=== PATIENT | male | born 1945 | race African-American/Black ===

== ENCOUNTER 2020-08-18 04:19 | Day surgery (SDC) | payer OTHER ==
[2020-08-16 19:01] VITALS: BMI 33.9
--- OUTSIDE RECORDS SUMMARY | 2020-08-18 04:35 | XMS ---
:1945 Author Organization [facility] Care Team Providers Name Role Phone MD Yajaira Lea Unavailable Unavailable Samuel, Jd Unavailable Unavailable Maynor, Deshawn Unavailable Unavailable Karlee, Chapo Unavailable Unavailable Kaniefrod, Josesito Unavailable Unavailable Other, Doctor Unavailable Unavailable MD Scott Lea Unavailable Unavailable Re-disclosure Warning The records that you are about to access may contain information from federally- assisted alcohol or drug abuse programs. If such information is present, then the following federally mandated warning applies: This information has been disclosed to you from records protected by federal confidentiality rules (42 CFR part 2). The federal rules prohibit you from making any further disclosure of this information unless further disclosure is expressly permitted by the written consent of the person to whom it pertains or as otherwise permitted by 42 CFR part 2. A general authorization for the release of medical or other information is NOT sufficient for this purpose. The Federal rules restrict any use of the information to criminally investigate or prosecute any alcohol or drug abuse patient.The records that you are about to access may contain highly sensitive health information, the redisclosure of which is protected by Article 27-F of the [facility] Public Health law. If you continue you may haveaccess to information: Regarding HIV / AIDS; Provided by facilities licensed or operated by the [facility] Office of Mental Health; or Provided by the [facility] Office for People With Developmental Disabilities. If such information is present, then the following [facility] mandated warning applies: This information has been disclosed to you from confidential records which are protected by state law. State law prohibits you from making any further disclosure of this information without the specific written consent of the person to whom it pertains, or as otherwise permitted by law. Any unauthorized further disclosure in violation of state law may result in a fine or chcf sentence or both. A general authorization for the release of medical or other information is NOT sufficient authorization for further disclosure. Encounters Encounter Providers Location Date Indications Data Source(s ) Outpatient Attender: MD Gates 5T-RAD DEPT 08/09/2020 [facility] 10:40:00 AM Hospital EDT - 08/09/2020 11:59:00 PM EDT Patient discharged. Inpatient Attender: Jd Davis5T 06/26/2020 K92.2 Lower [facility] KooAttender: Chapo 09:57:00 PM EDT - GI bleed [facility] DysonAttender: Doctor 06/27/2020 OtherAdmitter: 11:25:00 AM EDT Jd Samuel K92.2 Lower GI bleed Patient discharged. Outpatient Attender: MD Chavez 5T-RAD DEPT 08[facility]06[facility]2019 [facility] RED[facility] - 08/06/2019 [facility] 11:59:00 PM EDT Patient discharged. Emergency Attender: Josesito 5T-EMERG 06/28/2019 03:05[facility] 04:46:00 PM EDT HIGH BLOOD SUGAR Patient discharged. Emergency Attender: Deshawn 5T-EMERG 10/31/2018 10:15:00 CHEST PAIN [facility] Maynor EST - 10/31/2018 [facility] 03:50:00 PM EST CHEST PAIN Immunizations Vaccine Date Status Description Data Source(s) Tdap 06/20/2018 12:00:00 completed Tdap On: 20-Jun-[address] [facility] EDT Lot #: [id number] System Medications Medication Brand Start Product Dose Route Administrative [facility] Indications Reaction Description Data Name Date Form Instructions Instructions Source(s) Simvastatin simvastatin 06/27/2020 1 [id number] active simvastatin 10 mg oral tablet; 1 tab(s) orally once a day (at bedtime) Ordered: 27-Jun-2020 Start: 27-Jun-2020 [facility] 10 MG Oral 10 mg oral 11:02:45 AM {tab(s)} Quantity: 0 Martita Rich Health Tablet tablet EDT Refills: 0 System simvastatin 10 mg oral tablet Verapamil verapamil 06/02/2018 1 [id number] complet verapamil 240 mg/12 hours oral tablet, extended release; 1 tab(s) orally once a day Ordered: 02-Jun-2018 Start: 02-Jun-2018 [facility] hydrochlorid 240 mg/12 09:51:07 AM {tab(s)} ed Quantity: 0 Rody Cherry Status: No Longer Active Health e 240 MG hours oral EDT Refills: 0 System Extended tablet, Release Oral extended Tablet release verapamil 240 mg/12 hours oral tablet, extended release Simvastatin simvastatin 06/02/2018 1 [id number] aborted simvastatin 10 mg oral tablet; 1 tab(s) orally once a day (at bedtime) Ordered: 02-Jun-2018 Start: 02-Jun-2018 [facility] 10 MG Oral 10 mg oral 09:51:03 AM {tab(s)} Quantity: 0 oRdy Cherry Status: Discontinued Health Tablet tablet EDT Refills: 0 System simvastatin 10 mg oral tablet Benazepril benazepril 5 06/02/2018 1 [id number] complet benazepril 5 mg oral tablet; 1 tab(s) orally once a day Ordered: 02-Jun-2018 Start: 02-Jun-2018 [facility] hydrochlorid mg oral 09:50:34 AM {tab(s)} ed Quantity: 0 Rody Cherry Status: No Longer Active Health e 5 MG Oral tablet EDT Refills: 0 System Tablet benazepril 5 mg oral tablet Atropine Sulfate 0.025 diphenoxylate-atropine 07/11/2017 2 C3828 8 aborted Lomotil [facility] MG / Diphenoxylate 2.5 mg-0.025 mg oral 10:07:51 AM {tab(s)} Health Hydrochloride 2.5 MG tablet EDT System Oral Tablet diphenoxylate-atropine 2.5 mg-0.025 mg oral tablet Caution federal law prohibits the transf er of this drug to any person other than the person for whom it was prescribed.May ca use drowsiness. Alcohol may intensify this effect. Use care when operating [employer]. Acetaminophen 325 MG / oxyCODONE-acetaminophen 07/11/2017 1 C 73371 completed Acetaminophen-OxyCODONE [facility] Oxycodone Hydrochloride 5 mg-325 mg oral tablet 08:25:28 AM {tab(s)} Hydrochloride Health 5 MG Oral Tablet EDT Sys tem oxyCODONE-acetaminophen 5 mg-325 mg oral tablet Caution federal law prohibits the transf er of this drug to any person other than the person for whom it was prescribed.May ca use drowsiness. Alcohol may intensify this effect. Use care when operating [employer].This prescription cannot be refilled.This product contains acetamino phen. Do not use with any other product containing acetaminophen to prevent poss ible liver damage.Using more of this medication than prescribed may cause ser ious breathing problems. Sulfamethoxazole 800 MG / sulfamethoxazole-trimethoprim 07/11/2017 1 I39475 aborted Sulfamethoxazole-Trimethoprim [facility] Trimethoprim 160 MG Oral 800 mg-160 mg oral tablet 08:24:21 AM {tab( s)} DS Health Tablet EDT System sulfamethoxazole-trimethoprim 800 mg-160 mg oral tablet Avoid prolonged or excessive exposure to direct and/or artificial sunlight while taking this medication.Finish all this m edication unless otherwise directed by prescriber.Medication should be taken wi th plenty of water. Naproxen 500 EC-Naprosyn 04/08/2016 1 P51024 complet ed EC-Naprosyn 500 mg oral delayed release tablet; 1 tab(s) orally 2 times a day, As Needed - PRN PAIN Ordered: 08-Apr-2016 Start: 08-Apr-2016 End: 08-May-2016 [facility] MG Delayed 500 mg oral 12:42:23 PM {tab(s)} Quantity: 20 Les Momin Status: No Longer Active Health Release Oral delayed EDT Refills: 0 Generic Substitution Allowed System Tablet release Comme nts: Check with your doctor before becoming .It is very important that you take or use this exactly as directed. Do not skip doses or discontinue unless directed by your doctor.May cause drowsiness [Naprosyn] tablet EC-Naprosyn 500 mg oral delayed release tablet Check with your doctor before becoming p regnant.It is very important that you take or use this exactly as directed. Do not sk ip doses or discontinue unless directed by your doctor.May cause drowsiness or dizz iness.Obtain medical advice before taking any non-prescription drugs as some may affec t the action of this medication.Swallow whole. Do not crush.Take with food or m ilk. 200 ACTUAT ipratropium 11/30/2015 1 [id number] completed ipratropium CFC free 17 mcg/inh inhalation aerosol; 1 puff(s) inhaled 2 times a day Ordered: 30-Nov-2015 Start: 30-Nov-2015 [facility] Ipratropium CFC free 17 10:49:38 AM {puff(s)} Quantity: 0 Unique Fine Status: No Longer Active Health [place] mcg/inh EST Refills: 0 System 0.017 inhalation MG/ACTUAT aerosol Metered Dose Inhaler ipratropium CFC free 17 mcg/inh inhalation aerosol pantoprazole pantoprazole 11/30/2015 1 {tab(s)} G98940 c ompleted pantoprazole 40 mg oral delayed release tablet; 1 tab(s) orally once a day Ordered: 30-Nov-2015 Start: 30-Nov-2015 End: 20-Dec-2015 [facility] 40 MG 40 mg oral 12:00:00 AM [place] ty: 20 Unique Fine Status: No Longer Active Health Delayed delayed EST Refills: 0 System Release Oral release Tablet tablet pantoprazole 40 mg oral delayed release tablet gabapentin gabapentin 07/22/2015 1 {cap(s)} K21010 compl eted gabapentin 100 mg oral capsule; 1 cap(s) orally every 8 hours for facial pain Ordered: 22-Jul-2015 Start: 22-Jul-2015 End: 01-Aug-2015 [facility] 100 MG Oral 100 mg oral 04:12:43 PM Quantity: 30 Joselo Rosenthal Status: No Longer Active Health Capsule capsule EDT Refills: 0 Generic Substitution Allowed System gabapentin 100 mg oral capsule It is very important that you take or us e this exactly as directed. Do not skip doses or discontinue unless directed by your doctor.May cause drowsiness. Alcohol may intensify this effect. Use care whe n operating dangerous machinery. Azithromycin azithromycin 07/22/2015 1 S14362 completed Azithromycin [facility] 500 MG Oral 500 mg oral 04:12:23 PM {tab(s)} Health Tablet tablet EDT System azithromycin 500 mg oral tablet Do not take dairy products, antacids, or iron preparations within one hour of this medication.Finish all this medication un less otherwise directed by prescriber. Butalbital 0 U05342 aborted Butalbita l Compound; orally , As Needed Ordered: 22-Jul-2015 Status: Discontinued [facility] Compound Quantity: 0 Dhiraj Mashalot-[employer] Refills: 0 System 24 HR GlipiZIDE XL 1 {tab(s)} D99283 aborted GlipiZIDE [facility] Glipizide 5 5 mg oral XL Hea lth MG Extended tablet, Syste m Release Oral extended Tablet release GlipiZIDE XL 5 mg oral tablet, extended release Benazepril benazepril 1 K67467 aborted benazepril 40 mg oral tablet; 1 tab(s) orally once a day Ordered: 27-May-2015 Status: Discontinued [facility] hydrochloride 40 mg oral {tab(s)} Q uantity: 0 MauroCDEL [facility] 40 MG Oral tablet Refills: 0 System Tablet benazepril 40 mg oral tablet Atropine Sulfate 0.025 diphenoxylate-atropine 2 G94277 completed Lomotil [facility] MG / Diphenoxylate 2.5 mg-0.025 mg oral {tab(s)} Health Hydrochloride 2.5 MG tablet System Oral Tablet diphenoxylate-atropine 2.5 mg-0.025 mg oral tablet Metformin metFORMIN 1 L68521 completed metFORMIN 1000 mg oral tablet; 1 tab(s) orally 2 times a day Ordered: 27-May-2015 Status: No Longer Active [facility] hydrochloride 1000 mg {tab(s)} Sterling tity: 0 [employer] 1000 MG Oral oral Refills: 0 System Tablet tablet metFORMIN 1000 mg oral tablet Simvastatin 10 simvastati 0 C14494 aborted simvastatin 10 mg oral tablet; orally daily Ordered: 29-Nov-2015 Status: Discontinued [facility] MG Oral Tablet n 10 mg Quantit y: 0 [employer] simvastatin 10 oral Refills: 0 System mg oral tablet tablet Simvastatin simvastatin 1 {tab(s)} M57360 completed Simvastatin [facility] 20 MG Oral 20 mg oral Hea lth Tablet tablet System simvastatin 20 mg oral tablet 24 HR metoprolol 0 K43352 completed metoprolol succinate 100 mg oral tablet, extended release; orally Ordered: 27-May-2015 Status: No Longer Active [facility] metoprolol succinate Quantity: 0 Benitez [employer] succinate 100 mg oral Refills: 0 System 100 MG tablet, Extended extended Release release Oral Tablet metoprolol succinate 100 mg oral tablet, extended release Omeprazole omeprazole 1 [id number] aborted omeprazole 40 mg oral delayed release capsule; 1 cap(s) orally once a day Ordered: 27-May-2015 Status: Discontinued [facility] 40 MG 40 mg oral {c Quantity: 0 Johanna Wood Delayed delayed ap Refills: 0 System Release release (s Oral capsule )} Capsule omeprazole 40 mg oral delayed release capsule pantoprazole pantoprazole 1 {tab(s)} E00873 active Pantoprazole [facility] 40 MG Delayed 40 mg oral Health Release Oral delayed Syst em Tablet release tablet pantoprazole 40 mg oral delayed release tablet latanoprost latanoprost 1 O90189 aborted latanoprost 0.005% ophthalmic solution; 1 drop(s) to both eyes once a day (in the evening) Ordered: 10-May-2017 Status: Discontinued [facility] 0.05 MG/ML 0.005% {gtt} Quantity: 0 DerrickPriceline Ophthalmic ophthalmic Refills: 0 System Solution solution latanoprost 0.005% ophthalmic solution 24 HR Myrbetriq 25 1 Z05264 aborted Myrbet riq [facility] mirabegron 25 mg oral {tab(s)} Health MG Extended tablet, Syste m Release Oral extended Tablet release [Myrbetriq] Myrbetriq 25 mg oral tablet, extended release Benazepril benazepril 5 1 Z91152 aborted L otensin [facility] hydrochloride 5 mg oral tablet {tab(s)} Health MG Oral Tablet Syste m benazepril 5 mg oral tablet Esomeprazole 40 esomeprazole 1 E06052 completed Esomeprazole [facility] MG Delayed 40 mg oral {cap(s)} Magn esium Health Release Oral delayed Syst em Capsule release esomeprazole 40 capsule mg oral delayed release capsule Loratadine 10 loratadine 10 1 O10669 aborted Loratadine [facility] MG Oral Tablet mg oral tablet {tab(s)} Health loratadine 10 System mg oral tablet sitagliptin Januvia 1 E45752 aborted Januvia 100 mg oral tablet; 1 tab(s) orally once a day Ordered: 28-Jun-2019 Status: Discontinued [facility] 100 MG Oral 100 mg {tab(s)} Quantit y: 0 Pedrito, Zilpha Health Tablet oral Refills: 0 System [Januvia] tablet Januvia 100 mg oral tablet 24 HR metoprolol 1 {tab(s)} B06100 aborted To prol-XL [facility] metoprolol succinate Heal th succinate 200 200 mg oral System MG Extended tablet, Release Oral extended Tablet release metoprolol succinate 200 mg oral tablet, extended release Amlodipine 10 telmisartan- 1 {tab(s)} I76297 aborted AmLODIPine [facility] MG / amlodipine Besylate-Te He alth telmisartan 40 40 mg-10 mg lmi sartan System MG Oral Tablet oral tablet telmisartan-aml odipine 40 mg-10 mg oral tablet 24 HR Verapamil verapamil 1 {cap(s)} P61756 aborted Verelan [facility] hydrochloride 240 mg/24 H ealth 240 MG Extended hours oral System Release Oral capsule, Capsule extended verapamil 240 release mg/24 hours oral capsule, extended release Oxybutynin oxybutynin 0 S05735 completed oxybutynin 5 mg oral tablet; orally once a day Ordered: 10-May-2017 Status: No Longer Active [facility] chloride 5 5 mg oral {tab(s)} Quant ity: 0 Derrick, Manju [facility] MG Oral tablet Refills: 0 System Tablet oxybutynin 5 mg oral tablet Insurance Providers Payer name Policy type / Policy ID Covered Covered republican's Policy Plan Coverage type republican ID relationship to Ley Information ley FARWELL [id number] HEALTHCARE (MEDICARE) [facility]/Care Commercial [id number] [facility] Commercial [id number] HIP VIP Medicare Medicare BERTRAM Medicare [id number] 1 [id number] Medicare Part Medicare [id number] 1 [id number] A Medicaid Medicaid [id number] Medicare Part Medicare [id number] 1 [id number] B Outpatient Medicare BERTRAM Medicare [id number] 1 [id number] Medicare Part Medicare [id number] A Medicare Part Medicare [id number] 1 [id number] B Outpatient Medicare-Blue [id number] S [id number] Cross/Blue Shield Medicare [id number] S [id number] A [facility] Services Problems, Conditions, and Diagnoses Code Display Name Description Problem Type Effective Data Sour ce(s) Dates K92.2 Lower GI bleed Lower GI bleed 56300-3 06/27/2020 [facility] 12:00:00 [facility] System EDT R06.02 [place] [address]-9 06/26/2020 [facility] at rest breath at rest 12:00:00 AM Health Sy stem EDT R42 Lightheaded Lightheaded 27367-8 11/29/2015 [facility] 12:00:00 AM Health System EST R07.9 Chest pain Chest pain 82921-7 11/29/2015 [facility] 12:00:00 AM Health System EST J44.9 Chronic obstructive Chronic Problem Baldom[facility] yoana pulmonary disease, obstructive family member alth System unspecified COPD pulmonary type disease, unspecified COPD type E11.9 Type 2 diabetes Type 2 diabetes Problem [facility] mellitus without mellitus without family member Health System complication complication I10 Essential Essential Problem [facility] hypertension hypertension family member Health System R07.9 Chest pain at rest Chest pain at Problem [facility] rest family member Health Syst em 785.1 Palpitations Palpitations Problem [facility] family member Health Syst em 784.0 Headache Headache Problem [facility] family member Health Syst em 780.4 Dizziness Dizziness Problem [facility] family member Health Syst em 785.1 PALPITATIONS Palpitations Diagnosis 08/09/2020 [facility] EDT 784.0 HEADACHE Headache Diagnosis 08/09/2020 [facility] 10:[facility] EDT 780.4 DIZZINESS AND Dizziness Diagnosis 08/09/2020 [facility] GIDDINESS 10:40:00 [facility] EDT R42 Dizziness and Lightheaded Diagnosis 08/09/2020 [facility] giddiness 10:40:00 [facility] EDT R07.9 Chest pain, Chest pain Diagnosis 08/09/2020 [facility] unspecified 10:40:00 AM [facility] EDT Z68.37 Body mass index Adult BMI Diagnosis 08/09/2020 [facility] nt (BMI) 37.0-37.9, 37.0-37.9 kg/sq m 10:40:00 AM [facility] adult EDT E11.9 Type 2 diabetes Type 2 diabetes Diagnosis 06/27/2020 [facility] mellitus without mellitus without 12:37:00 AM [facility] complications complication EDT R06.02 Shortness of breath Shortness of Diagnosis 06/27/2020 [facility] breath [facility] bleed K92.2 Lower GI Diagnosis 06/27/2020 [facility] bleed 12:37:00 AM [facility] EDT K92.2 Gastrointestinal Lower GI bleed Diagnosis 06/27/2020 [facility] hemorrhage, 12:37:00 AM [facility] unspecified EDT I10 Essential (primary) Essential Diagnosis 06/27/2020 [facility] hypertension hypertension 12:37:00 AM [facility] EDT D62 Acute Anemia due to Diagnosis 06/27/2020 [facility] posthemorrhagic acute blood loss 12:37:00 AM [facility] anemia EDT 10036E0 Percutaneous Percutaneous Diagnosis 06/27/2020 [facility] t transfusion of transfusion of 12:00:00 AM [facility] nonautologous frozen nonautologous EDT red cells into frozen red cells peripheral vein into peripheral vein GI BLEED GI BLEED Diagnosis 06/26/2020 [facility] 09:57:00 PM [facility] EDT M25.842 Other specified Cyst of joint of Diagnosis 08/21/2019 [facility] joint disorders, left hand 12:00:00 AM [facility] left hand EDT R73.9 Hyperglycemia, Hyperglycemia Diagnosis 06/28/2019 [facility] ount unspecified 03:05:00 PM [facility] EDT HIGH BLOOD SUGAR HIGH BLOOD SUGAR Diagnosis 06/28/2019 [facility] 03:05:00 PM [facility] EDT M25.562 Pain in left knee Pain in left knee Diagnosis 01/17/2019 [facility] ([place] 03:54:04 PM [facility]) R07.89 Other chest pain Other chest pain Diagnosis 10/31/2018 [facility]:15:[facility] R51 Headache Headache Diagnosis 10/31/2018 [facility] 10:15:00 AM [facility] EST CHEST PAIN CHEST PAIN Diagnosis 10/31/2018 [facility] 10:15:00 AM [facility] EST Surgeries/Procedures Procedure Description Date Indications Data Source(s) XR Chest PA and Left Lateral 08/09/2020 [facility] XR Chest PA and Left Lateral 11:12:00 AM System EDT - 08/09/2020 11:12:00 AM EDT Standard chest X-ray 06/26/2020 [facility] (procedure) 10:28:00 PM System EDT - 06/26/2020 10:28:00 PM EDT Electrocardiographic 06/26/2020 [facility] procedure (procedure) 10:17:00 PM System EDT - 06/26/2020 10:44:00 PM EDT XR Hand 3 Views-Left XR Hand 08/06/2019 [facility] 3 Views-Left 10:47:00 AM System EDT - 08/06/2019 10:47:00 AM EDT Computed tomography of 11/29/2018 [facility] abdomen (procedure) 09:48:00 AM System EST - 11/29/2018 09:48:[address] Angio Pulmonary with IV 10/31/2018 [facility] Contrast CT Angio Pulmonary 01:26:00 PM System with IV Contrast EST - 10/31/2018 01:26:00 PM EST Computerized axial tomography 10/31/2018 [facility] of brain (procedure) 11:25:00 AM System EST - 10/31/2018 11:25:00 AM EST XR Chest Single AP view XR 10/31/2018 [facility] Chest Single AP view 11:19:00 AM System EST - 10/31/2018 11:19:00 AM EST MV D-Dimer High Sensitivity 10/31/2018 [facility] 10:56:12 AM System EST - 10/31/2018 11:04:00 AM EST Electrocardiographic 10/31/2018 [facility] procedure (procedure) 10:27:19 AM System EST - 10/31/2018 10:18:00 AM EST Diagnostic radiography of 10/18/2018 [facility] abdomen, decubitus and erect 03:42:00 PM System (procedure) EST - 10/18/2018 03:42:00 PM EST US Retroperitoneal Complete 09/27/2018 [facility] US Retroperitoneal Complete 09:29:00 AM System EST - 09/27/2018 09:29:00 AM EST XR Hip Uni 2-3 Views Right - 07/30/2018 [facility] 65312 XR Hip Uni 2-3 Views 09:55:00 AM S ystem Right - 46921 EDT - 07/30/2018 09:55:00 AM EDT Electrocardiographic 06/09/2018 [facility] (procedure) 10:29:32 AM System EDT - 06/09/2018 08:33:00 AM EDT XR Chest Single AP view XR 06/09/2018 [facility] Chest Single AP view 09:30:00 AM System EDT - 06/09/2018 09:30:00 AM EDT Type + Crossmatch 06/09/2018 [facility] 08:57:42 AM System EDT - 06/09/2018 08:58:00 AM EDT Electrocardiographic 05/30/2018 [facility] procedure (procedure) 12:32:00 PM System EDT - 05/30/2018 01:06:00 PM EDT Electrocardiographic 05/28/2018 [facility] procedure (procedure) 07:30:00 AM System EDT - 05/28/2018 09:36:00 AM EDT Computed tomography of 05/27/2018 [facility] abdomen (procedure) 04:26:00 PM System EDT - 05/27/2018 04:26:00 PM EDT XR Chest Single AP view XR 05/27/2018 [facility] Chest Single AP view 11:02:00 AM System EDT - 05/27/2018 11:02:00 AM EDT Electrocardiographic 05/27/2018 [facility] (procedure) 10:43:41 AM System EDT - 05/27/2018 10:05:[address] Abdomen and Pelvis with 03/14/2018 [facility] Oral Contrast only & Recons 09:26:[address] Abdomen and Pelvis with EDT - Oral Contrast only & Recons 03/14/2018 09:26:[address] Angio Pulmonary with IV 03/05/2018 [facility] Contrast CT Angio Pulmonary 05:34:00 PM System with IV Contrast EDT - 03/05/2018 05:34:00 PM EDT XR Chest Single AP view XR 03/05/2018 [facility] Chest Single AP view 02:41:00 PM System EDT - 03/05/2018 02:41:00 PM EDT Electrocardiographic 03/05/2018 [facility] procedure (procedure) 01:27:00 PM System EDT - 03/05/2018 01:29:00 PM EDT Electrocardiographic 06/11/2017 [facility] procedure (procedure) 12:21:00 PM System EDT - 06/11/2017 12:21:00 PM EDT XR Chest PA and Left Lateral 06/11/2017 [facility] XR Chest PA and Left Lateral 11:47:00 AM System EDT - 06/11/2017 11:47:00 AM EDT US Doppler Carotid US Doppler 03/20/2017 [facility] Carotid Bilateral 01:01:00 PM System EDT - 03/20/2017 01:01:00 PM EDT Computerized axial tomography 05/26/2016 [facility] of brain (procedure) 10:12:00 AM System EDT - 05/26/2016 10:12:00 AM EDT Electrocardiographic 05/26/2016 [facility] procedure (procedure) 09:39:09 AM System EDT - 05/26/2016 10:04:00 AM EDT XR Chest Single AP view XR 04/08/2016 [facility] Chest Single AP view 10:06:00 AM System EDT - 04/08/2016 10:06:00 AM EDT Electrocardiographic 11/29/2015 [facility] procedure (procedure) 01:22:11 PM System EST - 11/29/2015 03:25:00 PM EST r/o ACS Computerized axial tomography of 11/29/2015 10:55:00 A M [facility] brain (procedure) EST - 11/29/2015 System 10:55:00 AM EST XR Chest PA and Left Lateral XR 11/29/2015 10:02:00 AM [facility] Chest PA and Left Lateral EST - 11/29/2015 System 10:02:00 AM EST Electrocardiographic procedure 11/29/2015 08:49:00 AM [facility] (procedure) EST - 11/29/2015 System 09:11:00 AM EST XR Chest Single AP view XR Chest 07/22/2015 08:30:00 A M [facility] Single AP view EDT - 07/22/2015 System 08:30:00 AM EDT Electrocardiographic procedure 07/22/2015 08:24:19 AM [facility] (procedure) EDT - 07/22/2015 System 09:09:00 AM EDT NM Spec Myocardial Perfusion 05/27/2015 08:39:00 AM [facility] Stress + Cardio Stress NM Spec EDT - 05/27/2015 System Myocardial Perfusion Stress + 08:39:00 AM EDT Cardio Stress Venipuncture 11/06/2014 01:23:59 PM [facility] EST - 11/06/2014 System 03:00:04 PM EST Venipuncture 07/03/2014 07:53:36 AM [facility] EDT - 07/03/2014 System 09:00:03 AM EDT Venipuncture 06/12/2014 08:21:22 AM [facility] EDT - 06/12/2014 System 10:00:04 AM EDT Venipuncture 05/20/2014 08:22:55 AM [facility] EDT - 05/20/2014 System 12:00:00 AM EDT Venipuncture 04/24/2014 08:24:45 AM [facility] EDT - 04/24/2014 System 12:00:00 AM EDT Venipuncture 04/10/2014 08:05:20 AM [facility] EDT - 04/10/2014 System 12:00:00 AM EDT Venipuncture 03/23/2014 09:04:12 AM [facility] EDT - 03/23/2014 System 12:00:00 AM EDT Venipuncture 03/13/2014 08:10:24 AM [facility] EDT - 03/13/2014 System 12:00:00 AM EDT Venipuncture 02/27/2014 08:14:53 AM [facility] EDT - 02/27/2014 System 12:00:00 AM EDT Venipuncture 02/13/2014 07:58:47 AM [facility] EDT - 02/13/2014 System 12:00:00 AM EDT Venipuncture 02/02/2014 12:28:36 PM [facility] EDT - 02/02/2014 System 12:00:00 AM EDT US Abdomen Complete US Abdomen 01/27/2014 09:03:00 AM [facility] Complete EDT - 01/27/2014 System 09:03:00 AM EDT Venipuncture 01/23/2014 07:57:56 AM [facility] EST - 01/23/2014 System 12:00:00 AM EST Venipuncture 01/09/2014 08:30:37 AM [facility] EST - 01/09/2014 System 12:00:00 AM EST Electrocardiographic procedure 12/27/2013 09:28:10 AM [facility] (procedure) EST - 12/27/2013 System 10:24:00 AM EST XR Chest Single AP view XR Chest 12/27/2013 09:28:00 A M [facility] Single AP view EST - 12/27/2013 System 09:28:00 AM EST Venipuncture 12/19/2013 07:46:17 AM [facility] EST - 12/19/2013 System 12:00:00 AM EST XR Chest PA and Left Lateral XR 12/18/2013 01:34:00 PM [facility] Chest PA and Left Lateral EST - 12/18/2013 System 01:34:00 PM EST Venipuncture 12/05/2013 08:18:44 AM [facility] - 12/05/2013 System 12:00:00 AM EST Venipuncture 11/28/2013 07:55:54 AM [facility] EST - 11/28/2013 System 12:00:00 AM EST Venipuncture 11/14/2013 07:55:03 AM [facility] EST - 11/14/2013 System 12:00:00 AM EST Venipuncture 10/29/2013 08:07:20 AM [facility] EST - 10/29/2013 System 12:00:00 AM EST Venipuncture 10/22/2013 08:28:42 AM [facility] EST - 10/22/2013 System 12:00:00 AM EST US Doppler Carotid US Doppler 10/17/2013 10:35:00 AM [facility] Carotid Bilateral EST - 10/17/2013 System 10:35:00 AM EST Venipuncture 10/15/2013 08:01:39 AM [facility] EST - 10/15/2013 System 12:00:00 AM EST Venipuncture 10/01/2013 07:55:21 AM [facility] EST - 10/01/2013 System 12:00:00 AM EST Venipuncture 09/17/2013 08:30:48 AM [facility] EDT - 09/17/2013 System 12:00:00 AM EDT Venipuncture 09/03/2013 08:07:54 AM [facility] EDT - 09/03/2013 System 12:00:00 AM EDT Venipuncture 08/27/2013 08:03:27 AM [facility] EDT - 08/27/2013 System 12:00:00 AM EDT Venipuncture 08/13/2013 08:19:40 AM [facility] EDT - 08/13/2013 System 12:00:00 AM EDT Venipuncture 07/30/2013 07:49:54 AM [facility] EDT - 07/30/2013 System 12:00:00 AM EDT Venipuncture 07/16/2013 07:55:50 AM [facility] EDT - 07/16/2013 System 12:00:00 AM EDT Venipuncture 07/02/2013 08:13:36 AM [facility] EDT - 07/02/2013 System 12:00:00 AM EDT Venipuncture 06/06/2013 07:54:59 AM [facility] EDT - 06/06/2013 System 12:00:00 AM EDT Venipuncture 05/21/2013 08:07:19 AM [facility] EDT - 05/21/2013 System 12:00:00 AM EDT Venipuncture 05/14/2013 08:12:15 AM [facility] EDT - 05/14/2013 System 12:00:00 AM EDT Venipuncture 05/07/2013 08:17:26 AM [facility] EDT - 05/07/2013 System 12:00:00 AM EDT Venipuncture 04/30/2013 08:30:05 AM [facility] EDT - 04/30/2013 System 12:00:00 AM EDT Venipuncture 04/23/2013 08:30:53 AM [facility] EDT - 04/23/2013 System 12:00:00 AM EDT Venipuncture 04/16/2013 08:46:02 AM [facility] EDT - 04/16/2013 System 12:00:00 AM EDT Venipuncture 04/09/2013 08:18:08 AM [facility] EDT - 04/09/2013 System 12:00:00 AM EDT Venipuncture 04/02/2013 08:24:32 AM [facility] EDT - 04/02/2013 System 12:00:00 AM EDT Computerized axial tomography of 03/31/2013 10:35:00 A M [facility] brain (procedure) EDT - 03/31/2013 System 10:35:00 AM EDT US Doppler Carotid US Doppler 03/30/2013 11:31:00 AM [facility] Carotid Bilateral EDT - 03/30/2013 System 11:31:00 AM EDT Electrocardiographic procedure 03/30/2013 07:30:00 AM [facility] (procedure) EDT - 03/30/2013 System 10:09:00 AM EDT Echocardiography, real-time with 03/29/2013 12:35:00 P M [facility] image documentation with M-mode EDT - 03/30/2013 System recording, complete (procedure) 11:44:00 AM EDT Electrocardiographic procedure 03/29/2013 09:31:52 AM [facility] (procedure) EDT - 03/29/2013 System 10:00:00 AM EDT Venipuncture 03/29/2013 09:31:00 AM [facility] EDT - 03/29/2013 System 10:09:02 AM EDT XR Chest Single AP view Rad Image 03/29/2013 09:31:00 AM [facility] EDT - 03/29/2013 System 09:31:00 AM EDT Computerized axial tomography of 03/29/2013 09:31:00 A M [facility] brain (procedure) EDT - 03/29/2013 System 09:31:00 AM EDT Venipuncture 03/28/2013 08:11:47 AM [facility] EDT - 03/28/2013 System 12:00:00 AM EDT Venipuncture 03/26/2013 08:05:34 AM [facility] EDT - 03/26/2013 System 12:00:00 AM EDT Venipuncture 03/21/2013 08:16:20 AM [facility] EDT - 03/21/2013 System 12:00:00 AM EDT Auto Differential 03/12/2013 11:59:00 AM [facility] EDT - 03/12/2013 System 08:48:00 AM EDT Auto Differential 03/07/2013 11:09:00 AM [facility] EDT - 03/07/2013 System 09:00:00 AM EDT Electrocardiographic procedure 02/14/2013 11:56:52 AM [facility] (procedure) EDT - 02/14/2013 System 12:55:00 PM EDT XR Chest Single AP view XR Chest 01/17/2013 02:43:00 P M [facility] Single AP view EST - 01/17/2013 System 02:43:00 PM EST Electrocardiographic procedure 01/17/2013 11:58:00 AM [facility] (procedure) EST - 01/17/2013 System 12:15:00 PM EST Electrocardiographic procedure 09/27/2012 01:44:04 PM [facility] (procedure) EST - 09/27/2012 System 02:10:50 PM EST Electrocardiographic procedure 08/20/2012 08:39:00 AM [facility] (procedure) EDT - 08/20/2012 System 11:14:00 AM EDT Electrocardiographic procedure 08/19/2012 08:11:00 AM [facility] (procedure) EDT - 08/19/2012 System 02:47:00 PM EDT XR Chest PA and Left Lateral XR 08/18/2012 08:31:00 PM [facility] Chest PA and Left Lateral EDT - 08/18/2012 System 08:31:00 PM EDT Computerized axial tomography of 08/18/2012 06:46:00 P M [facility] brain (procedure) EDT - 08/18/2012 System 06:46:00 PM EDT US Doppler Carotid US Doppler 08/02/2012 10:57:00 AM [facility] Carotid Bilateral EDT - 08/02/2012 System 10:57:00 AM EDT Computerized axial tomography of 05/12/2012 09:41:00 P M [facility] brain (procedure) EDT - 05/12/2012 System 09:41:00 PM EDT Diagnostic radiography of abdomen, 05/12/2012 09:34:00 PM [facility] decubitus and erect (procedure) EDT - 05/12/2012 System 09:34:00 PM EDT XR Chest PA and Left Lateral XR 05/12/2012 09:34:00 PM [facility] Chest PA and Left Lateral EDT - 05/12/2012 System 09:34:00 PM EDT Electrocardiographic procedure 05/12/2012 09:16:46 PM [facility] (procedure) EDT - 05/12/2012 System 09:25:24 PM EDT XR Esophagram Barium 02/01/2012 09:50:00 AM [facility] EDT - 02/01/2012 System 09:50:00 AM EDT also small bowel follow through Radiologic examination of upper 02/01/2012 08:00:00 AM [facility] gastrointestinal tract and small EDT - 02/01/2012 System bowel with serial films 08:00:00 AM EDT (procedure) US Renal 01/31/2012 03:16:00 PM [facility] EDT - 01/31/2012 System 03:16:00 PM EDT US Abdomen Complete US Abdomen 01/31/2012 03:09:00 PM [facility] Complete EDT - 01/31/2012 System 03:09:00 PM EDT Type and Screen 01/30/2012 12:16:00 [facility] - 01/30/2012 System 12:46:00 PM EDT XR Chest PA and Left Lateral XR 01/30/2012 11:36:00 AM [facility] Chest PA and Left Lateral EDT - 01/30/2012 System 11:36:00 AM EDT Electrocardiographic procedure 01/30/2012 11:35:00 AM [facility] (procedure) EDT - 01/30/2012 System 12:06:00 PM EDT Results ID Date Data Source [id number] 09/26/2011 12:00:[address] [facility] System Name Value Range Interpretation Description Data Sup porting Code Source(s) Document(s ) Leukocytes 8.4 Normal (applies WBC Count [facility] [#/volume] in {10\\S\\3_ to non-numeric Health Unspecified uL} results) System specimen by Automated count Hemoglobin 12.8 Below low normal Hemoglobin, [facility] [Mass/volume] in {gm/dL} Whole Blood Health Blood System Erythrocytes 4.98 Normal (applies RBC Count [facility] [#/volume] in {10\\S\\6_ to non-numeric Health Blood by uL} results) System Automated count Hematocrit 39.9 % Below low normal Hematocrit, [facility] [Volume Whole Blood Health Fraction] of System Blood Erythrocyte mean 80.1 fl Below low normal MCV [facility] corpuscular Health volume [Entitic System volume] by Automated count Erythrocyte 16.5 % Above high normal RDW [facility] distribution Health width [Entitic System volume] by Automated count Erythrocyte mean 25.7 pg Below low normal MCH [facility] corpuscular Health hemoglobin System [Entitic mass] by Automated count Erythrocyte mean 32.1 Below low normal MCHC [facility] corpuscular {gm/dL} Health hemoglobin System concentration [Mass/volume] by Automated count Platelets 221 Normal (applies Platelet [facility] [#/volume] in {10\\S\\3_ to non-numeric Count Health Plasma by uL} results) System Automated count Neutrophils 6.3 Normal (applies Absolute [facility] [#/volume] in {10\\S\\3_ to non-numeric Neutrophil Health Body fluid uL} results) Count System Eosinophils 0.1 Normal (applies Eosinophil [facility] [#/volume] in {10\\S\\3} to non-numeric Count Blood Health Blood results) System Platelet mean 9.4 fl Normal (applies MPV [facility] volume [Entitic to non-numeric Health volume] in Blood results) System by Automated count Monocytes 0.5 Normal (applies Monocyte [facility] [#/volume] in {10\\S\\3_ to non-numeric Count Health Blood by Manual uL} results) System count Neutrophils/100 75.5 % Normal (applies Neutrophil % [place] leukocytes in to non-numeric Health Blood by results) System Automated count Eosinophils/100 1 % Below low normal Eosinophil % [facility] leukocytes in Health Unspecified System specimen Monocytes/100 6 % Normal (applies Monocyte % [facility] leukocytes in to non-numeric Health Blood results) System Basophils 0.01 Normal (applies Basophil [facility] [#/volume] in {10\\S\\3_ to non-numeric Count Health Blood by uL} results) System Automated count Lymphocyte 1.5 Normal (applies Lymphocyte [facility] percent {10\\S\\3_ to non-numeric Absolute Health differential uL} results) System count (procedure) Basophils/100 0 % Normal (applies Basophil % [facility] leukocytes in to non-numeric Health Unspecified results) System specimen by Manual count Lymphocytes 18 % Below low normal Lymphocyte % [facility] [#/volume] in Health Blood by System Automated count ID Date Data Source [id number] 09/26/2011 12:00:00 AM EST [facility] Name Value Range Interpretation Description Data Sup porting Code Source(s) Document(s ) Sodium 138 Normal (applies Sodium, Serum [facility] [Moles/volume mmol/L to non-numeric Health Syst em ] in Serum or results) Plasma Carbon 22.0 Normal (applies CO2, Serum [facility] dioxide, mmol/L to non-numeric Health System total results) [Moles/volume ] in Serum or Plasma Potassium 4.2 Normal (applies Potassium, [facility] [Mass/volume] mmol/L to non-numeric Serum Health Syst em in Serum or results) Plasma Chloride 103 Normal (applies Chloride, [facility] [Moles/volume mmol/L to non-numeric Serum Health Syst em ] in Serum or results) Plasma Creatinine 1.00 Normal (applies Creatinine, [facility] [Mass/volume] mg/dl to non-numeric Serum Health Syst em in Serum or results) Plasma Glucose 270 Above high normal Glucose, Serum [facility] [Mass/volume] mg/dL Health System in Serum or Plasma Urea nitrogen 16 mg/dl Normal (applies Blood Urea [facility] [Mass/volume] to non-numeric Nitrogen, Health Syst em in Serum or results) Serum Plasma Calcium 9.7 Normal (applies Calcium, Total [facility] [Mass/volume] mg/dl to non-numeric Serum Health Syst em in Serum or results) Plasma Anion gap in 13.00 Above high normal Anion Gap [facility] Serum or mmol/L Health System Plasma ID Date Data Source [id number] 09/26/2011 10:14:40 PM EST [facility] RN Collect Name Value Range Interpretation Description Data Sup porting Code Source(s) Document(s ) pH.. 5.0 Normal (applies pH.. [facility] {pH_units} to non-numeric Health results) System Specific gravity Greater Normal (applies Urine [facility] Urine than to non-numeric Specific Health =1.030 results) [place] System Color YELLOW Normal (applies Color [facility] to non-numeric Health results) System Appearance of CLEAR Normal (applies Urine [facility] Urine to non-numeric Appearance Health results) System Protein 30 mg/dl Normal (applies Protein [facility] [Mass/volume] in to non-numeric Health Serum or Plasma results) System BilirubinUrine NEGATIVE Normal (applies Bilirubin [facility] to non-numeric Urine Health results) System Negative Glucose,UA Greater than Normal (applies Glucose, UA [facility] =1000 Negative to non-numeric Health Sys tem results) Urobilinogen 0.20 {eu/dL} Normal (applies Urobilinogen UA [facility] [Mass/volume] in to non-numeric Health S yste Urine results) Ketones NEGATIVE Normal (applies Ketones UA [facility] [Mass/volume] in to non-numeric Health S yste Urine results) Negative Nitrate+Nitrite NEGATIVE Normal (applies to Nitrite [place] Health [Mass/volume] in non-numeric results) Sy stem Unspecified specimen Negative Leukocytes 0-2 Normal (applies to White Blood Cells [facility] [#/volume] in non-numeric Health System Unspecified results) specimen by Automated count Leukocyte esterase NEGATIVE Normal (applies to Leukocyte Es terase [facility] [Units/volume] in non-numeric Concentration Health System Urine results) Negative UrineBlood MODERATE Abnormal (applies Urine Blood [facility] to non-numeric System results) Bacteria [Presence] many Normal (applies to Bacteria [facility] in Unspecified non-numeric System specimen results) Epithelial cells few Normal (applies to Epithelial [facility] [Presence] in non-numeric System Unspecified specimen results) by Wet preparation RedBloodCells 10-20 Normal (applies to [facility] non-numeric System results) ID Date Data Source [id number] 01/30/2012 11:40:00 AM EDT [facility] Name Value Range Interpretation Description Data Source(s ) Supporting Code Document(s ) DirectAn Negative Normal (applies to Direct [facility] tiglobul non-numeric Antiglobulin Health System inTest. results) Test. ID Date Data Source [id number] 01/30/2012 11:40:00 AM EDT [facility] Name Value Range Interpretation Description Data Sup porting Code Source(s) Document(s ) D Ab [Titer] in Rh Normal (applies Rh Factor, Health System ore Serum or Plasma Positive to non-numeric Whole Blood Health results) System Type A Normal (applies Type Health Systemore to non-numeric Health results) System AntibodyScreen Negative Normal (applies Antibody Health Systemor e to non-numeric Screen Health results) System ID Date Data Source [id number] 01/30/2012 11:40:00 AM EDT [facility] Name Value Range Interpretation Code Description Data Vesta rce(s) Supporting Document(s ) Glucose,U NEGATIVE Normal (applies to Glucose, UA [facility] A non-numeric Health System results) Negative BilirubinUrine NEGATIVE Normal (applies to Bilirubin Urine [facility] non-numeric results) System Negative Protein 30 mg/dl Normal (applies to Protein [facility] [Mass/volume] in non-numeric System Serum or Plasma results) pH.. 5.5 {pH_units} Normal (applies to pH.. [facility] Health non-numeric System results) Ketones NEGATIVE Normal (applies to Ketones UA [facility] Health [Mass/volume] in non-numeric System Urine results) Negative Urobilinogen 0.20 {eu/dL} Normal (applies Urobilinogen UA [facility] [Mass/volume] in to non-numeric Health S ystem Urine results) Leukocyte esterase NEGATIVE Normal (applies Leukocyte Denise ase [facility] [Units/volume] in to non-numeric Concentration Hea lt System Urine results) Negative Nitrate+Nitrite NEGATIVE Normal (applies to Nitrite [facility] [Mass/volume] in non-numeric results) Sy stem Unspecified specimen Negative Specific gravity 1.020 Normal (applies to Urine Specific [facility] of Urine non-numeric [place] System results) Color YELLOW Normal (applies to Color [facility] Health non-numeric System results) Appearance of CLEAR Normal (applies to Urine Appearance [facility] Urine non-numeric System results) UrineBlood TRACE-LYSED Abnormal (applies Urine Blood [facility] to non-numeric System results) ID Date Data Source [id number] 01/30/2012 11:40:00 AM EDT [facility] Name Value Range Interpretation Description Data Sup porting Code Source(s) Document(s ) Prothrombintim 11.70 Normal (applies Prothrombin [facility](PT) to non-numeric time (PT) Health System results) INR in Blood 1.10 Normal (applies INR Result [facility] by Coagulation {Ratio} to non-numeric Health Sys tem assay results) Normal = 0.7-1.1Therapeutic = 2.0-3.0Mec hanical Heart = 3.0-4.5 ID Date Data Source [id number] 01/30/2012 11:40:00 AM EDT [facility] Name Value Range Interpretation Description Data Sup porting Code Source(s) Document(s ) Natriuretic Less Normal (applies Brain [facility] peptide B than to non-numeric Natriuretic Health System [Mass/volume] 10.0 results) Peptide in Serum or Plasma ID Date Data Source [id number] 01/30/2012 11:40:00 AM EDT [facility] Name Value Range Interpretation Description Data Sup porting Code Source(s) Document(s ) Leukocytes 7.9 Normal (applies WBC Count [facility] [#/volume] in {10\\S\\3_ to non-numeric Health Unspecified uL} results) System specimen by Automated count Erythrocytes 3.95 Below low normal RBC Count [facility] [#/volume] in {10\\S\\6_ Health Blood by uL} System Automated count Hematocrit 28.5 % Below low normal Hematocrit, [facility] [Volume Whole Blood Health Fraction] of System Blood Hemoglobin 8.8 Below low normal Hemoglobin, [facility] [Mass/volume] in {gm/dL} Whole Blood Health Blood System Erythrocyte mean 72.2 fl Below low normal MCV [facility] corpuscular Health volume [Entitic System volume] by Automated count Erythrocyte mean 30.9 Below low normal [facility] corpuscular {gm/dL} Health hemoglobin System concentration [Mass/volume] by Automated count Erythrocyte mean 22.3 pg Below low normal [facility]CH [facility] corpuscular Health hemoglobin System [Entitic mass] by Automated count Erythrocyte 17.3 % Above high normal RDW [facility] distribution Health width [Entitic System volume] by Automated count Platelets 323 Normal (applies Platelet [facility] [#/volume] in {10\\S\\3_ to non-numeric Count Health Plasma by uL} results) System Automated count Platelet mean 9.4 fl Normal (applies MPV [facility] volume [Entitic to non-numeric Health volume] in Blood results) System by Automated count Eosinophils 0.0 Normal (applies Eosinophil [facility] [#/volume] in {10\\S\\3} to non-numeric Count Blood Health Blood results) System Monocytes 0.7 Normal (applies Monocyte [facility] [#/volume] in {10\\S\\3_ to non-numeric Count Health Blood by Manual uL} results) System count Neutrophils 5.8 Normal (applies Absolute [facility] [#/volume] in {10\\S\\3_ to non-numeric Neutrophil Health Body fluid uL} results) Count System Neutrophils/100 73.4 % Normal (applies Neutrophil % [place] leukocytes in to non-numeric Health Blood by results) System Automated count Lymphocyte 1.4 Normal (applies Lymphocyte [facility] percent {10\\S\\3_ to non-numeric Absolute Health differential uL} results) System count (procedure) Basophils 0.01 Normal (applies Basophil [facility] [#/volume] in {10\\S\\3_ to non-numeric Count Health Blood by uL} results) System Automated count Monocytes/100 9 % Normal (applies Monocyte % [facility] leukocytes in to non-numeric Health Blood results) System Basophils/100 0 % Normal (applies Basophil % [facility] leukocytes in to non-numeric Health Unspecified results) System specimen by Manual count Eosinophils/100 1 % Below low normal Eosinophil % [facility] leukocytes in Health Unspecified System specimen Lymphocytes 18 % Below low normal Lymphocyte % [facility] [#/volume] in Health Blood by System Automated count ID Date Data Source [id number] 01/30/2012 11:40:00 AM EDT [facility] Name Value Range Interpretation Description Data Sup porting Code Source(s) Document(s ) Sodium 135 mmol/L Below low Sodium, [facility] [Moles/volume] normal Serum Health in Serum or System Plasma Potassium Cancelled Potassium, [facility] [Mass/volume] spec. hem Serum Health in Serum or System Plasma TotalProtein 8.3 mg/dl Above high Total [facility] normal Protein Health System Carbon dioxide, 22.0 mmol/L Normal (applies CO2, Serum [place] total to non-numeric Health [Moles/volume] results) System in Serum or Plasma Chloride 106 mmol/L Normal (applies Chloride, [facility] [Moles/volume] to non-numeric Serum Health in Serum or results) System Plasma Glucose 119 mg/dL Above high Glucose, [facility] [Mass/volume] normal Serum Health in Serum or System Plasma Creatinine 0.90 mg/dl Normal (applies Creatinine, [facility] [Mass/volume] to non-numeric Serum Health in Serum or results) System Plasma Urea nitrogen 15 mg/dl Normal (applies Blood Urea [facility] [Mass/volume] to non-numeric Nitrogen, Health in Serum or results) Serum System Plasma Bilirubin.total 0.2 mg/dl Normal (applies Bilirubin, [facility] [Mass/volume] to non-numeric Serum Total Health in Serum or results) System Plasma Aspartate 65 {IU/L} Above high Aspartate [facility] aminotransferas normal Transaminase Health e [Enzymatic , Serum System activity/volume ] in Serum or Plasma by With P-5'-P Alkaline 31 {IU/L} Below low Alkaline [facility] phosphatase normal Phosphatase, Health isoenzymes Serum System [Enzymatic activity/volume ] in Serum or Plasma by Heat stability I.Phosphorus 3.0 mg/dl Normal (applies I. [facility] to non-numeric Phosphorus Health results) System Albumin 4.5 {gm/dl} Normal (applies Albumin, [facility] [Mass/volume] to non-numeric Serum Health in Serum or results) System Plasma Calcium 8.7 mg/dl Normal (applies Calcium, [facility] [Mass/volume] to non-numeric Total Serum Health in Serum or results) System Plasma A/GRatio 1.18 Normal (applies A/G Ratio [facility] to non-numeric Health results) System Alanine 23 {IU/L} Normal (applies Alanine [facility] aminotransferas to non-numeric Aminotransfe Health e [Enzymatic results) rase, Serum System activity/volume ] in Serum or Plasma Urate 7.0 mg/dl Normal (applies Uric Acid, [facility] [Mass/volume] to non-numeric Serum Health in Serum or results) System Plasma Glomerular Greater than Normal (applies GFR [facility] filtration 60 eGFR will to non-numeric Health rate/1.73 sq provide results) System M.predicted clinicians [Volume with a more Rate/Area] in accurate Serum or Plasma indicator of by renal function Creatinine-base then the serum d formula creatinine. (CKD-EPI) The eGFR is automatically calculated from an empiric formula (endorsed by the [employer]) which incorporates age, sex, and race.Clinician s may notice surprisingly low GFR's with serum creatinine values within normal range- particularly in elderly women (with low muscle mass).In the hospital setting, the eGFR should add an element of safety in drug dosing, in assessing the risk of IV contrast administration , and in assessing vascular risk.The NKF staging system is as follows:Normal : eGFR >90 with no kidney markersStage 1: eGFR >90 with kidney markers*Stage 2: eGFR 60-89Stage 3: eGFR 30-59Stage 4: eGFR 15-29Stage 5: eGFR <15 (usually requiring dialysis)*Garland ers include: Proteinuria, Hematuria, abnormal imaging-studie s, or other blood or urine test abnormalities Anion gap in 7.00 mmol/L Below low Anion Gap [facility] Serum or Plasma normal Health System ID Date Data Source [id number] 01/30/2012 11:40:00 AM EDT [facility] Name Value Range Interpretation Description Data Sup porting Code Source(s) Document(s ) TroponinIQuantitative 0.00 Normal (applies Troponin I [facility] ng/ml to non-numeric Quantitative Health results) System ID Date Data Source [id number] 01/30/2012 01:20:00 PM EDT [facility] Name Value Range Interpretation Description Data Sup porting Code Source(s) Document(s ) Sodium 140 Normal (applies Sodium, Serum [facility] [Moles/volume mmol/L to non-numeric Health Syst em ] in Serum or results) Plasma Chloride 107 Normal (applies Chloride, [facility] [Moles/volume mmol/L to non-numeric Serum Health Syst em ] in Serum or results) Plasma Potassium 4.3 Normal (applies Potassium, [facility] [Mass/volume] mmol/L to non-numeric Serum Health Syst em in Serum or results) Plasma Carbon 25.0 Normal (applies CO2, Serum [facility] dioxide, mmol/L to non-numeric Health System total results) [Moles/volume ] in Serum or Plasma Glucose 116 Above high normal Glucose, Serum [facility] [Mass/volume] mg/dL Health System in Serum or Plasma Creatinine 0.80 Normal (applies Creatinine, [facility] [Mass/volume] mg/dl to non-numeric Serum Health Syst em in Serum or results) Plasma Urea nitrogen 15 mg/dl Normal (applies Blood Urea [facility] [Mass/volume] to non-numeric Nitrogen, Health Syst em in Serum or results) Serum Plasma Calcium 9.1 Normal (applies Calcium, Total [facility] [Mass/volume] mg/dl to non-numeric Serum Health Syst em in Serum or results) Plasma Anion gap in 8.00 Normal (applies Anion Gap [facility] Serum or mmol/L to non-numeric Health System Plasma results) ID Date Data Source [id number] 01/30/2012 07:37:26 PM EDT [facility] 2nd sample as requested by blood bank (a s per [facility] guidelines) Name Value Range Interpretation Description Data Sup porting Code Source(s) Document(s ) D Ab [Titer] in Rh Normal (applies Rh Factor, [facility] Serum or Plasma Positive to non-numeric Whole Blood Health results) System Type A Normal (applies Type [facility] to non-numeric Health results) System AntibodyScreen Negative Normal (applies Antibody [facility] to non-numeric Screen Health results) System ID Date Data Source [id number] 01/31/2012 07:06:00 AM EDT [facility] Name Value Range Interpretation Description Data Sup porting Code Source(s) Document(s ) Leukocytes 7.9 Normal (applies WBC Count [facility] [#/volume] in {10\\S\\3_ to non-numeric Health Unspecified uL} results) System specimen by Automated count Hematocrit 32.1 % Below low normal Hematocrit, [facility] [Volume Whole Blood Health Fraction] of System Blood Hemoglobin 9.9 Below low normal Hemoglobin, [facility] [Mass/volume] in {gm/dL} Whole Blood Health Blood System Erythrocytes 4.32 Below low normal RBC Count [facility] [#/volume] in {10\\S\\6_ Health Blood by uL} System Automated count Erythrocyte mean 22.9 pg Below low normal MCH [facility] corpuscular Health hemoglobin System [Entitic mass] by Automated count Erythrocyte mean 74.3 fl Below low normal MCV [facility] corpuscular Health volume [Entitic System volume] by Automated count Erythrocyte 17.4 % Above high RDW [facility] distribution normal Health width [Entitic System volume] by Automated count Erythrocyte mean 30.8 Below low normal MCHC [facility] corpuscular {gm/dL} Health hemoglobin System concentration [Mass/volume] by Automated count Polys 64 % Normal (applies Polys [facility] to non-numeric Health results) System Platelet mean 8.9 fl Normal (applies MPV [facility] volume [Entitic to non-numeric Health volume] in Blood results) System by Automated count Platelets 279 Normal (applies Platelet Count [facility] [#/volume] in {10\\S\\3_ to non-numeric Health Plasma by uL} results) System Automated count Lymphocytes 22 % Normal (applies Lymphocyte % [facility] [#/volume] in to non-numeric Health Blood by results) System Automated count Bands 1 % Below low normal Bands [facility] Monocytes/100 9 % Normal (applies Monocyte % [facility] leukocytes in to non-numeric Health Blood results) System Eosinophils/100 3 % Normal (applies Eosinophil % [place] leukocytes in to non-numeric Health Unspecified results) System specimen Basophils/100 1 % Normal (applies Basophil % [facility] leukocytes in to non-numeric Health Unspecified results) System specimen by Manual count Polychromasia 1+ Abnormal Polychromasia [facility] [Presence] in (applies to Health Blood by Light non-numeric System microscopy results) Hypochroma 1+ Abnormal Hypochroma [facility] (applies to Health non-numeric System results) Poikilocytosis 1+ Abnormal Poikilocytosis [facility] [Presence] in (applies to Health Blood by non-numeric System Automated count results) OVAL Few Normal (applies OVAL [facility] to non-numeric Health results) System Platelets Normal Normal (applies Platelet Count [facility] [#/volume] in to non-numeric Estimate Health Blood by results) System Estimate ID Date Data Source [id number] 01/31/2012 07:06:00 AM EDJoshua [facility] System Name Value Range Interpretation Description Data Sup porting Code Source(s) Document(s ) Thyrotropin 1.239 Normal (applies Thyroid [facility] [Mass/volume] to non-numeric Stimulating Health Sy stem in Serum or results) Hormone, Serum Plasma ID Date Data Source [id number] 01/31/2012 07:06:00 AM EDT [facility] Name Value Range Interpretation Description Data Sup porting Code Source(s) Document(s ) Prostate 1.70 Normal (applies Prostate [facility] specific Ag ng/ml to non-numeric Specific Health System [Mass/volume results) Antigen ] in Serum or Plasma The [employer] Total Prostate Anti gen (Total PSA) is a two-site immunoenzymatical ("sandwich") assay for the quantitative measurement of Total PSA (both free and complexed PSA) in human s jacoby. The Total PSA assay is an adjuctive test used as an aid in the management o f prostate caner patients. When comparing patient's PSA results obtained by differ ent methodologies (assway methods/instruments); the results can no t be interchanged. ID Date Data Source [id number] 01/31/2012 07:06:00 AM RANDA wolf System Name Value Range Interpretation Description Data Sup porting Code Source(s) Document(s ) Potassium 4.0 mmol/L Normal (applies Potassium, [facility] [Mass/volume] to non-numeric Serum Health in Serum or results) System Plasma Sodium 139 mmol/L Normal (applies Sodium, [facility] [Moles/volume] to non-numeric Serum Health in Serum or results) System Plasma Chloride 107 mmol/L Normal (applies Chloride, [facility] [Moles/volume] to non-numeric Serum Health in Serum or results) System Plasma Carbon dioxide, 24.0 mmol/L Normal (applies CO2, Serum [place] total to non-numeric Health [Moles/volume] results) System in Serum or Plasma Glucose 97 mg/dL Normal (applies Glucose, [facility] [Mass/volume] to non-numeric Serum Health in Serum or results) System Plasma TotalProtein 6.9 mg/dl Normal (applies Total [facility] to non-numeric Protein Health results) System Creatinine 0.80 mg/dl Normal (applies Creatinine, [facility] [Mass/volume] to non-numeric Serum Health in Serum or results) System Plasma Urea nitrogen 15 mg/dl Normal (applies Blood Urea [facility] [Mass/volume] to non-numeric Nitrogen, Health in Serum or results) Serum System Plasma Bilirubin.total 1.0 mg/dl Normal (applies Bilirubin, [facility] [Mass/volume] to non-numeric Serum Total Health in Serum or results) System Plasma Alkaline 32 {IU/L} Below low Alkaline [facility] phosphatase normal Phosphatase, Health isoenzymes Serum System [Enzymatic activity/volume ] in Serum or Plasma by Heat stability Albumin 4.2 {gm/dl} Normal (applies Albumin, [facility] [Mass/volume] to non-numeric Serum Health in Serum or results) System Plasma I.Phosphorus 3.2 mg/dl Normal (applies I. [facility] to non-numeric Phosphorus Health results) System Aspartate 15 {IU/L} Normal (applies Aspartate [facility] aminotransferas to non-numeric Transaminase Health e [Enzymatic results) , Serum System activity/volume ] in Serum or Plasma by With P-5'-P Alanine 20 {IU/L} Normal (applies Alanine [facility] aminotransferas to non-numeric Aminotransfe Health e [Enzymatic results) rase, Serum System activity/volume ] in Serum or Plasma Calcium 8.9 mg/dl Normal (applies Calcium, [facility] [Mass/volume] to non-numeric Total Serum Health in Serum or results) System Plasma A/GRatio 1.56 Normal (applies A/G Ratio [facility] to non-numeric Health results) System Urate 4.4 mg/dl Normal (applies Uric Acid, [facility] [Mass/volume] to non-numeric Serum Health in Serum or results) System Plasma Glomerular Greater than Normal (applies GFR [facility] filtration 60 eGFR will to non-numeric Health rate/1.73 sq provide results) System M.predicted clinicians [Volume with a more Rate/Area] in accurate Serum or Plasma indicator of by renal function Creatinine-base then the serum d formula creatinine. (CKD-EPI) The eGFR is automatically calculated from an empiric formula (endorsed by the National Kidney Foundation) which incorporates age, sex, and race.Clinician s may notice surprisingly low GFR's with serum creatinine values within normal range- particularly in elderly women (with low muscle mass).In the hospital setting, the eGFR should add an element of safety in drug dosing, in assessing the risk of IV contrast administration , and in assessing vascular risk.The NKF staging system is as follows:Normal : eGFR >90 with no kidney markersStage 1: eGFR >90 with kidney markers*Stage 2: eGFR 60-89Stage 3: eGFR 30-59Stage 4: eGFR 15-29Stage 5: eGFR <15 (usually requiring dialysis)*Garland ers include: Proteinuria, Hematuria, abnormal imaging-studie s, or other blood or urine test abnormalities Anion gap in 8.00 mmol/L Normal (applies Anion Gap [facility] Serum or Plasma to non-numeric Health results) System ID Date Data Source [id number] 08/18/2012 09:15:00 PM EDT [facility] System Name Value Range Interpretation Description Data Sup porting Code Source(s) Document(s ) Natriuretic 11.5 Normal (applies B-Type [facility] peptide B pg/ml to non-numeric Natriuetic Health System [Mass/volume] results) Peptide in Serum or Plasma ID Date Data Source [id number] 08/18/2012 09:15:00 PM EDT [facility] System Name Value Range Interpretation Description Data Sup porting Code Source(s) Document(s ) pH 7.445 Normal (applies pH [facility] {pH_unit to non-numeric Health System s} results) Carbon dioxide 32.0 Normal (applies pCO2, Arterial [facility] [Partial {mm_Hg} to non-numeric Health System pressure] in results) Arterial blood Oxygen 96.3 Normal (applies pO2, Aterial [facility] [Partial {mm_Hg} to non-numeric Health System pressure] in results) Arterial blood Bicarbonate 21.5 Normal (applies HCO3, Venous [facility] [Moles/volume] mmol/L to non-numeric Health Sys tem in Venous results) blood TCO2 22.5 Below low normal TCO2 [facility] mmol/L Health System [id number] 97.4 % Above high normal O2 Saturation [facility] System BaseExcess. -1.6 Normal (applies Base Excess. [facility] mmol/L to non-numeric Health System results) ID Date Data Source [id number] 08/18/2012 09:15:00 PM EDT [facility] System Name Value Range Interpretation Description Data Sup porting Code Source(s) Document(s ) TroponinIQuantitative 0.01 Normal (applies Troponin I [facility] ng/ml to non-numeric Quantitative Health results) System ID Date Data Source [id number] 08/19/2012 06:25:00 AM EDT [facility] System Name Value Range Interpretation Description Data Sup porting Code Source(s) Document(s ) Leukocytes 10.3 Normal (applies WBC Count [facility] [#/volume] in {10\\S\\3_ to non-numeric Health Unspecified uL} results) System specimen by Automated count Erythrocytes 5.12 Normal (applies RBC Count [facility] [#/volume] in {10\\S\\6_ to non-numeric Health Blood by uL} results) System Automated count Hemoglobin 13.5 Below low normal Hemoglobin, [facility] [Mass/volume] in {gm/dL} Whole Blood Health Blood System Hematocrit 42.0 % Normal (applies Hematocrit, [facility] [Volume to non-numeric Whole Blood Health Fraction] of results) System Blood Erythrocyte mean 82.0 fl Below low normal MCV [facility] corpuscular Health volume [Entitic System volume] by Automated count Erythrocyte mean 26.4 pg Normal (applies MCH [facility] corpuscular to non-numeric Health hemoglobin results) System [Entitic mass] by Automated count Erythrocyte mean 32.1 Below low normal MCHC [facility] corpuscular {gm/dL} Health hemoglobin System concentration [Mass/volume] by Automated count Erythrocyte 16.2 % Above high RDW [facility] distribution normal Health width [Entitic System volume] by Automated count Platelets 219 Normal (applies Platelet Count [facility] [#/volume] in {10\\S\\3_ to non-numeric Health Plasma by uL} results) System Automated count Platelet mean 9.0 fl Normal (applies MPV [facility] volume [Entitic to non-numeric Health volume] in Blood results) System by Automated count Polys 79 % Normal (applies Polys [facility] to non-numeric Health results) System Bands 1 % Below low normal Bands [facility] Lymphocytes 14.0 % Below low normal Lymphocyte % [facility] [#/volume] in Health Blood by System Automated count Monocytes/100 6.0 % Normal (applies Monocyte % [facility] leukocytes in to non-numeric Health Blood results) System Eosinophils/100 0.0 % Below low normal Eosinophil % [facility] leukocytes in Health Unspecified System specimen Basophils/100 0.0 % Normal (applies Basophil % [facility] leukocytes in to non-numeric Health Unspecified results) System specimen by Manual count Anisocytosis 1+ Abnormal Anisocytosis [facility] [Presence] in (applies to Health Blood by non-numeric System Automated count results) Platelets Normal Normal (applies Platelet Count [facility] [#/volume] in to non-numeric Estimate Health Blood by results) System Estimate ID Date Data Source [id number] 08/19/2012 06:25:00 AM EDT [facility] Name Value Range Interpretation Description Data Sup porting Code Source(s) Document(s ) Sodium 137 Normal (applies Sodium, Serum [facility] [Moles/volume mmol/L to non-numeric Health Syst em ] in Serum or results) Plasma Potassium 4.4 Normal (applies Potassium, [facility] [Mass/volume] mmol/L to non-numeric Serum Health Syst em in Serum or results) Plasma Chloride 105 Normal (applies Chloride, [facility] [Moles/volume mmol/L to non-numeric Serum Health Syst em ] in Serum or results) Plasma Carbon 20.0 Below low normal CO2, Serum [facility] dioxide, mmol/L Health System total [Moles/volume ] in Serum or Plasma Glucose 205 Above high normal Glucose, Serum [facility] [Mass/volume] mg/dL Health System in Serum or Plasma ok Urea nitrogen 15 mg/dl Normal (applies to Blood Urea [facility] [Mass/volume] in non-numeric Nitrogen, Serum Healt h System Serum or Plasma results) Creatinine 0.90 mg/dl Normal (applies to Creatinine, [facility] [Mass/volume] in non-numeric Serum Health Syst em Serum or Plasma results) Calcium 9.6 mg/dl Normal (applies to Calcium, Total [facility] [Mass/volume] in non-numeric Serum Health Syst em Serum or Plasma results) Anion gap in Serum 12.00 mmol/L Normal (applies to Anion Gap [facility] or Plasma non-numeric Health System results) ID Date Data Source [id number] 08/19/2012 06:25:00 AM EDT [facility] System Name Value Range Interpretation Description Data Sup porting Code Source(s) Document(s ) Triglyceride 37 mg/dl Below low normal Triglycerides, [place] [facility] [Mass/volume] Serum Health in Serum or System Plasma Optimal = < 100 mg/dLBoderline High = 15 0 - 199 mg/dLHigh = 200 - 499 mg/dLVery High = > 500 mg/dL Cholesterol 200 mg/dl Normal (applies Cholesterol, Serum [facility] [Mass/volume] in to non-numeric Health S ystem Serum or Plasma results) <200 mg/dL = [id number] - 239 md/dL = Borderline>240 mg/dL = High Risk Cholesterol in HDL 50.0 mg/dL Normal (applies HDL Cholestero l, [facility] [Mass/volume] in to non-numeric Serum [facility] Serum or Plasma results) Cholesterol in LDL 142.6 mg/dL Normal (applies Low Density [facility] [Mass/volume] in to non-numeric Lipoprotein, [facility] System Serum or Plasma results) Calculated OPTIMAL: LESS THAN 100 mg/dLNEAR OPTIMAL : 100 - 129 mg/dLBODERLINE HIGH: 130 - 150 mg/dL Cholesterol in VLDL 7.4 Normal (applies to VLDL, Serum [facility] [Mass/volume] in Serum non-numeric results) System or Plasma CHDRisk 4.00 Normal (applies to CHD Risk [facility] non-numeric results) System ID Date Data Source [id number] 08/19/2012 06:25:00 AM EDT [facility] alth System Name Value Range Interpretation Code Description Data Vesta rce(s) Supporting Document(s ) HbA1C 7.2 % Above high normal HbA1C [facility] ID Date Data Source [id number] 08/19/2012 06:25:00 AM EDT [facility] Name Value Range Interpretation Description Data Sup porting Code Source(s) Document(s ) Creatine 197 Above high normal Creatine [facility] kinase.MB {IU/L} Kinase, Serum [facility] System [Mass/volume ] in Serum or Plasma ID Date Data Source [id number] 08/20/2012 06:35:00 AM EDT [facility] alth System Name Value Range Interpretation Description Data Sup porting Code Source(s) Document(s ) Leukocytes 13.7 Above high normal WBC Count [facility] [#/volume] in {10\\S\\3_ Health System Unspecified uL} specimen by Automated count ok Erythrocytes 4.83 {10\\S\\6_uL} Normal (applies RBC Count [facility] [#/volume] in Blood to non-numeric [facility] System by Automated count results) Hemoglobin 13.0 {gm/dL} Below low normal Hemoglobin, [facility] [Mass/volume] in Whole Blood Health Syst em Blood Hematocrit [Volume 39.8 % Below low normal Hematocrit, [facility] Fraction] of Blood Whole Blood Health Sy stem Erythrocyte mean 82.4 fl Below low normal MCV [facility] corpuscular volume Health Syst em [Entitic volume] by Automated count Erythrocyte mean 26.9 pg Normal (applies MCH [facility] corpuscular to non-numeric Health System hemoglobin [Entitic results) mass] by Automated count Erythrocyte mean 32.7 {gm/dL} Below low normal [facility]C [facility] corpuscular Health System hemoglobin concentration [Mass/volume] by Automated count Erythrocyte 16.6 % Above high RDW [facility] distribution width normal Health Syst em [Entitic volume] by Automated count Platelets 222 {10\\S\\3_uL} Normal (applies Platelet Count [facility] [#/volume] in to non-numeric Health Syst em Plasma by Automated results) count Platelet mean 8.7 fl Normal (applies MPV [facility] volume [Entitic to non-numeric Health Sy stem volume] in Blood by results) Automated count Monocytes 1.0 {10\\S\\3_uL} Normal (applies Monocyte Count [facility] [#/volume] in Blood to non-numeric Healt h System by Manual count results) Eosinophils 0.0 {10\\S\\3} Normal (applies Eosinophil [facility] [#/volume] in Blood to non-numeric Count Blood Hea lth System results) Neutrophils 11.8 {10\\S\\3_uL} Normal (applies Absolute [place] [#/volume] in Body to non-numeric Neutrophil Healt h System fluid results) Count Basophils 0.00 {10\\S\\3_uL} Normal (applies Basophil Count [facility] [#/volume] in Blood to non-numeric Healt h System by Automated count results) Lymphocyte percent 1.0 {10\\S\\3_uL} Normal (applies Lymphocyt e [facility] differential count to non-numeric Absolute [facility] System (procedure) results) Neutrophils/100 85.7 % Normal (applies Neutrophil % [place] leukocytes in Blood to non-numeric Healt h System by Automated count results) Monocytes/100 6.9 % Normal (applies Monocyte % [facility] leukocytes in Blood to non-numeric Healt h System results) Eosinophils/100 0.0 % Below low normal Eosinophil % [facility] leukocytes in Health System Unspecified specimen Basophils/100 0.0 % Normal (applies Basophil % [facility] leukocytes in to non-numeric Health Syst em Unspecified results) specimen by Manual count Lymphocytes 7.4 % Below low normal Lymphocyte % [facility] [#/volume] in Blood Health Sys tem by Automated count ID Date Data Source [id number] 08/20/2012 06:35:00 AM EDT [facility] Name Value Range Interpretation Description Data Sup porting Code Source(s) Document(s ) Sodium 139 Normal (applies Sodium, Serum [facility] [Moles/volume mmol/L to non-numeric Health Syst em ] in Serum or results) Plasma Potassium 4.6 Normal (applies Potassium, [facility] [Mass/volume] mmol/L to non-numeric Serum Health Syst em in Serum or results) Plasma Chloride 106 Normal (applies Chloride, [facility] [Moles/volume mmol/L to non-numeric Serum Health Syst em ] in Serum or results) Plasma Carbon 23.0 Normal (applies CO2, Serum [facility] dioxide, mmol/L to non-numeric Health System total results) [Moles/volume ] in Serum or Plasma Glucose 171 Above high normal Glucose, Serum [facility] [Mass/volume] mg/dL [facility] System in Serum or Plasma ok Urea nitrogen 18 mg/dl Normal (applies to Blood Urea [facility] [Mass/volume] in non-numeric [facility], [facility] results) Creatinine 0.80 mg/dl Normal (applies to Creatinine, [facility] [facility] [Mass/volume] in non-numeric Serum Health Syst em Serum or Plasma results) Calcium 10.0 mg/dl Normal (applies to Calcium, Total [place] [Mass/volume] in non-numeric Serum Health Syst em Serum or Plasma results) Anion gap in Serum 10.00 mmol/L Normal (applies to Anion Gap [facility] or Plasma non-numeric Health System results) ID Date Data Source [id number] 08/21/2012 06:52:00 AM EDT [facility] Name Value Range Interpretation Description Data Sup porting Code Source(s) Document(s ) Leukocytes 14.3 Above high normal WBC Count [facility] [#/volume] in {10\\S\\3_ Health Unspecified uL} System specimen by Automated count Erythrocytes 5.12 Normal (applies RBC Count [facility] [#/volume] in {10\\S\\6_ to non-numeric Health Blood by uL} results) System Automated count Hemoglobin 13.5 Below low normal Hemoglobin, [facility] [Mass/volume] in {gm/dL} Whole Blood Health Blood System Hematocrit 42.1 % Normal (applies Hematocrit, [facility] [Volume to non-numeric Whole Blood Health Fraction] of results) System Blood Erythrocyte mean 82.2 fl Below low normal MCV [facility] corpuscular Health volume [Entitic System volume] by Automated count Erythrocyte mean 26.4 pg Normal (applies MCH [facility] corpuscular to non-numeric Health hemoglobin results) System [Entitic mass] by Automated count Erythrocyte mean 32.1 Below low normal MCHC [facility] corpuscular {gm/dL} Health hemoglobin System concentration [Mass/volume] by Automated count Erythrocyte 16.5 % Above high normal RDW [facility] distribution Health width [Entitic System volume] by Automated count Platelets 230 Normal (applies Platelet [facility] [#/volume] in {10\\S\\3_ to non-numeric Count Health Plasma by uL} results) System Automated count Platelet mean 8.7 fl Normal (applies MPV [facility] volume [Entitic to non-numeric Health volume] in Blood results) System by Automated count Monocytes 1.1 Normal (applies Monocyte [facility] [#/volume] in {10\\S\\3_ to non-numeric Count Health Blood by Manual uL} results) System count Eosinophils 0.0 Normal (applies Eosinophil [facility] [#/volume] in {10\\S\\3} to non-numeric Count Blood Health Blood results) System Basophils 0.00 Normal (applies Basophil [facility] [#/volume] in {10\\S\\3_ to non-numeric Count Health Blood by uL} results) System Automated count Neutrophils 12.2 Normal (applies Absolute [facility] [#/volume] in {10\\S\\3_ to non-numeric Neutrophil Health Body fluid uL} results) Count System Lymphocyte 0.9 Normal (applies Lymphocyte [facility] percent {10\\S\\3_ to non-numeric Absolute Health differential uL} results) System count (procedure) Neutrophils/100 85.4 % Normal (applies Neutrophil % [place] leukocytes in to non-numeric Health Blood by results) System Automated count Monocytes/100 8.0 % Normal (applies Monocyte % [facility] leukocytes in to non-numeric Health Blood results) System Eosinophils/100 0.0 % Below low normal Eosinophil % [facility] leukocytes in Health Unspecified System specimen Basophils/100 0.0 % Normal (applies Basophil % [facility] leukocytes in to non-numeric Health Unspecified results) System specimen by Manual count Lymphocytes 6.6 % Below low normal Lymphocyte % [facility] [#/volume] in Health Blood by System Automated count ID Date Data Source [id number] 08/21/2012 06:52:00 AM EDT [facility] Name Value Range Interpretation Description Data Sup porting Code Source(s) Document(s ) Sodium 139 Normal (applies Sodium, Serum [facility] [Moles/volume mmol/L to non-numeric Health Syst em ] in Serum or results) Plasma Potassium 4.4 Normal (applies Potassium, [facility] [Mass/volume] mmol/L to non-numeric Serum Health Syst em in Serum or results) Plasma Chloride 103 Normal (applies Chloride, [facility] [Moles/volume mmol/L to non-numeric Serum Health Syst em ] in Serum or results) Plasma Carbon 22.0 Normal (applies CO2, Serum [facility] dioxide, mmol/L to non-numeric Health System total results) [Moles/volume ] in Serum or Plasma Glucose 163 Above high normal Glucose, Serum [facility] [Mass/volume] mg/dL [facility] System in Serum or Plasma Urea nitrogen 20 mg/dl Normal (applies Blood Urea [facility] [Mass/volume] to non-numeric Nitrogen, Health Syst em in Serum or results) Serum Plasma Creatinine 0.90 Normal (applies Creatinine, [facility] [Mass/volume] mg/dl to non-numeric Serum Health Syst em in Serum or results) Plasma Calcium 9.7 Normal (applies Calcium, Total [facility] [Mass/volume] mg/dl to non-numeric Serum Health Syst em in Serum or results) Plasma Anion gap in 14.00 Above high normal Anion Gap [facility] Serum or mmol/L Health System Plasma ID Date Data Source [id number] 09/27/2012 02:00:00 PM EST [facility] Name Value Range Interpretation Code Description Data Vesta rce(s) Supporting Document(s ) Anti-IgG Negative Normal (applies to Anti-IgG [facility] non-numeric [facility] System results) ID Date Data Source [id number] 09/27/2012 02:00:00 PM EST [facility] Name Value Range Interpretation Description Data Sup porting Code Source(s) Document(s ) Type A Normal (applies Type [facility] to non-numeric Health results) System D Ab [Titer] in Rh Normal (applies Rh Factor, [facility] Serum or Plasma Positive to non-numeric Whole Blood Health results) System AntibodyScreen Negative Normal (applies Antibody [facility] to non-numeric Screen Health results) System ID Date Data Source [id number] 09/27/2012 02:00:00 PM EST [facility] Name Value Range Interpretation Description Data Sup porting Code Source(s) Document(s ) Prothrombintim 11.60 Normal (applies Prothrombin [facility] e(PT) to non-numeric time (PT) Health System results) INR in Blood 1.09 Normal (applies INR Result [facility] by Coagulation {Ratio} to non-numeric Health Sys tem assay results) Normal = 0.7-1.1Therapeutic = 2.0-3.0Mec hanical Heart = 3.0-4.5 ID Date Data Source [id number] 09/27/2012 02:00:00 PM EST [facility] Name Value Range Interpretation Description Data Sup porting Code Source(s) Document(s ) Leukocytes 9.6 Normal (applies WBC Count [facility] [#/volume] in {10\\S\\3_ to non-numeric Health Unspecified uL} results) System specimen by Automated count Erythrocytes 5.02 Normal (applies RBC Count [facility] [#/volume] in {10\\S\\6_ to non-numeric Health Blood by uL} results) System Automated count Hemoglobin 13.7 Below low normal Hemoglobin, [facility] [Mass/volume] in {gm/dL} Whole Blood Health Blood System Hematocrit 43.3 % Normal (applies Hematocrit, [facility] [Volume to non-numeric Whole Blood Health Fraction] of results) System Blood Erythrocyte mean 86.3 fl Normal (applies MCV [facility] corpuscular to non-numeric Health volume [Entitic results) System volume] by Automated count Erythrocyte mean 27.3 pg Normal (applies MCH [facility] corpuscular to non-numeric Health hemoglobin results) System [Entitic mass] by Automated count Erythrocyte mean 31.6 Below low normal [facility]C [facility] corpuscular {gm/dL} Health hemoglobin System concentration [Mass/volume] by Automated count Erythrocyte 15.1 % Above high normal RDW [facility] distribution Health width [Entitic System volume] by Automated count Platelets 200 Normal (applies Platelet [facility] [#/volume] in {10\\S\\3_ to non-numeric Count Health Plasma by uL} results) System Automated count Platelet mean 9.2 fl Normal (applies MPV [facility] volume [Entitic to non-numeric Health volume] in Blood results) System by Automated count Monocytes 0.8 Normal (applies Monocyte [facility] [#/volume] in {10\\S\\3_ to non-numeric Count Health Blood by Manual uL} results) System count Eosinophils 0.1 Normal (applies Eosinophil [facility] [#/volume] in {10\\S\\3} to non-numeric Count Blood Health Blood results) System Neutrophils 7.2 Normal (applies Absolute [facility] [#/volume] in {10\\S\\3_ to non-numeric Neutrophil Health Body fluid uL} results) Count System Basophils 0.02 Normal (applies Basophil [facility] [#/volume] in {10\\S\\3_ to non-numeric Count Health Blood by uL} results) System Automated count Lymphocyte 1.6 Normal (applies Lymphocyte [facility] percent {10\\S\\3_ to non-numeric Absolute Health differential uL} results) System count (procedure) Neutrophils/100 74.9 % Normal (applies Neutrophil % [place] leukocytes in to non-numeric Health Blood by results) System Automated count Monocytes/100 8.3 % Normal (applies Monocyte % [facility] leukocytes in to non-numeric Health Blood results) System Eosinophils/100 0.5 % Below low normal Eosinophil % [facility] leukocytes in Health Unspecified System specimen Basophils/100 0.2 % Normal (applies Basophil % [facility] leukocytes in to non-numeric Health Unspecified results) System specimen by Manual count Lymphocytes 16.1 % Below low normal Lymphocyte % [facility] [#/volume] in Health Blood by System Automated count ID Date Data Source [id number] 09/27/2012 02:00:00 PM EST [facility] Name Value Range Interpretation Description Data Sup porting Code Source(s) Document(s ) Sodium 140 mmol/L Normal (applies Sodium, [facility] [Moles/volume] to non-numeric Serum Health in Serum or results) System Plasma Potassium 4.3 mmol/L Normal (applies Potassium, [facility] [Mass/volume] to non-numeric Serum Health in Serum or results) System Plasma Chloride 106 mmol/L Normal (applies Chloride, [facility] [Moles/volume] to non-numeric Serum Health in Serum or results) System Plasma Carbon dioxide, 20.0 mmol/L Below low CO2, Serum [facility] total normal Health [Moles/volume] System in Serum or Plasma TotalProtein 7.1 mg/dl Normal (applies Total [facility] to non-numeric Protein Health results) System Urea nitrogen 17 mg/dl Normal (applies Blood Urea [facility] [Mass/volume] to non-numeric Nitrogen, Health in Serum or results) Serum System Plasma Glucose 106 mg/dL Normal (applies Glucose, [facility] [Mass/volume] to non-numeric Serum Health in Serum or results) System Plasma Creatinine 0.80 mg/dl Normal (applies Creatinine, [facility] [Mass/volume] to non-numeric Serum Health in Serum or results) System Plasma Alkaline 36 {IU/L} Below low Alkaline [facility] phosphatase normal Phosphatase, Health isoenzymes Serum System [Enzymatic activity/volume ] in Serum or Plasma by Heat stability Bilirubin.total 0.4 mg/dl Normal (applies Bilirubin, [facility] [Mass/volume] to non-numeric Serum Total Health in Serum or results) System Plasma Aspartate 18 {IU/L} Normal (applies Aspartate [facility] aminotransferas to non-numeric Transaminase Health e [Enzymatic results) , Serum System activity/volume ] in Serum or Plasma by With P-5'-P Albumin 4.6 {gm/dl} Normal (applies Albumin, [facility] [Mass/volume] to non-numeric Serum Health in Serum or results) System Plasma I.Phosphorus 3.7 mg/dl Normal (applies I. [facility] to non-numeric Phosphorus Health results) System Alanine 23 {IU/L} Normal (applies Alanine [facility] aminotransferas to non-numeric Aminotransfe Health e [Enzymatic results) rase, Serum System activity/volume ] in Serum or Plasma Calcium 9.8 mg/dl Normal (applies Calcium, [facility] [Mass/volume] to non-numeric Total Serum Health in Serum or results) System Plasma A/GRatio 1.84 Normal (applies A/G Ratio [facility] to non-numeric Health results) System Urate 5.5 mg/dl Normal (applies Uric Acid, [facility] [Mass/volume] to non-numeric Serum Health in Serum or results) System Plasma Anion gap in 14.00 mmol/L Above high Anion Gap [facility] Serum or Plasma normal Health System Glomerular Greater than Normal (applies GFR [facility] filtration 90 eGFR will to non-numeric Health rate/1.73 sq provide results) System M.predicted clinicians [Volume with a more Rate/Area] in accurate Serum or Plasma indicator of by renal function Creatinine-base then the serum d formula creatinine. (CKD-EPI) The eGFR is automatically calculated from an empiric formula (endorsed by the [employer]) which incorporates age, sex, and race.Clinician s may notice surprisingly low GFR's with serum creatinine valueswithin normal range- particularly in elderly women (with low muscle mass).In the hospital setting, the eGFR should add an element of safety in drug dosing, in assessing the risk of IV contrast administration , and in assessing vascular risk.The NKF staging system is as follows:Normal : eGFR >90 with no kidney markersStage 1: eGFR >90 with kidney markers*Stage 2: eGFR 60-89Stage 3: eGFR 30-59Stage 4: eGFR 15-29Stage 5: eGFR <15 (usually requiring dialysis)*Garland ers include: Proteinuria, Hematuria, abnormal imaging-studie s, or other blood or urine test abnormalities ID Date Data Source [id number] 01/17/2013 12:10:00 PM EST [facility] Name Value Range Interpretation Code Description Data Vesta rce(s) Supporting Document(s ) Anti-IgG Negative Normal (applies to Anti-IgG [facility] non-numeric Health System results) ID Date Data Source [id number] 01/17/2013 12:10:00 PM EST [facility] Name Value Range Interpretation Description Data Sup porting Code Source(s) Document(s ) Type A Normal (applies Type [facility] to non-numeric Health results) System D Ab [Titer] in Rh Normal (applies Rh Factor, [facility] Serum or Plasma Positive to non-numeric Whole Blood Health results) System AntibodyScreen Negative Normal (applies Antibody [facility] to non-numeric Screen Health results) System ID Date Data Source [id number] 01/17/2013 12:10:00 PM EST [facility] Name Value Range Interpretation Description Data Sup porting Code Source(s) Document(s ) Prothrombintim 12.30 Above high normal Prothrombin [place] e(PT) time (PT) Health System INR in Blood 1.07 Normal (applies INR Result [facility] by Coagulation {Ratio} to non-numeric Health Sys tem assay results) Normal = 0.7-1.1Therapeutic = 2.0-3.0Mec hanical Heart = 3.0-4.5 ID Date Data Source [id number] 01/17/2013 12:10:00 PM EST [facility] Name Value Range Interpretation Description Data Sup porting Code Source(s) Document(s ) Leukocytes 13.4 Above high normal WBC Count [facility] [#/volume] in {10\\S\\3_ Health Unspecified uL} System specimen by Automated count Erythrocytes 4.45 Normal (applies RBC Count [facility] [#/volume] in {10\\S\\6_ to non-numeric Health Blood by uL} results) System Automated count Hemoglobin 11.9 Below low normal Hemoglobin, [facility] [Mass/volume] in {gm/dL} Whole Blood Health Blood System Hematocrit 36.2 % Below low normal Hematocrit, [facility] [Volume Whole Blood Health Fraction] of System Blood Erythrocyte mean 81.3 fl Below low normal MCV [facility] corpuscular Health volume [Entitic System volume] by Automated count Erythrocyte mean 26.7 pg Normal (applies MCH [facility] corpuscular to non-numeric Health hemoglobin results) System [Entitic mass] by Automated count Erythrocyte mean 32.9 Below low normal [facility] corpuscular {gm/dL} Health hemoglobin System concentration [Mass/volume] by Automated count Erythrocyte 15.1 % Above high normal RDW [facility] distribution Health width [Entitic System volume] by Automated count Platelets 217 Normal (applies Platelet [facility] [#/volume] in {10\\S\\3_ to non-numeric Count Health Plasma by uL} results) System Automated count Platelet mean 9.7 fl Normal (applies MPV [facility] volume [Entitic to non-numeric Health volume] in Blood results) System by Automated count Monocytes 0.8 Normal (applies Monocyte [facility] [#/volume] in {10\\S\\3_ to non-numeric Count Health Blood by Manual uL} results) System count Eosinophils 0.1 Normal (applies Eosinophil [facility] [#/volume] in {10\\S\\3} to non-numeric Count Blood Health Blood results) System Neutrophils 11.1 Normal (applies Absolute [facility] [#/volume] in {10\\S\\3_ to non-numeric Neutrophil Health Body fluid uL} results) Count System Basophils 0.02 Normal (applies Basophil [facility] [#/volume] in {10\\S\\3_ to non-numeric Count Health Blood by uL} results) System Automated count Lymphocyte 1.4 Normal (applies Lymphocyte [facility] percent {10\\S\\3_ to non-numeric Absolute Health differential uL} results) System count (procedure) Neutrophils/100 82.9 % Normal (applies Neutrophil % [place] leukocytes in to non-numeric Health Blood by results) System Automated count Monocytes/100 6.0 % Normal (applies Monocyte % [facility] leukocytes in to non-numeric Health Blood results) System Eosinophils/100 0.5 % Below low normal Eosinophil % [facility] leukocytes in Health Unspecified System specimen Basophils/100 0.1 % Normal (applies Basophil % [facility] leukocytes in to non-numeric Health Unspecified results) System specimen by Manual count Lymphocytes 10.5 % Below low normal Lymphocyte % [facility] [#/volume] in Health Blood by System Automated count ID Date Data Source [id number] 01/17/2013 12:10:00 PM EST [facility] Name Value Range Interpretation Description Data Sup porting Code Source(s) Document(s ) Sodium 139 Normal (applies Sodium, Serum [facility] [Moles/volume] in mmol/L to non-numeric Health Serum or Plasma results) System Potassium 4.5 Normal (applies Potassium, [facility] [Mass/volume] in mmol/L to non-numeric Serum Health Serum or Plasma results) System Chloride 108 Above high Chloride, [facility] [Moles/volume] in mmol/L normal Serum Health Serum or Plasma System Carbon dioxide, 21.0 Below low normal CO2, Serum [facility] total mmol/L Health [Moles/volume] in System Serum or Plasma TotalProtein 7.0 Normal (applies Total Protein [facility] mg/dl to non-numeric Health results) System Glucose 75 Normal (applies Glucose, [facility] [Mass/volume] in mg/dL to non-numeric Serum Health Serum or Plasma results) System Urea nitrogen 15 Normal (applies Blood Urea [facility] [Mass/volume] in mg/dl to non-numeric Nitrogen, Health Serum or Plasma results) Serum System Creatinine 0.90 Normal (applies Creatinine, [facility] [Mass/volume] in mg/dl to non-numeric Serum Health Serum or Plasma results) System Alkaline 35 Below low normal Alkaline [facility] phosphatase {IU/L} Phosphatase, Health isoenzymes Serum System [Enzymatic activity/volume] in Serum or Plasma by Heat stability Bilirubin.total 0.5 Normal (applies Bilirubin, [facility] [Mass/volume] in mg/dl to non-numeric Serum Total Health Serum or Plasma results) System Aspartate 19 Normal (applies Aspartate [facility] aminotransferase {IU/L} to non-numeric Transaminase, Heal th [Enzymatic results) Serum System activity/volume] in Serum or Plasma by With P-5'-P Albumin 4.0 Normal (applies Albumin, [facility] [Mass/volume] in {gm/dl} to non-numeric Serum Health Serum or Plasma results) System I.Phosphorus 3.1 Normal (applies I. Phosphorus [facility] mg/dl to non-numeric Health results) System Alanine 21 Normal (applies Alanine [facility] aminotransferase {IU/L} to non-numeric Aminotransfer Heal th [Enzymatic results) ase, Serum System activity/volume] in Serum or Plasma Calcium 9.5 Normal (applies Calcium, [facility] [Mass/volume] in mg/dl to non-numeric Total Serum Health Serum or Plasma results) System A/GRatio 1.33 Normal (applies A/G Ratio [facility] to non-numeric Health results) System Urate 5.3 Normal (applies Uric Acid, [facility] [Mass/volume] in mg/dl to non-numeric Serum Health Serum or Plasma results) System Anion gap in Serum 10.00 Normal (applies Anion Gap [place] or Plasma mmol/L to non-numeric Health results) System Glomerular 84.00 Normal (applies GFR [facility] filtration to non-numeric Health rate/1.73 sq results) System M.predicted [Volume Rate/Area] in Serum or Plasma by Creatinine-based formula (CKD-EPI) eGFR will provide clinicians with a more accurate indicator of renal function then the serum creatinine. The eGFR is automa tically calculated from an empiric formula (endorsed by the National Kidney [employer] ion) which incorporates age, sex, and race.Clinicians may notice surprisingly low GFR's with serum creatinine valueswithin normal range- particularly in elderly wo men (with low muscle mass).In the hospital setting, the eGFR should add an element of safety in drug dosing, in assessing the risk of IV contrast administration, and in assessing vascular risk.The NKF staging system is as follows:Normal: eGFR >90 with no kidney markersStage 1: eGFR >90 with kidney markers*Stage 2: eGFR 60- 89Stage 3: eGFR 30-59Stage 4: eGFR 15-29Stage 5: eGFR <15 (usually requir ing dialysis)*Markers include: Proteinuria, Hematuria, abnormal imaging-studies, or other blood or urine test abnormalities ID Date Data Source [id number] 01/18/2013 05:55:00 AM EST [facility] Name Value Range Interpretation Description Data Sup porting Code Source(s) Document(s ) Gastrin 24 pg/mL Normal (applies to Gastrin, Serum [facility] [Mass/volum non-numeric Health System e] in Serum results) or Plasma Reference range applies to fasting speci mens only. Test Performed at: [facility], [place] [address] Sadaf Horton M.D. ID Date Data Source [id number] 01/18/2013 05:55:00 AM EST [facility] Name Value Range Interpretation Description Data Sup porting Code Source(s) Document(s ) Leukocytes 6.7 Normal (applies WBC Count [facility] [#/volume] in {10\\S\\3_ to non-numeric Health Syst em Unspecified uL} results) specimen by Automated count k Erythrocytes 4.27 {10\\S\\6_uL} Below low RBC Count [facility] [#/volume] in Blood normal Health Sys tem by Automated count Hemoglobin 11.3 {gm/dL} Below low Hemoglobin, [facility] [Mass/volume] in normal Whole Blood Health Syst em Blood Hematocrit [Volume 35.1 % Below low Hematocrit, [facility] Fraction] of Blood normal Whole Blood Health Sy stem Erythrocyte mean 82.2 fl Below low MCV [facility] corpuscular volume normal Health Syst em [Entitic volume] by Automated count Erythrocyte mean 26.5 pg Normal MCH [facility] corpuscular (applies to [facility] System hemoglobin [Entitic non-numeric mass] by Automated results) count Erythrocyte mean 32.2 {gm/dL} Below low [facility] corpuscular normal Health System hemoglobin concentration [Mass/volume] by Automated count Erythrocyte 15.2 % Above high RDW [facility] distribution width normal Health Syst em [Entitic volume] by Automated count Platelets [#/volume] 198 {10\\S\\3_uL} Normal Platelet Coun t [facility] in Plasma by (applies to [facility] System Automated count non-numeric results) Platelet mean volume 9.3 fl Normal MPV [facility] [Entitic volume] in (applies to [facility] Blood by Automated non-numeric count results) Monocytes [#/volume] 0.6 {10\\S\\3_uL} Normal Monocyte Coun t [facility] in Blood by Manual (applies to [facility] stem count non-numeric results) Eosinophils 0.1 {10\\S\\3} Normal Eosinophil Count [facility] [#/volume] in Blood (applies to Blood [facility] non-numeric results) Neutrophils 4.8 {10\\S\\3_uL} Normal Absolute [facility] [#/volume] in Body (applies to Neutrophil Count He alth System fluid non-numeric results) Basophils [#/volume] 0.01 {10\\S\\3_uL} Normal Basophil Cou nt [facility] in Blood by (applies to [facility] System Automated count non-numeric results) Lymphocyte percent 1.3 {10\\S\\3_uL} Normal Lymphocyte [facility] differential count (applies to Absolute [facility] (procedure) non-numeric results) Neutrophils/100 71.1 % Normal Neutrophil % [facility] leukocytes in Blood (applies to [facility] by Automated count non-numeric results) Monocytes/100 8.3 % Normal Monocyte % [facility] leukocytes in Blood (applies to [facility] non-numeric results) Eosinophils/100 1.3 % Normal Eosinophil % [facility] leukocytes in (applies to [facility] System Unspecified specimen non-numeric results) Basophils/100 0.1 % Normal Basophil % [facility] leukocytes in (applies to Health System Unspecified specimen non-numeric by Manual count results) Lymphocytes 19.2 % Below low Lymphocyte % [facility] [#/volume] in Blood normal Health Sys tem by Automated count ID Date Data Source [id number] 01/18/2013 05:55:00 AM EST [facility] Name Value Range Interpretation Description Data Sup porting Code Source(s) Document(s ) Sodium 138 Normal (applies Sodium, Serum [facility] [Moles/volume mmol/L to non-numeric Health Syst em ] in Serum or results) Plasma Potassium 4.2 Normal (applies Potassium, [facility] [Mass/volume] mmol/L to non-numeric Serum Health Syst em in Serum or results) Plasma Chloride 107 Normal (applies Chloride, [facility] [Moles/volume mmol/L to non-numeric Serum Health Syst em ] in Serum or results) Plasma Carbon 24.0 Normal (applies CO2, Serum [facility] dioxide, mmol/L to non-numeric Health System total results) [Moles/volume ] in Serum or Plasma Glucose 127 Above high normal Glucose, Serum [facility] [Mass/volume] mg/dL Health System in Serum or Plasma ok Urea nitrogen 12 mg/dl Normal (applies to Blood Urea [facility] [Mass/volume] in non-numeric Nitrogen, Serum Healt h System Serum or Plasma results) Creatinine 1.00 mg/dl Normal (applies to Creatinine, [facility] [Mass/volume] in non-numeric Serum Health Syst em Serum or Plasma results) Calcium 8.7 mg/dl Normal (applies to Calcium, Total [facility] [Mass/volume] in non-numeric Serum Health Syst em Serum or Plasma results) Anion gap in Serum 7.00 mmol/L Below low normal Anion Gap [facility] or Plasma Health System ID Date Data Source [id number] 01/18/2013 05:55:00 AM EST [facility] Name Value Range Interpretation Description Data Sup porting Code Source(s) Document(s ) Triglyceride 75 mg/dl Normal (applies Triglycerides, [facility] [Mass/volume] to non-numeric Serum Health in Serum or results) System Plasma Optimal = < 100 mg/dLBoderline High = 15 0 - 199 mg/dLHigh = 200 - 499 mg/dLVery High = > 500 mg/dL Cholesterol 126 mg/dl Normal (applies Cholesterol, Serum [facility] [Mass/volume] in to non-numeric Health S ystem Serum or Plasma results) <200 mg/dL = [id number] - 239 md/dL = Borderline>240 mg/dL = High Risk Cholesterol in HDL 38.0 mg/dL Normal (applies HDL Cholestero l, [facility] [Mass/volume] in to non-numeric Serum Health S ystem Serum or Plasma results) Cholesterol in LDL 73 mg/dL Normal (applies Low Density [facility] [Mass/volume] in to non-numeric Lipoprotein, Healt h System Serum or Plasma results) Calculated OPTIMAL: LESS THAN 100 mg/dLNEAR OPTIMAL : 100 - 129 mg/dLBODERLINE HIGH: 130 - 150 mg/dL Cholesterol in VLDL 15 Normal (applies to VLDL, Serum [facility] [Mass/volume] in Serum non-numeric results) System or Plasma CHDRisk 3.32 Normal (applies to CHD Risk [facility] [employer]st non-numeric results) System ID Date Data Source [id number] 01/18/2013 05:55:00 AM EST [facility] alth System Name Value Range Interpretation Code Description Data Vesta rce(s) Supporting Document(s ) HbA1C 5.9 % Normal (applies to HbA1C [facility] [employer] non-numeric results) System ID Date Data Source [id number] 01/20/2013 04:20:00 PM EST [facility] Name Value Range Interpretation Description Data Sup porting Code Source(s) Document(s ) TissueExam SEE TEXT Normal (applies Tissue Exam [facility] CLINICAL to non-numeric Health INFORMATION: results) System GI bleed.PREOPERAT RUTH DIAGNOSIS: Same.POSTOPERAT RUTH DIAGNOSIS: Multiple ulcers in stomach and duodenum.Surgic al Pathology ReportFINAL DIAGNOSIS:Stoma ch, biopsy:Mild chronic gastritis with reactive foveolar hyperplasia.Neg ative for Helicobacter pylori on Giemsa stain.GO/cmGROS S DESCRIPTION:In formalin, labeled "biopsy of stomach", the specimen consists of three irregular westfall tissues, ranging from 0.2 cm to 0.3 cm, which are submitted in toto in one cassette.CG/cm@ [email or web address]@(Signed out 01/21/2013) ID Date Data Source [id number] 02/14/2013 10:30:00 AM EDT [facility] Name Value Range Interpretation Code Description Data Vesta rce(s) Supporting Document(s ) Anti-IgG Negative Normal (applies to Anti-IgG [facility] non-numeric Health System results) ID Date Data Source [id number] 02/14/2013 10:30:00 AM EDT [facility] Name Value Range Interpretation Description Data Sup porting Code Source(s) Document(s ) Type A Normal (applies Type [facility] to non-numeric Health results) System D Ab [Titer] in Rh Normal (applies Rh Factor, [facility] Serum or Plasma Positive to non-numeric Whole Blood Health results) System AntibodyScreen Negative Normal (applies Antibody [facility] to non-numeric Screen Health results) System ID Date Data Source [id number] 02/14/2013 10:30:00 AM EDT [facility] Name Value Range Interpretation Description Data Sup porting Code Source(s) Document(s ) Leukocytes 7.2 Normal (applies WBC Count [facility] [#/volume] in {10\\S\\3_ to non-numeric Health Unspecified uL} results) System specimen by Automated count Erythrocytes 3.88 Below low normal RBC Count [facility] [#/volume] in {10\\S\\6_ Health Blood by uL} System Automated count Hemoglobin 9.6 Below low normal Hemoglobin, [facility] [Mass/volume] in {gm/dL} Whole Blood Health Blood System Hematocrit 30.2 % Below low normal Hematocrit, [facility] [Volume Whole Blood Health Fraction] of System Blood Erythrocyte mean 77.8 fl Below low normal MCV [facility] corpuscular Health volume [Entitic System volume] by Automated count Erythrocyte mean 24.7 pg Below low normal MCH [facility] corpuscular Health hemoglobin System [Entitic mass] by Automated count Erythrocyte mean 31.8 Below low normal [facility]CHC [facility] corpuscular {gm/dL} Health hemoglobin System concentration [Mass/volume] by Automated count Erythrocyte 14.7 % Above high normal RDW [facility] distribution Health width [Entitic System volume] by Automated count Platelets 250 Normal (applies Platelet [facility] [#/volume] in {10\\S\\3_ to non-numeric Count Health Plasma by uL} results) System Automated count Platelet mean 8.8 fl Normal (applies MPV [facility] volume [Entitic to non-numeric Health volume] in Blood results) System by Automated count Monocytes 0.6 Normal (applies Monocyte [facility] [#/volume] in {10\\S\\3_ to non-numeric Count Health Blood by Manual uL} results) System count Eosinophils 0.1 Normal (applies Eosinophil [facility] [#/volume] in {10\\S\\3} to non-numeric Count Blood Health Blood results) System Neutrophils 5.3 Normal (applies Absolute [facility] [#/volume] in {10\\S\\3_ to non-numeric Neutrophil Health Body fluid uL} results) Count System Basophils 0.01 Normal (applies Basophil [facility] [#/volume] in {10\\S\\3_ to non-numeric Count Health Blood by uL} results) System Automated count Lymphocyte 1.3 Normal (applies Lymphocyte [facility] percent {10\\S\\3_ to non-numeric Absolute Health differential uL} results) System count (procedure) Neutrophils/100 72.9 % Normal (applies Neutrophil % [place] leukocytes in to non-numeric Health Blood by results) System Automated count Monocytes/100 7.7 % Normal (applies Monocyte % [facility] leukocytes in to non-numeric Health Blood results) System Eosinophils/100 1.2 % Normal (applies Eosinophil % [place] leukocytes in to non-numeric Health Unspecified results) System specimen Basophils/100 0.1 % Normal (applies Basophil % [facility] leukocytes in to non-numeric Health Unspecified results) System specimen by Manual count Lymphocytes 18.1 % Below low normal Lymphocyte % [facility] [#/volume] in Health Blood by System Automated count ID Date Data Source [id number] 02/14/2013 10:30:00 AM EDT [facility] Name Value Range Interpretation Description Data Sup porting Code Source(s) Document(s ) Sodium 138 Normal (applies Sodium, Serum [facility] [Moles/volume] in mmol/L to non-numeric Health Serum or Plasma results) System Potassium 4.3 Normal (applies Potassium, [facility] [Mass/volume] in mmol/L to non-numeric Serum Health Serum or Plasma results) System Chloride 105 Normal (applies Chloride, [facility] [Moles/volume] in mmol/L to non-numeric Serum Health Serum or Plasma results) System Carbon dioxide, 24.0 Normal (applies CO2, Serum [facility] total mmol/L to non-numeric Health [Moles/volume] in results) System Serum or Plasma TotalProtein 7.1 Normal (applies Total Protein [facility] mg/dl to non-numeric Health results) System Glucose 110 Normal (applies Glucose, [facility] [Mass/volume] in mg/dL to non-numeric Serum Health Serum or Plasma results) System Urea nitrogen 19 Normal (applies Blood Urea [facility] [Mass/volume] in mg/dl to non-numeric Nitrogen, Health Serum or Plasma results) Serum System Creatinine 1.00 Normal (applies Creatinine, [facility] [Mass/volume] in mg/dl to non-numeric Serum Health Serum or Plasma results) System Alkaline 36 Below low normal Alkaline [facility] phosphatase {IU/L} Phosphatase, Health isoenzymes Serum System [Enzymatic activity/volume] in Serum or Plasma by Heat stability Bilirubin.total 0.4 Normal (applies Bilirubin, [facility] [Mass/volume] in mg/dl to non-numeric Serum Total Health Serum or Plasma results) System Aspartate 17 Normal (applies Aspartate [facility] aminotransferase {IU/L} to non-numeric Transaminase, Heal th [Enzymatic results) Serum System activity/volume] in Serum or Plasma by With P-5'-P Albumin 4.2 Normal (applies Albumin, [facility] [Mass/volume] in {gm/dl} to non-numeric Serum Health Serum or Plasma results) System I.Phosphorus 3.6 Normal (applies I. Phosphorus [facility] mg/dl to non-numeric Health results) System Alanine 24 Normal (applies Alanine [facility] aminotransferase {IU/L} to non-numeric Aminotransfer Heal th [Enzymatic results) ase, Serum System activity/volume] in Serum or Plasma Calcium 9.7 Normal (applies Calcium, [facility] [Mass/volume] in mg/dl to non-numeric Total Serum Health Serum or Plasma results) System A/GRatio 1.45 Normal (applies A/G Ratio [facility] to non-numeric Health results) System Urate 6.0 Normal (applies Uric Acid, [facility] [Mass/volume] in mg/dl to non-numeric Serum Health Serum or Plasma results) System Anion gap in Serum 9.00 Normal (applies Anion Gap [place] or Plasma mmol/L to non-numeric Health results) System Glomerular 74.00 Normal (applies GFR [facility] filtration to non-numeric Health rate/1.73 sq results) System M.predicted [Volume Rate/Area] in Serum or Plasma by Creatinine-based formula (CKD-EPI) eGFR will provide clinicians with a more accurate indicator of renal function then the serum creatinine. The eGFR is automa tically calculated from an empiric formula (endorsed by the National [employer] ion) which incorporates age, sex, and race.Clinicians may notice surprisingly low GFR's with serum creatinine valueswithin normal range- particularly in elderly wo men (with low muscle mass).In the hospital setting, the eGFR should add an element of safety in drug dosing, in assessing the risk of IV contrast administration, and in assessing vascular risk.The NKF staging system is as follows:Normal: eGFR >90 with no kidney markersStage 1: eGFR >90 with kidney markers*Stage 2: eGFR 60- 89Stage 3: eGFR 30-59Stage 4: eGFR 15-29Stage 5: eGFR <15 (usually requir ing dialysis)*Markers include: Proteinuria, Hematuria, abnormal imaging-studies, or other blood or urine test abnormalities ID Date Data Source [id number] 02/14/2013 02:00:00 PM EDT [facility] System Name Value Range Interpretation Description Data Sup porting Code Source(s) Document(s ) Color YELLOW Normal (applies Color [facility] to non-numeric Health results) System Appearance of CLEAR Normal (applies Urine [facility] Urine to non-numeric Appearance Health results) System Specific 1.025 Normal (applies Urine [facility] gravity of to non-numeric Specific Health Urine results) [place] System pH.. 5.5 Normal (applies pH.. [facility] {pH_units} to non-numeric Health results) System Glucose,UA NEGATIVE Normal (applies Glucose, UA [facility] to non-numeric Health results) System Negative Protein [Mass/volume] NEGATIVE Normal (applies to Protein [facility] in Serum or Plasma non-numeric System results) BilirubinUrine NEGATIVE Normal (applies to Bilirubin Urine [facility] non-numeric System results) Negative Urobilinogen 0.20 {eu/dL} Normal (applies Urobilinogen UA [facility] [Mass/volume] in to non-numeric Health S ystem Urine results) Ketones NEGATIVE Normal (applies Ketones UA [facility] [Mass/volume] in to non-numeric Health S yste Urine results) Negative Nitrate+Nitrite NEGATIVE Normal (applies to Nitrite [facility] [facility] [Mass/volume] in non-numeric results) Sy stem Unspecified specimen Negative Leukocyte esterase NEGATIVE Normal (applies Leukocyte Denise ase [facility] [Units/volume] in to non-numeric Concentration Hea lt System Urine results) Negative Leukocytes [#/volume] 0-2 Normal (applies to White Blood Cells [facility] in Unspecified non-numeric System specimen by Automated results) count RedBloodCells 2-5 Normal ([facility]) Epithelial cells 0-5 Normal (applies to Epithelial Lora ls [facility] [Presence] in non-numeric System Unspecified specimen results) by Wet preparation Bacteria [Presence] rare Normal ([facility] Un[facility] non-numeric System specimen results) UrineBlood SMALL Normal (applies to Urine Blood [facility] non-numeric System results) ID Date Data Source [id number] 02/15/2013 08:15:00 AM EDT [facility] System Name Value Range Interpretation Description Data Sup porting Code Source(s) Document(s ) Leukocytes 7.4 Normal (applies WBC Count [facility] [#/volume] in {10\\S\\3_ to non-numeric Health Unspecified uL} results) System specimen by Automated count Erythrocytes 4.50 Normal (applies RBC Count [facility] [#/volume] in {10\\S\\6_ to non-numeric Health Blood by uL} results) System Automated count Hemoglobin 11.3 Below low normal Hemoglobin, [facility] [Mass/volume] in {gm/dL} Whole Blood [facility] Blood System Hematocrit 35.1 % Below low normal Hematocrit, [facility] [Volume Whole Blood Health Fraction] of System Blood Erythrocyte mean 78.0 fl Below low normal [facility] volume [Entitic System volume] by Automated count Erythrocyte mean 25.1 pg Below low normal [facility] iore corpuscular [facility] hemoglobin System [Entitic mass] by Automated count Erythrocyte mean 32.2 Below low normal [facility] corpuscular {gm/dL} Health hemoglobin System concentration [Mass/volume] by Automated count Erythrocyte 14.9 % Above high normal RDW [facility] distribution Health width [Entitic System volume] by Automated count Platelets 238 Normal (applies Platelet [facility] [#/volume] in {10\\S\\3_ to non-numeric Count Health Plasma by uL} results) System Automated count Platelet mean 8.9 fl Normal (applies MPV [facility] volume [Entitic to non-numeric Health volume] in Blood results) System by Automated count Monocytes 0.5 Normal (applies Monocyte [facility] [#/volume] in {10\\S\\3_ to non-numeric Count Health Blood by Manual uL} results) System count Eosinophils 0.1 Normal (applies Eosinophil [facility] [#/volume] in {10\\S\\3} to non-numeric Count Blood Health Blood results) System Basophils 0.01 Normal (applies Basophil [facility] [#/volume] in {10\\S\\3_ to non-numeric Count Health Blood by uL} results) System Automated count Neutrophils 5.4 Normal (applies Absolute [facility] [#/volume] in {10\\S\\3_ to non-numeric Neutrophil Health Body fluid uL} results) Count System Lymphocyte 1.4 Normal (applies Lymphocyte [facility] percent {10\\S\\3_ to non-numeric Absolute Health differential uL} results) System count (procedure) Neutrophils/100 72.5 % Normal (applies Neutrophil % [place] leukocytes in to non-numeric Health Blood by results) System Automated count Monocytes/100 6.8 % Normal (applies Monocyte % [facility] leukocytes in to non-numeric Health Blood results) System Eosinophils/100 1.5 % Normal (applies Eosinophil % [place] leukocytes in to non-numeric Health Unspecified results) System specimen Basophils/100 0.1 % Normal (applies Basophil % [facility] leukocytes in to non-numeric Health Unspecified results) System specimen by Manual count Lymphocytes 19.1 % Below low normal Lymphocyte % [facility] [#/volume] in Health Blood by System Automated count ID Date Data Source [id number] 02/15/2013 08:15:00 AM EDT [facility] Name Value Range Interpretation Description Data Sup porting Code Source(s) Document(s ) Natriuretic Less Normal (applies B-Type [facility] peptide B than to non-numeric Natriuetic Health System [Mass/volume] 10.0 results) Peptide in Serum or Plasma ID Date Data Source [id number] 02/15/2013 08:15:00 AM EDT [facility] System Name Value Range Interpretation Description Data Sup porting Code Source(s) Document(s ) Sodium 137 Normal (applies Sodium, Serum [facility] [Moles/volume mmol/L to non-numeric Health Syst em ] in Serum or results) Plasma Potassium 4.0 Normal (applies Potassium, [facility] [Mass/volume] mmol/L to non-numeric Serum Health Syst em in Serum or results) Plasma Chloride 104 Normal (applies Chloride, [facility] [Moles/volume mmol/L to non-numeric Serum Health Syst em ] in Serum or results) Plasma Carbon 25.0 Normal (applies CO2, Serum [facility] dioxide, mmol/L to non-numeric Health System total results) [Moles/volume ] in Serum or Plasma Glucose 110 Normal (applies Glucose, Serum [facility] [Mass/volume] mg/dL to non-numeric Health Syst em in Serum or results) Plasma Urea nitrogen 14 mg/dl Normal (applies Blood Urea [facility] [Mass/volume] to non-numeric Nitrogen, Health Syst em in Serum or results) Serum Plasma Creatinine 1.00 Normal (applies Creatinine, [facility] [Mass/volume] mg/dl to non-numeric Serum Health Syst em in Serum or results) Plasma Calcium 9.4 Normal (applies Calcium, Total [facility] [Mass/volume] mg/dl to non-numeric Serum Health Syst em in Serum or results) Plasma Anion gap in 8.00 Normal (applies Anion Gap [facility] Serum or mmol/L to non-numeric Health System Plasma results) ID Date Data Source [id number] 02/16/2013 07:30:00 AM EDT [facility] System Name Value Range Interpretation Description Data Sup porting Code Source(s) Document(s ) aPTT in Blood 24.3 Normal (applies Activated [facility] by Coagulation {Seconds to non-numeric Partial Health assay } results) Thromboplastin System Time ID Date Data Source [id number] 02/16/2013 07:30:00 AM EDT [facility] Name Value Range Interpretation Description Data Sup porting Code Source(s) Document(s ) Prothrombintim 11.50 Normal (applies Prothrombin [facility](PT) to non-numeric time (PT) Health System results) INR in Blood 1.09 Normal (applies INR Result [facility] by Coagulation {Ratio} to non-numeric Health Sys tem assay results) Normal = 0.7-1.1Therapeutic = 2.0-3.0Mec hanical Heart = 3.0-4.5 ID Date Data Source [id number] 02/16/2013 07:30:00 AM EDT [facility] System Name Value Range Interpretation Description Data Sup porting Code Source(s) Document(s ) Leukocytes 7.1 Normal (applies WBC Count [facility] [#/volume] in {10\\S\\3_ to non-numeric Health Unspecified uL} results) System specimen by Automated count Erythrocytes 4.34 Below low normal RBC Count [facility] [#/volume] in {10\\S\\6_ Health Blood by uL} System Automated count Hemoglobin 11.0 Below low normal Hemoglobin, [facility] [Mass/volume] in {gm/dL} Whole Blood Health Blood System Hematocrit 34.0 % Below low normal Hematocrit, [facility] [Volume Whole Blood Health Fraction] of System Blood Erythrocyte mean 78.3 fl Below low normal [facility]CV [facility] corpuscular Health volume [Entitic System volume] by Automated count Erythrocyte mean 25.3 pg Below low normal [facility] corpuscular Health hemoglobin System [Entitic mass] by Automated count Erythrocyte mean 32.4 Below low normal [facility] corpuscular {gm/dL} Health hemoglobin System concentration [Mass/volume] by Automated count Erythrocyte 15.0 % Above high normal RDW [facility] distribution Health width [Entitic System volume] by Automated count Platelets 224 Normal (applies Platelet [facility] [#/volume] in {10\\S\\3_ to non-numeric Count Health Plasma by uL} results) System Automated count Platelet mean 9.2 fl Normal (applies MPV [facility] volume [Entitic to non-numeric Health volume] in Blood results) System by Automated count Monocytes 0.9 Normal (applies Monocyte [facility] [#/volume] in {10\\S\\3_ to non-numeric Count Health Blood by Manual uL} results) System count Eosinophils 0.2 Normal (applies Eosinophil [facility] [#/volume] in {10\\S\\3} to non-numeric Count Blood Health Blood results) System Neutrophils 4.7 Normal (applies Absolute [facility] [#/volume] in {10\\S\\3_ to non-numeric Neutrophil Health Body fluid uL} results) Count System Basophils 0.02 Normal (applies Basophil [facility] [#/volume] in {10\\S\\3_ to non-numeric Count Health Blood by uL} results) System Automated count Lymphocyte 1.3 Normal (applies Lymphocyte [facility] percent {10\\S\\3_ to non-numeric Absolute Health differential uL} results) System count (procedure) Neutrophils/100 66.4 % Normal (applies Neutrophil % [place] leukocytes in to non-numeric Health Blood by results) System Automated count Monocytes/100 13.1 % Above high normal Monocyte % [facility] leukocytes in Health Blood System Eosinophils/100 2.3 % Normal (applies Eosinophil % [place] leukocytes in to non-numeric Health Unspecified results) System specimen Basophils/100 0.3 % Normal (applies Basophil % [facility] leukocytes in to non-numeric Health Unspecified results) System specimen by Manual count Lymphocytes 17.9 % Below low normal Lymphocyte % [facility] [#/volume] in Health Blood by System Automated count ID Date Data Source [id number] 02/16/2013 07:30:00 AM EDT [facility] System Name Value Range Interpretation Description Data Sup porting Code Source(s) Document(s ) Sodium 137 Normal (applies Sodium, Serum [facility] [Moles/volume mmol/L to non-numeric Health Syst em ] in Serum or results) Plasma Potassium 4.6 Normal (applies Potassium, [facility] [Mass/volume] mmol/L to non-numeric Serum Health Syst em in Serum or results) Plasma Chloride 104 Normal (applies Chloride, [facility] [Moles/volume mmol/L to non-numeric Serum Health Syst em ] in Serum or results) Plasma Carbon 25.0 Normal (applies CO2, Serum [facility] dioxide, mmol/L to non-numeric Health System total results) [Moles/volume ] in Serum or Plasma Glucose 96 mg/dL Normal (applies Glucose, Serum [facility] [Mass/volume] to non-numeric Health Syst em in Serum or results) Plasma ok Urea nitrogen 15 mg/dl Normal (applies to Blood Urea [facility] [Mass/volume] in non-numeric Nitrogen, Serum Healt h System Serum or Plasma results) Creatinine 1.00 mg/dl Normal (applies to Creatinine, [facility] [Mass/volume] in non-numeric Serum Health Syst em Serum or Plasma results) Calcium 9.4 mg/dl Normal (applies to Calcium, Total [facility] [Mass/volume] in non-numeric Serum Health Syst em Serum or Plasma results) Anion gap in Serum 8.00 mmol/L Normal (applies to Anion Gap [facility] or Plasma non-numeric Health System results) ID Date Data Source [id number] 02/17/2013 06:45:00 AM EDT [facility] System Name Value Range Interpretation Description Data Sup porting Code Source(s) Document(s ) Leukocytes 7.2 Normal (applies WBC Count [facility] [#/volume] in {10\\S\\3_ to non-numeric Health Unspecified uL} results) System specimen by Automated count Erythrocytes 4.50 Normal (applies RBC Count [facility] [#/volume] in {10\\S\\6_ to non-numeric Health Blood by uL} results) System Automated count Hemoglobin 11.2 Below low normal Hemoglobin, [facility] [Mass/volume] in {gm/dL} Whole Blood Health Blood System Hematocrit 35.5 % Below low normal Hematocrit, [facility] [Volume Whole Blood Health Fraction] of System Blood Erythrocyte mean 78.9 fl Below low normal MCV [facility] corpuscular Health volume [Entitic System volume] by Automated count Erythrocyte mean 24.9 pg Below low normal MCH [facility] corpuscular Health hemoglobin System [Entitic mass] by Automated count Erythrocyte mean 31.5 Below low normal MCHC [facility] corpuscular {gm/dL} Health hemoglobin System concentration [Mass/volume] by Automated count Erythrocyte 14.8 % Above high normal RDW [facility] distribution Health width [Entitic System volume] by Automated count Platelets 233 Normal (applies Platelet [facility] [#/volume] in {10\\S\\3_ to non-numeric Count Health Plasma by uL} results) System Automated count Platelet mean 8.9 fl Normal (applies MPV [facility] volume [Entitic to non-numeric Health volume] in Blood results) System by Automated count Monocytes 0.7 Normal (applies Monocyte [facility] [#/volume] in {10\\S\\3_ to non-numeric Count Health Blood by Manual uL} results) System count Eosinophils 0.1 Normal (applies Eosinophil [facility] [#/volume] in {10\\S\\3} to non-numeric Count Blood Health Blood results) System Basophils 0.02 Normal (applies Basophil [facility] [#/volume] in {10\\S\\3_ to non-numeric Count Health Blood by uL} results) System Automated count Neutrophils 4.9 Normal (applies Absolute [facility] [#/volume] in {10\\S\\3_ to non-numeric Neutrophil Health Body fluid uL} results) Count System Lymphocyte 1.5 Normal (applies Lymphocyte [facility] percent {10\\S\\3_ to non-numeric Absolute Health differential uL} results) System count (procedure) Neutrophils/100 67.2 % Normal (applies Neutrophil % [place] leukocytes in to non-numeric Health Blood by results) System Automated count Monocytes/100 9.4 % Above high normal Monocyte % [facility] leukocytes in Health Blood System Eosinophils/100 1.8 % Normal (applies Eosinophil % [place] leukocytes in to non-numeric Health Unspecified results) System specimen Basophils/100 0.3 % Normal (applies Basophil % [facility] leukocytes in to non-numeric Health Unspecified results) System specimen by Manual count Lymphocytes 21.3 % Normal (applies Lymphocyte % [facility] [#/volume] in to non-numeric Health Blood by results) System Automated count ID Date Data Source [id number] 02/17/2013 06:45:00 AM EDT [facility] System Name Value Range Interpretation Description Data Sup porting Code Source(s) Document(s ) Sodium 138 Normal (applies Sodium, Serum [facility] [Moles/volume mmol/L to non-numeric Health Syst em ] in Serum or results) Plasma Potassium 4.6 Normal (applies Potassium, [facility] [Mass/volume] mmol/L to non-numeric Serum Health Syst em in Serum or results) Plasma Chloride 104 Normal (applies Chloride, [facility] [Moles/volume mmol/L to non-numeric Serum Health Syst em ] in Serum or results) Plasma Carbon 26.0 Normal (applies CO2, Serum [facility] dioxide, mmol/L to non-numeric Health System total results) [Moles/volume ] in Serum or Plasma Glucose 101 Normal (applies Glucose, Serum [facility] [Mass/volume] mg/dL to non-numeric Health Syst em in Serum or results) Plasma Urea nitrogen 17 mg/dl Normal (applies Blood Urea [facility] [Mass/volume] to non-numeric Nitrogen, Health Syst em in Serum or results) Serum Plasma Creatinine 1.00 Normal (applies Creatinine, [facility] [Mass/volume] mg/dl to non-numeric Serum Health Syst em in Serum or results) Plasma Calcium 9.7 Normal (applies Calcium, Total [facility] [Mass/volume] mg/dl to non-numeric Serum Health Syst em in Serum or results) Plasma Anion gap in 8.00 Normal (applies Anion Gap [facility] Serum or mmol/L to non-numeric Health System Plasma results) ID Date Data Source [id number] 02/17/2013 02:25:00 PM EDT [facility] alth System Name Value Range Interpretation Description Data Source(s ) Supporting Code Document(s ) CLOtest,R NEGATIVE Normal (applies to KATYA test, Rut [facility] non-numeric Health System results) ID Date Data Source [id number] 02/17/2013 02:40:00 PM EDT [facility] alth System Name Value Range Interpretation Description Data Sup porting Code Source(s) Document(s ) TissueExam SEE TEXT Normal (applies Tissue Exam [facility] CLINICAL to non-numeric Health INFORMATION: results) System GI bleeding. Gastric ulcer.PREOPERAT RUTH DIAGNOSIS: Same.POSTOPERAT RUTH DIAGNOSIS: Same.Surgical Pathology ReportFINAL DIAGNOSIS:Stoma ch, oxyntic mucosa, biopsy:Focal lamina propria granulation tissue and reactive foveolar hyperplasia.Neg ative for Helicobacter pylori on Giemsa stain.GO/cmGROS S DESCRIPTION:In formalin, labeled "biopsy, stomach", the specimen consists of three irregular westfall tissues, ranging from 0.2 cm to 0.4 cm, which are submitted in toto in one cassette.CG/cmE lectronically signed [email or web address](Signed out 02/19/2013) ID Date Data Source [id number] 03/05/2013 12:07:00 PM EDT [facility] al[facility] System Name Value Range Interpretation Code Description Data Vesta rce(s) Supporting Document(s ) Reticuloc 2.53 % Above high normal Reticulocyte, [facility] yte,Autom Automated [facility] System ated ID Date Data Source [id number] 03/05/2013 12:07:00 PM EDT [facility] Name Value Range Interpretation Description Data Sup porting Code Source(s) Document(s ) Leukocytes 9.6 Normal (applies WBC Count [facility] [#/volume] in {10\\S\\3_ to non-numeric Health Unspecified uL} results) System specimen by Automated count Erythrocytes 4.34 Below low normal RBC Count [facility] [#/volume] in {10\\S\\6_ Health Blood by uL} System Automated count Hemoglobin 10.4 Below low normal Hemoglobin, [facility] [Mass/volume] in {gm/dL} Whole Blood Health Blood System Hematocrit 33.4 % Below low normal Hematocrit, [facility] [Volume Whole Blood Health Fraction] of System Blood Erythrocyte mean 77.0 fl Below low normal MCV [facility] corpuscular Health volume [Entitic System volume] by Automated count Erythrocyte mean 24.0 pg Below low normal MCH [facility] corpuscular Health hemoglobin System [Entitic mass] by Automated count Erythrocyte mean 31.1 Below low normal MCHC [facility] corpuscular {gm/dL} Health hemoglobin System concentration [Mass/volume] by Automated count Erythrocyte 14.8 % Above high normal RDW [facility] distribution Health width [Entitic System volume] by Automated count Platelets 275 Normal (applies Platelet [facility] [#/volume] in {10\\S\\3_ to non-numeric Count Health Plasma by uL} results) System Automated count Platelet mean 8.7 fl Normal (applies MPV [facility] volume [Entitic to non-numeric Health volume] in Blood results) System by Automated count Monocytes 1.0 Normal (applies Monocyte [facility] [#/volume] in {10\\S\\3_ to non-numeric Count Health Blood by Manual uL} results) System count Eosinophils 0.1 Normal (applies Eosinophil [facility] [#/volume] in {10\\S\\3} to non-numeric Count Blood Health Blood results) System Basophils 0.02 Normal (applies Basophil [facility] [#/volume] in {10\\S\\3_ to non-numeric Count Health Blood by uL} results) System Automated count Neutrophils 6.9 Normal (applies Absolute [facility] [#/volume] in {10\\S\\3_ to non-numeric Neutrophil Health Body fluid uL} results) Count System Lymphocyte 1.6 Normal (applies Lymphocyte [facility] percent {10\\S\\3_ to non-numeric Absolute Health differential uL} results) System count (procedure) Neutrophils/100 71.9 % Normal (applies Neutrophil % [place] leukocytes in to non-numeric Health Blood by results) System Automated count Monocytes/100 10.5 % Above high normal Monocyte % [facility] leukocytes in Health Blood System Eosinophils/100 1.3 % Normal (applies Eosinophil % [place] leukocytes in to non-numeric Health Unspecified results) System specimen Basophils/100 0.2 % Normal (applies Basophil % [facility] leukocytes in to non-numeric Health Unspecified results) System specimen by Manual count Lymphocytes 16.1 % Below low normal Lymphocyte % [facility] [#/volume] in Health Blood by System Automated count ID Date Data Source [id number] 03/07/2013 09:00:00 AM EDT [facility] Name Value Range Interpretation Description Data Sup porting Code Source(s) Document(s ) Polys 87 % Normal (applies Polys [facility] to non-numeric Health results) System Platelets Adequate Normal (applies Platelet Count [facility] [#/volume] in to non-numeric Estimate Health Blood by results) System Estimate NORM yes. Normal (applies NORM [facility] to non-numeric Health results) System Lymphocytes 7.0 % Below low normal Lymphocyte % [facility] [#/volume] in Health Blood by System Automated count Monocytes/100 5.0 % Below low normal Monocyte % [facility] leukocytes in Health Blood System Eosinophils/10 1.0 % Normal (applies Eosinophil % [facility] 0 leukocytes to non-numeric Health in Unspecified results) System specimen ID Date Data Source [id number] 03/07/2013 09:00:00 AM EDT [facility] Name Value Range Interpretation Description Data Sup porting Code Source(s) Document(s ) Leukocytes 10.6 Normal (applies WBC Count [facility] [#/volume] in {10\\S\\3_ to non-numeric Health Unspecified uL} results) System specimen by Automated count Erythrocytes 4.33 Below low normal RBC Count [facility] [#/volume] in {10\\S\\6_ Health Blood by uL} System Automated count Hemoglobin 10.5 Below low normal Hemoglobin, [facility] [Mass/volume] in {gm/dL} Whole Blood Health Blood System Hematocrit 33.2 % Below low normal Hematocrit, [facility] [Volume Whole Blood Health Fraction] of System Blood Erythrocyte mean 76.7 fl Below low normal MCV [facility] corpuscular Health volume [Entitic System volume] by Automated count Erythrocyte mean 24.2 pg Below low normal MCH [facility] corpuscular Health hemoglobin System [Entitic mass] by Automated count Erythrocyte mean 31.6 Below low normal [facility]C [facility] corpuscular {gm/dL} Health hemoglobin System concentration [Mass/volume] by Automated count Erythrocyte 15.5 % Above high normal RDW [facility] distribution Health width [Entitic System volume] by Automated count Platelets 287 Normal (applies Platelet [facility] [#/volume] in {10\\S\\3_ to non-numeric Count Health Plasma by uL} results) System Automated count Platelet mean 8.9 fl Normal (applies MPV [facility] volume [Entitic to non-numeric Health volume] in Blood results) System by Automated count Monocytes 0.7 Normal (applies Monocyte [facility] [#/volume] in {10\\S\\3_ to non-numeric Count Health Blood by Manual uL} results) System count Eosinophils 0.1 Normal (applies Eosinophil [facility] [#/volume] in {10\\S\\3} to non-numeric Count Blood Health Blood results) System Neutrophils 8.2 Normal (applies Absolute [facility] [#/volume] in {10\\S\\3_ to non-numeric Neutrophil Health Body fluid uL} results) Count System Basophils 0.02 Normal (applies Basophil [facility] [#/volume] in {10\\S\\3_ to non-numeric Count Health Blood by uL} results) System Automated count Lymphocyte 1.7 Normal (applies Lymphocyte [facility] percent {10\\S\\3_ to non-numeric Absolute Health differential uL} results) System count (procedure) Neutrophils/100 76.7 % Normal (applies Neutrophil % [place] leukocytes in to non-numeric Health Blood by results) System Automated count Monocytes/100 6.7 % Normal (applies Monocyte % [facility] leukocytes in to non-numeric Health Blood results) System Eosinophils/100 0.6 % Below low normal Eosinophil % [place] [facility] leukocytes in Health Unspecified System specimen Basophils/100 0.2 % Normal (applies Basophil % [facility] leukocytes in to non-numeric Health Unspecified results) System specimen by Manual count Lymphocytes 15.8 % Below low normal Lymphocyte % [facility] [#/volume] in Health Blood by System Automated count ID Date Data Source [id number] 03/12/2013 08:48:00 AM EDT [facility] Name Value Range Interpretation Description Data Sup porting Code Source(s) Document(s ) Polys 76 % Normal (applies Polys [facility] to non-numeric Health results) System Platelets Adequate Normal (applies Platelet Count [facility] [#/volume] in to non-numeric Estimate Health Blood by results) System Estimate NORM yes. Normal (applies NORM [facility] to non-numeric Health results) System Lymphocytes 18.0 % Below low normal Lymphocyte % [facility] [#/volume] in Health Blood by System Automated count Monocytes/100 6.0 % Normal (applies Monocyte % [facility] leukocytes in to non-numeric Health Blood results) System ID Date Data Source [id number] 03/12/2013 08:48:00 AM EDT [facility] Name Value Range Interpretation Description Data Sup porting Code Source(s) Document(s ) Leukocytes 8.3 Normal (applies WBC Count [facility] [#/volume] in {10\\S\\3_ to non-numeric Health Unspecified uL} results) System specimen by Automated count Erythrocytes 4.43 Normal (applies RBC Count [facility] [#/volume] in {10\\S\\6_ to non-numeric Health Blood by uL} results) System Automated count Hemoglobin 10.9 Below low normal Hemoglobin, [facility] [Mass/volume] in {gm/dL} Whole Blood Health Blood System Hematocrit 34.8 % Below low normal Hematocrit, [facility] [Volume Whole Blood Health Fraction] of System Blood Erythrocyte mean 78.6 fl Below low normal MCV [facility] corpuscular Health volume [Entitic System volume] by Automated count Erythrocyte mean 24.6 pg Below low normal MCH [facility] corpuscular Health hemoglobin System [Entitic mass] by Automated count Erythrocyte mean 31.3 Below low normal [facility] corpuscular {gm/dL} Health hemoglobin System concentration [Mass/volume] by Automated count Erythrocyte 17.0 % Above high normal RDW [facility] distribution Health width [Entitic System volume] by Automated count Platelets 241 Normal (applies Platelet [facility] [#/volume] in {10\\S\\3_ to non-numeric Count Health Plasma by uL} results) System Automated count Platelet mean 8.9 fl Normal (applies MPV [facility] volume [Entitic to non-numeric Health volume] in Blood results) System by Automated count Monocytes 0.5 Normal (applies Monocyte [facility] [#/volume] in {10\\S\\3_ to non-numeric Count Health Blood by Manual uL} results) System count Eosinophils 0.1 Normal (applies Eosinophil [facility] [#/volume] in {10\\S\\3} to non-numeric Count Blood Health Blood results) System Neutrophils 6.2 Normal (applies Absolute [facility] [#/volume] in {10\\S\\3_ to non-numeric Neutrophil Health Body fluid uL} results) Count System Basophils 0.01 Normal (applies Basophil [facility] [#/volume] in {10\\S\\3_ to non-numeric Count Health Blood by uL} results) System Automated count Lymphocyte 1.6 Normal (applies Lymphocyte [facility] percent {10\\S\\3_ to non-numeric Absolute Health differential uL} results) System count (procedure) Neutrophils/100 74.3 % Normal (applies Neutrophil % [place] leukocytes in to non-numeric Health Blood by results) System Automated count Monocytes/100 5.5 % Below low normal Monocyte % [facility] leukocytes in Health Blood System Eosinophils/100 1.1 % Normal (applies Eosinophil % [place] leukocytes in to non-numeric Health Unspecified results) System specimen Basophils/100 0.1 % Normal (applies Basophil % [facility] leukocytes in to non-numeric Health Unspecified results) System specimen by Manual count Lymphocytes 19.0 % Below low normal Lymphocyte % [facility] [#/volume] in Health Blood by System Automated count ID Date Data Source [id number] 03/19/2013 08:15:00 AM EDT [facility] Name Value Range Interpretation Description Data Sup porting Code Source(s) Document(s ) Leukocytes 7.7 Normal (applies WBC Count [facility] [#/volume] in {10\\S\\3_ to non-numeric Health Unspecified uL} results) System specimen by Automated count Erythrocytes 4.22 Below low normal RBC Count [facility] [#/volume] in {10\\S\\6_ Health Blood by uL} System Automated count Hemoglobin 10.4 Below low normal Hemoglobin, [facility] [Mass/volume] in {gm/dL} Whole Blood Health Blood System Hematocrit 33.6 % Below low normal Hematocrit, [facility] [Volume Whole Blood Health Fraction] of System Blood Erythrocyte mean 79.6 fl Below low normal MCV [facility] corpuscular Health volume [Entitic System volume] by Automated count Erythrocyte mean 24.6 pg Below low normal MCH [facility] corpuscular Health hemoglobin System [Entitic mass] by Automated count Erythrocyte mean 31.0 Below low normal [facility] corpuscular {gm/dL} Health hemoglobin System concentration [Mass/volume] by Automated count Erythrocyte 18.1 % Above high normal RDW [facility] distribution Health width [Entitic System volume] by Automated count Platelets 223 Normal (applies Platelet [facility] [#/volume] in {10\\S\\3_ to non-numeric Count Health Plasma by uL} results) System Automated count Platelet mean 9.4 fl Normal (applies MPV [facility] volume [Entitic to non-numeric Health volume] in Blood results) System by Automated count Monocytes 0.6 Normal (applies Monocyte [facility] [#/volume] in {10\\S\\3_ to non-numeric Count Health Blood by Manual uL} results) System count Eosinophils 0.1 Normal (applies Eosinophil [facility] [#/volume] in {10\\S\\3} to non-numeric Count Blood Health Blood results) System Basophils 0.01 Normal (applies Basophil [facility] [#/volume] in {10\\S\\3_ to non-numeric Count Health Blood by uL} results) System Automated count Neutrophils 5.4 Normal (applies Absolute [facility] [#/volume] in {10\\S\\3_ to non-numeric Neutrophil Health Body fluid uL} results) Count System Lymphocyte 1.6 Normal (applies Lymphocyte [facility] percent {10\\S\\3_ to non-numeric Absolute Health differential uL} results) System count (procedure) Neutrophils/100 70.5 % Normal (applies Neutrophil % [place] leukocytes in to non-numeric Health Blood by results) System Automated count Monocytes/100 7.3 % Normal (applies Monocyte % [facility] leukocytes in to non-numeric Health Blood results) System Eosinophils/100 1.3 % Normal (applies Eosinophil % [place] leukocytes in to non-numeric Health Unspecified results) System specimen Basophils/100 0.1 % Normal (applies Basophil % [facility] leukocytes in to non-numeric Health Unspecified results) System specimen by Manual count Lymphocytes 20.8 % Below low normal Lymphocyte % [facility] [#/volume] in Health Blood by System Automated count ID Date Data Source [id number] 03/21/2013 08:16:00 AM EDT [facility] Name Value Range Interpretation Description Data Sup porting Code Source(s) Document(s ) Leukocytes 8.7 Normal (applies WBC Count [facility] [#/volume] in {10\\S\\3_ to non-numeric Health Unspecified uL} results) System specimen by Automated count Erythrocytes 4.27 Below low normal RBC Count [facility] [#/volume] in {10\\S\\6_ Health Blood by uL} System Automated count Hemoglobin 10.6 Below low normal Hemoglobin, [facility] [Mass/volume] in {gm/dL} Whole Blood Health Blood System Hematocrit 34.2 % Below low normal Hematocrit, [facility] [Volume Whole Blood Health Fraction] of System Blood Erythrocyte mean 80.1 fl Below low normal MCV [facility] corpuscular Health volume [Entitic System volume] by Automated count Erythrocyte mean 24.8 pg Below low normal MCH [facility] corpuscular Health hemoglobin System [Entitic mass] by Automated count Erythrocyte mean 31.0 Below low normal [facility] corpuscular {gm/dL} Health hemoglobin System concentration [Mass/volume] by Automated count Erythrocyte 18.5 % Above high normal RDW [facility] distribution Health width [Entitic System volume] by Automated count Platelets 224 Normal (applies Platelet [facility] [#/volume] in {10\\S\\3_ to non-numeric Count Health Plasma by uL} results) System Automated count Platelet mean 9.3 fl Normal (applies MPV [facility] volume [Entitic to non-numeric Health volume] in Blood results) System by Automated count Monocytes 0.6 Normal (applies Monocyte [facility] [#/volume] in {10\\S\\3_ to non-numeric Count Health Blood by Manual uL} results) System count Eosinophils 0.1 Normal (applies Eosinophil [facility] [#/volume] in {10\\S\\3} to non-numeric Count Blood Health Blood results) System Basophils 0.01 Normal (applies Basophil [facility] [#/volume] in {10\\S\\3_ to non-numeric Count Health Blood by uL} results) System Automated count Neutrophils 6.7 Normal (applies Absolute [facility] [#/volume] in {10\\S\\3_ to non-numeric Neutrophil Health Body fluid uL} results) Count System Lymphocyte 1.4 Normal (applies Lymphocyte [facility] percent {10\\S\\3_ to non-numeric Absolute Health differential uL} results) System count (procedure) Neutrophils/100 76.4 % Normal (applies Neutrophil % [place] leukocytes in to non-numeric Health Blood by results) System Automated count Monocytes/100 6.5 % Normal (applies Monocyte % [facility] leukocytes in to non-numeric Health Blood results) System Eosinophils/100 0.8 % Below low normal Eosinophil % [place] [facility] leukocytes in Health Unspecified System specimen Basophils/100 0.1 % Normal (applies Basophil % [facility] leukocytes in to non-numeric Health Unspecified results) System specimen by Manual count Lymphocytes 16.2 % Below low normal Lymphocyte % [facility] [#/volume] in Health Blood by System Automated count ID Date Data Source [id number] 03/26/2013 08:06:00 AM EDT [facility] Name Value Range Interpretation Description Data Sup porting Code Source(s) Document(s ) Leukocytes 8.1 Normal (applies WBC Count [facility] [#/volume] in {10\\S\\3_ to non-numeric Health Unspecified uL} results) System specimen by Automated count Erythrocytes 4.33 Below low normal RBC Count [facility] [#/volume] in {10\\S\\6_ Health Blood by uL} System Automated count Hemoglobin 10.9 Below low normal Hemoglobin, [facility] [Mass/volume] in {gm/dL} Whole Blood Health Blood System Hematocrit 34.7 % Below low normal Hematocrit, [facility] [Volume Whole Blood Health Fraction] of System Blood Erythrocyte mean 80.1 fl Below low normal MCV [facility] corpuscular Health volume [Entitic System volume] by Automated count Erythrocyte mean 25.2 pg Below low normal MCH [facility] corpuscular Health hemoglobin System [Entitic mass] by Automated count Erythrocyte mean 31.4 Below low normal [facility] corpuscular {gm/dL} Health hemoglobin System concentration [Mass/volume] by Automated count Erythrocyte 18.8 % Above high normal RDW [facility] distribution Health width [Entitic System volume] by Automated count Platelets 237 Normal (applies Platelet [facility] [#/volume] in {10\\S\\3_ to non-numeric Count Health Plasma by uL} results) System Automated count Platelet mean 9.1 fl Normal (applies MPV [facility] volume [Entitic to non-numeric Health volume] in Blood results) System by Automated count Monocytes 0.7 Normal (applies Monocyte [facility] [#/volume] in {10\\S\\3_ to non-numeric Count Health Blood by Manual uL} results) System count Eosinophils 0.1 Normal (applies Eosinophil [facility] [#/volume] in {10\\S\\3} to non-numeric Count Blood Health Blood results) System Neutrophils 5.9 Normal (applies Absolute [facility] [#/volume] in {10\\S\\3_ to non-numeric Neutrophil Health Body fluid uL} results) Count System Basophils 0.02 Normal (applies Basophil [facility] [#/volume] in {10\\S\\3_ to non-numeric Count Health Blood by uL} results) System Automated count Lymphocyte 1.3 Normal (applies Lymphocyte [facility] percent {10\\S\\3_ to non-numeric Absolute Health differential uL} results) System count (procedure) Neutrophils/100 73.0 % Normal (applies Neutrophil % [place] leukocytes in to non-numeric Health Blood by results) System Automated count Monocytes/100 9.2 % Above high normal Monocyte % [facility] leukocytes in Health Blood System Eosinophils/100 1.0 % Normal (applies Eosinophil % [place] leukocytes in to non-numeric Health Unspecified results) System specimen Basophils/100 0.2 % Normal (applies Basophil % [facility] leukocytes in to non-numeric Health Unspecified results) System specimen by Manual count Lymphocytes 16.6 % Below low normal Lymphocyte % [facility] [#/volume] in Health Blood by System Automated count ID Date Data Source [id number] 03/28/2013 08:12:00 AM EDT [facility] System Name Value Range Interpretation Description Data Sup porting Code Source(s) Document(s ) Leukocytes 6.8 Normal (applies WBC Count [facility] [#/volume] in {10\\S\\3_ to non-numeric Health Unspecified uL} results) System specimen by Automated count Erythrocytes 4.28 Below low normal RBC Count [facility] [#/volume] in {10\\S\\6_ Health Blood by uL} System Automated count Hemoglobin 10.7 Below low normal Hemoglobin, [facility] [Mass/volume] in {gm/dL} Whole Blood Health Blood System Hematocrit 34.6 % Below low normal Hematocrit, [facility] [Volume Whole Blood Health Fraction] of System Blood Erythrocyte mean 80.8 fl Below low normal MCV [facility] corpuscular Health volume [Entitic System volume] by Automated count Erythrocyte mean 25.0 pg Below low normal MCH [facility] corpuscular Health hemoglobin System [Entitic mass] by Automated count Erythrocyte mean 30.9 Below low normal MCHC [facility] corpuscular {gm/dL} Health hemoglobin System concentration [Mass/volume] by Automated count Erythrocyte 19.1 % Above high normal RDW [facility] distribution Health width [Entitic System volume] by Automated count Platelets 229 Normal (applies Platelet [facility] [#/volume] in {10\\S\\3_ to non-numeric Count Health Plasma by uL} results) System Automated count Platelet mean 9.3 fl Normal (applies MPV [facility] volume [Entitic to non-numeric Health volume] in Blood results) System by Automated count Monocytes 0.5 Normal (applies Monocyte [facility] [#/volume] in {10\\S\\3_ to non-numeric Count Health Blood by Manual uL} results) System count Eosinophils 0.1 Normal (applies Eosinophil [facility] [#/volume] in {10\\S\\3} to non-numeric Count Blood Health Blood results) System Basophils 0.01 Normal (applies Basophil [facility] [#/volume] in {10\\S\\3_ to non-numeric Count Health Blood by uL} results) System Automated count Neutrophils 4.9 Normal (applies Absolute [facility] [#/volume] in {10\\S\\3_ to non-numeric Neutrophil Health Body fluid uL} results) Count System Lymphocyte 1.3 Normal (applies Lymphocyte [facility] percent {10\\S\\3_ to non-numeric Absolute Health differential uL} results) System count (procedure) Neutrophils/100 72.2 % Normal (applies Neutrophil % [place] leukocytes in to non-numeric Health Blood by results) System Automated count Monocytes/100 7.7 % Normal (applies Monocyte % [facility] leukocytes in to non-numeric Health Blood results) System Eosinophils/100 1.3 % Normal (applies Eosinophil % [place] leukocytes in to non-numeric Health Unspecified results) System specimen Basophils/100 0.1 % Normal (applies Basophil % [facility] leukocytes in to non-numeric Health Unspecified results) System specimen by Manual count Lymphocytes 18.7 % Below low normal Lymphocyte % [facility] [#/volume] in Health Blood by System Automated count ID Date Data Source [id number] 03/29/2013 10:09:02 AM EDT [facility] Name Value Range Interpretation Description Data Sup porting Code Source(s) Document(s ) Ampheta Cancelled No Amphetamine [facility] mineQua specimen Qualitative, Health System litativ received Urine e,Urine from ED Barbitu Cancelled No Barbituates, [facility] ates,Ur specimen Urine. Health System ine. received from ED Benzodi Cancelled No Benzodiazepine, [facility] azepine specimen Urine. Health System ,Urine. received from ED Cocaine Cancelled No Cocaine Qual, [facility] Qual,Ur specimen Urine. Health System ine. received from ED THC. Cancelled No THC. [facility] specimen [facility] received from ED Methaqu Cancelled No Methaqualone [facility] aloneQu specimen Qualitative, Health System alitati received Urine ve,Urin from ED e Phencyc Cancelled No Phencyclidine [facility] lidineP specimen PCP Qualitative, Health System CPQuali received Urine. tative, from ED Urine. Propoxy Cancelled No Propoxyphene [facility] pheneQu specimen Qualitative, Health System alitati received Urine ve,Urin from ED e Methado Cancelled No Methadone [facility] neQuali specimen Qualitative, Health System tative, received Urine Urine from ED Opiates Cancelled No Opiates, Urine [facility] ,Urine specimen Health System received from ED ID Date Data Source [id number] 03/29/2013 10:09:02 AM EDT [facility] Name Value Range Interpretation Description Data Sup porting Code Source(s) Document(s ) aPTT in Blood 28.1 Normal (applies Activated [facility] by Coagulation {Seconds to non-numeric Partial Health assay } results) Thromboplastin System Time ID Date Data Source [id number] 03/29/2013 10:09:02 AM EDT [facility] Name Value Range Interpretation Description Data Sup porting Code Source(s) Document(s ) Prothrombintim 11.30 Normal (applies Prothrombin [facility](PT) to non-numeric time (PT) Health System results) INR in Blood 1.07 Normal (applies INR Result [facility] by Coagulation {Ratio} to non-numeric Health Sys tem assay results) Normal = 0.7-1.1Therapeutic = 2.0-3.0Mec hanical Heart = 3.0-4.5 ID Date Data Source [id number] 03/29/2013 10:09:02 AM EDT [facility] Name Value Range Interpretation Description Data Sup porting Code Source(s) Document(s ) Leukocytes 6.8 Normal (applies WBC Count [facility] [#/volume] in {10\\S\\3_ to non-numeric Health Unspecified uL} results) System specimen by Automated count Erythrocytes 4.19 Below low normal RBC Count [facility] [#/volume] in {10\\S\\6_ Health Blood by uL} System Automated count Hemoglobin 10.6 Below low normal Hemoglobin, [facility] [Mass/volume] in {gm/dL} Whole Blood Health Blood System Hematocrit 33.6 % Below low normal Hematocrit, [facility] [Volume Whole Blood Health Fraction] of System Blood Erythrocyte mean 80.2 fl Below low normal MCV [facility] corpuscular Health volume [Entitic System volume] by Automated count Erythrocyte mean 25.3 pg Below low normal MCH [facility] corpuscular Health hemoglobin System [Entitic mass] by Automated count Erythrocyte mean 31.5 Below low normal MCHC [facility] corpuscular {gm/dL} Health hemoglobin System concentration [Mass/volume] by Automated count Erythrocyte 18.9 % Above high normal RDW [facility] distribution Health width [Entitic System volume] by Automated count Platelets 213 Normal (applies Platelet [facility] [#/volume] in {10\\S\\3_ to non-numeric Count Health Plasma by uL} results) System Automated count Platelet mean 8.9 fl Normal (applies MPV [facility] volume [Entitic to non-numeric Health volume] in Blood results) System by Automated count ID Date Data Source [id number] 03/29/2013 10:09:02 AM EDT [facility] System Name Value Range Interpretation Description Data Sup porting Code Source(s) Document(s ) Sodium 138 Normal (applies Sodium, Serum [facility] [Moles/volume] in mmol/L to non-numeric Health Serum or Plasma results) System Potassium 4.3 Normal (applies Potassium, [facility] [Mass/volume] in mmol/L to non-numeric Serum Health Serum or Plasma results) System Chloride 105 Normal (applies Chloride, [facility] [Moles/volume] in mmol/L to non-numeric Serum Health Serum or Plasma results) System Carbon dioxide, 21.0 Below low normal CO2, Serum [facility] total mmol/L Health [Moles/volume] in System Serum or Plasma TotalProtein 7.0 Normal (applies Total Protein [facility] mg/dl to non-numeric Health results) System Glucose 111 Above high Glucose, [facility] [Mass/volume] in mg/dL normal Serum Health Serum or Plasma System Urea nitrogen 19 Normal (applies Blood Urea [facility] [Mass/volume] in mg/dl to non-numeric Nitrogen, Health Serum or Plasma results) Serum System Creatinine 0.90 Normal (applies Creatinine, [facility] [Mass/volume] in mg/dl to non-numeric Serum Health Serum or Plasma results) System Alkaline 35 Below low normal Alkaline [facility] phosphatase {IU/L} Phosphatase, Health isoenzymes Serum System [Enzymatic activity/volume] in Serum or Plasma by Heat stability Bilirubin.total 0.3 Normal (applies Bilirubin, [facility] [Mass/volume] in mg/dl to non-numeric Serum Total Health Serum or Plasma results) System Aspartate 18 Normal (applies Aspartate [facility] aminotransferase {IU/L} to non-numeric Transaminase, Heal th [Enzymatic results) Serum System activity/volume] in Serum or Plasma by With P-5'-P Albumin 4.3 Normal (applies Albumin, [facility] [Mass/volume] in {gm/dl} to non-numeric Serum Health Serum or Plasma results) System I.Phosphorus 3.1 Normal (applies I. Phosphorus [facility] mg/dl to non-numeric Health results) System Alanine 24 Normal (applies Alanine [facility] aminotransferase {IU/L} to non-numeric Aminotransfer Heal th [Enzymatic results) ase, Serum System activity/volume] in Serum or Plasma Calcium 9.3 Normal (applies Calcium, [facility] [Mass/volume] in mg/dl to non-numeric Total Serum Health Serum or Plasma results) System A/GRatio 1.59 Normal (applies A/G Ratio [facility] to non-numeric Health results) System Urate 5.6 Normal (applies Uric Acid, [facility] [Mass/volume] in mg/dl to non-numeric Serum Health Serum or Plasma results) System Anion gap in Serum 12.00 Normal (applies Anion Gap [place] or Plasma mmol/L to non-numeric Health results) System Glomerular 84.00 Normal (applies GFR [facility] filtration to non-numeric Health rate/1.73 sq results) System M.predicted [Volume Rate/Area] in Serum or Plasma by Creatinine-based formula (CKD-EPI) eGFR will provide clinicians with a more accurate indicator of renal function then the serum creatinine. The eGFR is automa tically calculated from an empiric formula (endorsed by the [employer]) which incorporates age, sex, and race.Clinicians may notice surprisingly low GFR's with serum creatinine valueswithin normal range- particularly in elderly wo men (with low muscle mass).In the hospital setting, the eGFR should add an element of safety in drug dosing, in assessing the risk of IV contrast administration, and in assessing vascular risk.The NKF staging system is as follows:Normal: eGFR >90 with no kidney markersStage 1: eGFR >90 with kidney markers*Stage 2: eGFR 60- 89Stage 3: eGFR 30-59Stage 4: eGFR 15-29Stage 5: eGFR <15 (usually requir ing dialysis)*Markers include: Proteinuria, Hematuria, abnormal imaging-studies, or other blood or urine test abnormalities ID Date Data Source [id number] 03/29/2013 10:09:02 AM EDT [facility] System Name Value Range Interpretation Description Data Sup porting Code Source(s) Document(s ) TroponinIQuantitative 0.00 Normal (applies Troponin I [facility] ng/ml to non-numeric Quantitative Health results) System ID Date Data Source [id number] 03/29/2013 10:09:02 AM EDJoshua wolf System Name Value Range Interpretation Description Data Sup porting Code Source(s) Document(s ) Triglyceride 45 mg/dl Normal (applies Triglycerides, [facility] [Mass/volume] to non-numeric Serum Health in Serum or results) System Plasma Optimal = < 100 mg/dLBoderline High = 15 0 - 199 mg/dLHigh = 200 - 499 mg/dLVery High = > 500 mg/dL Cholesterol 126 mg/dl Normal (applies Cholesterol, Serum [facility] [Mass/volume] in to non-numeric Health S ystem Serum or Plasma results) <200 mg/dL = [id number] - 239 md/dL = Borderline>240 mg/dL = High Risk Cholesterol in HDL 40.0 mg/dL Normal (applies HDL Cholestero l, [facility] [Mass/volume] in to non-numeric Serum Health S yste Serum or Plasma results) Cholesterol in LDL 77 mg/dL Normal (applies Low Density [facility] [Mass/volume] in to non-numeric Lipoprotein, Healt h System Serum or Plasma results) Calculated OPTIMAL: LESS THAN 100 mg/dLNEAR OPTIMAL : 100 - 129 mg/dLBODERLINE HIGH: 130 - 150 mg/dL Cholesterol in VLDL 9 Normal (applies to VLDL, Serum [facility] [Mass/volume] in Serum non-numeric results) System or Plasma CHDRisk 3.15 Normal (applies to CHD Risk [facility] non-numeric results) System ID Date Data Source [id number] 03/30/2013 05:46:00 AM RANDA wolf System Name Value Range Interpretation Description Data Sup porting Code Source(s) Document(s ) Leukocytes 7.9 Normal (applies WBC Count [facility] [#/volume] in {10\\S\\3_ to non-numeric Health Unspecified uL} results) System specimen by Automated count Erythrocytes 4.03 Below low normal RBC Count [facility] [#/volume] in {10\\S\\6_ Health Blood by uL} System Automated count Hemoglobin 10.0 Below low normal Hemoglobin, [facility] [Mass/volume] in {gm/dL} Whole Blood Health Blood System Hematocrit 32.7 % Below low normal Hematocrit, [facility] [Volume Whole Blood Health Fraction] of System Blood Erythrocyte mean 81.1 fl Below low normal MCV [facility] corpuscular Health volume [Entitic System volume] by Automated count Erythrocyte mean 24.8 pg Below low normal MCH [facility] corpuscular Health hemoglobin System [Entitic mass] by Automated count Erythrocyte mean 30.6 Below low normal MCHC [facility] corpuscular {gm/dL} Health hemoglobin System concentration [Mass/volume] by Automated count Erythrocyte 19.1 % Above high normal RDW [facility] distribution Health width [Entitic System volume] by Automated count Platelets 205 Normal (applies Platelet [facility] [#/volume] in {10\\S\\3_ to non-numeric Count Health Plasma by uL} results) System Automated count Platelet mean 9.0 fl Normal (applies MPV [facility] volume [Entitic to non-numeric Health volume] in Blood results) System by Automated count Monocytes 0.8 Normal (applies Monocyte [facility] [#/volume] in {10\\S\\3_ to non-numeric Count Health Blood by Manual uL} results) System count Eosinophils 0.1 Normal (applies Eosinophil [facility] [#/volume] in {10\\S\\3} to non-numeric Count Blood Health Blood results) System Basophils 0.02 Normal (applies Basophil [facility] [#/volume] in {10\\S\\3_ to non-numeric Count Health Blood by uL} results) System Automated count Neutrophils 5.2 Normal (applies Absolute [facility] [#/volume] in {10\\S\\3_ to non-numeric Neutrophil Health Body fluid uL} results) Count System Lymphocyte 1.8 Normal (applies Lymphocyte [facility] percent {10\\S\\3_ to non-numeric Absolute Health differential uL} results) System count (procedure) Neutrophils/100 65.1 % Normal (applies Neutrophil % [place] leukocytes in to non-numeric Health Blood by results) System Automated count Monocytes/100 9.8 % Above high normal Monocyte % [facility] leukocytes in Health Blood System Eosinophils/100 1.6 % Normal (applies Eosinophil % [place] leukocytes in to non-numeric Health Unspecified results) System specimen Basophils/100 0.3 % Normal (applies Basophil % [facility] leukocytes in to non-numeric Health Unspecified results) System specimen by Manual count Lymphocytes 23.2 % Normal (applies Lymphocyte % [facility] [#/volume] in to non-numeric Health Blood by results) System Automated count ID Date Data Source [id number] 03/30/2013 05:46:00 AM EDT [facility] System Name Value Range Interpretation Description Data Sup porting Code Source(s) Document(s ) Sodium 141 Normal (applies Sodium, Serum [facility] [Moles/volume mmol/L to non-numeric Health Syst em ] in Serum or results) Plasma Potassium 4.0 Normal (applies Potassium, [facility] [Mass/volume] mmol/L to non-numeric Serum Health Syst em in Serum or results) Plasma Chloride 108 Above high normal Chloride, [facility] [Moles/volume mmol/L Serum Health System ] in Serum or Plasma Carbon 23.0 Normal (applies CO2, Serum [facility] dioxide, mmol/L to non-numeric Health System total results) [Moles/volume ] in Serum or Plasma Glucose 93 mg/dL Normal (applies Glucose, Serum [facility] [Mass/volume] to non-numeric Health Syst em in Serum or results) Plasma ok Urea nitrogen 18 mg/dl Normal (applies to Blood Urea [facility] [Mass/volume] in non-numeric Nitrogen, Serum Healt h System Serum or Plasma results) Creatinine 0.90 mg/dl Normal (applies to Creatinine, [facility] [Mass/volume] in non-numeric Serum Health Syst em Serum or Plasma results) Calcium 9.0 mg/dl Normal (applies to Calcium, Total [facility] [Mass/volume] in non-numeric Serum Health Syst em Serum or Plasma results) Anion gap in Serum 10.00 mmol/L Normal (applies to Anion Gap [facility] or Plasma non-numeric Health System results) ID Date Data Source [id number] 03/31/2013 06:13:00 AM EDT [facility] System Name Value Range Interpretation Description Data Sup porting Code Source(s) Document(s ) Leukocytes 7.5 Normal (applies WBC Count [facility] [#/volume] in {10\\S\\3_ to non-numeric Health Unspecified uL} results) System specimen by Automated count Erythrocytes 4.21 Below low normal RBC Count [facility] [#/volume] in {10\\S\\6_ Health Blood by uL} System Automated count Hemoglobin 10.6 Below low normal Hemoglobin, [facility] [Mass/volume] in {gm/dL} Whole Blood Health Blood System Hematocrit 34.3 % Below low normal Hematocrit, [facility] [Volume Whole Blood Health Fraction] of System Blood Erythrocyte mean 81.5 fl Below low normal MCV [facility] corpuscular Health volume [Entitic System volume] by Automated count Erythrocyte mean 25.2 pg Below low normal MCH [facility] corpuscular Health hemoglobin System [Entitic mass] by Automated count Erythrocyte mean 30.9 Below low normal MCHC [facility] corpuscular {gm/dL} Health hemoglobin System concentration [Mass/volume] by Automated count Erythrocyte 19.5 % Above high normal RDW [facility] distribution Health width [Entitic System volume] by Automated count Platelets 218 Normal (applies Platelet [facility] [#/volume] in {10\\S\\3_ to non-numeric Count Health Plasma by uL} results) System Automated count Platelet mean 9.1 fl Normal (applies MPV [facility] volume [Entitic to non-numeric Health volume] in Blood results) System by Automated count Monocytes 0.8 Normal (applies Monocyte [facility] [#/volume] in {10\\S\\3_ to non-numeric Count Health Blood by Manual uL} results) System count Eosinophils 0.1 Normal (applies Eosinophil [facility] [#/volume] in {10\\S\\3} to non-numeric Count Blood Health Blood results) System Neutrophils 4.8 Normal (applies Absolute [facility] [#/volume] in {10\\S\\3_ to non-numeric Neutrophil Health Body fluid uL} results) Count System Basophils 0.02 Normal (applies Basophil [facility] [#/volume] in {10\\S\\3_ to non-numeric Count Health Blood by uL} results) System Automated count Lymphocyte 1.8 Normal (applies Lymphocyte [facility] percent {10\\S\\3_ to non-numeric Absolute Health differential uL} results) System count (procedure) Neutrophils/100 63.4 % Normal (applies Neutrophil % [place] leukocytes in to non-numeric Health Blood by results) System Automated count Monocytes/100 10.1 % Above high normal Monocyte % [facility] leukocytes in Health Blood System Eosinophils/100 1.6 % Normal (applies Eosinophil % [place] leukocytes in to non-numeric Health Unspecified results) System specimen Basophils/100 0.3 % Normal (applies Basophil % [facility] leukocytes in to non-numeric Health Unspecified results) System specimen by Manual count Lymphocytes 24.6 % Normal (applies Lymphocyte % [facility] [#/volume] in to non-numeric Health Blood by results) System Automated count ID Date Data Source [id number] 04/02/2013 08:26:00 AM EDT [facility] Name Value Range Interpretation Description Data Sup porting Code Source(s) Document(s ) Leukocytes 8.1 Normal (applies WBC Count [facility] [#/volume] in {10\\S\\3_ to non-numeric Health Unspecified uL} results) System specimen by Automated count Erythrocytes 4.19 Below low normal RBC Count [facility] [#/volume] in {10\\S\\6_ Health Blood by uL} System Automated count Hemoglobin 10.6 Below low normal Hemoglobin, [facility] [Mass/volume] in {gm/dL} Whole Blood Health Blood System Hematocrit 34.2 % Below low normal Hematocrit, [facility] [Volume Whole Blood Health Fraction] of System Blood Erythrocyte mean 81.6 fl Below low normal MCV [facility] corpuscular Health volume [Entitic System volume] by Automated count Erythrocyte mean 25.3 pg Below low normal MCH [facility] corpuscular Health hemoglobin System [Entitic mass] by Automated count Erythrocyte mean 31.0 Below low normal [facility]C [facility] corpuscular {gm/dL} Health hemoglobin System concentration [Mass/volume] by Automated count Erythrocyte 19.2 % Above high normal RDW [facility] distribution Health width [Entitic System volume] by Automated count Platelets 205 Normal (applies Platelet [facility] [#/volume] in {10\\S\\3_ to non-numeric Count Health Plasma by uL} results) System Automated count Platelet mean 8.8 fl Normal (applies MPV [facility] volume [Entitic to non-numeric Health volume] in Blood results) System by Automated count Monocytes 0.7 Normal (applies Monocyte [facility] [#/volume] in {10\\S\\3_ to non-numeric Count Health Blood by Manual uL} results) System count Eosinophils 0.1 Normal (applies Eosinophil [facility] [#/volume] in {10\\S\\3} to non-numeric Count Blood Health Blood results) System Neutrophils 6.1 Normal (applies Absolute [facility] [#/volume] in {10\\S\\3_ to non-numeric Neutrophil Health Body fluid uL} results) Count System Basophils 0.02 Normal (applies Basophil [facility] [#/volume] in {10\\S\\3_ to non-numeric Count Health Blood by uL} results) System Automated count Lymphocyte 1.2 Normal (applies Lymphocyte [facility] percent {10\\S\\3_ to non-numeric Absolute Health differential uL} results) System count (procedure) Neutrophils/100 75.2 % Normal (applies Neutrophil % [place] leukocytes in to non-numeric Health Blood by results) System Automated count Monocytes/100 8.1 % Normal (applies Monocyte % [facility] leukocytes in to non-numeric Health Blood results) System Eosinophils/100 1.5 % Normal (applies Eosinophil % [place] leukocytes in to non-numeric Health Unspecified results) System specimen Basophils/100 0.2 % Normal (applies Basophil % [facility] leukocytes in to non-numeric Health Unspecified results) System specimen by Manual count Lymphocytes 15.0 % Below low normal Lymphocyte % [facility] [#/volume] in Health Blood by System Automated count ID Date Data Source [id number] 04/04/2013 07:25:00 AM EDT [facility] System Name Value Range Interpretation Description Data Sup porting Code Source(s) Document(s ) Leukocytes 7.0 Normal (applies WBC Count [facility] [#/volume] in {10\\S\\3_ to non-numeric Health Unspecified uL} results) System specimen by Automated count Erythrocytes 4.18 Below low normal RBC Count [facility] [#/volume] in {10\\S\\6_ Health Blood by uL} System Automated count Hemoglobin 10.6 Below low normal Hemoglobin, [facility] [Mass/volume] in {gm/dL} Whole Blood Health Blood System Hematocrit 34.2 % Below low normal Hematocrit, [facility] [Volume Whole Blood Health Fraction] of System Blood Erythrocyte mean 81.8 fl Below low normal MCV [facility] corpuscular Health volume [Entitic System volume] by Automated count Erythrocyte mean 25.4 pg Below low normal MCH [facility] corpuscular Health hemoglobin System [Entitic mass] by Automated count Erythrocyte mean 31.0 Below low normal [facility] corpuscular {gm/dL} Health hemoglobin System concentration [Mass/volume] by Automated count Erythrocyte 19.3 % Above high normal RDW [facility] distribution Health width [Entitic System volume] by Automated count Platelets 223 Normal (applies Platelet [facility] [#/volume] in {10\\S\\3_ to non-numeric Count Health Plasma by uL} results) System Automated count Platelet mean 9.2 fl Normal (applies MPV [facility] volume [Entitic to non-numeric Health volume] in Blood results) System by Automated count Monocytes 0.6 Normal (applies Monocyte [facility] [#/volume] in {10\\S\\3_ to non-numeric Count Health Blood by Manual uL} results) System count Eosinophils 0.1 Normal (applies Eosinophil [facility] [#/volume] in {10\\S\\3} to non-numeric Count Blood Health Blood results) System Neutrophils 4.8 Normal (applies Absolute [facility] [#/volume] in {10\\S\\3_ to non-numeric Neutrophil Health Body fluid uL} results) Count System Basophils 0.01 Normal (applies Basophil [facility] [#/volume] in {10\\S\\3_ to non-numeric Count Health Blood by uL} results) System Automated count Lymphocyte 1.5 Normal (applies Lymphocyte [facility] percent {10\\S\\3_ to non-numeric Absolute Health differential uL} results) System count (procedure) Neutrophils/100 68.8 % Normal (applies Neutrophil % [place] leukocytes in to non-numeric Health Blood by results) System Automated count Monocytes/100 8.5 % Normal (applies Monocyte % [facility] leukocytes in to non-numeric Health Blood results) System Eosinophils/100 1.6 % Normal (applies Eosinophil % [place] leukocytes in to non-numeric Health Unspecified results) System specimen Basophils/100 0.1 % Normal (applies Basophil % [facility] leukocytes in to non-numeric Health Unspecified results) System specimen by Manual count Lymphocytes 21.0 % Normal (applies Lymphocyte % [facility] [#/volume] in to non-numeric Health Blood by results) System Automated count ID Date Data Source [id number] 04/09/2013 08:19:00 AM EDT [facility] Name Value Range Interpretation Description Data Sup porting Code Source(s) Document(s ) Leukocytes 13.3 Above high normal WBC Count [facility] [#/volume] in {10\\S\\3_ Health System Unspecified uL} specimen by Automated count ok Erythrocytes 4.20 {10\\S\\6_uL} Below low RBC Count [facility] [#/volume] in Blood normal Health Sys tem by Automated count Hemoglobin 10.6 {gm/dL} Below low Hemoglobin, [facility] [Mass/volume] in normal Whole Blood Health Syst em Blood Hematocrit [Volume 34.0 % Below low Hematocrit, [facility] Fraction] of Blood normal Whole Blood Health Sy stem Erythrocyte mean 81.0 fl Below low MCV [facility] corpuscular volume normal Health Syst em [Entitic volume] by Automated count Erythrocyte mean 25.2 pg Below low MCH [facility] corpuscular normal Health System hemoglobin [Entitic mass] by Automated count Erythrocyte mean 31.2 {gm/dL} Below low [facility] corpuscular normal Health System hemoglobin concentration [Mass/volume] by Automated count Erythrocyte 19.6 % Above high RDW [facility] distribution width normal Health Syst em [Entitic volume] by Automated count Platelets [#/volume] 229 {10\\S\\3_uL} Normal Platelet Coun t [facility] in Plasma by (applies to Health System Automated count non-numeric results) Platelet mean volume 9.1 fl Normal MPV [facility] [Ent[facility] volume] in (applies to Health ystem Blood by Automated non-numeric count results) Monocytes [#/volume] 1.1 {10\\S\\3_uL} Above high Monocyte Cou nt [facility] in Blood by Manual normal Health Syst em count Eosinophils 0.0 {10\\S\\3} Below low Eosinophil Count [facility] [#/volume] in Blood normal Blood Health Sys tem Neutrophils 10.9 {10\\S\\3_uL} Above high Absolute [facility] [#/volume] in Body normal Neutrophil Count [facility] System fluid Basophils [#/volume] 0.01 {10\\S\\3_uL} Normal Basophil Cou nt [facility] in Blood by (applies to Health System Automated count non-numeric results) Lymphocyte percent 1.3 {10\\S\\3_uL} Normal Lymphocyte [facility] differential count (applies to Absolute Health Sy stem (procedure) non-numeric results) Neutrophils/100 81.9 % Normal Neutrophil % [facility] leukocytes in Blood (applies to [facility] yste by Automated count non-numeric results) Monocytes/100 8.0 % Normal Monocyte % [facility] leukocytes in Blood (applies to [facility] S yste non-numeric results) Eosinophils/100 0.0 % Below low Eosinophil % [facility] leukocytes in normal Health System Unspecified specimen Basophils/100 0.1 % Normal Basophil % [facility] leukocytes in (applies to Health System Unspecified specimen non-numeric by Manual count results) Lymphocytes 10.0 % Below low Lymphocyte % [facility] [#/volume] in Blood normal Health Sys tem by Automated count ID Date Data Source [id number] 04/16/2013 08:47:00 AM EDT [facility] Name Value Range Interpretation Description Data Sup porting Code Source(s) Document(s ) Leukocytes 8.7 Normal (applies WBC Count [facility] [#/volume] in {10\\S\\3_ to non-numeric Health Unspecified uL} results) System specimen by Automated count Erythrocytes 4.04 Below low normal RBC Count [facility] [#/volume] in {10\\S\\6_ Health Blood by uL} System Automated count Hemoglobin 10.4 Below low normal Hemoglobin, [facility] [Mass/volume] in {gm/dL} Whole Blood Health Blood System Hematocrit 33.2 % Below low normal Hematocrit, [facility] [Volume Whole Blood Health Fraction] of System Blood Erythrocyte mean 82.2 fl Below low normal MCV [facility] corpuscular Health volume [Entitic System volume] by Automated count Erythrocyte mean 25.7 pg Below low normal MCH [facility] corpuscular Health hemoglobin System [Entitic mass] by Automated count Erythrocyte mean 31.3 Below low normal [facility] corpuscular {gm/dL} Health hemoglobin System concentration [Mass/volume] by Automated count Erythrocyte 19.4 % Above high normal RDW [facility] distribution Health width [Entitic System volume] by Automated count Platelets 201 Normal (applies Platelet [facility] [#/volume] in {10\\S\\3_ to non-numeric Count Health Plasma by uL} results) System Automated count Platelet mean 8.9 fl Normal (applies MPV [facility] volume [Entitic to non-numeric Health volume] in Blood results) System by Automated count Monocytes 0.5 Normal (applies Monocyte [facility] [#/volume] in {10\\S\\3_ to non-numeric Count Health Blood by Manual uL} results) System count Eosinophils 0.1 Normal (applies Eosinophil [facility] [#/volume] in {10\\S\\3} to non-numeric Count Blood Health Blood results) System Neutrophils 6.7 Normal (applies Absolute [facility] [#/volume] in {10\\S\\3_ to non-numeric Neutrophil Health Body fluid uL} results) Count System Basophils 0.01 Normal (applies Basophil [facility] [#/volume] in {10\\S\\3_ to non-numeric Count Health Blood by uL} results) System Automated count Lymphocyte 1.4 Normal (applies Lymphocyte [facility] percent {10\\S\\3_ to non-numeric Absolute Health differential uL} results) System count (procedure) Neutrophils/100 77.1 % Normal (applies Neutrophil % [place] leukocytes in to non-numeric Health Blood by results) System Automated count Monocytes/100 6.1 % Normal (applies Monocyte % [facility] leukocytes in to non-numeric Health Blood results) System Eosinophils/100 1.0 % Normal (applies Eosinophil % [place] leukocytes in to non-numeric Health Unspecified results) System specimen Basophils/100 0.1 % Normal (applies Basophil % [facility] leukocytes in to non-numeric Health Unspecified results) System specimen by Manual count Lymphocytes 15.7 % Below low normal Lymphocyte % [facility] [#/volume] in Health Blood by System Automated count ID Date Data Source [id number] 04/23/2013 08:31:00 AM EDT [facility] Name Value Range Interpretation Description Data Sup porting Code Source(s) Document(s ) Leukocytes 8.5 Normal (applies WBC Count [facility] [#/volume] in {10\\S\\3_ to non-numeric Health Unspecified uL} results) System specimen by Automated count Erythrocytes 4.15 Below low normal RBC Count [facility] [#/volume] in {10\\S\\6_ Health Blood by uL} System Automated count Hemoglobin 10.6 Below low normal Hemoglobin, [facility] [Mass/volume] in {gm/dL} Whole Blood Health Blood System Hematocrit 34.2 % Below low normal Hematocrit, [facility] [Volume Whole Blood Health Fraction] of System Blood Erythrocyte mean 82.4 fl Below low normal MCV [facility] corpuscular Health volume [Entitic System volume] by Automated count Erythrocyte mean 25.5 pg Below low normal MCH [facility] corpuscular Health hemoglobin System [Entitic mass] by Automated count Erythrocyte mean 31.0 Below low normal [facility] corpuscular {gm/dL} Health hemoglobin System concentration [Mass/volume] by Automated count Erythrocyte 19.2 % Above high normal RDW [facility] distribution Health width [Entitic System volume] by Automated count Platelets 235 Normal (applies Platelet [facility] [#/volume] in {10\\S\\3_ to non-numeric Count Health Plasma by uL} results) System Automated count Platelet mean 9.3 fl Normal (applies MPV [facility] volume [Entitic to non-numeric Health volume] in Blood results) System by Automated count Monocytes 0.6 Normal (applies Monocyte [facility] [#/volume] in {10\\S\\3_ to non-numeric Count Health Blood by Manual uL} results) System count Eosinophils 0.1 Normal (applies Eosinophil [facility] [#/volume] in {10\\S\\3} to non-numeric Count Blood Health Blood results) System Neutrophils 6.3 Normal (applies Absolute [facility] [#/volume] in {10\\S\\3_ to non-numeric Neutrophil Health Body fluid uL} results) Count System Basophils 0.01 Normal (applies Basophil [facility] [#/volume] in {10\\S\\3_ to non-numeric Count Health Blood by uL} results) System Automated count Lymphocyte 1.6 Normal (applies Lymphocyte [facility] percent {10\\S\\3_ to non-numeric Absolute Health differential uL} results) System count (procedure) Neutrophils/100 73.7 % Normal (applies Neutrophil % [place] leukocytes in to non-numeric Health Blood by results) System Automated count Monocytes/100 6.6 % Normal (applies Monocyte % [facility] leukocytes in to non-numeric Health Blood results) System Eosinophils/100 0.8 % Below low normal Eosinophil % [place] [facility] leukocytes in Health Unspecified System specimen Basophils/100 0.1 % Normal (applies Basophil % [facility] leukocytes in to non-numeric Health Unspecified results) System specimen by Manual count Lymphocytes 18.8 % Below low normal Lymphocyte % [facility] [#/volume] in Health Blood by System Automated count ID Date Data Source [id number] 04/30/2013 08:31:00 AM EDT [facility] Name Value Range Interpretation Description Data Sup porting Code Source(s) Document(s ) Leukocytes 6.5 Normal (applies WBC Count [facility] [#/volume] in {10\\S\\3_ to non-numeric Health Unspecified uL} results) System specimen by Automated count Erythrocytes 4.15 Below low normal RBC Count [facility] [#/volume] in {10\\S\\6_ Health Blood by uL} System Automated count Hemoglobin 10.6 Below low normal Hemoglobin, [facility] [Mass/volume] in {gm/dL} Whole Blood Health Blood System Hematocrit 34.5 % Below low normal Hematocrit, [facility] [Volume Whole Blood Health Fraction] of System Blood Erythrocyte mean 83.1 fl Normal (applies MCV [facility] corpuscular to non-numeric Health volume [Entitic results) System volume] by Automated count Erythrocyte mean 25.5 pg Below low normal MCH [facility] corpuscular Health hemoglobin System [Entitic mass] by Automated count Erythrocyte mean 30.7 Below low normal [facility] corpuscular {gm/dL} Health hemoglobin System concentration [Mass/volume] by Automated count Erythrocyte 18.8 % Above high normal RDW [facility] distribution Health width [Entitic System volume] by Automated count Platelets 224 Normal (applies Platelet [facility] [#/volume] in {10\\S\\3_ to non-numeric Count Health Plasma by uL} results) System Automated count Platelet mean 9.1 fl Normal (applies MPV [facility] volume [Entitic to non-numeric Health volume] in Blood results) System by Automated count Monocytes 0.4 Normal (applies Monocyte [facility] [#/volume] in {10\\S\\3_ to non-numeric Count Health Blood by Manual uL} results) System count Eosinophils 0.1 Normal (applies Eosinophil [facility] [#/volume] in {10\\S\\3} to non-numeric Count Blood Health Blood results) System Basophils 0.01 Normal (applies Basophil [facility] [#/volume] in {10\\S\\3_ to non-numeric Count Health Blood by uL} results) System Automated count Neutrophils 4.7 Normal (applies Absolute [facility] [#/volume] in {10\\S\\3_ to non-numeric Neutrophil Health Body fluid uL} results) Count System Lymphocyte 1.2 Normal (applies Lymphocyte [facility] percent {10\\S\\3_ to non-numeric Absolute Health differential uL} results) System count (procedure) Neutrophils/100 72.7 % Normal (applies Neutrophil % [place] leukocytes in to non-numeric Health Blood by results) System Automated count Monocytes/100 6.8 % Normal (applies Monocyte % [facility] leukocytes in to non-numeric Health Blood results) System Eosinophils/100 1.1 % Normal (applies Eosinophil % [place] leukocytes in to non-numeric Health Unspecified results) System specimen Basophils/100 0.2 % Normal (applies Basophil % [facility] leukocytes in to non-numeric Health Unspecified results) System specimen by Manual count Lymphocytes 19.2 % Below low normal Lymphocyte % [facility] [#/volume] in Health Blood by System Automated count ID Date Data Source [id number] 05/07/2013 08:17:00 AM EDT [facility] Name Value Range Interpretation Description Data Sup porting Code Source(s) Document(s ) Leukocytes 6.5 Normal (applies WBC Count [facility] [#/volume] in {10\\S\\3_ to non-numeric Health Unspecified uL} results) System specimen by Automated count Erythrocytes 4.26 Below low normal RBC Count [facility] [#/volume] in {10\\S\\6_ Health Blood by uL} System Automated count Hemoglobin 11.2 Below low normal Hemoglobin, [facility] [Mass/volume] in {gm/dL} Whole Blood Health Blood System Hematocrit 35.6 % Below low normal Hematocrit, [facility] [Volume Whole Blood Health Fraction] of System Blood Erythrocyte mean 83.6 fl Normal (applies MCV [facility] corpuscular to non-numeric Health volume [Entitic results) System volume] by Automated count Erythrocyte mean 26.3 pg Normal (applies MCH [facility] corpuscular to non-numeric Health hemoglobin results) System [Entitic mass] by Automated count Erythrocyte mean 31.5 Below low normal [facility] corpuscular {gm/dL} Health hemoglobin System concentration [Mass/volume] by Automated count Erythrocyte 18.8 % Above high normal RDW [facility] distribution Health width [Entitic System volume] by Automated count Platelets 211 Normal (applies Platelet [facility] [#/volume] in {10\\S\\3_ to non-numeric Count Health Plasma by uL} results) System Automated count Platelet mean 9.1 fl Normal (applies MPV [facility] volume [Entitic to non-numeric Health volume] in Blood results) System by Automated count Monocytes 0.6 Normal (applies Monocyte [facility] [#/volume] in {10\\S\\3_ to non-numeric Count Health Blood by Manual uL} results) System count Eosinophils 0.1 Normal (applies Eosinophil [facility] [#/volume] in {10\\S\\3} to non-numeric Count Blood Health Blood results) System Neutrophils 4.5 Normal (applies Absolute [facility] [#/volume] in {10\\S\\3_ to non-numeric Neutrophil Health Body fluid uL} results) Count System Basophils 0.01 Normal (applies Basophil [facility] [#/volume] in {10\\S\\3_ to non-numeric Count Health Blood by uL} results) System Automated count Lymphocyte 1.3 Normal (applies Lymphocyte [facility] percent {10\\S\\3_ to non-numeric Absolute Health differential uL} results) System count (procedure) Neutrophils/100 68.5 % Normal (applies Neutrophil % [place] leukocytes in to non-numeric Health Blood by results) System Automated count Monocytes/100 9.1 % Above high normal Monocyte % [facility] leukocytes in Health Blood System Eosinophils/100 1.7 % Normal (applies Eosinophil % [place] leukocytes in to non-numeric Health Unspecified results) System specimen Basophils/100 0.2 % Normal (applies Basophil % [facility] leukocytes in to non-numeric Health Unspecified results) System specimen by Manual count Lymphocytes 20.5 % Below low normal Lymphocyte % [facility] [#/volume] in Health Blood by System Automated count ID Date Data Source [id number] 05/14/2013 08:13:00 AM EDT [facility] Name Value Range Interpretation Description Data Sup porting Code Source(s) Document(s ) Leukocytes 5.6 Normal (applies WBC Count [facility] [#/volume] in {10\\S\\3_ to non-numeric Health Unspecified uL} results) System specimen by Automated count Erythrocytes 4.33 Below low normal RBC Count [facility] [#/volume] in {10\\S\\6_ Health Blood by uL} System Automated count Hemoglobin 11.2 Below low normal Hemoglobin, [facility] [Mass/volume] in {gm/dL} Whole Blood Health Blood System Hematocrit 36.2 % Below low normal Hematocrit, [facility] [Volume Whole Blood Health Fraction] of System Blood Erythrocyte mean 83.6 fl Normal (applies MCV [facility] corpuscular to non-numeric Health volume [Entitic results) System volume] by Automated count Erythrocyte mean 25.9 pg Below low normal M[facility] corpuscular Health hemoglobin System [Entitic mass] by Automated count Erythrocyte mean 30.9 Below low normal [facility] corpuscular {gm/dL} Health hemoglobin System concentration [Mass/volume] by Automated count Erythrocyte 18.2 % Above high normal RDW [facility] distribution Health width [Entitic System volume] by Automated count Platelets 180 Normal (applies Platelet [facility] [#/volume] in {10\\S\\3_ to non-numeric Count Health Plasma by uL} results) System Automated count Platelet mean 8.6 fl Normal (applies MPV [facility] volume [Entitic to non-numeric Health volume] in Blood results) System by Automated count Monocytes 0.4 Normal (applies Monocyte [facility] [#/volume] in {10\\S\\3_ to non-numeric Count Health Blood by Manual uL} results) System count Eosinophils 0.1 Normal (applies Eosinophil [facility] [#/volume] in {10\\S\\3_ to non-numeric Count Blood Health Blood uL} results) System Neutrophils 4.0 Normal (applies Absolute [facility] [#/volume] in {10\\S\\3_ to non-numeric Neutrophil Health Body fluid uL} results) Count System Basophils 0.0 Normal (applies Basophil [facility] [#/volume] in {10\\S\\3_ to non-numeric Count Health Blood by uL} results) System Automated count Lymphocyte 1.1 Normal (applies Lymphocyte [facility] percent {10\\S\\3_ to non-numeric Absolute Health differential uL} results) System count (procedure) Neutrophils/100 71.8 % Normal (applies Neutrophil % [place] leukocytes in to non-numeric Health Blood by results) System Automated count Monocytes/100 7.7 % Normal (applies Monocyte % [facility] leukocytes in to non-numeric Health Blood results) System Eosinophils/100 0.9 % Below low normal Eosinophil % [place] [facility] leukocytes in Health Unspecified System specimen Basophils/100 0.2 % Normal (applies Basophil % [facility] leukocytes in to non-numeric Health Unspecified results) System specimen by Manual count Lymphocytes 19.4 % Below low normal Lymphocyte % [facility] [#/volume] in Health Blood by System Automated count ID Date Data Source [id number] 05/21/2013 08:07:00 AM EDT [facility] Name Value Range Interpretation Description Data Sup porting Code Source(s) Document(s ) Leukocytes 6.5 Normal (applies WBC Count [facility] [#/volume] in {10\\S\\3_ to non-numeric Health Unspecified uL} results) System specimen by Automated count Erythrocytes 4.50 Normal (applies RBC Count [facility] [#/volume] in {10\\S\\6_ to non-numeric Health Blood by uL} results) System Automated count Hemoglobin 11.6 Below low normal Hemoglobin, [facility] [Mass/volume] in {gm/dL} Whole Blood Health Blood System Hematocrit 37.3 % Below low normal Hematocrit, [facility] [Volume Whole Blood Health Fraction] of System Blood Erythrocyte mean 82.9 fl Below low normal MCV [facility] corpuscular Health volume [Entitic System volume] by Automated count Erythrocyte mean 25.8 pg Below low normal [facility] corpuscular Health hemoglobin System [Entitic mass] by Automated count Erythrocyte mean 31.1 Below low normal [facility] corpuscular {gm/dL} Health hemoglobin System concentration [Mass/volume] by Automated count Erythrocyte 17.7 % Above high normal RDW [facility] distribution Health width [[facility] System volume] by Automated count Platelets 185 Normal (applies Platelet [facility] [#/volume] in {10\\S\\3_ to non-numeric Count Health Plasma by uL} results) System Automated count Platelet mean 9.2 fl Normal (applies MPV [facility] volume [Entitic to non-numeric Health volume] in Blood results) System by Automated count Monocytes 0.5 Normal (applies Monocyte [facility] [#/volume] in {10\\S\\3_ to non-numeric Count Health Blood by Manual uL} results) System count Eosinophils 0.1 Normal (applies Eosinophil [facility] [#/volume] in {10\\S\\3_ to non-numeric Count Blood Health Blood uL} results) System Neutrophils 4.7 Normal (applies Absolute [facility] [#/volume] in {10\\S\\3_ to non-numeric Neutrophil Health Body fluid uL} results) Count System Basophils 0.0 Normal (applies Basophil [facility] [#/volume] in {10\\S\\3_ to non-numeric Count Health Blood by uL} results) System Automated count Lymphocyte 1.2 Normal (applies Lymphocyte [facility] percent {10\\S\\3_ to non-numeric Absolute Health differential uL} results) System count (procedure) Neutrophils/100 72.5 % Normal (applies Neutrophil % [place] leukocytes in to non-numeric Health Blood by results) System Automated count Monocytes/100 7.6 % Normal (applies Monocyte % [facility] leukocytes in to non-numeric Health Blood results) System Eosinophils/100 0.9 % Below low normal Eosinophil % [facility] [facility] leukocytes in Health Unspecified System specimen Basophils/100 0.2 % Normal (applies Basophil % [facility] leukocytes in to non-numeric Health Unspecified results) System specimen by Manual count Lymphocytes 18.8 % Below low normal Lymphocyte % [facility] [#/volume] in Health Blood by System Automated count ID Date Data Source [id number] 06/06/2013 08:00:00 AM EDJoshua [facility] Name Value Range Interpretation Description Data Sup porting Code Source(s) Document(s ) Leukocytes 6.4 Normal (applies WBC Count [facility] [#/volume] in {10\\S\\3_ to non-numeric Health Unspecified uL} results) System specimen by Automated count Erythrocytes 4.73 Normal (applies RBC Count [facility] [#/volume] in {10\\S\\6_ to non-numeric Health Blood by uL} results) System Automated count Hemoglobin 12.3 Below low normal Hemoglobin, [facility] [Mass/volume] in {gm/dL} Whole Blood Health Blood System Hematocrit 39.2 % Below low normal Hematocrit, [facility] [Volume Whole Blood Health Fraction] of System Blood Erythrocyte mean 82.9 fl Below low normal MCV [facility] corpuscular Health volume [Entitic System volume] by Automated count Erythrocyte mean 26.0 pg Normal (applies MCH [facility] corpuscular to non-numeric Health hemoglobin results) System [Entitic mass] by Automated count Erythrocyte mean 31.4 Below low normal [facility] corpuscular {gm/dL} Health hemoglobin System concentration [Mass/volume] by Automated count Erythrocyte 17.1 % Above high normal RDW [facility] distribution Health width [[facility]itic System volume] by Automated count Platelets 186 Normal (applies Platelet [facility] [#/volume] in {10\\S\\3_ to non-numeric Count Health Plasma by uL} results) System Automated count Platelet mean 9.1 fl Normal (applies MPV [facility] volume [Entitic to non-numeric Health volume] in Blood results) System by Automated count Monocytes 0.4 Normal (applies Monocyte [facility] [#/volume] in {10\\S\\3_ to non-numeric Count Health Blood by Manual uL} results) System count Eosinophils 0.1 Normal (applies Eosinophil [facility] [#/volume] in {10\\S\\3_ to non-numeric Count Blood Health Blood uL} results) System Basophils 0.0 Normal (applies Basophil [facility] [#/volume] in {10\\S\\3_ to non-numeric Count Health Blood by uL} results) System Automated count Neutrophils 4.5 Normal (applies Absolute [facility] [#/volume] in {10\\S\\3_ to non-numeric Neutrophil Health Body fluid uL} results) Count System Lymphocyte 1.3 Normal (applies Lymphocyte [facility] percent {10\\S\\3_ to non-numeric Absolute Health differential uL} results) System count (procedure) Neutrophils/100 71.2 % Normal (applies Neutrophil % [place] leukocytes in to non-numeric Health Blood by results) System Automated count Monocytes/100 6.4 % Normal (applies Monocyte % [facility] leukocytes in to non-numeric Health Blood results) System Eosinophils/100 1.1 % Normal (applies Eosinophil % [place] leukocytes in to non-numeric Health Unspecified results) System specimen Basophils/100 0.2 % Normal (applies Basophil % [facility] leukocytes in to non-numeric Health Unspecified results) System specimen by Manual count Lymphocytes 21.1 % Normal (applies Lymphocyte % [facility] [#/volume] in to non-numeric Health Blood by results) System Automated count ID Date Data Source [id number] 06/06/2013 08:00:00 AM EDT [facility] Name Value Range Interpretation Description Data Sup porting Code Source(s) Document(s ) Sodium 141 Normal (applies Sodium, Serum [facility] [Moles/volume mmol/L to non-numeric Health Syst em ] in Serum or results) Plasma Potassium 3.8 Normal (applies Potassium, [facility] [Mass/volume] mmol/L to non-numeric Serum Health Syst em in Serum or results) Plasma Chloride 106 Normal (applies Chloride, [facility] [Moles/volume mmol/L to non-numeric Serum Health Syst em ] in Serum or results) Plasma Carbon 22.0 Normal (applies CO2, Serum [facility] dioxide, mmol/L to non-numeric Health System total results) [Moles/volume ] in Serum or Plasma Glucose 178 Above high normal Glucose, Serum [facility] [Mass/volume] mg/dL Health System in Serum or Plasma Urea nitrogen 18 mg/dl Normal (applies Blood Urea [facility] [Mass/volume] to non-numeric Nitrogen, Health Syst em in Serum or results) Serum Plasma Creatinine 1.00 Normal (applies Creatinine, [facility] [Mass/volume] mg/dl to non-numeric Serum Health Syst em in Serum or results) Plasma Calcium 9.6 Normal (applies Calcium, Total [facility] [Mass/volume] mg/dl to non-numeric Serum Health Syst em in Serum or results) Plasma Anion gap in 13.00 Above high normal Anion Gap [facility] Serum or mmol/L Health System Plasma ID Date Data Source [id number] 06/18/2013 08:02:00 AM EDT [facility] Name Value Range Interpretation Description Data Sup porting Code Source(s) Document(s ) Leukocytes 6.4 Normal (applies WBC Count [facility] [#/volume] in {10\\S\\3_ to non-numeric Health Unspecified uL} results) System specimen by Automated count Erythrocytes 4.27 Below low normal RBC Count [facility] [#/volume] in {10\\S\\6_ Health Blood by uL} System Automated count Hemoglobin 11.1 Below low normal Hemoglobin, [facility] [Mass/volume] in {gm/dL} Whole Blood Health Blood System Hematocrit 35.8 % Below low normal Hematocrit, [facility] [Volume Whole Blood Health Fraction] of System Blood Erythrocyte mean 83.8 fl Normal (applies MCV [facility] corpuscular to non-numeric Health volume [Entitic results) System volume] by Automated count Erythrocyte mean 26.0 pg Normal (applies MCH [facility] corpuscular to non-numeric Health hemoglobin results) System [Entitic mass] by Automated count Erythrocyte mean 31.0 Below low normal MCHC [facility] corpuscular {gm/dL} Health hemoglobin System concentration [Mass/volume] by Automated count Erythrocyte 16.6 % Above high normal RDW [facility] distribution Health width [Entitic System volume] by Automated count Platelets 186 Normal (applies Platelet [facility] [#/volume] in {10\\S\\3_ to non-numeric Count Health Plasma by uL} results) System Automated count Platelet mean 9.1 fl Normal (applies MPV [facility] volume [Entitic to non-numeric Health volume] in Blood results) System by Automated count Monocytes 0.5 Normal (applies Monocyte [facility] [#/volume] in {10\\S\\3_ to non-numeric Count Health Blood by Manual uL} results) System count Eosinophils 0.1 Normal (applies Eosinophil [facility] [#/volume] in {10\\S\\3_ to non-numeric Count Blood Health Blood uL} results) System Neutrophils 4.3 Normal (applies Absolute [facility] [#/volume] in {10\\S\\3_ to non-numeric Neutrophil Health Body fluid uL} results) Count System Basophils 0.0 Normal (applies Basophil [facility] [#/volume] in {10\\S\\3_ to non-numeric Count Health Blood by uL} results) System Automated count Lymphocyte 1.4 Normal (applies Lymphocyte [facility] percent {10\\S\\3_ to non-numeric Absolute Health differential uL} results) System count (procedure) Neutrophils/100 67.7 % Normal (applies Neutrophil % [place] leukocytes in to non-numeric Health Blood by results) System Automated count Monocytes/100 8.3 % Normal (applies Monocyte % [facility] leukocytes in to non-numeric Health Blood results) System Eosinophils/100 1.6 % Normal (applies Eosinophil % [place] leukocytes in to non-numeric Health Unspecified results) System specimen Basophils/100 0.2 % Normal (applies Basophil % [facility] leukocytes in to non-numeric Health Unspecified results) System specimen by Manual count Lymphocytes 22.2 % Normal (applies Lymphocyte % [facility] [#/volume] in to non-numeric Health Blood by results) System Automated count ID Date Data Source [id number] 06/18/2013 08:02:00 AM EDT [facility] Name Value Range Interpretation Description Data Sup porting Code Source(s) Document(s ) Sodium 139 Normal (applies Sodium, Serum [facility] [Moles/volume mmol/L to non-numeric Health Syst em ] in Serum or results) Plasma Potassium 4.0 Normal (applies Potassium, [facility] [Mass/volume] mmol/L to non-numeric Serum Health Syst em in Serum or results) Plasma Chloride 107 Normal (applies Chloride, [facility] [Moles/volume mmol/L to non-numeric Serum Health Syst em ] in Serum or results) Plasma Carbon 18.0 Below low normal CO2, Serum [facility] dioxide, mmol/L Health System total [Moles/volume ] in Serum or Plasma Glucose 157 Above high normal Glucose, Serum [facility] [Mass/volume] mg/dL Health System in Serum or Plasma Urea nitrogen 15 mg/dl Normal (applies Blood Urea [facility] [Mass/volume] to non-numeric Nitrogen, Health Syst em in Serum or results) Serum Plasma Creatinine 0.90 Normal (applies Creatinine, [facility] [Mass/volume] mg/dl to non-numeric Serum Health Syst em in Serum or results) Plasma Calcium 9.1 Normal (applies Calcium, Total [facility] [Mass/volume] mg/dl to non-numeric Serum Health Syst em in Serum or results) Plasma Anion gap in 14.00 Above high normal Anion Gap [facility] Serum or mmol/L Health System Plasma ID Date Data Source [id number] 05/10/2017 03:32:24 PM EDT [facility] Name Value Range Interpretation Description Data Sup porting Code Source(s) Document(s ) TissueExam Results for case # Normal (applies Tissue Exam [facility] [id number] to non-numeric [facility] SURGICAL PATHOLOGY results) System REPORTCLINICAL INFORMATION: GERD. Colon cancer screening.PREOPERA TIVE DIAGNOSIS: Same.POSTOPERATIVE DIAGNOSIS: Gastritis. Colonic polyps. Hemorrhoids.FINAL DIAGNOSIS: A: Stomach, antral and transitional mucosa, biopsy:Mild chronic gastritis with focal lamina propria vascular congestion, reactive stromal changes and proton pump inhibitor like changes of oxyntic glands.Negative for Helicobacter pylori on Giemsa stain.B: Colon, sigmoid, biopsy:Tubular adenoma.GO/stGJUDY CASTRO MDElectronically Signed By: GROSS DESCRIPTION: A: In formalin, labeled "gastric antrum biopsy", the specimen consists of three westfall soft tissue fragments, ranging from 0.3 x 0.2 x 0.2 cm up to 0.5 x 0.2 x 0.1 cm. The specimen is entirely submitted in one cassette.B: In formalin, labeled "sigmoid colon polyps", the specimen consists of two westfall soft tissue fragments, each measuring 0.4 x 0.3 x 0.2 cm. The specimen is entirely submitted in one cassette.AC/cmPage 2 of 2Testing performed at [facility], [address] [place] [address]. ID Date Data Source [id number] 03/05/2018 01:34:00 PM EDT [facility] System Name Value Range Interpretation Description Data Sup porting Code Source(s) Document(s ) aPTT in Blood 23.9 Normal (applies Activated [facility] by Coagulation {Seconds to non-numeric Partial Health assay } results) Thromboplastin System Time ID Date Data Source [id number] 03/05/2018 01:34:00 PM EDT [facility] System Name Value Range Interpretation Description Data Sup porting Code Source(s) Document(s ) Prothrombintim 11.30 Normal (applies Prothrombin [facility](PT) {seconds to non-numeric time (PT) Health System } results) INR in Blood 1.08 Normal (applies INR Result [facility] by Coagulation {Ratio} to non-numeric Health Sys tem assay results) Normal = 0.7-1.1Therapeutic = 2.0-3.0Mec hanical Heart = 3.0-4.5 ID Date Data Source [id number] 03/05/2018 01:34:[address] [facility] System Name Value Range Interpretation Description Data Sup porting Code Source(s) Document(s ) Polys 86 % Above high normal Polys [facility] Lymphocyte%. 7 % Below low normal Lymphocyte %. [facility] iore Health System Platelets Normal Normal (applies to Platelet Count [facility] iore [#/volume] in non-numeric Estimate Health System Blood by results) Estimate Monocyte%. 7 % Normal (applies to Monocyte %. [facility] non-numeric [facility] System results) NORM Yes Normal (applies to NORM [facility] non-numeric [facility] System results) ID Date Data Source [id number] 03/05/2018 01:34:00 PM EDT [facility] Name Value Range Interpretation Description Data Sup porting Code Source(s) Document(s ) Leukocytes 13.2 Above high WBC Count [facility] [#/volume] in {10^3_uL normal Health Unspecified } System specimen by Automated count Erythrocytes 4.39 Below low normal RBC Count [facility] [#/volume] in {10^6_uL Health Blood by } System Automated count Hemoglobin 11.2 Below low normal Hemoglobin [facility] [Mass/volume] in {gm/dL} Health Blood System Hematocrit 36.2 % Below low normal Hematocrit [facility] [Volume Health Fraction] of System Blood Erythrocyte mean 82.5 fl Below low normal MCV [facility] corpuscular Health volume [Entitic System volume] by Automated count Erythrocyte mean 25.5 pg Below low normal MCH [facility] corpuscular Health hemoglobin System [Entitic mass] by Automated count Erythrocyte mean 30.9 Below low normal MCHC [facility] corpuscular {gm/dL} Health hemoglobin System concentration [Mass/volume] by Automated count Erythrocyte 13.6 % Normal (applies RDW-CV [facility] distribution to non-numeric Health width [Entitic results) System volume] by Automated count Platelets 254 Normal (applies Platelet Count [facility] [#/volume] in {10^3_uL to non-numeric Health Plasma by } results) System Automated count Platelet mean 9.5 fl Normal (applies MPV [facility] volume [Entitic to non-numeric Health volume] in Blood results) System by Automated count Monocytes 0.9 Normal (applies Monocyte # [facility] [#/volume] in {10^3_uL to non-numeric Health Blood by Manual } results) System count Eosinophils 0.00 Below low normal Eosinophil # [facility] [#/volume] in {10^3_uL Health Blood } System Neutrophils 11.1 Above high Neutrophil # [facility] [#/volume] in {10^3_uL normal Health Body fluid } System Basophils 0.01 Normal (applies Basophil # [facility] [#/volume] in {10^3_uL to non-numeric Health Blood by } results) System Automated count Lymphocyte 1.2 Normal (applies Lymphocyte # [facility] percent {10^3_uL to non-numeric Health differential } results) System count (procedure) Neutrophils/100 83.7 % Above high Neutrophil % [facility] leukocytes in normal Health Blood by System Automated count Monocytes/100 6.7 % Normal (applies Monocyte % [facility] leukocytes in to non-numeric Health Blood results) System Eosinophils/100 0.0 % Normal (applies Eosinophil % [place] leukocytes in to non-numeric Health Unspecified results) System specimen Basophils/100 0.1 % Normal (applies Basophil % [facility] leukocytes in to non-numeric Health Unspecified results) System specimen by Manual count Lymphocytes 8.9 % Below low normal Lymphocyte % [facility] [#/volume] in Health Blood by System Automated count ImmatureGranuloc 0.6 % Normal (applies Immature [facility] ytes% to non-numeric Granulocytes % Health results) System Nucleated 0.0 Normal (applies NRBC % [facility] erythrocytes {/100_WB to non-numeric Health [#/volume] in C} results) System Body fluid ImmatureGranuloc 0.08 Normal (applies Immature [facility] ytes# {10^3_uL to non-numeric Granulocytes # Health } results) System NRBC# 0.00 Below low normal NRBC # [facility] {10^3_uL Health } System ID Date Data Source [id number] 03/05/2018 01:34:00 PM EDT [facility] System Name Value Range Interpretation Description Data Sup porting Code Source(s) Document(s ) Thyrotropin 1.893 Normal (applies Thyroid [facility] [Mass/volume] {mIU/mL} to non-numeric Stimulating Health Sy stem in Serum or results) Hormone, Serum Plasma ID Date Data Source [id number] 03/05/2018 01:34:00 PM EDT [facility] System Name Value Range Interpretation Description Data Sup porting Code Source(s) Document(s ) Sodium 137 Normal (applies Sodium, Serum [facility] [Moles/volume mmol/L to non-numeric Health Syst em ] in Serum or results) Plasma Potassium 4.4 Normal (applies Potassium, [facility] [Mass/volume] mmol/L to non-numeric Serum Health Syst em in Serum or results) Plasma Chloride 103 Normal (applies Chloride, [facility] [Moles/volume mmol/L to non-numeric Serum Health Syst em ] in Serum or results) Plasma Carbon 20.0 Below low normal CO2, Serum [facility] dioxide, mmol/L Health System total [Moles/volume ] in Serum or Plasma Glucose 338 Above high normal Glucose, Serum [facility] [Mass/volume] mg/dL Health System in Serum or Plasma Urea nitrogen 32 mg/dl Above high normal Blood Urea [facility] [Mass/volume] Nitrogen, Health System in Serum or Serum Plasma Creatinine 1.50 Normal (applies Creatinine, [facility] [Mass/volume] mg/dl to non-numeric Serum Health Syst em in Serum or results) Plasma Calcium 9.6 Normal (applies Calcium, Total [facility] [Mass/volume] mg/dl to non-numeric Serum Health Syst em in Serum or results) Plasma Anion gap in 14.00 Above high normal Anion Gap [facility] Serum or mmol/L Health System Plasma ID Date Data Source [id number] 03/05/2018 01:34:00 PM EDT [facility] Name Value Range Interpretation Description Data Sup porting Code Source(s) Document(s ) Albumin 4.4 Normal (applies Albumin, [facility] [Mass/volume] in {gm/dl} to non-numeric Serum Health Serum or Plasma results) System Bilirubin.total 0.3 Normal (applies Bilirubin, [facility] [Mass/volume] in mg/dl to non-numeric Serum Total Health Serum or Plasma results) System Aspartate 12 Normal (applies Aspartate [facility] aminotransferase {IU/L} to non-numeric Transaminase, Heal th [Enzymatic results) Serum System activity/volume] in Serum or Plasma by With P-5'-P Alanine 27 Normal (applies Alanine [facility] aminotransferase {IU/L} to non-numeric Aminotransfer Heal th [Enzymatic results) ase, Serum System activity/volume] in Serum or Plasma Alkaline 41 Normal (applies Alkaline [facility] phosphatase {IU/L} to non-numeric Phosphatase, Health isoenzymes results) Serum System [Enzymatic activity/volume] in Serum or Plasma by Heat stability DirectBilirubin 0.2 Normal (applies Direct [facility] mg/dl to non-numeric Bilirubin Health results) System TotalProtein 7.1 Normal (applies Total Protein [facility] mg/dl to non-numeric Health results) System ID Date Data Source [id number] 03/05/2018 01:34:00 PM EDT [facility] Name Value Range Interpretation Description Data Source(s ) Supporting Code Document(s ) Troponin 0.01 Normal (applies to Troponin I [facility] IQuantit ng/mL non-numeric Quantitative - Health System ative-MV results) MV Only Only ID Date Data Source [id number] 03/05/2018 01:34:00 PM EDT [facility] Name Value Range Interpretation Description Data Source(s ) Supporting Code Document(s ) MVD-Dime 0.41 Normal (applies to MV D-Dimer High [place] rHighSen {mg/L_FEU non-numeric Sensitivity Health System sitivity } results) Cut-off value for diagnosis of DVT with the INNOVANCE D-dimer assay was established at 0.5 mg/L FEU. A D-dimer result <0.50 mg/L FEU is considered negative and a D-dimer result >0.50 mg/L FEU is considered posi tive. ID Date Data Source [id number] 03/05/2018 01:34:00 PM EDT [facility] Name Value Range Interpretation Description Data Sup porting Code Source(s) Document(s ) Creatine 252 Above high normal Creatine [facility] kinase.MB {IU/L} Kinase, Serum Health System [Mass/volume ] in Serum or Plasma ID Date Data Source [id number] 05/27/2018 10:42:00 AM EDT [facility] Name Value Range Interpretation Description Data Sup porting Code Source(s) Document(s ) Type A Normal (applies Type [facility] to non-numeric Health results) System D Ab [Titer] in Positive Normal (applies Rh [facility] Serum or Plasma to non-numeric Health results) System AntibodyScreen Negative Normal (applies Antibody [facility] to non-numeric Screen Health results) System ID Date Data Source [id number] 05/27/2018 10:42:00 AM EDT [facility] Name Value Range Interpretation Description Data Sup porting Code Source(s) Document(s ) Prothrombintim 11.10 Normal (applies Prothrombin [facility](PT) {seconds to non-numeric time (PT) Health System } results) INR in Blood 1.06 Normal (applies INR Result [facility] by Coagulation {Ratio} to non-numeric Health Sys tem assay results) Normal = 0.7-1.1Therapeutic = 2.0-3.0Mec hanical Heart = 3.0-4.5 ID Date Data Source [id number] 05/27/2018 10:42:00 AM EDT [facility] Name Value Range Interpretation Description Data Sup porting Code Source(s) Document(s ) Leukocytes 9.1 Normal (applies WBC Count [facility] [#/volume] in {10^3_uL to non-numeric Health Unspecified } results) System specimen by Automated count Erythrocytes 3.40 Below low normal RBC Count [facility] [#/volume] in {10^6_uL Health Blood by } System Automated count Hemoglobin 8.9 Below low normal Hemoglobin [facility] [Mass/volume] in {gm/dL} Health Blood System Hematocrit 28.4 % Below low normal Hematocrit [facility] [Volume Health Fraction] of System Blood Erythrocyte mean 83.5 fl Normal (applies MCV [facility] corpuscular to non-numeric Health volume [Entitic results) System volume] by Automated count Erythrocyte mean 26.2 pg Normal (applies MCH [facility] corpuscular to non-numeric Health hemoglobin results) System [Entitic mass] by Automated count Erythrocyte mean 31.3 Below low normal MCHC [facility] corpuscular {gm/dL} Health hemoglobin System concentration [Mass/volume] by Automated count Erythrocyte 16.1 % Above high RDW-CV [facility] distribution normal Health width [Entitic System volume] by Automated count Platelets 190 Normal (applies Platelet Count [facility] [#/volume] in {10^3_uL to non-numeric Health Plasma by } results) System Automated count Platelet mean 8.8 fl Normal (applies MPV [facility] volume [Entitic to non-numeric Health volume] in Blood results) System by Automated count Monocytes 0.7 Normal (applies Monocyte # [facility] [#/volume] in {10^3_uL to non-numeric Health Blood by Manual } results) System count Eosinophils 0.09 Normal (applies Eosinophil # [facility] [#/volume] in {10^3_uL to non-numeric Health Blood } results) System Neutrophils 6.7 Normal (applies Neutrophil # [facility] [#/volume] in {10^3_uL to non-numeric Health Body fluid } results) System Basophils 0.02 Normal (applies Basophil # [facility] [#/volume] in {10^3_uL to non-numeric Health Blood by } results) System Automated count Lymphocyte 1.5 Normal (applies Lymphocyte # [facility] percent {10^3_uL to non-numeric Health differential } results) System count (procedure) Neutrophils/100 73.7 % Normal (applies Neutrophil % [place] leukocytes in to non-numeric Health Blood by results) System Automated count Monocytes/100 8.1 % Normal (applies Monocyte % [facility] leukocytes in to non-numeric Health Blood results) System Eosinophils/100 1.0 % Normal (applies Eosinophil % [place] leukocytes in to non-numeric Health Unspecified results) System specimen Basophils/100 0.2 % Normal (applies Basophil % [facility] leukocytes in to non-numeric Health Unspecified results) System specimen by Manual count Lymphocytes 16.6 % Below low normal Lymphocyte % [facility] [#/volume] in Health Blood by System Automated count ImmatureGranuloc 0.4 % Normal (applies Immature [facility] ytes% to non-numeric Granulocytes % Health results) System Nucleated 0.0 Normal (applies NRBC % [facility] erythrocytes {/100_WB to non-numeric Health [#/volume] in C} results) System Body fluid ImmatureGranuloc 0.04 Normal (applies Immature [facility] ytes# {10^3_uL to non-numeric Granulocytes # Health } results) System NRBC# 0.00 Below low normal NRBC # [facility] {10^3_uL Health } System ID Date Data Source [id number] 05/27/2018 10:42:00 AM EDJoshua wolf System Name Value Range Interpretation Description Data Sup porting Code Source(s) Document(s ) Sodium 141 Normal (applies Sodium, Serum [facility] [Moles/volume] in mmol/L to non-numeric Health Serum or Plasma results) System Potassium 4.1 Normal (applies Potassium, [facility] [Mass/volume] in mmol/L to non-numeric Serum Health Serum or Plasma results) System Chloride 108 Above high Chloride, [facility] [Moles/volume] in mmol/L normal Serum Health Serum or Plasma System Carbon dioxide, 22.0 Normal (applies CO2, Serum [facility] total mmol/L to non-numeric Health [Moles/volume] in results) System Serum or Plasma TotalProtein 6.5 Normal (applies Total Protein [facility] mg/dl to non-numeric Health results) System Glucose 189 Above high Glucose, [facility] [Mass/volume] in mg/dL normal Serum Health Serum or Plasma System Urea nitrogen 24 Above high Blood Urea [facility] [Mass/volume] in mg/dl normal Nitrogen, Health Serum or Plasma Serum System Creatinine 1.40 Normal (applies Creatinine, [facility] [Mass/volume] in mg/dl to non-numeric Serum Health Serum or Plasma results) System Alkaline 40 Normal (applies Alkaline [facility] phosphatase {IU/L} to non-numeric Phosphatase, Health isoenzymes results) Serum System [Enzymatic activity/volume] in Serum or Plasma by Heat stability Bilirubin.total 0.4 Normal (applies Bilirubin, [facility] [Mass/volume] in mg/dl to non-numeric Serum Total Health Serum or Plasma results) System DirectBilirubin 0.2 Normal (applies Direct [facility] mg/dl to non-numeric Bilirubin Health results) System Aspartate 13 Normal (applies Aspartate [facility] aminotransferase {IU/L} to non-numeric Transaminase, Heal th [Enzymatic results) Serum System activity/volume] in Serum or Plasma by With P-5'-P Albumin 4.2 Normal (applies Albumin, [facility] [Mass/volume] in {gm/dl} to non-numeric Serum Health Serum or Plasma results) System I.Phosphorus 2.3 Below low normal I. Phosphorus [facility] mg/dl [facility] System Alanine 18 Normal (applies Alanine [facility] aminotransferase {IU/L} to non-numeric Aminotransfer Heal th [Enzymatic results) ase, Serum System activity/volume] in Serum or Plasma Calcium 9.3 Normal (applies Calcium, [facility] [Mass/volume] in mg/dl to non-numeric Total Serum Health Serum or Plasma results) System A/GRatio 1.83 Normal (applies A/G Ratio [facility] to non-numeric Health results) System Urate 8.4 Normal (applies Uric Acid, [facility] [Mass/volume] in mg/dl to non-numeric Serum Health Serum or Plasma results) System Anion gap in Serum 11.00 Normal (applies Anion Gap [place] or Plasma mmol/L to non-numeric Health results) System Glomerular 49.00 Normal (applies GFR [facility] filtration to non-numeric Health rate/1.73 sq results) System M.predicted [Volume Rate/Area] in Serum or Plasma by Creatinine-based formula (CKD-EPI) eGFR will provide clinicians with a more accurate indicator of renal function then the serum creatinine. The eGFR is automa tically calculated from an empiric formula (endorsed by the [employer] ion) which incorporates age, sex, and race.Clinicians may notice surprisingly low GFR's with serum creatinine valueswithin normal range- particularly in elderly wo men (with low muscle mass).In the hospital setting, the eGFR should add an element of safety in drug dosing, in assessing the risk of IV contrast administration, and in assessing vascular risk.The NKF staging system is as follows:Normal: eGFR >90 with no kidney markersStage 1: eGFR >90 with kidney markers*Stage 2: eGFR 60- 89Stage 3: eGFR 30-59Stage 4: eGFR 15-29Stage 5: eGFR <15 (usually requir ing dialysis)*Markers include: Proteinuria, Hematuria, abnormal imaging-studies, or other blood or urine test abnormalities ID Date Data Source [id number] 05/27/2018 10:42:00 AM EDT [facility] System Name Value Range Interpretation Description Data Source(s ) Supporting Code Document(s ) Troponin 0.01 Normal (applies to Troponin I [facility] IQuantit ng/mL non-numeric Quantitative - Health System ative-MV results) MV Only Only ID Date Data Source [id number] 05/27/2018 10:42:00 AM EDT [facility] System Name Value Range Interpretation Description Data Source(s ) Supporting Code Document(s ) Lipase 143 U/L Above high normal Lipase, Serum [facility] [Enzymatic [facility] activity/v olume] in Serum or Plasma ID Date Data Source [id number] 05/27/2018 10:42:00 AM EDT [facility] Name Value Range Interpretation Description Data Sup porting Code Source(s) Document(s ) Creatine 281 Above high normal Creatine [facility] kinase.MB {IU/L} Kinase, Serum Health System [Mass/volume ] in Serum or Plasma ID Date Data Source [id number] 05/27/2018 11:59:00 AM EDT [facility] Name Value Range Interpretation Description Data Source(s ) Supporting Code Document(s ) Blood,Oc positive Normal (applies to Blood, Occult [facility] cultFece non-numeric Feces [facility] s results) ID Date Data Source [id number] 05/27/2018 01:31:00 PM EDT [facility] Name Value Range Interpretation Description Data Sup porting Code Source(s) Document(s ) Leukocytes 10.5 Normal (applies WBC Count [facility] [#/volume] in {10^3_uL to non-numeric Health Unspecified } results) System specimen by Automated count Erythrocytes 3.49 Below low normal RBC Count [facility] [#/volume] in {10^6_uL Health Blood by } System Automated count Hemoglobin 9.1 Below low normal Hemoglobin [facility] [Mass/volume] in {gm/dL} Health Blood System Hematocrit 29.3 % Below low normal Hematocrit [facility] [Volume Health Fraction] of System Blood Erythrocyte mean 84.0 fl Normal (applies MCV [facility] corpuscular to non-numeric Health volume [Entitic results) System volume] by Automated count Erythrocyte mean 26.1 pg Normal (applies MCH [facility] corpuscular to non-numeric Health hemoglobin results) System [Entitic mass] by Automated count Erythrocyte mean 31.1 Below low normal MCHC [facility] corpuscular {gm/dL} Health hemoglobin System concentration [Mass/volume] by Automated count Erythrocyte 16.2 % Above high RDW-CV [facility] distribution normal Health width [Entitic System volume] by Automated count Platelets 219 Normal (applies Platelet Count [facility] [#/volume] in {10^3_uL to non-numeric Health Plasma by } results) System Automated count Platelet mean 9.5 fl Normal (applies MPV [facility] volume [Entitic to non-numeric Health volume] in Blood results) System by Automated count Monocytes 0.9 Above high Monocyte # [facility] [#/volume] in {10^3_uL normal Health Blood by Manual } System count Eosinophils 0.12 Normal (applies Eosinophil # [facility] [#/volume] in {10^3_uL to non-numeric Health Blood } results) System Neutrophils 7.6 Normal (applies Neutrophil # [facility] [#/volume] in {10^3_uL to non-numeric Health Body fluid } results) System Basophils 0.02 Normal (applies Basophil # [facility] [#/volume] in {10^3_uL to non-numeric Health Blood by } results) System Automated count Lymphocyte 1.8 Normal (applies Lymphocyte # [facility] percent {10^3_uL to non-numeric Health differential } results) System count (procedure) Neutrophils/100 72.6 % Normal (applies Neutrophil % [facility] leukocytes in to non-numeric Health Blood by results) System Automated count Monocytes/100 8.7 % Normal (applies Monocyte % [facility] leukocytes in to non-numeric Health Blood results) System Eosinophils/100 1.1 % Normal (applies Eosinophil % [place] leukocytes in to non-numeric Health Unspecified results) System specimen Basophils/100 0.2 % Normal (applies Basophil % [facility] leukocytes in to non-numeric Health Unspecified results) System specimen by Manual count Lymphocytes 16.7 % Below low normal Lymphocyte % [facility] [#/volume] in Health Blood by System Automated count ImmatureGranuloc 0.7 % Normal (applies Immature [facility] ytes% to non-numeric Granulocytes % Health results) System Nucleated 0.0 Normal (applies NRBC % [facility] erythrocytes {/100_WB to non-numeric Health [#/volume] in C} results) System Body fluid ImmatureGranuloc 0.07 Normal (applies Immature [facility] ytes# {10^3_uL to non-numeric Granulocytes # Health } results) System NRBC# 0.00 Below low normal NRBC # [facility] {10^3_uL Health } System ID Date Data Source [id number] 05/28/2018 06:00:00 AM EDT [facility] Name Value Range Interpretation Description Data Sup porting Code Source(s) Document(s ) Type A Normal (applies Type [facility] to non-numeric Health results) System D Ab [Titer] in Positive Normal (applies Rh [facility] Serum or Plasma to non-numeric Health results) System AntibodyScreen Negative Normal (applies Antibody [facility] to non-numeric Screen Health results) System ID Date Data Source [id number] 05/28/2018 06:00:00 AM EDT [facility] Name Value Range Interpretation Description Data Sup porting Code Source(s) Document(s ) Leukocytes 9.5 Normal (applies WBC Count [facility] [#/volume] in {10^3_uL to non-numeric Health Unspecified } results) System specimen by Automated count Erythrocytes 3.56 Below low normal RBC Count [facility] [#/volume] in {10^6_uL Health Blood by } System Automated count Hemoglobin 9.2 Below low normal Hemoglobin [facility] [Mass/volume] in {gm/dL} Health Blood System Hematocrit 29.7 % Below low normal Hematocrit [facility] [Volume Health Fraction] of System Blood Erythrocyte mean 83.4 fl Normal (applies MCV [facility] corpuscular to non-numeric Health volume [Entitic results) System volume] by Automated count Erythrocyte mean 25.8 pg Below low normal MCH [facility] corpuscular Health hemoglobin System [Entitic mass] by Automated count Erythrocyte mean 31.0 Below low normal MCHC [facility] corpuscular {gm/dL} Health hemoglobin System concentration [Mass/volume] by Automated count Erythrocyte 15.9 % Above high RDW-CV [facility] distribution normal Health width [Entitic System volume] by Automated count Platelets 211 Normal (applies Platelet Count [facility] [#/volume] in {10^3_uL to non-numeric Health Plasma by } results) System Automated count Platelet mean 9.5 fl Normal (applies MPV [facility] volume [Entitic to non-numeric Health volume] in Blood results) System by Automated count Monocytes 0.8 Normal (applies Monocyte # [facility] [#/volume] in {10^3_uL to non-numeric Health Blood by Manual } results) System count Eosinophils 0.14 Normal (applies Eosinophil # [facility] [#/volume] in {10^3_uL to non-numeric Health Blood } results) System Neutrophils 6.8 Normal (applies Neutrophil # [facility] [#/volume] in {10^3_uL to non-numeric Health Body fluid } results) System Basophils 0.02 Normal (applies Basophil # [facility] [#/volume] in {10^3_uL to non-numeric Health Blood by } results) System Automated count Lymphocyte 1.7 Normal (applies Lymphocyte # [facility] percent {10^3_uL to non-numeric Health differential } results) System count (procedure) Neutrophils/100 71.3 % Normal (applies Neutrophil % [place] leukocytes in to non-numeric Health Blood by results) System Automated count Monocytes/100 8.4 % Normal (applies Monocyte % [facility] leukocytes in to non-numeric Health Blood results) System Eosinophils/100 1.5 % Normal (applies Eosinophil % [place] leukocytes in to non-numeric Health Unspecified results) System specimen Basophils/100 0.2 % Normal (applies Basophil % [facility] leukocytes in to non-numeric Health Unspecified results) System specimen by Manual count Lymphocytes 17.5 % Below low normal Lymphocyte % [facility] [#/volume] in Health Blood by System Automated count ImmatureGranuloc 1.1 % Above high Immature [facility] ytes% normal Granulocytes % Health System Nucleated 0.0 Normal (applies NRBC % [facility] erythrocytes {/100_WB to non-numeric Health [#/volume] in C} results) System Body fluid ImmatureGranuloc 0.10 Above high Immature [facility] ytes# {10^3_uL normal Granulocytes # Health } System NRBC# 0.00 Below low normal NRBC # [facility] {10^3_uL Health } System ID Date Data Source [id number] 05/28/2018 06:00:00 AM EDT [facility] Name Value Range Interpretation Description Data Source(s ) Supporting Code Document(s ) Troponin 0.00 Normal (applies to Troponin I [facility] IQuantit ng/mL non-numeric Quantitative - Health System ative-MV results) MV Only Only ID Date Data Source [id number] 05/30/2018 11:51:00 AM EDT [facility] Name Value Range Interpretation Description Data Sup porting Code Source(s) Document(s ) Type A Normal (applies Type [facility] to non-numeric Health results) System D Ab [Titer] in Positive Normal (applies Rh [facility] Serum or Plasma to non-numeric Health results) System AntibodyScreen Negative Normal (applies Antibody [facility] to non-numeric Screen Health results) System ID Date Data Source [id number] 05/30/2018 11:51:00 AM EDT [facility] Name Value Range Interpretation Description Data Sup porting Code Source(s) Document(s ) Prothrombintim 11.20 Normal (applies Prothrombin [facility](PT) {seconds to non-numeric time (PT) Health System } results) INR in Blood 1.07 Normal (applies INR Result [facility] by Coagulation {Ratio} to non-numeric Health Sys tem assay results) Normal = 0.7-1.1Therapeutic = 2.0-3.0Mec hanical Heart = 3.0-4.5 ID Date Data Source [id number] 05/30/2018 11:51:00 AM EDT [facility] Name Value Range Interpretation Description Data Sup porting Code Source(s) Document(s ) Leukocytes 10.1 Normal (applies WBC Count [facility] [#/volume] in {10^3_uL to non-numeric Health Syst em Unspecified } results) specimen by Automated count Erythrocytes 2.71 Below low normal RBC Count [facility] [#/volume] in {10^6_uL Health System Blood by } Automated count Hemoglobin 6.9 Below lower panic Hemoglobin [facility] [Mass/volume] {gm/dL} limits Health System in Blood Result Reporting|Telephone|dhillon| 05/30 at 12:53 PMCalled to:[email or web address] Name:Readback by: 05/30/2018 / 12:53 PM Hematocrit [Volume 22.5 % Below low Hematocrit [facility] Fraction] of Blood normal System Erythrocyte mean 83.0 fl Normal MCV [facility] corpuscular volume (applies to System [Entitic volume] by non-numeric Automated count results) Erythrocyte mean 25.5 pg Below low MCH [facility] corpuscular normal System hemoglobin [Entitic mass] by Automated count Erythrocyte mean 30.7 Below low MCHC [facility] corpuscular {gm/dL} normal System hemoglobin concentration [Mass/volume] by Automated count Erythrocyte 16.0 % Above high RDW-CV [facility] distribution width normal System [Entitic volume] by Automated count Platelets [#/volume] 182 Normal Platelet Count [facility] in Plasma by {10^3_uL} (applies to System Automated count non-numeric results) Platelet mean volume 8.9 fl Normal MPV [facility] [Entitic volume] in (applies to System Blood by Automated non-numeric count results) Monocytes [#/volume] 1.1 Above high Monocyte # [facility] in Blood by Manual {10^3_uL} normal System count Eosinophils 0.06 Normal Eosinophil # [facility] [#/volume] in Blood {10^3_uL} (applies to System non-numeric results) Neutrophils 7.1 Normal Neutrophil # [facility] [#/volume] in Body {10^3_uL} (applies to System fluid non-numeric results) Basophils [#/volume] 0.01 Normal Basophil # [facility] in Blood by Automated {10^3_uL} (applies to System count non-numeric results) Lymphocyte percent 1.7 Normal Lymphocyte # [facility] differential count {10^3_uL} (applies to System (procedure) non-numeric results) Neutrophils/100 70.6 % Normal Neutrophil % [facility] leukocytes in Blood (applies to System by Automated count non-numeric results) Monocytes/100 11.0 % Above high Monocyte % [facility] leukocytes in Blood normal System Eosinophils/100 0.6 % Normal Eosinophil % [facility] leukocytes in (applies to System Unspecified specimen non-numeric results) Basophils/100 0.1 % Normal Basophil % [facility] leukocytes in (applies to System Unspecified specimen non-numeric by Manual count results) Lymphocytes 17.1 % Below low Lymphocyte % [facility] [#/volume] in Blood normal System by Automated count ImmatureGranulocytes% 0.6 % Normal Immature [facility] (applies to Granulocytes % System non-numeric results) Nucleated 0.0 Normal NRBC % [facility] erythrocytes {/100_WBC} (applies to System [#/volume] in Body non-numeric fluid results) ImmatureGranulocytes# 0.06 Normal Immature [facility] {10^3_uL} (applies to Granulocytes # System non-numeric results) NRBC# 0.00 Below low NRBC # [facility] {10^3_uL} normal System ID Date Data Source [id number] 05/30/2018 11:51:00 AM EDT [facility] Name Value Range Interpretation Description Data Sup porting Code Source(s) Document(s ) Sodium 140 Normal (applies Sodium, Serum [facility] [Moles/volume] in mmol/L to non-numeric Health Serum or Plasma results) System Potassium 4.3 Normal (applies Potassium, [facility] [Mass/volume] in mmol/L to non-numeric Serum Health Serum or Plasma results) System Chloride 109 Above high Chloride, [facility] [Moles/volume] in mmol/L normal Serum Health Serum or Plasma System Carbon dioxide, 18.0 Below low normal CO2, Serum [facility] total mmol/L [facility] [Moles/volume] in System Serum or Plasma TotalProtein 6.2 Below low normal Total Protein [facility] mg/dl [facility] System Glucose 115 Above high Glucose, [facility] [Mass/volume] in mg/dL normal Serum Health Serum or Plasma System Urea nitrogen 40 Above high Blood Urea [facility] [Mass/volume] in mg/dl normal Nitrogen, Health Serum or Plasma Serum System Creatinine 2.00 Above high Creatinine, [facility] [Mass/volume] in mg/dl normal Serum Health Serum or Plasma System Alkaline 38 Normal (applies Alkaline [facility] phosphatase {IU/L} to non-numeric Phosphatase, Health isoenzymes results) Serum System [Enzymatic activity/volume] in Serum or Plasma by Heat stability Bilirubin.total 0.4 Normal (applies Bilirubin, [facility] [Mass/volume] in mg/dl to non-numeric Serum Total Health Serum or Plasma results) System DirectBilirubin 0.2 Normal (applies Direct [facility] mg/dl to non-numeric Bilirubin Health results) System Aspartate 14 Normal (applies Aspartate [facility] aminotransferase {IU/L} to non-numeric Transaminase, Heal th [Enzymatic results) Serum System activity/volume] in Serum or Plasma by With P-5'-P Albumin 4.0 Normal (applies Albumin, [facility] [Mass/volume] in {gm/dl} to non-numeric Serum Health Serum or Plasma results) System I.Phosphorus 2.8 Normal (applies I. Phosphorus [facility] mg/dl to non-numeric Health results) System Alanine 15 Normal (applies Alanine [facility] aminotransferase {IU/L} to non-numeric Aminotransfer Heal th [Enzymatic results) ase, Serum System activity/volume] in Serum or Plasma Calcium 8.8 Normal (applies Calcium, [facility] [Mass/volume] in mg/dl to non-numeric Total Serum Health Serum or Plasma results) System A/GRatio 1.82 Normal (applies A/G Ratio [facility] to non-numeric Health results) System Urate 10.3 Above high Uric Acid, [facility] [Mass/volume] in mg/dl normal Serum Health Serum or Plasma System Anion gap in Serum 13.00 Above high Anion Gap [facility] or Plasma mmol/L normal Health System Glomerular 33.00 Normal (applies GFR [facility] filtration to non-numeric Health rate/1.73 sq results) System M.predicted [Volume Rate/Area] in Serum or Plasma by Creatinine-based formula (CKD-EPI) eGFR will provide clinicians with a more accurate indicator of renal function then the serum creatinine. The eGFR is automa tically calculated from an empiric formula (endorsed by the [employer] ion) which incorporates age, sex, and race.Clinicians may notice surprisingly low GFR's with serum creatinine valueswithin normal range- particularly in elderly wo men (with low muscle mass).In the hospital setting, the eGFR should add an element of safety in drug dosing, in assessing the risk of IV contrast administration, and in assessing vascular risk.The NKF staging system is as follows:Normal: eGFR >90 with no kidney markersStage 1: eGFR >90 with kidney markers*Stage 2: eGFR 60- 89Stage 3: eGFR 30-59Stage 4: eGFR 15-29Stage 5: eGFR <15 (usually requir ing dialysis)*Markers include: Proteinuria, Hematuria, abnormal imaging-studies, or other blood or urine test abnormalities ID Date Data Source [id number] 05/30/2018 01:52:00 PM EDT [facility] System Name Value Range Interpretation Description Data Sup porting Code Source(s) Document(s ) Color YELLOW Normal (applies Color [facility] to non-numeric Health results) System Appearance of CLEAR Normal (applies Urine [facility] Urine to non-numeric Appearance Health results) System Specific gravity 1.015 Normal (applies Urine Specific [facility] of Urine to non-numeric [facility] results) System pH.. 5.5 Normal (applies pH.. [facility] {pH_units} to non-numeric Health results) System Glucose,UA NEGATIVE Normal (applies Glucose, UA [facility] to non-numeric Health results) System Protein NEGATIVE Normal (applies Protein [facility] [Mass/volume] in to non-numeric Health Serum or Plasma results) System BilirubinUrine NEGATIVE Normal (applies Bilirubin [facility] to non-numeric Urine Health results) System Urobilinogen 0.2 mg/dL Normal (applies Urobilinogen [facility] [Mass/volume] in to non-numeric UA Health Urine results) System Ketones NEGATIVE Normal (applies Ketones UA [facility] [Mass/volume] in to non-numeric Health Urine results) System Nitrate+Nitrite NEGATIVE Normal (applies Nitrite [facility] [Mass/volume] in to non-numeric Health Unspecified results) System specimen Leukocyte SMALL Abnormal Leukocyte [facility] esterase (applies to Esterase Health [Units/volume] non-numeric Concentration System in Urine results) Leukocytes 5 {/HPF} Normal (applies White Blood [facility] [#/volume] in to non-numeric Cells Health Unspecified results) System specimen by Automated count RedBloodCells 2 {/HPF} Normal (applies Red Blood [facility] to non-numeric Cells Health results) System Epithelial cells 5 {/HPF} Normal (applies Epithelial [facility] [Presence] in to non-numeric Cells Health Unspecified results) System specimen by Wet preparation UrineBlood NEGATIVE Normal (applies Urine Blood [facility] to non-numeric Health results) System ID Date Data Source [id number] 05/31/2018 12:36:00 AM EDT [facility] please draw CBC after 2nd U PRBC Name Value Range Interpretation Description Data Sup porting Code Source(s) Document(s ) Leukocytes 10.4 Normal (applies WBC Count [facility] [#/volume] in {10^3_uL to non-numeric Health Unspecified } results) System specimen by Automated count Erythrocytes 2.87 Below low normal RBC Count [facility] [#/volume] in {10^6_uL Health Blood by } System Automated count Hemoglobin 7.6 Below low normal Hemoglobin [facility] [Mass/volume] in {gm/dL} Health Blood System Hematocrit 23.8 % Below low normal Hematocrit [facility] [Volume Health Fraction] of System Blood Erythrocyte mean 82.9 fl Below low normal MCV [facility] corpuscular Health volume [Entitic System volume] by Automated count Erythrocyte mean 26.5 pg Normal (applies MCH [facility] corpuscular to non-numeric Health hemoglobin results) System [Entitic mass] by Automated count Erythrocyte mean 31.9 Below low normal MCHC [facility] corpuscular {gm/dL} Health hemoglobin System concentration [Mass/volume] by Automated count Erythrocyte 15.7 % Above high RDW-CV [facility] distribution normal Health width [Entitic System volume] by Automated count Platelets 168 Normal (applies Platelet Count [facility] [#/volume] in {10^3_uL to non-numeric Health Plasma by } results) System Automated count Platelet mean 9.3 fl Normal (applies MPV [facility] volume [Entitic to non-numeric Health volume] in Blood results) System by Automated count Monocytes 1.0 Above high Monocyte # [facility] [#/volume] in {10^3_uL normal Health Blood by Manual } System count Eosinophils 0.14 Normal (applies Eosinophil # [facility] [#/volume] in {10^3_uL to non-numeric Health Blood } results) System Neutrophils 7.5 Normal (applies Neutrophil # [facility] [#/volume] in {10^3_uL to non-numeric Health Body fluid } results) System Basophils 0.02 Normal (applies Basophil # [facility] [#/volume] in {10^3_uL to non-numeric Health Blood by } results) System Automated count Lymphocyte 1.7 Normal (applies Lymphocyte # [facility] percent {10^3_uL to non-numeric Health differential } results) System count (procedure) Neutrophils/100 72.6 % Normal (applies Neutrophil % [place] leukocytes in to non-numeric Health Blood by results) System Automated count Monocytes/100 9.4 % Above high Monocyte % [facility] leukocytes in normal Health Blood System Eosinophils/100 1.3 % Normal (applies Eosinophil % [place] leukocytes in to non-numeric Health Unspecified results) System specimen Basophils/100 0.2 % Normal (applies Basophil % [facility] leukocytes in to non-numeric Health Unspecified results) System specimen by Manual count Lymphocytes 16.1 % Below low normal Lymphocyte % [facility] [#/volume] in Health Blood by System Automated count ImmatureGranuloc 0.4 % Normal (applies Immature [facility] ytes% to non-numeric Granulocytes % Health results) System Nucleated 0.0 Normal (applies NRBC % [facility] erythrocytes {/100_WB to non-numeric Health [#/volume] in C} results) System Body fluid ImmatureGranuloc 0.04 Normal (applies Immature [facility] ytes# {10^3_uL to non-numeric Granulocytes # Health } results) System NRBC# 0.00 Below low normal NRBC # [facility] {10^3_uL Health } System ID Date Data Source [id number] 05/31/2018 06:00:00 AM EDT [facility] Name Value Range Interpretation Description Data Sup porting Code Source(s) Document(s ) Sodium 141 Normal (applies Sodium, Serum [facility] [Moles/volume mmol/L to non-numeric Health Syst em ] in Serum or results) Plasma Potassium 4.3 Normal (applies Potassium, [facility] [Mass/volume] mmol/L to non-numeric Serum Health Syst em in Serum or results) Plasma Chloride 111 Above high normal Chloride, [facility] [Moles/volume mmol/L Serum Health System ] in Serum or Plasma Carbon 22.0 Normal (applies CO2, Serum [facility] dioxide, mmol/L to non-numeric Health System total results) [Moles/volume ] in Serum or Plasma [place] TotalProtein 5.5 mg/dl Below low Total Protein [facility] normal System Glucose [Mass/volume] 94 mg/dL Normal (applies Glucose, Serum [facility] in Serum or Plasma to non-numeric System results) [place] Urea nitrogen 29 mg/dl Above high Blood Urea [facility] [Mass/volume] in Serum normal Nitrogen, Serum S ystem or Plasma [place] Creatinine 1.20 mg/dl Normal (applies Creatinine, Serum [facility] [Mass/volume] in to non-numeric Health S ystem Serum or Plasma results) [place] Alkaline phosphatase 33 {IU/L} Below low Alkaline [facility] isoenzymes [Enzymatic normal Phosphatase, Serum Health System activity/volume] in Serum or Plasma by Heat stability Bilirubin.total 0.6 mg/dl Normal Bilirubin, Serum [facility] [Mass/volume] in Serum (applies to Total Healt h System or Plasma non-numeric results) DirectBilirubin 0.3 mg/dl Normal Direct Bilirubin [facility] (applies to Health System non-numeric results) Aspartate 13 {IU/L} Normal Aspartate [facility] aminotransferase (applies to Transaminase, Health System [Enzymatic non-numeric Serum activity/volume] in results) Serum or Plasma by With P-5'-P Albumin [Mass/volume] 3.7 {gm/dl} Below low Albumin, Serum [facility] in Serum or Plasma normal Health Syst em I.Phosphorus 3.1 mg/dl Normal I. Phosphorus [facility] (applies to Health System non-numeric results) Alanine 15 {IU/L} Normal Alanine [facility] aminotransferase (applies to Aminotransferase, [facility] [Enzymatic non-numeric Serum activity/volume] in results) Serum or Plasma Calcium [Mass/volume] 8.3 mg/dl Below low Calcium, Total [facility] in Serum or Plasma normal Serum [facility] A/GRatio 2.06 Normal A/G Ratio [facility] (applies to [facility] System non-numeric results) Urate [Mass/volume] in 9.0 mg/dl Above high Uric Acid, Serum [facility] Serum or Plasma normal Health System Anion gap in Serum or 8.00 mmol/L Normal Anion Gap [facility] Plasma (applies to [facility] non-numeric results) Glomerular filtration 59.00 Normal GFR [facility] rate/1.73 sq (applies to Health System M.predicted [Volume non-numeric Rate/Area] in Serum or results) Plasma by Creatinine-based formula (CKD-EPI) eGFR will provide clinicians with a more accurate indicator of renal function then the serum creatinine. The eGFR is automa tically calculated from an empiric formula (endorsed by the [employer] ion) which incorporates age, sex, and race.Clinicians may notice surprisingly low GFR's with serum creatinine valueswithin normal range- particularly in elderly wo men (with low muscle mass).In the hospital setting, the eGFR should add an element of safety in drug dosing, in assessing the risk of IV contrast administration, and in assessing vascular risk.The NKF staging system is as follows:Normal: eGFR >90 with no kidney markersStage 1: eGFR >90 with kidney markers*Stage 2: eGFR 60- 89Stage 3: eGFR 30-59Stage 4: eGFR 15-29Stage 5: eGFR <15 (usually requir ing dialysis)*Markers include: Proteinuria, Hematuria, abnormal imaging-studies, or other blood or urine test abnormalities ID Date Data Source [id number] 05/31/2018 06:00:00 AM EDT [facility] Name Value Range Interpretation Description Data Sup porting Code Source(s) Document(s ) Leukocytes 9.0 Normal (applies WBC Count [facility] [#/volume] in {10^3_uL to non-numeric Health Unspecified } results) System specimen by Automated count Erythrocytes 2.83 Below low normal RBC Count [facility] [#/volume] in {10^6_uL Health Blood by } System Automated count Hemoglobin 7.4 Below low normal Hemoglobin [facility] [Mass/volume] in {gm/dL} Health Blood System Hematocrit 23.4 % Below low normal Hematocrit [facility] [Volume Health Fraction] of System Blood Erythrocyte mean 82.7 fl Below low normal MCV [facility] corpuscular Health volume [Entitic System volume] by Automated count Erythrocyte mean 26.1 pg Normal (applies MCH [facility] corpuscular to non-numeric Health hemoglobin results) System [Entitic mass] by Automated count Erythrocyte mean 31.6 Below low normal MCHC [facility] corpuscular {gm/dL} Health hemoglobin System concentration [Mass/volume] by Automated count Erythrocyte 15.8 % Above high RDW-CV [facility] distribution normal Health width [Entitic System volume] by Automated count Platelets 165 Normal (applies Platelet Count [facility] [#/volume] in {10^3_uL to non-numeric Health Plasma by } results) System Automated count Platelet mean 9.5 fl Normal (applies MPV [facility] volume [Entitic to non-numeric Health volume] in Blood results) System by Automated count Monocytes 1.0 Above high Monocyte # [facility] [#/volume] in {10^3_uL normal Health Blood by Manual } System count Eosinophils 0.11 Normal (applies Eosinophil # [facility] [#/volume] in {10^3_uL to non-numeric Health Blood } results) System Neutrophils 6.4 Normal (applies Neutrophil # [facility] [#/volume] in {10^3_uL to non-numeric Health Body fluid } results) System Basophils 0.03 Normal (applies Basophil # [facility] [#/volume] in {10^3_uL to non-numeric Health Blood by } results) System Automated count Lymphocyte 1.4 Normal (applies Lymphocyte # [facility] percent {10^3_uL to non-numeric Health differential } results) System count (procedure) Neutrophils/100 71.4 % Normal (applies Neutrophil % [place] leukocytes in to non-numeric Health Blood by results) System Automated count Monocytes/100 10.9 % Above high Monocyte % [facility] leukocytes in normal Health Blood System Eosinophils/100 1.2 % Normal (applies Eosinophil % [place] leukocytes in to non-numeric Health Unspecified results) System specimen Basophils/100 0.3 % Normal (applies Basophil % [facility] leukocytes in to non-numeric Health Unspecified results) System specimen by Manual count Lymphocytes 15.6 % Below low normal Lymphocyte % [facility] [#/volume] in Health Blood by System Automated count ImmatureGranuloc 0.6 % Normal (applies Immature [facility] ytes% to non-numeric Granulocytes % Health results) System Nucleated 0.0 Normal (applies NRBC % [facility] erythrocytes {/100_WB to non-numeric Health [#/volume] in C} results) System Body fluid ImmatureGranuloc 0.05 Normal (applies Immature [facility] ytes# {10^3_uL to non-numeric Granulocytes # Health } results) System NRBC# 0.00 Below low normal NRBC # [facility] {10^3_uL Health } System ID Date Data Source [id number] 05/31/2018 10:06:00 AM EDT [facility] Please draw blood after 1 hr of blood t ransfusion end Name Value Range Interpretation Description Data Sup porting Code Source(s) Document(s ) Leukocytes 8.6 Normal (applies WBC Count [facility] [#/volume] in {10^3_uL to non-numeric Health Unspecified } results) System specimen by Automated count Erythrocytes 3.28 Below low normal RBC Count [facility] [#/volume] in {10^6_uL Health Blood by } System Automated count Hemoglobin 8.6 Below low normal Hemoglobin [facility] [Mass/volume] in {gm/dL} Health Blood System Hematocrit 27.4 % Below low normal Hematocrit [facility] [Volume Health Fraction] of System Blood Erythrocyte mean 83.5 fl Normal (applies MCV [facility] corpuscular to non-numeric Health volume [Entitic results) System volume] by Automated count Erythrocyte mean 26.2 pg Normal (applies MCH [facility] corpuscular to non-numeric Health hemoglobin results) System [Entitic mass] by Automated count Erythrocyte mean 31.4 Below low normal MCHC [facility] corpuscular {gm/dL} Health hemoglobin System concentration [Mass/volume] by Automated count Erythrocyte 15.5 % Above high RDW-CV [facility] distribution normal Health width [Entitic System volume] by Automated count Platelets 166 Normal (applies Platelet Count [facility] [#/volume] in {10^3_uL to non-numeric Health Plasma by } results) System Automated count Platelet mean 9.4 fl Normal (applies MPV [facility] volume [Entitic to non-numeric Health volume] in Blood results) System by Automated count Monocytes 0.8 Normal (applies Monocyte # [facility] [#/volume] in {10^3_uL to non-numeric Health Blood by Manual } results) System count Eosinophils 0.10 Normal (applies Eosinophil # [facility] [#/volume] in {10^3_uL to non-numeric Health Blood } results) System Neutrophils 6.4 Normal (applies Neutrophil # [facility] [#/volume] in {10^3_uL to non-numeric Health Body fluid } results) System Basophils 0.02 Normal (applies Basophil # [facility] [#/volume] in {10^3_uL to non-numeric Health Blood by } results) System Automated count Lymphocyte 1.3 Normal (applies Lymphocyte # [facility] percent {10^3_uL to non-numeric Health differential } results) System count (procedure) Neutrophils/100 74.0 % Normal (applies Neutrophil % [place] leukocytes in to non-numeric Health Blood by results) System Automated count Monocytes/100 9.6 % Above high Monocyte % [facility] leukocytes in normal Health Blood System Eosinophils/100 1.2 % Normal (applies Eosinophil % [place] leukocytes in to non-numeric Health Unspecified results) System specimen Basophils/100 0.2 % Normal (applies Basophil % [facility] leukocytes in to non-numeric Health Unspecified results) System specimen by Manual count Lymphocytes 14.7 % Below low normal Lymphocyte % [facility] [#/volume] in Health Blood by System Automated count ImmatureGranuloc 0.3 % Normal (applies Immature [facility] ytes% to non-numeric Granulocytes % Health results) System Nucleated 0.0 Normal (applies NRBC % [facility] erythrocytes {/100_WB to non-numeric Health [#/volume] in C} results) System Body fluid ImmatureGranuloc 0.03 Normal (applies Immature [facility] ytes# {10^3_uL to non-numeric Granulocytes # Health } results) System NRBC# 0.00 Below low normal NRBC # [facility] {10^3_uL Health } System ID Date Data Source [id number] 05/31/2018 05:27:00 PM EDT [facility] Name Value Range Interpretation Description Data Sup porting Code Source(s) Document(s ) Leukocytes 9.2 Normal (applies WBC Count [facility] [#/volume] in {10^3_uL to non-numeric Health Unspecified } results) System specimen by Automated count Erythrocytes 3.12 Below low normal RBC Count [facility] [#/volume] in {10^6_uL Health Blood by } System Automated count Hemoglobin 8.2 Below low normal Hemoglobin [facility] [Mass/volume] in {gm/dL} Health Blood System Hematocrit 25.8 % Below low normal Hematocrit [facility] [Volume Health Fraction] of System Blood Erythrocyte mean 82.7 fl Below low normal MCV [facility] corpuscular Health volume [Entitic System volume] by Automated count Erythrocyte mean 26.3 pg Normal (applies MCH [facility] corpuscular to non-numeric Health hemoglobin results) System [Entitic mass] by Automated count Erythrocyte mean 31.8 Below low normal MCHC [facility] corpuscular {gm/dL} Health hemoglobin System concentration [Mass/volume] by Automated count Erythrocyte 15.7 % Above high RDW-CV [facility] distribution normal Health width [Entitic System volume] by Automated count Platelets 164 Normal (applies Platelet Count [facility] [#/volume] in {10^3_uL to non-numeric Health Plasma by } results) System Automated count Platelet mean 9.1 fl Normal (applies MPV [facility] volume [Entitic to non-numeric Health volume] in Blood results) System by Automated count Monocytes 0.9 Normal (applies Monocyte # [facility] [#/volume] in {10^3_uL to non-numeric Health Blood by Manual } results) System count Eosinophils 0.10 Normal (applies Eosinophil # [facility] [#/volume] in {10^3_uL to non-numeric Health Blood } results) System Neutrophils 6.9 Normal (applies Neutrophil # [facility] [#/volume] in {10^3_uL to non-numeric Health Body fluid } results) System Basophils 0.02 Normal (applies Basophil # [facility] [#/volume] in {10^3_uL to non-numeric Health Blood by } results) System Automated count Lymphocyte 1.3 Normal (applies Lymphocyte # [facility] percent {10^3_uL to non-numeric Health differential } results) System count (procedure) Neutrophils/100 75.3 % Above high Neutrophil % [facility] leukocytes in normal Health Blood by System Automated count Monocytes/100 9.3 % Above high Monocyte % [facility] leukocytes in normal Health Blood System Eosinophils/100 1.1 % Normal (applies Eosinophil % [place] leukocytes in to non-numeric Health Unspecified results) System specimen Basophils/100 0.2 % Normal (applies Basophil % [facility] leukocytes in to non-numeric Health Unspecified results) System specimen by Manual count Lymphocytes 13.6 % Below low normal Lymphocyte % [facility] [#/volume] in Health Blood by System Automated count ImmatureGranuloc 0.5 % Normal (applies Immature [facility] ytes% to non-numeric Granulocytes % Health results) System Nucleated 0.0 Normal (applies NRBC % [facility] erythrocytes {/100_WB to non-numeric Health [#/volume] in C} results) System Body fluid ImmatureGranuloc 0.05 Normal (applies Immature [facility] ytes# {10^3_uL to non-numeric Granulocytes # Health } results) System NRBC# 0.00 Below low normal NRBC # [facility] {10^3_uL Health } System ID Date Data Source [id number] 06/01/2018 06:00:00 AM EDT [facility] Name Value Range Interpretation Description Data Sup porting Code Source(s) Document(s ) Leukocytes 8.3 Normal (applies WBC Count [facility] [#/volume] in {10^3_uL to non-numeric Health Unspecified } results) System specimen by Automated count Erythrocytes 3.17 Below low normal RBC Count [facility] [#/volume] in {10^6_uL Health Blood by } System Automated count Hemoglobin 8.3 Below low normal Hemoglobin [facility] [Mass/volume] in {gm/dL} Health Blood System Hematocrit 26.7 % Below low normal Hematocrit [facility] [Volume Health Fraction] of System Blood Erythrocyte mean 84.2 fl Normal (applies MCV [facility] corpuscular to non-numeric Health volume [Entitic results) System volume] by Automated count Erythrocyte mean 26.2 pg Normal (applies MCH [facility] corpuscular to non-numeric Health hemoglobin results) System [Entitic mass] by Automated count Erythrocyte mean 31.1 Below low normal [facility] corpuscular {gm/dL} Health hemoglobin System concentration [Mass/volume] by Automated count Erythrocyte 15.5 % Above high RDW-CV [facility] distribution normal Health width [Entitic System volume] by Automated count Platelets 175 Normal (applies Platelet Count [facility] [#/volume] in {10^3_uL to non-numeric Health Plasma by } results) System Automated count Platelet mean 9.3 fl Normal (applies MPV [facility] volume [Entitic to non-numeric Health volume] in Blood results) System by Automated count Monocytes 0.9 Above high Monocyte # [facility] [#/volume] in {10^3_uL normal Health Blood by Manual } System count Eosinophils 0.12 Normal (applies Eosinophil # [facility] [#/volume] in {10^3_uL to non-numeric Health Blood } results) System Neutrophils 6.1 Normal (applies Neutrophil # [facility] [#/volume] in {10^3_uL to non-numeric Health Body fluid } results) System Basophils 0.02 Normal (applies Basophil # [facility] [#/volume] in {10^3_uL to non-numeric Health Blood by } results) System Automated count Lymphocyte 1.1 Normal (applies Lymphocyte # [facility] percent {10^3_uL to non-numeric Health differential } results) System count (procedure) Neutrophils/100 73.6 % Normal (applies Neutrophil % [place] leukocytes in to non-numeric Health Blood by results) System Automated count Monocytes/100 11.1 % Above high Monocyte % [facility] leukocytes in normal Health Blood System Eosinophils/100 1.4 % Normal (applies Eosinophil % [place] leukocytes in to non-numeric Health Unspecified results) System specimen Basophils/100 0.2 % Normal (applies Basophil % [facility] leukocytes in to non-numeric Health Unspecified results) System specimen by Manual count Lymphocytes 13.3 % Below low normal Lymphocyte % [facility] [#/volume] in Health Blood by System Automated count ImmatureGranuloc 0.4 % Normal (applies Immature [facility] ytes% to non-numeric Granulocytes % Health results) System Nucleated 0.2 Above high NRBC % [facility] erythrocytes {/100_WB normal Health [#/volume] in C} System Body fluid ImmatureGranuloc 0.03 Normal (applies Immature [facility] ytes# {10^3_uL to non-numeric Granulocytes # Health } results) System NRBC# 0.02 Below low normal NRBC # [facility] {10^3_uL Health } System ID Date Data Source [id number] 06/01/2018 06:00:00 AM EDT [facility] Name Value Range Interpretation Description Data Sup porting Code Source(s) Document(s ) Sodium 141 Normal (applies Sodium, Serum [facility] [Moles/volume] in mmol/L to non-numeric Health Serum or Plasma results) System Potassium 4.1 Normal (applies Potassium, [facility] [Mass/volume] in mmol/L to non-numeric Serum Health Serum or Plasma results) System Chloride 107 Normal (applies Chloride, [facility] [Moles/volume] in mmol/L to non-numeric Serum Health Serum or Plasma results) System Carbon dioxide, 22.0 Normal (applies CO2, Serum [facility] total mmol/L to non-numeric Health [Moles/volume] in results) System Serum or Plasma TotalProtein 5.8 Below low normal Total Protein [facility] mg/dl [facility] Glucose 103 Normal (applies Glucose, [facility] [Mass/volume] in mg/dL to non-numeric Serum Health Serum or Plasma results) System Urea nitrogen 14 Normal (applies Blood Urea [facility] [Mass/volume] in mg/dl to non-numeric Nitrogen, Health Serum or Plasma results) Serum System Creatinine 1.00 Normal (applies Creatinine, [facility] [Mass/volume] in mg/dl to non-numeric Serum Health Serum or Plasma results) System Alkaline 36 Below low normal Alkaline [facility] phosphatase {IU/L} Phosphatase, Health isoenzymes Serum System [Enzymatic activity/volume] in Serum or Plasma by Heat stability Bilirubin.total 0.5 Normal (applies Bilirubin, [facility] [Mass/volume] in mg/dl to non-numeric Serum Total Health Serum or Plasma results) System DirectBilirubin 0.3 Normal (applies Direct [facility] mg/dl to non-numeric Bilirubin Health results) System Aspartate 17 Normal (applies Aspartate [facility] aminotransferase {IU/L} to non-numeric Transaminase, Heal th [Enzymatic results) Serum System activity/volume] in Serum or Plasma by With P-5'-P Albumin 3.8 Below low normal Albumin, [facility] [Mass/volume] in {gm/dl} Serum Health Serum or Plasma System I.Phosphorus 2.5 Normal (applies I. Phosphorus [facility] mg/dl to non-numeric Health results) System Alanine 15 Normal (applies Alanine [facility] aminotransferase {IU/L} to non-numeric Aminotransfer Heal th [Enzymatic results) ase, Serum System activity/volume] in Serum or Plasma Calcium 8.7 Normal (applies Calcium, [facility] [Mass/volume] in mg/dl to non-numeric Total Serum Health Serum or Plasma results) System A/GRatio 1.90 Normal (applies A/G Ratio [facility] to non-numeric Health results) System Urate 7.7 Normal (applies Uric Acid, [facility] [Mass/volume] in mg/dl to non-numeric Serum Health Serum or Plasma results) System Anion gap in Serum 12.00 Normal (applies Anion Gap [place] or Plasma mmol/L to non-numeric Health results) System Glomerular 73.00 Normal (applies GFR [facility] filtration to non-numeric Health rate/1.73 sq results) System M.predicted [Volume Rate/Area] in Serum or Plasma by Creatinine-based formula (CKD-EPI) eGFR will provide clinicians with a more accurate indicator of renal function then the serum creatinine. The eGFR is automa tically calculated from an empiric formula (endorsed by the National Kid[employer] ion) which incorporates age, sex, and race.Clinicians may notice surprisingly low GFR's with serum creatinine valueswithin normal range- particularly in elderly wo men (with low muscle mass).In the hospital setting, the eGFR should add an element of safety in drug dosing, in assessing the risk of IV contrast administration, and in assessing vascular risk.The NKF staging system is as follows:Normal: eGFR >90 with no kidney markersStage 1: eGFR >90 with kidney markers*Stage 2: eGFR 60- 89Stage 3: eGFR 30-59Stage 4: eGFR 15-29Stage 5: eGFR <15 (usually requir ing dialysis)*Markers include: Proteinuria, Hematuria, abnormal imaging-studies, or other blood or urine test abnormalities ID Date Data Source [id number] 06/02/2018 06:00:00 AM EDT [facility] Name Value Range Interpretation Description Data Sup porting Code Source(s) Document(s ) Type A Normal (applies Type [facility] to non-numeric Health results) System D Ab [Titer] in Positive Normal (applies Rh [facility] Serum or Plasma to non-numeric Health results) System AntibodyScreen Negative Normal (applies Antibody [facility] to non-numeric Screen Health results) System ID Date Data Source [id number] 06/02/2018 06:00:00 AM EDT [facility] Name Value Range Interpretation Description Data Sup porting Code Source(s) Document(s ) Leukocytes 7.6 Normal (applies WBC Count [facility] [#/volume] in {10^3_uL to non-numeric Health Unspecified } results) System specimen by Automated count Erythrocytes 3.62 Below low normal RBC Count [facility] [#/volume] in {10^6_uL Health Blood by } System Automated count Hemoglobin 9.7 Below low normal Hemoglobin [facility] [Mass/volume] in {gm/dL} Health Blood System Hematocrit 30.1 % Below low normal Hematocrit [facility] [Volume Health Fraction] of System Blood Erythrocyte mean 83.1 fl Normal (applies MCV [facility] corpuscular to non-numeric Health volume [Entitic results) System volume] by Automated count Erythrocyte mean 26.8 pg Normal (applies MCH [facility] corpuscular to non-numeric Health hemoglobin results) System [Entitic mass] by Automated count Erythrocyte mean 32.2 Below low normal [facility] corpuscular {gm/dL} Health hemoglobin System concentration [Mass/volume] by Automated count Erythrocyte 15.4 % Above high RDW-CV [facility] distribution normal Health width [Entitic System volume] by Automated count Platelets 191 Normal (applies Platelet Count [facility] [#/volume] in {10^3_uL to non-numeric Health Plasma by } results) System Automated count Platelet mean 9.0 fl Normal (applies MPV [facility] volume [Entitic to non-numeric Health volume] in Blood results) System by Automated count Monocytes 0.8 Normal (applies Monocyte # [facility] [#/volume] in {10^3_uL to non-numeric Health Blood by Manual } results) System count Eosinophils 0.10 Normal (applies Eosinophil # [facility] [#/volume] in {10^3_uL to non-numeric Health Blood } results) System Neutrophils 5.4 Normal (applies Neutrophil # [facility] [#/volume] in {10^3_uL to non-numeric Health Body fluid } results) System Basophils 0.02 Normal (applies Basophil # [facility] [#/volume] in {10^3_uL to non-numeric Health Blood by } results) System Automated count Lymphocyte 1.2 Normal (applies Lymphocyte # [facility] percent {10^3_uL to non-numeric Health differential } results) System count (procedure) Neutrophils/100 71.7 % Normal (applies Neutrophil % [place] leukocytes in to non-numeric Health Blood by results) System Automated count Monocytes/100 10.7 % Above high Monocyte % [facility] leukocytes in normal Health Blood System Eosinophils/100 1.3 % Normal (applies Eosinophil % [place] leukocytes in to non-numeric Health Unspecified results) System specimen Basophils/100 0.3 % Normal (applies Basophil % [facility] leukocytes in to non-numeric Health Unspecified results) System specimen by Manual count Lymphocytes 15.6 % Below low normal Lymphocyte % [facility] [#/volume] in Health Blood by System Automated count ImmatureGranuloc 0.4 % Normal (applies Immature [facility] ytes% to non-numeric Granulocytes % Health results) System Nucleated 0.0 Normal (applies NRBC % [facility] erythrocytes {/100_WB to non-numeric Health [#/volume] in C} results) System Body fluid ImmatureGranuloc 0.03 Normal (applies Immature [facility] ytes# {10^3_uL to non-numeric Granulocytes # Health } results) System NRBC# 0.00 Below low normal NRBC # [facility] {10^3_uL Health } System ID Date Data Source [id number] 06/02/2018 06:00:00 AM EDT [facility] Name Value Range Interpretation Description Data Sup porting Code Source(s) Document(s ) Sodium 139 Normal (applies Sodium, Serum [facility] [Moles/volume] in mmol/L to non-numeric Health Serum or Plasma results) System Potassium 3.8 Normal (applies Potassium, [facility] [Mass/volume] in mmol/L to non-numeric Serum Health Serum or Plasma results) System Chloride 105 Normal (applies Chloride, [facility] [Moles/volume] in mmol/L to non-numeric Serum Health Serum or Plasma results) System Carbon dioxide, 19.0 Below low normal CO2, Serum [facility] total mmol/L [facility] [Moles/volume] in System Serum or Plasma TotalProtein 6.4 Normal (applies Total Protein [facility] mg/dl to non-numeric Health results) System Glucose 159 Above high Glucose, [facility] [Mass/volume] in mg/dL normal Serum Health Serum or Plasma System Urea nitrogen 7 mg/dl Below low normal Blood Urea [facility] [Mass/volume] in Nitrogen, Health Serum or Plasma Serum System Creatinine 1.10 Normal (applies Creatinine, [facility] [Mass/volume] in mg/dl to non-numeric Serum Health Serum or Plasma results) System Alkaline 40 Normal (applies Alkaline [facility] phosphatase {IU/L} to non-numeric Phosphatase, Health isoenzymes results) Serum System [Enzymatic activity/volume] in Serum or Plasma by Heat stability Bilirubin.total 0.5 Normal (applies Bilirubin, [facility] [Mass/volume] in mg/dl to non-numeric Serum Total Health Serum or Plasma results) System DirectBilirubin 0.3 Normal (applies Direct [facility] mg/dl to non-numeric Bilirubin Health results) System Aspartate 21 Normal (applies Aspartate [facility] aminotransferase {IU/L} to non-numeric Transaminase, [facility]al [facility] [Enzymatic results) Serum System activity/volume] in Serum or Plasma by With P-5'-P Albumin 4.1 Normal (applies Albumin, [facility] [Mass/volume] in {gm/dl} to non-numeric Serum Health Serum or Plasma results) System I.Phosphorus 3.0 Normal (applies I. Phosphorus [facility] mg/dl to non-numeric Health results) System Alanine 18 Normal (applies Alanine [facility] aminotransferase {IU/L} to non-numeric Aminotransfer [facility]al [facility] [Enzymatic results) ase, Serum System activity/volume] in Serum or Plasma Calcium 8.8 Normal (applies Calcium, [facility] [Mass/volume] in mg/dl to non-numeric Total Serum Health Serum or Plasma results) System A/GRatio 1.78 Normal (applies A/G Ratio [facility] to non-numeric Health results) System Urate 7.1 Normal (applies Uric Acid, [facility] [Mass/volume] in mg/dl to non-numeric Serum Health Serum or Plasma results) System Anion gap in Serum 15.00 Above high Anion Gap [facility] or Plasma mmol/L normal Health System Glomerular 65.00 Normal (applies GFR [facility] filtration to non-numeric Health rate/1.73 sq results) System M.predicted [Volume Rate/Area] in Serum or Plasma by Creatinine-based formula (CKD-EPI) eGFR will provide clinicians with a more accurate indicator of renal function then the serum creatinine. The eGFR is automa tically calculated from an empiric formula (endorsed by the [employer] ion) which incorporates age, sex, and race.Clinicians may notice surprisingly low GFR's with serum creatinine valueswithin normal range- particularly in elderly wo men (with low muscle mass).In the hospital setting, the eGFR should add an element of safety in drug dosing, in assessing the risk of IV contrast administration, and in assessing vascular risk.The NKF staging system is as follows:Normal: eGFR >90 with no kidney markersStage 1: eGFR >90 with kidney markers*Stage 2: eGFR 60- 89Stage 3: eGFR 30-59Stage 4: eGFR 15-29Stage 5: eGFR <15 (usually requir ing dialysis)*Markers include: Proteinuria, Hematuria, abnormal imaging-studies, or other blood or urine test abnormalities ID Date Data Source [id number] 06/09/2018 08:57:00 AM EDT [facility] Name Value Range Interpretation Description Data Sup porting Code Source(s) Document(s ) Type A Normal (applies Type [facility] to non-numeric Health results) System D Ab [Titer] in Positive Normal (applies Rh [facility] Serum or Plasma to non-numeric Health results) System AntibodyScreen Negative Normal (applies Antibody [facility] to non-numeric Screen Health results) System ID Date Data Source [id number] 06/09/2018 08:57:00 AM EDT [facility] Name Value Range Interpretation Description Data Sup porting Code Source(s) Document(s ) aPTT in Blood 23.0 Normal (applies Activated [facility] by Coagulation {Seconds to non-numeric Partial Health assay } results) Thromboplastin System Time ID Date Data Source [id number] 06/09/2018 08:57:00 AM EDT [facility] Name Value Range Interpretation Description Data Sup porting Code Source(s) Document(s ) Prothrombintim 10.80 Normal (applies Prothrombin [facility](PT) {seconds to non-numeric time (PT) Health System } results) INR in Blood 1.03 Normal (applies INR Result [facility] by Coagulation {Ratio} to non-numeric Health Sys tem assay results) Normal = 0.7-1.1Therapeutic = 2.0-3.0Mec hanical Heart = 3.0-4.5 ID Date Data Source [id number] 06/09/2018 08:57:00 AM EDT [facility] Name Value Range Interpretation Description Data Sup porting Code Source(s) Document(s ) Leukocytes 8.4 Normal (applies WBC Count [facility] [#/volume] in {10^3_uL to non-numeric Health Unspecified } results) System specimen by Automated count Erythrocytes 3.23 Below low normal RBC Count [facility] [#/volume] in {10^6_uL Health Blood by } System Automated count Hemoglobin 8.5 Below low normal Hemoglobin [facility] [Mass/volume] in {gm/dL} Health Blood System Hematocrit 27.3 % Below low normal Hematocrit [facility] [Volume Health Fraction] of System Blood Erythrocyte mean 84.5 fl Normal (applies MCV [facility] corpuscular to non-numeric Health volume [Entitic results) System volume] by Automated count Erythrocyte mean 26.3 pg Normal (applies MCH [facility] corpuscular to non-numeric Health hemoglobin results) System [Entitic mass] by Automated count Erythrocyte mean 31.1 Below low normal MCHC [facility] corpuscular {gm/dL} Health hemoglobin System concentration [Mass/volume] by Automated count Erythrocyte 15.0 % Above high RDW-CV [facility] distribution normal Health width [Entitic System volume] by Automated count Platelets 214 Normal (applies Platelet Count [facility] [#/volume] in {10^3_uL to non-numeric Health Plasma by } results) System Automated count Platelet mean 9.0 fl Normal (applies MPV [facility] volume [Entitic to non-numeric Health volume] in Blood results) System by Automated count Monocytes 0.9 Normal (applies Monocyte # [facility] [#/volume] in {10^3_uL to non-numeric Health Blood by Manual } results) System count Eosinophils 0.09 Normal (applies Eosinophil # [facility] [#/volume] in {10^3_uL to non-numeric Health Blood } results) System Neutrophils 5.8 Normal (applies Neutrophil # [facility] [#/volume] in {10^3_uL to non-numeric Health Body fluid } results) System Basophils 0.03 Normal (applies Basophil # [facility] [#/volume] in {10^3_uL to non-numeric Health Blood by } results) System Automated count Lymphocyte 1.6 Normal (applies Lymphocyte # [facility] percent {10^3_uL to non-numeric Health differential } results) System count (procedure) Neutrophils/100 69.2 % Normal (applies Neutrophil % [place] leukocytes in to non-numeric Health Blood by results) System Automated count Monocytes/100 10.1 % Above high Monocyte % [facility] leukocytes in normal Health Blood System Eosinophils/100 1.1 % Normal (applies Eosinophil % [place] leukocytes in to non-numeric Health Unspecified results) System specimen Basophils/100 0.4 % Normal (applies Basophil % [facility] leukocytes in to non-numeric Health Unspecified results) System specimen by Manual count Lymphocytes 18.7 % Below low normal Lymphocyte % [facility] [#/volume] in Health Blood by System Automated count ImmatureGranuloc 0.5 % Normal (applies Immature [facility] ytes% to non-numeric Granulocytes % Health results) System Nucleated 0.0 Normal (applies NRBC % [facility] erythrocytes {/100_WB to non-numeric Health [#/volume] in C} results) System Body fluid ImmatureGranuloc 0.04 Normal (applies Immature [facility] ytes# {10^3_uL to non-numeric Granulocytes # Health } results) System NRBC# 0.00 Below low normal NRBC # [facility] {10^3_uL Health } System ID Date Data Source [id number] 06/09/2018 08:57:00 AM EDT [facility] Name Value Range Interpretation Description Data Sup porting Code Source(s) Document(s ) Sodium 140 Normal (applies Sodium, Serum [facility] [Moles/volume] in mmol/L to non-numeric Health Serum or Plasma results) System Potassium 4.2 Normal (applies Potassium, [facility] [Mass/volume] in mmol/L to non-numeric Serum Health Serum or Plasma results) System Chloride 107 Normal (applies Chloride, [facility] [Moles/volume] in mmol/L to non-numeric Serum Health Serum or Plasma results) System Carbon dioxide, 22.0 Normal (applies CO2, Serum [facility] total mmol/L to non-numeric Health [Moles/volume] in results) System Serum or Plasma TotalProtein 6.0 Below low normal Total Protein [facility] mg/dl [facility] System Glucose 228 Above high Glucose, [facility] [Mass/volume] in mg/dL normal Serum Health Serum or Plasma System Urea nitrogen 26 Above high Blood Urea [facility] [Mass/volume] in mg/dl normal Nitrogen, Health Serum or Plasma Serum System Creatinine 1.30 Normal (applies Creatinine, [facility] [Mass/volume] in mg/dl to non-numeric Serum Health Serum or Plasma results) System Alkaline 38 Normal (applies Alkaline [facility] phosphatase {IU/L} to non-numeric Phosphatase, Health isoenzymes results) Serum System [Enzymatic activity/volume] in Serum or Plasma by Heat stability Bilirubin.total 0.3 Normal (applies Bilirubin, [facility] [Mass/volume] in mg/dl to non-numeric Serum Total Health Serum or Plasma results) System DirectBilirubin 0.1 Normal (applies Direct [facility] mg/dl to non-numeric Bilirubin Health results) System Aspartate 16 Normal (applies Aspartate [facility] aminotransferase {IU/L} to non-numeric Transaminase, [facility] [Enzymatic results) Serum System activity/volume] in Serum or Plasma by With P-5'-P Albumin 3.8 Below low normal Albumin, [facility] [Mass/volume] in {gm/dl} Serum Health Serum or Plasma System I.Phosphorus 2.9 Normal (applies I. Phosphorus [facility] mg/dl to non-numeric Health results) System Alanine 22 Normal (applies Alanine [facility] aminotransferase {IU/L} to non-numeric Aminotransfer [facility]al th [Enzymatic results) ase, Serum System activity/volume] in Serum or Plasma Calcium 9.0 Normal (applies Calcium, [facility] [Mass/volume] in mg/dl to non-numeric Total Serum Health Serum or Plasma results) System A/GRatio 1.73 Normal (applies A/G Ratio [facility] to non-numeric Health results) System Urate 7.1 Normal (applies Uric Acid, [facility] [Mass/volume] in mg/dl to non-numeric Serum Health Serum or Plasma results) System Anion gap in Serum 11.00 Normal (applies Anion Gap [place] or Plasma mmol/L to non-numeric Health results) System Glomerular 54.00 Normal (applies GFR [facility] filtration to non-numeric Health rate/1.73 sq results) System M.predicted [Volume Rate/Area] in Serum or Plasma by Creatinine-based formula (CKD-EPI) eGFR will provide clinicians with a more accurate indicator of renal function then the serum creatinine. The eGFR is automa tically calculated from an empiric formula (endorsed by the [employer]) which incorporates age, sex, and race.Clinicians may notice surprisingly low GFR's with serum creatinine valueswithin normal range- particularly in elderly wo men (with low muscle mass).In the hospital setting, the eGFR should add an element of safety in drug dosing, in assessing the risk of IV contrast administration, and in assessing vascular risk.The NKF staging system is as follows:Normal: eGFR >90 with no kidney markersStage 1: eGFR >90 with kidney markers*Stage 2: eGFR 60- 89Stage 3: eGFR 30-59Stage 4: eGFR 15-29Stage 5: eGFR <15 (usually requir ing dialysis)*Markers include: Proteinuria, Hematuria, abnormal imaging-studies, or other blood or urine test abnormalities ID Date Data Source [id number] 06/09/2018 08:59:00 AM EDT [facility] Name Value Range Interpretation Description Data Source(s ) Supporting Code Document(s ) Troponin 0.01 Normal (applies to Troponin I [facility] IQuantit ng/mL non-numeric Quantitative - Health System ative-MV results) MV Only Only ID Date Data Source [id number] 06/09/2018 06:46:00 PM EDT [facility] Name Value Range Interpretation Description Data Source(s ) Supporting Code Document(s ) Blood,Oc POSITIVE Normal (applies to Blood, Occult [facility] cultFece non-numeric Feces Health System s results) ID Date Data Source [id number] 06/10/2018 06:00:00 AM EDT [facility] Name Value Range Interpretation Description Data Sup porting Code Source(s) Document(s ) Leukocytes 7.8 Normal (applies WBC Count [facility] [#/volume] in {10^3_uL to non-numeric Health Unspecified } results) System specimen by Automated count Erythrocytes 3.26 Below low normal RBC Count [facility] [#/volume] in {10^6_uL Health Blood by } System Automated count Hemoglobin 8.7 Below low normal Hemoglobin [facility] [Mass/volume] in {gm/dL} Health Blood System Hematocrit 27.4 % Below low normal Hematocrit [facility] [Volume Health Fraction] of System Blood Erythrocyte mean 84.0 fl Normal (applies MCV [facility] corpuscular to non-numeric Health volume [Entitic results) System volume] by Automated count Erythrocyte mean 26.7 pg Normal (applies MCH [facility] corpuscular to non-numeric Health hemoglobin results) System [Entitic mass] by Automated count Erythrocyte mean 31.8 Below low normal MCHC [facility] corpuscular {gm/dL} Health hemoglobin System concentration [Mass/volume] by Automated count Erythrocyte 14.8 % Above high RDW-CV [facility] distribution normal Health width [Entitic System volume] by Automated count Platelets 190 Normal (applies Platelet Count [facility] [#/volume] in {10^3_uL to non-numeric Health Plasma by } results) System Automated count Platelet mean 9.1 fl Normal (applies MPV [facility] volume [Entitic to non-numeric Health volume] in Blood results) System by Automated count Monocytes 0.7 Normal (applies Monocyte # [facility] [#/volume] in {10^3_uL to non-numeric Health Blood by Manual } results) System count Eosinophils 0.12 Normal (applies Eosinophil # [facility] [#/volume] in {10^3_uL to non-numeric Health Blood } results) System Neutrophils 5.8 Normal (applies Neutrophil # [facility] [#/volume] in {10^3_uL to non-numeric Health Body fluid } results) System Basophils 0.03 Normal (applies Basophil # [facility] [#/volume] in {10^3_uL to non-numeric Health Blood by } results) System Automated count Lymphocyte 1.1 Normal (applies Lymphocyte # [facility] percent {10^3_uL to non-numeric Health differential } results) System count (procedure) Neutrophils/100 73.9 % Normal (applies Neutrophil % [place] leukocytes in to non-numeric Health Blood by results) System Automated count Monocytes/100 9.5 % Above high Monocyte % [facility] leukocytes in normal Health Blood System Eosinophils/100 1.5 % Normal (applies Eosinophil % [place] leukocytes in to non-numeric Health Unspecified results) System specimen Basophils/100 0.4 % Normal (applies Basophil % [facility] leukocytes in to non-numeric Health Unspecified results) System specimen by Manual count Lymphocytes 14.2 % Below low normal Lymphocyte % [facility] [#/volume] in Health Blood by System Automated count ImmatureGranuloc 0.5 % Normal (applies Immature [facility] ytes% to non-numeric Granulocytes % Health results) System Nucleated 0.0 Normal (applies NRBC % [facility] erythrocytes {/100_WB to non-numeric Health [#/volume] in C} results) System Body fluid ImmatureGranuloc 0.04 Normal (applies Immature [facility] ytes# {10^3_uL to non-numeric Granulocytes # Health } results) System NRBC# 0.00 Below low normal NRBC # [facility] {10^3_uL Health } System ID Date Data Source [id number] 06/10/2018 06:00:00 AM EDT [facility] Name Value Range Interpretation Description Data Sup porting Code Source(s) Document(s ) Sodium 140 Normal (applies Sodium, Serum [facility] [Moles/volume] in mmol/L to non-numeric Health Serum or Plasma results) System Potassium 4.1 Normal (applies Potassium, [facility] [Mass/volume] in mmol/L to non-numeric Serum Health Serum or Plasma results) System Chloride 105 Normal (applies Chloride, [facility] [Moles/volume] in mmol/L to non-numeric Serum Health Serum or Plasma results) System Carbon dioxide, 27.0 Normal (applies CO2, Serum [facility] total mmol/L to non-numeric Health [Moles/volume] in results) System Serum or Plasma TotalProtein 5.7 Below low normal Total Protein [facility] mg/dl [facility] System Glucose 127 Above high Glucose, [facility] [Mass/volume] in mg/dL normal Serum Health Serum or Plasma System Urea nitrogen 19 Normal (applies Blood Urea [facility] [Mass/volume] in mg/dl to non-numeric Nitrogen, Health Serum or Plasma results) Serum System Creatinine 1.00 Normal (applies Creatinine, [facility] [Mass/volume] in mg/dl to non-numeric Serum Health Serum or Plasma results) System Alkaline 32 Below low normal Alkaline [facility] phosphatase {IU/L} Phosphatase, Health isoenzymes Serum System [Enzymatic activity/volume] in Serum or Plasma by Heat stability Bilirubin.total 0.5 Normal (applies Bilirubin, [facility] [Mass/volume] in mg/dl to non-numeric Serum Total Health Serum or Plasma results) System DirectBilirubin 0.2 Normal (applies Direct [facility] mg/dl to non-numeric Bilirubin Health results) System Aspartate 18 Normal (applies Aspartate [facility] aminotransferase {IU/L} to non-numeric Transaminase, [facility]al th [Enzymatic results) Serum System activity/volume] in Serum or Plasma by With P-5'-P Albumin 3.7 Below low normal Albumin, [facility] [Mass/volume] in {gm/dl} Serum Health Serum or Plasma System I.Phosphorus 3.1 Normal (applies I. Phosphorus [facility] mg/dl to non-numeric Health results) System Alanine 23 Normal (applies Alanine [facility] aminotransferase {IU/L} to non-numeric Aminotransfer Heal th [Enzymatic results) ase, Serum System activity/volume] in Serum or Plasma Calcium 9.0 Normal (applies Calcium, [facility] [Mass/volume] in mg/dl to non-numeric Total Serum Health Serum or Plasma results) System A/GRatio 1.85 Normal (applies A/G Ratio [facility] to non-numeric Health results) System Urate 6.9 Normal (applies Uric Acid, [facility] [Mass/volume] in mg/dl to non-numeric Serum Health Serum or Plasma results) System Anion gap in Serum 8.00 Normal (applies Anion Gap [place] or Plasma mmol/L to non-numeric Health results) System Glomerular 73.00 Normal (applies GFR [facility] filtration to non-numeric Health rate/1.73 sq results) System M.predicted [Volume Rate/Area] in Serum or Plasma by Creatinine-based formula (CKD-EPI) eGFR will provide clinicians with a more accurate indicator of renal function then the serum creatinine. The eGFR is automa tically calculated from an empiric formula (endorsed by the [employer] ion) which incorporates age, sex, and race.Clinicians may notice surprisingly low GFR's with serum creatinine valueswithin normal range- particularly in elderly wo men (with low muscle mass).In the hospital setting, the eGFR should add an element of safety in drug dosing, in assessing the risk of IV contrast administration, and in assessing vascular risk.The NKF staging system is as follows:Normal: eGFR >90 with no kidney markersStage 1: eGFR >90 with kidney markers*Stage 2: eGFR 60- 89Stage 3: eGFR 30-59Stage 4: eGFR 15-29Stage 5: eGFR <15 (usually requir ing dialysis)*Markers include: Proteinuria, Hematuria, abnormal imaging-studies, or other blood or urine test abnormalities ID Date Data Source [id number] 06/10/2018 06:00:00 AM EDT [facility] Name Value Range Interpretation Description Data Sup porting Code Source(s) Document(s ) Magnesium 1.5 Normal (applies Magnesium, [facility] [Mass/volume] {mEq/L} to non-numeric Serum Health Syst em in Serum or results) Plasma ID Date Data Source [id number] 06/11/2018 06:00:00 AM EDT [facility] Name Value Range Interpretation Description Data Sup porting Code Source(s) Document(s ) Prothrombintim 10.70 Normal (applies Prothrombin [facility](PT) {seconds to non-numeric time (PT) Health System } results) INR in Blood 1.02 Normal (applies INR Result [facility] by Coagulation {Ratio} to non-numeric Health Sys tem assay results) Normal = 0.7-1.1Therapeutic = 2.0-3.0Mec hanical Heart = 3.0-4.5 ID Date Data Source [id number] 06/11/2018 06:00:00 AM EDT [facility] System Name Value Range Interpretation Description Data Sup porting Code Source(s) Document(s ) Leukocytes 7.5 Normal (applies WBC Count [facility] [#/volume] in {10^3_uL to non-numeric Health Unspecified } results) System specimen by Automated count Erythrocytes 3.61 Below low normal RBC Count [facility] [#/volume] in {10^6_uL Health Blood by } System Automated count Hemoglobin 9.8 Below low normal Hemoglobin [facility] [Mass/volume] in {gm/dL} Health Blood System Hematocrit 30.5 % Below low normal Hematocrit [facility] [Volume Health Fraction] of System Blood Erythrocyte mean 84.5 fl Normal (applies MCV [facility] corpuscular to non-numeric Health volume [Entitic results) System volume] by Automated count Erythrocyte mean 27.1 pg Normal (applies MCH [facility] corpuscular to non-numeric Health hemoglobin results) System [Entitic mass] by Automated count Erythrocyte mean 32.1 Below low normal [facility]C [facility] corpuscular {gm/dL} Health hemoglobin System concentration [Mass/volume] by Automated count Erythrocyte 14.6 % Above high RDW-CV [facility] distribution normal Health width [Entitic System volume] by Automated count Platelets 196 Normal (applies Platelet Count [facility] [#/volume] in {10^3_uL to non-numeric Health Plasma by } results) System Automated count Platelet mean 9.1 fl Normal (applies MPV [facility] volume [Entitic to non-numeric Health volume] in Blood results) System by Automated count Monocytes 0.7 Normal (applies Monocyte # [facility] [#/volume] in {10^3_uL to non-numeric Health Blood by Manual } results) System count Eosinophils 0.07 Normal (applies Eosinophil # [facility] [#/volume] in {10^3_uL to non-numeric Health Blood } results) System Neutrophils 5.4 Normal (applies Neutrophil # [facility] [#/volume] in {10^3_uL to non-numeric Health Body fluid } results) System Basophils 0.02 Normal (applies Basophil # [facility] [#/volume] in {10^3_uL to non-numeric Health Blood by } results) System Automated count Lymphocyte 1.3 Normal (applies Lymphocyte # [facility] percent {10^3_uL to non-numeric Health differential } results) System count (procedure) Neutrophils/100 72.0 % Normal (applies Neutrophil % [place] leukocytes in to non-numeric Health Blood by results) System Automated count Monocytes/100 9.3 % Above high Monocyte % [facility] leukocytes in normal Health Blood System Eosinophils/100 0.9 % Normal (applies Eosinophil % [place] leukocytes in to non-numeric Health Unspecified results) System specimen Basophils/100 0.3 % Normal (applies Basophil % [facility] leukocytes in to non-numeric Health Unspecified results) System specimen by Manual count Lymphocytes 17.0 % Below low normal Lymphocyte % [facility] [#/volume] in Health Blood by System Automated count ImmatureGranuloc 0.5 % Normal (applies Immature [facility] ytes% to non-numeric Granulocytes % Health results) System Nucleated 0.0 Normal (applies NRBC % [facility] erythrocytes {/100_WB to non-numeric Health [#/volume] in C} results) System Body fluid ImmatureGranuloc 0.04 Normal (applies Immature [facility] ytes# {10^3_uL to non-numeric Granulocytes # Health } results) System NRBC# 0.00 Below low normal NRBC # [facility] {10^3_uL Health } System ID Date Data Source [id number] 06/11/2018 06:00:00 AM EDT [facility] Name Value Range Interpretation Description Data Sup porting Code Source(s) Document(s ) Sodium 140 Normal (applies Sodium, Serum [facility] [Moles/volume] in mmol/L to non-numeric Health Serum or Plasma results) System Potassium 4.0 Normal (applies Potassium, [facility] [Mass/volume] in mmol/L to non-numeric Serum Health Serum or Plasma results) System Chloride 105 Normal (applies Chloride, [facility] [Moles/volume] in mmol/L to non-numeric Serum Health Serum or Plasma results) System Carbon dioxide, 24.0 Normal (applies CO2, Serum [facility] total mmol/L to non-numeric Health [Moles/volume] in results) System Serum or Plasma TotalProtein 6.3 Normal (applies Total Protein [facility] mg/dl to non-numeric Health results) System Glucose 124 Above high Glucose, [facility] [Mass/volume] in mg/dL normal Serum Health Serum or Plasma System Urea nitrogen 12 Normal (applies Blood Urea [facility] [Mass/volume] in mg/dl to non-numeric Nitrogen, Health Serum or Plasma results) Serum System Creatinine 1.00 Normal (applies Creatinine, [facility] [Mass/volume] in mg/dl to non-numeric Serum Health Serum or Plasma results) System Alkaline 38 Normal (applies Alkaline [facility] phosphatase {IU/L} to non-numeric Phosphatase, Health isoenzymes results) Serum System [Enzymatic activity/volume] in Serum or Plasma by Heat stability Bilirubin.total 0.6 Normal (applies Bilirubin, [facility] [Mass/volume] in mg/dl to non-numeric Serum Total Health Serum or Plasma results) System DirectBilirubin 0.3 Normal (applies Direct [facility] mg/dl to non-numeric Bilirubin Health results) System Aspartate 24 Normal (applies Aspartate [facility] aminotransferase {IU/L} to non-numeric Transaminase, Heal th [Enzymatic results) Serum System activity/volume] in Serum or Plasma by With P-5'-P Albumin 4.1 Normal (applies Albumin, [facility] [Mass/volume] in {gm/dl} to non-numeric Serum Health Serum or Plasma results) System I.Phosphorus 2.9 Normal (applies I. Phosphorus [facility] mg/dl to non-numeric Health results) System Alanine 29 Normal (applies Alanine [facility] aminotransferase {IU/L} to non-numeric Aminotransfer Heal th [Enzymatic results) ase, Serum System activity/volume] in Serum or Plasma Calcium 9.0 Normal (applies Calcium, [facility] [Mass/volume] in mg/dl to non-numeric Total Serum Health Serum or Plasma results) System A/GRatio 1.86 Normal (applies A/G Ratio [facility] to non-numeric Health results) System Urate 6.6 Normal (applies Uric Acid, [facility] [Mass/volume] in mg/dl to non-numeric Serum Health Serum or Plasma results) System Anion gap in Serum 11.00 Normal (applies Anion Gap [place] or Plasma mmol/L to non-numeric Health results) System Glomerular 73.00 Normal (applies GFR [facility] filtration to non-numeric Health rate/1.73 sq results) System M.predicted [Volume Rate/Area] in Serum or Plasma by Creatinine-based formula (CKD-EPI) eGFR will provide clinicians with a more accurate indicator of renal function then the serum creatinine. The eGFR is automa tically calculated from an empiric formula (endorsed by the [employer] ion) which incorporates age, sex, and race.Clinicians may notice surprisingly low GFR's with serum creatinine valueswithin normal range- particularly in elderly wo men (with low muscle mass).In the hospital setting, the eGFR should add an element of safety in drug dosing, in assessing the risk of IV contrast administration, and in assessing vascular risk.The NKF staging system is as follows:Normal: eGFR >90 with no kidney markersStage 1: eGFR >90 with kidney markers*Stage 2: eGFR 60- 89Stage 3: eGFR 30-59Stage 4: eGFR 15-29Stage 5: eGFR <15 (usually requir ing dialysis)*Markers include: Proteinuria, Hematuria, abnormal imaging-studies, or other blood or urine test abnormalities ID Date Data Source [id number] 10/31/2018 10:27:00 AM EST [facility] Name Value Range Interpretation Description Data Sup porting Code Source(s) Document(s ) aPTT in Blood 24.0 Normal (applies Activated [facility] by Coagulation {Seconds to non-numeric Partial Health assay } results) Thromboplastin System Time ID Date Data Source [id number] 10/31/2018 10:27:00 AM EST [facility] Name Value Range Interpretation Description Data Sup porting Code Source(s) Document(s ) Prothrombintim 10.90 Normal (applies Prothrombin [facility](PT) {seconds to non-numeric time (PT) Health System } results) INR in Blood 1.04 Normal (applies INR Result [facility] by Coagulation {Ratio} to non-numeric Health Sys tem assay results) Normal = 0.7-1.1Therapeutic = 2.0-3.0Mec hanical Heart = 3.0-4.5 ID Date Data Source [id number] 10/31/2018 10:27:00 AM EST [facility] Name Value Range Interpretation Description Data Sup porting Code Source(s) Document(s ) Leukocytes 7.3 Normal (applies WBC Count [facility] [#/volume] in {10^3_uL to non-numeric Health Unspecified } results) System specimen by Automated count Erythrocytes 4.68 Normal (applies RBC Count [facility] [#/volume] in {10^6_uL to non-numeric Health Blood by } results) System Automated count Hemoglobin 11.5 Below low normal Hemoglobin [facility] [Mass/volume] in {gm/dL} Health Blood System Hematocrit 37.4 % Below low normal Hematocrit [facility] [Volume Health Fraction] of System Blood Erythrocyte mean 79.9 fl Below low normal MCV [facility] corpuscular Health volume [Entitic System volume] by Automated count Erythrocyte mean 24.6 pg Below low normal MCH [facility] corpuscular Health hemoglobin System [Entitic mass] by Automated count Erythrocyte mean 30.7 Below low normal MCHC [facility] corpuscular {gm/dL} Health hemoglobin System concentration [Mass/volume] by Automated count Erythrocyte 18.4 % Above high RDW-CV [facility] distribution normal Health width [Entitic System volume] by Automated count Platelets 206 Normal (applies Platelet Count [facility] [#/volume] in {10^3_uL to non-numeric Health Plasma by } results) System Automated count Platelet mean 9.5 fl Normal (applies MPV [facility] volume [Entitic to non-numeric Health volume] in Blood results) System by Automated count Monocytes 0.7 Normal (applies Monocyte # [facility] [#/volume] in {10^3_uL to non-numeric Health Blood by Manual } results) System count Eosinophils 0.09 Normal (applies Eosinophil # [facility] [#/volume] in {10^3_uL to non-numeric Health Blood } results) System Neutrophils 5.2 Normal (applies Neutrophil # [facility] [#/volume] in {10^3_uL to non-numeric Health Body fluid } results) System Basophils 0.02 Normal (applies Basophil # [facility] [#/volume] in {10^3_uL to non-numeric Health Blood by } results) System Automated count Lymphocyte 1.3 Normal (applies Lymphocyte # [facility] percent {10^3_uL to non-numeric Health differential } results) System count (procedure) Neutrophils/100 71.7 % Normal (applies Neutrophil % [place] leukocytes in to non-numeric Health Blood by results) System Automated count Monocytes/100 9.1 % Above high Monocyte % [facility] leukocytes in normal Health Blood System Eosinophils/100 1.2 % Normal (applies Eosinophil % [place] leukocytes in to non-numeric Health Unspecified results) System specimen Basophils/100 0.3 % Normal (applies Basophil % [facility] leukocytes in to non-numeric Health Unspecified results) System specimen by Manual count Lymphocytes 17.4 % Below low normal Lymphocyte % [facility] [#/volume] in Health Blood by System Automated count ImmatureGranuloc 0.3 % Normal (applies Immature [facility] ytes% to non-numeric Granulocytes % Health results) System Nucleated 0.0 Normal (applies NRBC % [facility] erythrocytes {/100_WB to non-numeric Health [#/volume] in C} results) System Body fluid ImmatureGranuloc 0.02 Normal (applies Immature [facility] ytes# {10^3_uL to non-numeric Granulocytes # Health } results) System NRBC# 0.00 Below low normal NRBC # [facility] {10^3_uL Health } System ID Date Data Source [id number] 10/31/2018 10:27:00 AM EST [facility] Name Value Range Interpretation Description Data Sup porting Code Source(s) Document(s ) Sodium 141 Normal (applies Sodium, Serum [facility] [Moles/volume] in mmol/L to non-numeric Health Serum or Plasma results) System Potassium 4.1 Normal (applies Potassium, [facility] [Mass/volume] in mmol/L to non-numeric Serum Health Serum or Plasma results) System Chloride 106 Normal (applies Chloride, [facility] [Moles/volume] in mmol/L to non-numeric Serum Health Serum or Plasma results) System Carbon dioxide, 23.0 Normal (applies CO2, Serum [facility] total mmol/L to non-numeric Health [Moles/volume] in results) System Serum or Plasma TotalProtein 7.5 Normal (applies Total Protein [facility] mg/dl to non-numeric Health results) System Glucose 163 Above high Glucose, [facility] [Mass/volume] in mg/dL normal Serum Health Serum or Plasma System Urea nitrogen 20 Normal (applies Blood Urea [facility] [Mass/volume] in mg/dl to non-numeric Nitrogen, Health Serum or Plasma results) Serum System Creatinine 1.30 Normal (applies Creatinine, [facility] [Mass/volume] in mg/dl to non-numeric Serum Health Serum or Plasma results) System Alkaline 48 Normal (applies Alkaline [facility] phosphatase {IU/L} to non-numeric Phosphatase, Health isoenzymes results) Serum System [Enzymatic activity/volume] in Serum or Plasma by Heat stability Bilirubin.total 0.4 Normal (applies Bilirubin, [facility] [Mass/volume] in mg/dl to non-numeric Serum Total Health Serum or Plasma results) System DirectBilirubin 0.2 Normal (applies Direct [facility] mg/dl to non-numeric Bilirubin Health results) System Aspartate 17 Normal (applies Aspartate [facility] aminotransferase {IU/L} to non-numeric Transaminase, Heal th [Enzymatic results) Serum System activity/volume] in Serum or Plasma by With P-5'-P Albumin 4.5 Normal (applies Albumin, [facility] [Mass/volume] in {gm/dl} to non-numeric Serum Health Serum or Plasma results) System I.Phosphorus 2.8 Normal (applies I. Phosphorus [facility] mg/dl to non-numeric Health results) System Alanine 23 Normal (applies Alanine [facility] aminotransferase {IU/L} to non-numeric Aminotransfer Heal th [Enzymatic results) ase, Serum System activity/volume] in Serum or Plasma Calcium 9.9 Normal (applies Calcium, [facility] [Mass/volume] in mg/dl to non-numeric Total Serum Health Serum or Plasma results) System A/GRatio 1.50 Normal (applies A/G Ratio [facility] to non-numeric Health results) System Urate 7.0 Normal (applies Uric Acid, [facility] [Mass/volume] in mg/dl to non-numeric Serum Health Serum or Plasma results) System Anion gap in Serum 12.00 Normal (applies Anion Gap [place] or Plasma mmol/L to non-numeric Health results) System Glomerular 54.00 Normal (applies GFR [facility] filtration to non-numeric Health rate/1.73 sq results) System M.predicted [Volume Rate/Area] in Serum or Plasma by Creatinine-based formula (CKD-EPI) eGFR will provide clinicians with a more accurate indicator of renal function then the serum creatinine. The eGFR is automa tically calculated from an empiric formula (endorsed by the [employer] ion) which incorporates age, sex, and race.Clinicians may notice surprisingly low GFR's with serum creatinine valueswithin normal range- particularly in elderly wo men (with low muscle mass).In the hospital setting, the eGFR should add an element of safety in drug dosing, in assessing the risk of IV contrast administration, and in assessing vascular risk.The NKF staging system is as follows:Normal: eGFR >90 with no kidney markersStage 1: eGFR >90 with kidney markers*Stage 2: eGFR 60- 89Stage 3: eGFR 30-59Stage 4: eGFR 15-29Stage 5: eGFR <15 (usually requir ing dialysis)*Markers include: Proteinuria, Hematuria, abnormal imaging-studies, or other blood or urine test abnormalities ID Date Data Source [id number] 10/31/2018 10:27:00 AM EST [facility] Name Value Range Interpretation Description Data Source(s ) Supporting Code Document(s ) Troponin 0.01 Normal (applies to Troponin I [facility] IQuantit ng/mL non-numeric Quantitative - Health System ative-MV results) MV Only Only ID Date Data Source [id number] 10/31/2018 10:27:00 AM EST [facility] Name Value Range Interpretation Description Data Source(s ) Supporting Code Document(s ) MVD-Dime 0.80 Above high normal MV D-Dimer High [facility] rHighSen {mg/L_FEU Sensitivity Health System sitivity } Cut-off value for diagnosis of DVT with the [employer] D-dimer assay was established at 0.5 mg/L FEU. A D-dimer result <0.50 mg/L FEU is considered negative and a D-dimer result >0.50 mg/L FEU is considered posi tive. ID Date Data Source [id number] 10/31/2018 02:34:00 PM EST [facility] System repeat Name Value Range Interpretation Description Data Source(s ) Supporting Code Document(s ) Troponin 0.01 Normal (applies to Troponin I [facility] IQuantit ng/mL non-numeric Quantitative - Health System ative-MV results) MV Only Only ID Date Data Source [id number] 01/31/2012 07:06:00 AM EDT [facility] Name Value Range Interpretation Description Data Sup porting Code Source(s) Document(s ) Transferrin 347.0 Above high normal Transferrin, [facility] [Mass/volume] mg/dl Serum Health System in Serum or Plasma ID Date Data Source [id number] 01/31/2012 07:06:00 AM EDT [facility] Name Value Range Interpretation Description Data Source(s ) Supporting Code Document(s ) Iron 113 ug/dL Normal (applies to Iron, Serum [facility] [Mass/volum non-numeric Health System e] in Serum results) or Plasma ID Date Data Source [id number] 01/31/2012 07:06:00 AM EDT [facility] Name Value Range Interpretation Description Data Sup porting Code Source(s) Document(s ) Ferritin 5.4 ng/ml Below low normal Ferritin, [facility] [Mass/volume Serum Health System ] in Serum or Plasma ID Date Data Source [id number] 02/01/2012 06:56:00 AM EDT [facility] Name Value Range Interpretation Description Data Sup porting Code Source(s) Document(s ) Leukocytes 5.9 Normal (applies WBC Count [facility] [#/volume] in {10\\S\\3_ to non-numeric Health Unspecified uL} results) System specimen by Automated count Erythrocytes 4.07 Below low normal RBC Count [facility] [#/volume] in {10\\S\\6_ Health Blood by uL} System Automated count Hemoglobin 9.3 Below low normal Hemoglobin, [facility] [Mass/volume] in {gm/dL} Whole Blood Health Blood System Hematocrit 30.1 % Below low normal Hematocrit, [facility] [Volume Whole Blood Health Fraction] of System Blood Erythrocyte mean 74.0 fl Below low normal MCV [facility] corpuscular Health volume [Entitic System volume] by Automated count Erythrocyte mean 22.9 pg Below low normal MCH [facility] corpuscular Health hemoglobin System [Entitic mass] by Automated count Erythrocyte mean 30.9 Below low normal MCHC [facility] corpuscular {gm/dL} Health hemoglobin System concentration [Mass/volume] by Automated count Platelets 258 Normal (applies Platelet [facility] [#/volume] in {10\\S\\3_ to non-numeric Count Health Plasma by uL} results) System Automated count Erythrocyte 17.8 % Above high normal RDW [facility] distribution Health width [Entitic System volume] by Automated count Monocytes 0.5 Normal (applies Monocyte [facility] [#/volume] in {10\\S\\3_ to non-numeric Count Health Blood by Manual uL} results) System count Platelet mean 9.1 fl Normal (applies MPV [facility] volume [Entitic to non-numeric Health volume] in Blood results) System by Automated count Basophils 0.01 Normal (applies Basophil [facility] [#/volume] in {10\\S\\3_ to non-numeric Count Health Blood by uL} results) System Automated count Eosinophils 0.1 Normal (applies Eosinophil [facility] [#/volume] in {10\\S\\3} to non-numeric Count Blood Health Blood results) System Neutrophils 4.3 Normal (applies Absolute [facility] [#/volume] in {10\\S\\3_ to non-numeric Neutrophil Health Body fluid uL} results) Count System Lymphocyte 1.0 Normal (applies Lymphocyte [facility] percent {10\\S\\3_ to non-numeric Absolute Health differential uL} results) System count (procedure) Monocytes/100 9 % Above high normal Monocyte % [facility] leukocytes in Health Blood System Neutrophils/100 72.1 % Normal (applies Neutrophil % [place] leukocytes in to non-numeric Health Blood by results) System Automated count Eosinophils/100 1 % Normal (applies Eosinophil % [place] leukocytes in to non-numeric Health Unspecified results) System specimen Basophils/100 0 % Normal (applies Basophil % [facility] leukocytes in to non-numeric Health Unspecified results) System specimen by Manual count Lymphocytes 17 % Below low normal Lymphocyte % [facility] [#/volume] in Health Blood by System Automated count ID Date Data Source [id number] 02/01/2012 06:56:00 AM EDT [facility] Name Value Range Interpretation Description Data Sup porting Code Source(s) Document(s ) Sodium 139 Normal (applies Sodium, Serum [facility] [Moles/volume mmol/L to non-numeric Health Syst em ] in Serum or results) Plasma Potassium 4.0 Normal (applies Potassium, [facility] [Mass/volume] mmol/L to non-numeric Serum Health Syst em in Serum or results) Plasma Carbon 23.0 Normal (applies CO2, Serum [facility] dioxide, mmol/L to non-numeric Health System total results) [Moles/volume ] in Serum or Plasma Chloride 110 Above high normal Chloride, [facility] [Moles/volume mmol/L Serum Health System ] in Serum or Plasma Glucose 126 Above high normal Glucose, Serum [facility] [Mass/volume] mg/dL Health System in Serum or Plasma ok Creatinine 0.80 mg/dl Normal (applies Creatinine, Serum [facility] [Mass/volume] in to non-numeric Health S ystem Serum or Plasma results) Urea nitrogen 13 mg/dl Normal (applies Blood Urea [facility] [Mass/volume] in to non-numeric Nitrogen, Serum He alth System Serum or Plasma results) Calcium 8.6 mg/dl Normal (applies Calcium, Total [facility] [Mass/volume] in to non-numeric Serum Health S yste Serum or Plasma results) Anion gap in Serum 6.00 mmol/L Below low normal Anion Gap [facility] or Plasma [facility] System ID Date Data Source [id number] 02/02/2012 07:23:00 AM EDT [facility] Name Value Range Interpretation Description Data Sup porting Code Source(s) Document(s ) Leukocytes 7.2 Normal (applies WBC Count [facility] [#/volume] in {10\\S\\3_ to non-numeric Health Unspecified uL} results) System specimen by Automated count Erythrocytes 4.17 Below low normal RBC Count [facility] [#/volume] in {10\\S\\6_ Health Blood by uL} System Automated count Hemoglobin 9.7 Below low normal Hemoglobin, [facility] [Mass/volume] in {gm/dL} Whole Blood [facility] Blood System Hematocrit 31.2 % Below low normal Hematocrit, [facility] [Volume Whole Blood Health Fraction] of System Blood Erythrocyte mean 23.3 pg Below low normal MCH [facility] corpuscular Health hemoglobin System [Entitic mass] by Automated count Erythrocyte mean 74.8 fl Below low normal MCV [facility] corpuscular Health volume [Entitic System volume] by Automated count Erythrocyte mean 31.1 Below low normal MCHC [facility] corpuscular {gm/dL} Health hemoglobin System concentration [Mass/volume] by Automated count Erythrocyte 18.0 % Above high normal RDW [facility] distribution Health width [Entitic System volume] by Automated count Platelets 259 Normal (applies Platelet [facility] [#/volume] in {10\\S\\3_ to non-numeric Count Health Plasma by uL} results) System Automated count Platelet mean 9.0 fl Normal (applies MPV [facility] volume [Entitic to non-numeric Health volume] in Blood results) System by Automated count Monocytes 0.7 Normal (applies Monocyte [facility] [#/volume] in {10\\S\\3_ to non-numeric Count Health Blood by Manual uL} results) System count Eosinophils 0.1 Normal (applies Eosinophil [facility] [#/volume] in {10\\S\\3} to non-numeric Count Blood Health Blood results) System Neutrophils 5.1 Normal (applies Absolute [facility] [#/volume] in {10\\S\\3_ to non-numeric Neutrophil Health Body fluid uL} results) Count System Lymphocyte 1.3 Normal (applies Lymphocyte [facility] percent {10\\S\\3_ to non-numeric Absolute Health differential uL} results) System count (procedure) Basophils 0.01 Normal (applies Basophil [facility] [#/volume] in {10\\S\\3_ to non-numeric Count Health Blood by uL} results) System Automated count Neutrophils/100 70.9 % Normal (applies Neutrophil % [place] leukocytes in to non-numeric Health Blood by results) System Automated count Eosinophils/100 1 % Normal (applies Eosinophil % [place] leukocytes in to non-numeric Health Unspecified results) System specimen Monocytes/100 10 % Above high normal Monocyte % [facility] leukocytes in Health Blood System Basophils/100 0 % Normal (applies Basophil % [facility] leukocytes in to non-numeric Health Unspecified results) System specimen by Manual count Lymphocytes 18 % Below low normal Lymphocyte % [facility] [#/volume] in Health Blood by System Automated count ID Date Data Source [id number] 02/02/2012 07:23:00 AM EDT [facility] Name Value Range Interpretation Description Data Sup porting Code Source(s) Document(s ) Sodium 141 Normal (applies Sodium, Serum [facility] [Moles/volume mmol/L to non-numeric Health Syst em ] in Serum or results) Plasma Potassium 4.2 Normal (applies Potassium, [facility] [Mass/volume] mmol/L to non-numeric Serum Health Syst em in Serum or results) Plasma Chloride 109 Above high normal Chloride, [facility] [Moles/volume mmol/L Serum Health System ] in Serum or Plasma Carbon 26.0 Normal (applies CO2, Serum [facility] dioxide, mmol/L to non-numeric Health System total results) [Moles/volume ] in Serum or Plasma Glucose 123 Above high normal Glucose, Serum [facility] [Mass/volume] mg/dL Health System in Serum or Plasma Urea nitrogen 11 mg/dl Normal (applies Blood Urea [facility] [Mass/volume] to non-numeric Nitrogen, Health Syst em in Serum or results) Serum Plasma Creatinine 0.80 Normal (applies Creatinine, [facility] [Mass/volume] mg/dl to non-numeric Serum Health Syst em in Serum or results) Plasma Calcium 8.8 Normal (applies Calcium, Total [facility] [Mass/volume] mg/dl to non-numeric Serum Health Syst em in Serum or results) Plasma Anion gap in 6.00 Below low normal Anion Gap [facility] Serum or mmol/L Health System Plasma ID Date Data Source [id number] 02/02/2012 09:00:00 AM EDT [facility] System Name Value Range Interpretation Description Data Sup porting Code Source(s) Document(s ) TissueExam SEE TEXT CLINICAL Normal (applies Tissue Exam [facility] INFORMATION: to non-numeric Health GI results) System bleed.PREOPERATIVE DIAGNOSIS: Same.POSTOPERATIVE DIAGNOSIS: Gastritis. Erosions.Surgical Pathology ReportFINAL DIAGNOSIS:A: Small bowel, biopsy:Chronic duodenitis, mild.No villous atrophy or increased number of intraepithelial lymphocytes seen.B: Stomach, antral and oxyntic mucosa, biopsy:Antral mucosa showing mild chronic inflammation.Oxynt ic type mucosa showing no significant pathologic abnormality.Fibrin ous exudate likely arising from an erosion or ulcer is seen.Negative for Helicobacter pylori microorganisms on immunohistochemica l staining.RPS/stGRO SS DESCRIPTION:A: In formalin, labeled "small bowel biopsy", the specimen consists of two fragments of westfall tissue, measuring 0.5 and 0.1 cm in greatest dimension. Entirely submitted in one cassette.B: In formalin, labeled "stomach biopsy", the specimen consists of three fragments of westfall tissue, measuring between 0.2 and 0.1 cm in greatest dimension. Entirely submitted in one cassette.GO/cmElec tronically signed [email or web address] (Signed out 02/06/2012) ID Date Data Source [id number] 02/02/2012 01:15:00 PM EDT [facility] Name Value Range Interpretation Description Data Source(s ) Supporting Code Document(s ) H.Pylori Negative Normal (applies to H. Pylori KATYA [facility] CLOtest. non-numeric test. Health System results) ID Date Data Source [id number] 05/12/2012 09:27:52 PM EDT [facility] Name Value Range Interpretation Description Data Source(s ) Supporting Code Document(s ) DirectAn Negative Normal (applies to Direct [facility] tiglobul non-numeric Antiglobulin Health System inTest. results) Test. ID Date Data Source [id number] 05/12/2012 09:27:52 PM EDT [facility] Name Value Range Interpretation Description Data Sup porting Code Source(s) Document(s ) Type A Normal (applies Type [facility] to non-numeric Health results) System D Ab [Titer] in Rh Normal (applies Rh Factor, [facility] Serum or Plasma Positive to non-numeric Whole Blood Health results) System AntibodyScreen Negative Normal (applies Antibody [facility] to non-numeric Screen Health results) System ID Date Data Source [id number] 05/12/2012 09:27:52 PM EDT [facility] Name Value Range Interpretation Description Data Sup porting Code Source(s) Document(s ) Prothrombintim 12.60 Above high normal Prothrombin [place] e(PT) time (PT) Health System INR in Blood 1.15 Above high normal INR Result [facility] by Coagulation {Ratio} Health System assay ran at ssNormal = 0.7-1.1Therapeutic = 2 .0-3.0Mechanical Heart = 3.0-4.5 ID Date Data Source [id number] 05/12/2012 09:27:52 PM EDT [facility] Name Value Range Interpretation Description Data Sup porting Code Source(s) Document(s ) Leukocytes 9.4 Normal (applies WBC Count [facility] [#/volume] in {10\\S\\3_ to non-numeric Health Unspecified uL} results) System specimen by Automated count Erythrocytes 5.35 Normal (applies RBC Count [facility] [#/volume] in {10\\S\\6_ to non-numeric Health Blood by uL} results) System Automated count Hemoglobin 13.2 Below low normal Hemoglobin, [facility] [Mass/volume] in {gm/dL} Whole Blood Health Blood System Hematocrit 41.8 % Normal (applies Hematocrit, [facility] [Volume to non-numeric Whole Blood Health Fraction] of results) System Blood Erythrocyte mean 78.1 fl Below low normal MCV [facility] corpuscular Health volume [Entitic System volume] by Automated count Erythrocyte mean 24.7 pg Below low normal MCH [facility] corpuscular Health hemoglobin System [Entitic mass] by Automated count Erythrocyte mean 31.6 Below low normal MCHC [facility] corpuscular {gm/dL} Health hemoglobin System concentration [Mass/volume] by Automated count Erythrocyte 19.4 % Above high normal RDW [facility] distribution Health width [Entitic System volume] by Automated count Platelets 207 Normal (applies Platelet [facility] [#/volume] in {10\\S\\3_ to non-numeric Count Health Plasma by uL} results) System Automated count Platelet mean 9.3 fl Normal (applies MPV [facility] volume [Entitic to non-numeric Health volume] in Blood results) System by Automated count Eosinophils 0.1 Normal (applies Eosinophil [facility] [#/volume] in {10\\S\\3} to non-numeric Count Blood Health Blood results) System Monocytes 0.7 Normal (applies Monocyte [facility] [#/volume] in {10\\S\\3_ to non-numeric Count Health Blood by Manual uL} results) System count Neutrophils 6.7 Normal (applies Absolute [facility] [#/volume] in {10\\S\\3_ to non-numeric Neutrophil Health Body fluid uL} results) Count System Basophils 0.01 Normal (applies Basophil [facility] [#/volume] in {10\\S\\3_ to non-numeric Count Health Blood by uL} results) System Automated count Neutrophils/100 71.3 % Normal (applies Neutrophil % [place] leukocytes in to non-numeric Health Blood by results) System Automated count Lymphocyte 1.9 Normal (applies Lymphocyte [facility] percent {10\\S\\3_ to non-numeric Absolute Health differential uL} results) System count (procedure) Monocytes/100 7.5 % Normal (applies Monocyte % [facility] leukocytes in to non-numeric Health Blood results) System Eosinophils/100 1.1 % Normal (applies Eosinophil % [place] leukocytes in to non-numeric Health Unspecified results) System specimen Lymphocytes 20.0 % Below low normal Lymphocyte % [facility] [#/volume] in Health Blood by System Automated count Basophils/100 0.1 % Normal (applies Basophil % [facility] leukocytes in to non-numeric Health Unspecified results) System specimen by Manual count ID Date Data Source [id number] 05/12/2012 09:27:52 PM EDT [facility] System Name Value Range Interpretation Description Data Sup porting Code Source(s) Document(s ) Sodium 140 Normal (applies Sodium, Serum [facility] [Moles/volume mmol/L to non-numeric Health Syst em ] in Serum or results) Plasma Potassium 4.2 Normal (applies Potassium, [facility] [Mass/volume] mmol/L to non-numeric Serum Health Syst em in Serum or results) Plasma Chloride 106 Normal (applies Chloride, [facility] [Moles/volume mmol/L to non-numeric Serum Health Syst em ] in Serum or results) Plasma Glucose 169 Above high normal Glucose, Serum [facility] [Mass/volume] mg/dL Health System in Serum or Plasma Carbon 24.0 Normal (applies CO2, Serum [facility] dioxide, mmol/L to non-numeric Health System total results) [Moles/volume ] in Serum or Plasma Urea nitrogen 12 mg/dl Normal (applies Blood Urea [facility] [Mass/volume] to non-numeric Nitrogen, Health Syst em in Serum or results) Serum Plasma Creatinine 1.00 Normal (applies Creatinine, [facility] [Mass/volume] mg/dl to non-numeric Serum Health Syst em in Serum or results) Plasma Calcium 9.2 Normal (applies Calcium, Total [facility] [Mass/volume] mg/dl to non-numeric Serum Health Syst em in Serum or results) Plasma Anion gap in 10.00 Normal (applies Anion Gap [facility] Serum or mmol/L to non-numeric Health System Plasma results) ID Date Data Source [id number] 05/12/2012 09:42:34 PM EDT [facility] System Name Value Range Interpretation Description Data Sup porting Code Source(s) Document(s ) Natriuretic Less Normal (applies Brain [facility] peptide B than to non-numeric Natriuretic Health System [Mass/volume] 10.0 results) Peptide in Serum or Plasma ID Date Data Source [id number] 05/12/2012 09:42:34 PM EDT [facility] System Name Value Range Interpretation Description Data Sup porting Code Source(s) Document(s ) TroponinIQuantitative 0.02 Normal (applies Troponin I [facility] ng/ml to non-numeric Quantitative Health results) System ID Date Data Source [id number] 08/18/2012 07:15:00 PM EDT [facility] Name Value Range Interpretation Description Data Sup porting Code Source(s) Document(s ) Leukocytes 8.4 Normal (applies WBC Count [facility] [#/volume] in {10\\S\\3_ to non-numeric Health Unspecified uL} results) System specimen by Automated count Erythrocytes 5.10 Normal (applies RBC Count [facility] [#/volume] in {10\\S\\6_ to non-numeric Health Blood by uL} results) System Automated count Hemoglobin 13.9 Below low normal Hemoglobin, [facility] [Mass/volume] in {gm/dL} Whole Blood Health Blood System Hematocrit 41.9 % Normal (applies Hematocrit, [facility] [Volume to non-numeric Whole Blood Health Fraction] of results) System Blood Erythrocyte mean 82.2 fl Below low normal MCV [facility] corpuscular Health volume [Entitic System volume] by Automated count Erythrocyte mean 27.3 pg Normal (applies MCH [facility] corpuscular to non-numeric Health hemoglobin results) System [Entitic mass] by Automated count Erythrocyte mean 33.2 Normal (applies MCHC [facility] corpuscular {gm/dL} to non-numeric Health hemoglobin results) System concentration [Mass/volume] by Automated count Erythrocyte 15.9 % Above high normal RDW [facility] distribution Health width [Entitic System volume] by Automated count Platelet mean 8.8 fl Normal (applies MPV [facility] volume [Entitic to non-numeric Health volume] in Blood results) System by Automated count Platelets 202 Normal (applies Platelet [facility] [#/volume] in {10\\S\\3_ to non-numeric Count Health Plasma by uL} results) System Automated count ID Date Data Source [id number] 08/18/2012 07:15:00 PM EDT [facility] Name Value Range Interpretation Description Data Sup porting Code Source(s) Document(s ) Sodium 139 mmol/L Normal (applies Sodium, [facility] [Moles/volume] to non-numeric Serum Health in Serum or results) System Plasma Potassium 4.2 mmol/L Normal (applies Potassium, [facility] [Mass/volume] to non-numeric Serum Health in Serum or results) System Plasma Chloride 103 mmol/L Normal (applies Chloride, [facility] [Moles/volume] to non-numeric Serum Health in Serum or results) System Plasma Carbon dioxide, 23.0 mmol/L Normal (applies CO2, Serum [place] total to non-numeric Health [Moles/volume] results) System in Serum or Plasma TotalProtein 7.4 mg/dl Normal (applies Total [facility] to non-numeric Protein Health results) System Glucose 136 mg/dL Above high Glucose, [facility] [Mass/volume] normal Serum Health in Serum or System Plasma Urea nitrogen 15 mg/dl Normal (applies Blood Urea [facility] [Mass/volume] to non-numeric Nitrogen, Health in Serum or results) Serum System Plasma Creatinine 0.80 mg/dl Normal (applies Creatinine, [facility] [Mass/volume] to non-numeric Serum Health in Serum or results) System Plasma Alkaline 37 {IU/L} Below low Alkaline [facility] phosphatase normal Phosphatase, Health isoenzymes Serum System [Enzymatic activity/volume ] in Serum or Plasma by Heat stability Aspartate 20 {IU/L} Normal (applies Aspartate [facility] aminotransferas to non-numeric Transaminase Health e [Enzymatic results) , Serum System activity/volume ] in Serum or Plasma by With P-5'-P Bilirubin.total 0.2 mg/dl Normal (applies Bilirubin, [facility] [Mass/volume] to non-numeric Serum Total Health in Serum or results) System Plasma Albumin 4.4 {gm/dl} Normal (applies Albumin, [facility] [Mass/volume] to non-numeric Serum Health in Serum or results) System Plasma I.Phosphorus 2.4 mg/dl Below low I. [facility] normal Phosphorus Health System Alanine 28 {IU/L} Normal (applies Alanine [facility] aminotransferas to non-numeric Aminotransfe Health e [Enzymatic results) rase, Serum System activity/volume ] in Serum or Plasma Calcium 9.3 mg/dl Normal (applies Calcium, [facility] [Mass/volume] to non-numeric Total Serum Health in Serum or results) System Plasma A/GRatio 1.47 Normal (applies A/G Ratio [facility] to non-numeric Health results) System Urate 5.3 mg/dl Normal (applies Uric Acid, [facility] [Mass/volume] to non-numeric Serum Health in Serum or results) System Plasma Anion gap in 13.00 mmol/L Above high Anion Gap [facility] Serum or Plasma normal Health System Glomerular Greater than Normal (applies GFR [facility] filtration 90 eGFR will to non-numeric Health rate/1.73 sq provide results) System M.predicted clinicians [Volume with a more Rate/Area] in accurate Serum or Plasma indicator of by renal function Creatinine-base then the serum d formula creatinine. (CKD-EPI) The eGFR is automatically calculated from an empiric formula (endorsed by the [employer]) which incorporates age, sex, and race.Clinician s may notice surprisingly low GFR's with serum creatinine valueswithin normal range- particularly in elderly women (with low muscle mass).In the hospital setting, the eGFR should add an element of safety in drug dosing, in assessing the risk of IV contrast administration , and in assessing vascular risk.The NKF staging system is as follows:Normal : eGFR >90 with no kidney markersStage 1: eGFR >90 with kidney markers*Stage 2: eGFR 60-89Stage 3: eGFR 30-59Stage 4: eGFR 15-29Stage 5: eGFR <15 (usually requiring dialysis)*Garland ers include: Proteinuria, Hematuria, abnormal imaging-studie s, or other blood or urine test abnormalities ID Date Data Source [id number] 08/15/2020 02:12:34 AM EDT [facility] Name Value Range Interpretation Description Data Sup porting Code Source(s) Document(s ) 47299-8 NEGATIVE Testing Normal (applies COVID-19.. [facility] was performed to non-numeric Health Syst em using Kang ID results) NOW COVID-19, an isothermal nucleic acid amplification technology for the qualitative detection of nucleic acid from the SARS-CoV-2 viral RNA in respiratory specimens. The ID NOW COVID-19 test has been approved by the Food and Drug Administration (FDA) under an Emergency Use Authorization for use by authorized laboratories. Reference Range: NEGATIVE . ID Date Data Source [id number] 08/15/2020 02:12:34 AM EDT [facility] Name Value Range Interpretation Description Data Source(s ) Supporting Code Document(s ) PH* 7.330 Normal (applies to PH* [facility] {pH_units} non-numeric Health System results) PCO2* 45.2 Normal (applies to PCO2* [facility] {mm_Hg} non-numeric Health System results) BaseExces -2.10 Normal (applies to Base Excess* [facility] s* {mEq/L} non-numeric Health System results) HCO3* 23.8 Normal (applies to HCO3* [facility] mmol/L non-numeric Health System results) Chloride, 106 mmol/L Normal (applies to Chloride, VB [facility] VB non-numeric Health System results) Lactate. 3.5 mmol/L Above upper panic Lactate. [facility] limits Health System Result Reporting|Telephone|DR KING| 06/2020 at 11:45 PMCalled to:DR Cuellar Name:MANGO Lechuga by:DR KING 06/26 / 11:44 PM Glucose,VB 180 mg/dL Above high Glucose, VB [facility] normal System Potassium,VB 3.8 mmol/L Normal (applies Potassium, VB [facility] to non-numeric System results) Sodium,VB 142 mmol/L Normal (applies Sodium, VB [facility] H ealth to non-numeric System results) IonizedCalcium,VB 1.21 mmol/L Normal (applies Ionized Calc ium, [facility] to non-numeric VB System results) [id number]* 83.50 % Normal (applies O2 Saturation* [place] [facility] to non-numeric System results) ID Date Data Source [id number] 08/15/2020 02:12:34 AM EDT [facility] Name Value Range Interpretation Description Data Sup porting Code Source(s) Document(s ) Type A Normal (applies Type [facility] to non-numeric Health results) System D Ab [Titer] in Positive Normal (applies Rh [facility] Serum or Plasma to non-numeric Health results) System AntibodyScreen Negative Normal (applies Antibody [facility] to non-numeric Screen Health results) System ID Date Data Source [id number] 08/15/2020 02:12:34 AM EDT [facility] Name Value Range Interpretation Description Data Sup porting Code Source(s) Document(s ) Leukocytes 8.9 Normal (applies WBC Count [facility] [#/volume] in {10^3_uL to non-numeric Health Unspecified } results) System specimen by Automated count Erythrocytes 3.14 Below low normal RBC Count [facility] [#/volume] in {10^6_uL Health Blood by } System Automated count Hemoglobin 9.1 Below low normal Hemoglobin [facility] [Mass/volume] in {gm/dL} Health Blood System Hematocrit 28.6 % Below low normal Hematocrit [facility] [Volume Health Fraction] of System Blood Erythrocyte mean 91.1 fl Normal (applies MCV [facility] corpuscular to non-numeric Health volume [Entitic results) System volume] by Automated count Erythrocyte mean 29.0 pg Normal (applies MCH [facility] corpuscular to non-numeric Health hemoglobin results) System [Entitic mass] by Automated count Erythrocyte mean 31.8 Below low normal MCHC [facility] corpuscular {gm/dL} Health hemoglobin System concentration [Mass/volume] by Automated count Erythrocyte 14.2 % Normal (applies RDW-CV [facility] distribution to non-numeric Health width [Entitic results) System volume] by Automated count Platelets 271 Normal (applies Platelet Count [facility] [#/volume] in {10^3_uL to non-numeric Health Plasma by } results) System Automated count Platelet mean 9.5 fl Normal (applies MPV [facility] volume [Entitic to non-numeric Health volume] in Blood results) System by Automated count Monocytes 0.7 Normal (applies Monocyte # [facility] [#/volume] in {10^3_uL to non-numeric Health Blood by Manual } results) System count Eosinophils 0.09 Normal (applies Eosinophil # [facility] [#/volume] in {10^3_uL to non-numeric Health Blood } results) System Neutrophils 5.8 Normal (applies Neutrophil # [facility] [#/volume] in {10^3_uL to non-numeric Health Body fluid } results) System Basophils 0.03 Normal (applies Basophil # [facility] [#/volume] in {10^3_uL to non-numeric Health Blood by } results) System Automated count Lymphocyte 2.1 Normal (applies Lymphocyte # [facility] percent {10^3_uL to non-numeric Health differential } results) System count (procedure) Neutrophils/100 65.7 % Normal (applies Neutrophil % [place] leukocytes in to non-numeric Health Blood by results) System Automated count Monocytes/100 8.3 % Normal (applies Monocyte % [facility] leukocytes in to non-numeric Health Blood results) System Eosinophils/100 1.0 % Normal (applies Eosinophil % [place] leukocytes in to non-numeric Health Unspecified results) System specimen Basophils/100 0.3 % Normal (applies Basophil % [facility] leukocytes in to non-numeric Health Unspecified results) System specimen by Manual count Lymphocytes 23.7 % Normal (applies Lymphocyte % [facility] [#/volume] in to non-numeric Health Blood by results) System Automated count ImmatureGranuloc 1.0 % Above high Immature [facility] ytes% normal Granulocytes % Health System Nucleated 0.0 Normal (applies NRBC % [facility] erythrocytes {/100_WB to non-numeric Health [#/volume] in C} results) System Body fluid ImmatureGranuloc 0.09 Normal (applies Immature [facility] ytes# {10^3_uL to non-numeric Granulocytes # Health } results) System NRBC# 0.00 Below low normal NRBC # [facility] {10^3_uL Health } System ID Date Data Source [id number] 08/15/2020 02:12:34 AM EDT [facility] Name Value Range Interpretation Description Data Source(s ) Supporting Code Document(s ) Lipase 167 U/L Above high normal Lipase, Serum [facility] [Enzymatic Health System activity/v olume] in Serum or Plasma ID Date Data Source [id number] 08/15/2020 02:12:34 AM EDT [facility] Name Value Range Interpretation Description Data Sup porting Code Source(s) Document(s ) Magnesium 1.9 Normal (applies Magnesium, [facility] [Mass/volume] {mEq/L} to non-numeric Serum Health Syst em in Serum or results) Plasma ID Date Data Source [id number] 08/15/2020 02:12:34 AM EDT [facility] Name Value Range Interpretation Description Data Sup porting Code Source(s) Document(s ) Sodium 143 Normal (applies Sodium, Serum [facility] [Moles/volume] in mmol/L to non-numeric Health Serum or Plasma results) System Potassium 4.1 Normal (applies Potassium, [facility] [Mass/volume] in mmol/L to non-numeric Serum Health Serum or Plasma results) System Chloride 107 Normal (applies Chloride, [facility] [Moles/volume] in mmol/L to non-numeric Serum Health Serum or Plasma results) System Carbon dioxide, 23.0 Normal (applies CO2, Serum [facility] total mmol/L to non-numeric Health [Moles/volume] in results) System Serum or Plasma TotalProtein 6.7 Normal (applies Total Protein [facility] mg/dl to non-numeric Health results) System Glucose 175 Above high Glucose, [facility] [Mass/volume] in mg/dL normal Serum Health Serum or Plasma System Urea nitrogen 23 Above high Blood Urea [facility] [Mass/volume] in mg/dl normal Nitrogen, Health Serum or Plasma Serum System Creatinine 1.50 Normal (applies Creatinine, [facility] [Mass/volume] in mg/dl to non-numeric Serum Health Serum or Plasma results) System Alkaline 48 Normal (applies Alkaline [facility] phosphatase {IU/L} to non-numeric Phosphatase, Health isoenzymes results) Serum System [Enzymatic activity/volume] in Serum or Plasma by Heat stability Bilirubin.total 0.2 Normal (applies Bilirubin, [facility] [Mass/volume] in mg/dl to non-numeric Serum Total Health Serum or Plasma results) System DirectBilirubin 0.1 Normal (applies Direct [facility] mg/dl to non-numeric Bilirubin Health results) System Aspartate 14 Normal (applies Aspartate [facility] aminotransferase {IU/L} to non-numeric Transaminase, Heal th [Enzymatic results) Serum System activity/volume] in Serum or Plasma by With P-5'-P Albumin 4.1 Normal (applies Albumin, [facility] [Mass/volume] in {gm/dl} to non-numeric Serum Health Serum or Plasma results) System I.Phosphorus 3.4 Normal (applies I. Phosphorus [facility] mg/dl to non-numeric Health results) System Alanine 18 Normal (applies Alanine [facility] aminotransferase {IU/L} to non-numeric Aminotransfer Heal th [Enzymatic results) ase, Serum System activity/volume] in Serum or Plasma Calcium 9.0 Normal (applies Calcium, [facility] [Mass/volume] in mg/dl to non-numeric Total Serum Health Serum or Plasma results) System A/GRatio 1.58 Normal (applies A/G Ratio [facility] to non-numeric Health results) System Urate 8.0 Normal (applies Uric Acid, [facility] [Mass/volume] in mg/dl to non-numeric Serum Health Serum or Plasma results) System Anion gap in Serum 13.00 Above high Anion Gap [facility] or Plasma mmol/L normal Health System Glomerular 45.00 Normal (applies GFR [facility] filtration to non-numeric Health rate/1.73 sq results) System M.predicted [Volume Rate/Area] in Serum or Plasma by Creatinine-based formula (CKD-EPI) eGFR will provide clinicians with a more accurate indicator of renal function then the serum creatinine. The eGFR is automa tically calculated from an empiric formula (endorsed by the National Kidney Found[employer] ion) which incorporates age, sex, and race.Clinicians may notice surprisingly low GFR's with serum creatinine valueswithin normal range- particularly in elderly wo men (with low muscle mass).In the hospital setting, the eGFR should add an element of safety in drug dosing, in assessing the risk of IV contrast administration, and in assessing vascular risk.The NKF staging system is as follows:Normal: eGFR >90 with no kidney markersStage 1: eGFR >90 with kidney markers*Stage 2: eGFR 60- 89Stage 3: eGFR 30-59Stage 4: eGFR 15-29Stage 5: eGFR <15 (usually requir ing dialysis)*Markers include: Proteinuria, Hematuria, abnormal imaging-studies, or other blood or urine test abnormalities ID Date Data Source [id number] 08/15/2020 02:12:34 AM EDT [facility] Name Value Range Interpretation Description Data Source(s ) Supporting Code Document(s ) Troponin 0.02 Normal (applies to Troponin I [facility] IQuantit ng/mL non-numeric Quantitative - Health System ative-MV results) MV Only Only ID Date Data Source [id number] 08/15/2020 02:12:34 AM EDT [facility] Name Value Range Interpretation Description Data Sup porting Code Source(s) Document(s ) aPTT in Blood 23.5 Normal (applies Activated [facility] by Coagulation {Seconds to non-numeric Partial Health assay } results) Thromboplastin System Time ID Date Data Source [id number] 08/15/2020 02:12:34 AM EDT [facility] Name Value Range Interpretation Description Data Sup porting Code Source(s) Document(s ) Prothrombintim 10.90 Normal (applies Prothrombin [facility] e(PT) {seconds to non-numeric time (PT) Health System } results) Prothrombin Ab 1.04 Normal (applies INR Result [facility] [Units/volume] {Ratio} to non-numeric Health Sys tem in Serum or results) Plasma Normal = 0.7-1.1Therapeutic = 2.0-3.0Mec hanical Heart = 3.0-4.5 ID Date Data Source [id number] 08/15/2020 02:12:34 AM EDT [facility] Name Value Range Interpretation Description Data Source(s ) Supporting Code Document(s ) 35432-4 NEGATIVE Normal (applies to SARS-COV-2 IgG [facility] non-numeric Health System results) Results of antibody testing should not b e used to determine fitness for work or isolation status.It is not known for therese siddiqui whether individuals infected with SARS-CoV-2 who subsequently recover will be protected, either fully or partially, from infection with SARS-CoV-2 or how lo ng protective immunity may last. It is also not known whether the presence or absenc e of antibody can predict protection from infection in the future.Results from ant ibody testing should not be used as the sole basis to diagnose or exclude SARS-CoV-2 infection or to inform infection status.Positive results may be due to pa st or present infection with [id number] coronavirus strains, such as coronavirus HKU1, NL63, OC43, or 229E.Not for the screening of donated blood.This test has been authorized by the FDA under an emergency authorization (EUA) for use by authorized laboratories. Reference Range: Negative . ID Date Data Source [id number] 08/15/2020 02:12:34 AM EDT [facility] Name Value Range Interpretation Description Data Sup porting Code Source(s) Document(s ) Type Cancelled Type [facility] duplicate Health order System D Ab [Titer] in Cancelled Rh [facility] Serum or Plasma duplicate Health order System AntibodyScreen Cancelled Antibody [facility] duplicate Screen Health order System ID Date Data Source [id number] 08/15/2020 02:12:34 AM EDT [facility] Name Value Range Interpretation Description Data Sup porting Code Source(s) Document(s ) Leukocytes 7.4 Normal (applies WBC Count [facility] [#/volume] in {10^3_uL to non-numeric Health Unspecified } results) System specimen by Automated count Erythrocytes 2.46 Below low normal RBC Count [facility] [#/volume] in {10^6_uL Health Blood by } System Automated count Hemoglobin 7.0 Below low normal Hemoglobin [facility] [Mass/volume] in {gm/dL} Health Blood System Hematocrit 22.2 % Below low normal Hematocrit [facility] [Volume Health Fraction] of System Blood Erythrocyte mean 90.2 fl Normal (applies MCV [facility] corpuscular to non-numeric Health volume [Entitic results) System volume] by Automated count Erythrocyte mean 28.5 pg Normal (applies MCH [facility] corpuscular to non-numeric Health hemoglobin results) System [Entitic mass] by Automated count Erythrocyte mean 31.5 Below low normal [facility] corpuscular {gm/dL} Health hemoglobin System concentration [Mass/volume] by Automated count Erythrocyte 14.2 % Normal (applies RDW-CV [facility] distribution to non-numeric Health width [Entitic results) System volume] by Automated count Platelets 197 Normal (applies Platelet Count [facility] [#/volume] in {10^3_uL to non-numeric Health Plasma by } results) System Automated count Platelet mean 9.1 fl Normal (applies MPV [facility] volume [Entitic to non-numeric Health volume] in Blood results) System by Automated count Monocytes 0.7 Normal (applies Monocyte # [facility] [#/volume] in {10^3_uL to non-numeric Health Blood by Manual } results) System count Eosinophils 0.07 Normal (applies Eosinophil # [facility] [#/volume] in {10^3_uL to non-numeric Health Blood } results) System Neutrophils 5.4 Normal (applies Neutrophil # [facility] [#/volume] in {10^3_uL to non-numeric Health Body fluid } results) System Basophils 0.01 Normal (applies Basophil # [facility] [#/volume] in {10^3_uL to non-numeric Health Blood by } results) System Automated count Lymphocyte 1.2 Normal (applies Lymphocyte # [facility] percent {10^3_uL to non-numeric Health differential } results) System count (procedure) Neutrophils/100 73.4 % Normal (applies Neutrophil % [place] leukocytes in to non-numeric Health Blood by results) System Automated count Monocytes/100 8.8 % Normal (applies Monocyte % [facility] leukocytes in to non-numeric Health Blood results) System Eosinophils/100 0.9 % Normal (applies Eosinophil % [place] leukocytes in to non-numeric Health Unspecified results) System specimen Basophils/100 0.1 % Normal (applies Basophil % [facility] leukocytes in to non-numeric Health Unspecified results) System specimen by Manual count Lymphocytes 15.6 % Below low normal Lymphocyte % [facility] [#/volume] in Health Blood by System Automated count ImmatureGranuloc 1.2 % Above high Immature [facility] ytes% normal Granulocytes % Health System Nucleated 0.0 Normal (applies NRBC % [facility] erythrocytes {/100_WB to non-numeric Health [#/volume] in C} results) System Body fluid ImmatureGranuloc 0.09 Normal (applies Immature [facility] ytes# {10^3_uL to non-numeric Granulocytes # Health } results) System NRBC# 0.00 Below low normal NRBC # [facility] {10^3_uL Health } System ID Date Data Source [id number] 08/15/2020 02:12:34 AM EDT [facility] System Name Value Range Interpretation Description Data Sup porting Code Source(s) Document(s ) Sodium 140 Normal (applies Sodium, Serum [facility] [Moles/volume mmol/L to non-numeric Health Syst em ] in Serum or results) Plasma Potassium 4.1 Normal (applies Potassium, [facility] [Mass/volume] mmol/L to non-numeric Serum Health Syst em in Serum or results) Plasma Chloride 111 Above high normal Chloride, [facility] [Moles/volume mmol/L Serum Health System ] in Serum or Plasma Carbon 22.0 Normal (applies CO2, Serum [facility] dioxide, mmol/L to non-numeric Health System total results) [Moles/volume ] in Serum or Plasma Glucose 154 Above high normal Glucose, Serum [facility] [Mass/volume] mg/dL Health System in Serum or Plasma Urea nitrogen 22 mg/dl Above high normal Blood Urea [facility] [Mass/volume] Nitrogen, Health System in Serum or Serum Plasma Creatinine 1.10 Normal (applies Creatinine, [facility] [Mass/volume] mg/dl to non-numeric Serum Health Syst em in Serum or results) Plasma Calcium 7.8 Below low normal Calcium, Total [facility] [Mass/volume] mg/dl Serum Health System in Serum or Plasma Anion gap in 7.00 Below low normal Anion Gap [facility] Serum or mmol/L Health System Plasma ID Date Data Source [id number] 07/02/2013 08:52:33 AM EDT [facility] System Name Value Range Interpretation Description Data Sup porting Code Source(s) Document(s ) Leukocytes 6.5 Normal (applies WBC Count [facility] [#/volume] in {10\\S\\3_ to non-numeric Health Unspecified uL} results) System specimen by Automated count Erythrocytes 4.19 Below low normal RBC Count [facility] [#/volume] in {10\\S\\6_ Health Blood by uL} System Automated count Hemoglobin 11.1 Below low normal Hemoglobin, [facility] [Mass/volume] in {gm/dL} Whole Blood Health Blood System Hematocrit 35.2 % Below low normal Hematocrit, [facility] [Volume Whole Blood Health Fraction] of System Blood Erythrocyte mean 84.0 fl Normal (applies MCV [facility] corpuscular to non-numeric Health volume [Entitic results) System volume] by Automated count Erythrocyte mean 26.5 pg Normal (applies [facility] to non-numeric Health hemoglobin results) System [Entitic mass] by Automated count Erythrocyte mean 31.5 Below low normal [facility] {gm/dL} Health hemoglobin System concentration [Mass/volume] by Automated count Erythrocyte 16.0 % Above high normal RDW [facility] distribution Health width [Entitic System volume] by Automated count Platelets 171 Normal (applies Platelet [facility] [#/volume] in {10\\S\\3_ to non-numeric Count Health Plasma by uL} results) System Automated count Platelet mean 8.4 fl Normal (applies MPV [facility] volume [Entitic to non-numeric Health volume] in Blood results) System by Automated count Monocytes 0.4 Normal (applies Monocyte [facility] [#/volume] in {10\\S\\3_ to non-numeric Count Health Blood by Manual uL} results) System count Eosinophils 0.1 Normal (applies Eosinophil [facility] [#/volume] in {10\\S\\3_ to non-numeric Count Blood Health Blood uL} results) System Basophils 0.0 Normal (applies Basophil [facility] [#/volume] in {10\\S\\3_ to non-numeric Count Health Blood by uL} results) System Automated count Neutrophils 4.8 Normal (applies Absolute [facility] [#/volume] in {10\\S\\3_ to non-numeric Neutrophil Health Body fluid uL} results) Count System Lymphocyte 1.2 Normal (applies Lymphocyte [facility] percent {10\\S\\3_ to non-numeric Absolute Health differential uL} results) System count (procedure) Neutrophils/100 73.4 % Normal (applies Neutrophil % [place] leukocytes in to non-numeric Health Blood by results) System Automated count Monocytes/100 6.7 % Normal (applies Monocyte % [facility] leukocytes in to non-numeric Health Blood results) System Eosinophils/100 0.9 % Below low normal Eosinophil % [place] [facility] leukocytes in Health Unspecified System specimen Basophils/100 0.2 % Normal (applies Basophil % [facility] leukocytes in to non-numeric Health Unspecified results) System specimen by Manual count Lymphocytes 18.8 % Below low normal Lymphocyte % [facility] [#/volume] in Health Blood by System Automated count ID Date Data Source [id number] 07/02/2013 08:52:33 AM EDT [facility] System Name Value Range Interpretation Description Data Sup porting Code Source(s) Document(s ) Sodium 140 Normal (applies Sodium, Serum [facility] [Moles/volume mmol/L to non-numeric Health Syst em ] in Serum or results) Plasma Potassium 4.2 Normal (applies Potassium, [facility] [Mass/volume] mmol/L to non-numeric Serum Health Syst em in Serum or results) Plasma Chloride 107 Normal (applies Chloride, [facility] [Moles/volume mmol/L to non-numeric Serum Health Syst em ] in Serum or results) Plasma Carbon 21.0 Below low normal CO2, Serum [facility] dioxide, mmol/L Health System total [Moles/volume ] in Serum or Plasma Glucose 182 Above high normal Glucose, Serum [facility] [Mass/volume] mg/dL Health System in Serum or Plasma Urea nitrogen 20 mg/dl Normal (applies Blood Urea [facility] [Mass/volume] to non-numeric Nitrogen, Health Syst em in Serum or results) Serum Plasma Creatinine 1.00 Normal (applies Creatinine, [facility] [Mass/volume] mg/dl to non-numeric Serum Health Syst em in Serum or results) Plasma Calcium 9.3 Normal (applies Calcium, Total [facility] [Mass/volume] mg/dl to non-numeric Serum Health Syst em in Serum or results) Plasma Anion gap in 12.00 Normal (applies Anion Gap [facility] Serum or mmol/L to non-numeric Health System Plasma results) ID Date Data Source [id number] 07/16/2013 07:56:00 AM EDT [facility] System Name Value Range Interpretation Description Data Sup porting Code Source(s) Document(s ) Leukocytes 6.7 Normal (applies WBC Count [facility] [#/volume] in {10\\S\\3_ to non-numeric Health Unspecified uL} results) System specimen by Automated count Erythrocytes 4.08 Below low normal RBC Count [facility] [#/volume] in {10\\S\\6_ Health Blood by uL} System Automated count Hemoglobin 10.6 Below low normal Hemoglobin, [facility] [Mass/volume] in {gm/dL} Whole Blood Health Blood System Hematocrit 34.1 % Below low normal Hematocrit, [facility] [Volume Whole Blood Health Fraction] of System Blood Erythrocyte mean 83.6 fl Normal (applies MCV [facility] corpuscular to non-numeric Health volume [Entitic results) System volume] by Automated count Erythrocyte mean 26.0 pg Normal (applies [facility] to non-numeric Health hemoglobin results) System [Entitic mass] by Automated count Erythrocyte mean 31.1 Below low normal [facility] {gm/dL} Health hemoglobin System concentration [Mass/volume] by Automated count Erythrocyte 16.1 % Above high normal RDW [facility] distribution Health width [Entitic System volume] by Automated count Platelets 221 Normal (applies Platelet [facility] [#/volume] in {10\\S\\3_ to non-numeric Count Health Plasma by uL} results) System Automated count Platelet mean 9.2 fl Normal (applies MPV [facility] volume [Entitic to non-numeric Health volume] in Blood results) System by Automated count Monocytes 0.5 Normal (applies Monocyte [facility] [#/volume] in {10\\S\\3_ to non-numeric Count Health Blood by Manual uL} results) System count Eosinophils 0.1 Normal (applies Eosinophil [facility] [#/volume] in {10\\S\\3_ to non-numeric Count Blood Health Blood uL} results) System Neutrophils 4.9 Normal (applies Absolute [facility] [#/volume] in {10\\S\\3_ to non-numeric Neutrophil Health Body fluid uL} results) Count System Basophils 0.0 Normal (applies Basophil [facility] [#/volume] in {10\\S\\3_ to non-numeric Count Health Blood by uL} results) System Automated count Lymphocyte 1.2 Normal (applies Lymphocyte [facility] percent {10\\S\\3_ to non-numeric Absolute Health differential uL} results) System count (procedure) Neutrophils/100 73.5 % Normal (applies Neutrophil % [place] leukocytes in to non-numeric Health Blood by results) System Automated count Monocytes/100 6.8 % Normal (applies Monocyte % [facility] leukocytes in to non-numeric Health Blood results) System Eosinophils/100 0.9 % Below low normal Eosinophil % [place] [facility] leukocytes in Health Unspecified System specimen Basophils/100 0.2 % Normal (applies Basophil % [facility] leukocytes in to non-numeric Health Unspecified results) System specimen by Manual count Lymphocytes 18.6 % Below low normal Lymphocyte % [facility] [#/volume] in Health Blood by System Automated count ID Date Data Source [id number] 07/16/2013 07:56:00 AM EDT [facility] System Name Value Range Interpretation Description Data Sup porting Code Source(s) Document(s ) Sodium 142 Normal (applies Sodium, Serum [facility] [Moles/volume mmol/L to non-numeric Health Syst em ] in Serum or results) Plasma Potassium 4.4 Normal (applies Potassium, [facility] [Mass/volume] mmol/L to non-numeric Serum Health Syst em in Serum or results) Plasma Chloride 106 Normal (applies Chloride, [facility] [Moles/volume mmol/L to non-numeric Serum Health Syst em ] in Serum or results) Plasma Carbon 23.0 Normal (applies CO2, Serum [facility] dioxide, mmol/L to non-numeric Health System total results) [Moles/volume ] in Serum or Plasma Glucose 156 Above high normal Glucose, Serum [facility] [Mass/volume] mg/dL Health System in Serum or Plasma Urea nitrogen 17 mg/dl Normal (applies Blood Urea [facility] [Mass/volume] to non-numeric Nitrogen, Health Syst em in Serum or results) Serum Plasma Creatinine 1.00 Normal (applies Creatinine, [facility] [Mass/volume] mg/dl to non-numeric Serum Health Syst em in Serum or results) Plasma Calcium 9.7 Normal (applies Calcium, Total [facility] [Mass/volume] mg/dl to non-numeric Serum Health Syst em in Serum or results) Plasma Anion gap in 13.00 Above high normal Anion Gap [facility] Serum or mmol/L Health System Plasma ID Date Data Source [id number] 07/30/2013 07:50:00 AM EDT [facility] Name Value Range Interpretation Description Data Sup porting Code Source(s) Document(s ) Leukocytes 7.5 Normal (applies WBC Count [facility] [#/volume] in {10\\S\\3_ to non-numeric Health Unspecified uL} results) System specimen by Automated count Erythrocytes 4.41 Normal (applies RBC Count [facility] [#/volume] in {10\\S\\6_ to non-numeric Health Blood by uL} results) System Automated count Hemoglobin 11.5 Below low normal Hemoglobin, [facility] [Mass/volume] in {gm/dL} Whole Blood Health Blood System Hematocrit 36.4 % Below low normal Hematocrit, [facility] [Volume Whole Blood Health Fraction] of System Blood Erythrocyte mean 82.5 fl Below low normal MCV [facility] corpuscular Health volume [Entitic System volume] by Automated count Erythrocyte mean 26.1 pg Normal (applies [facility] corpus[facility] to non-numeric Health hemoglobin results) System [Entitic mass] by Automated count Erythrocyte mean 31.6 Below low normal [facility] corpuscular {gm/dL} Health hemoglobin System concentration [Mass/volume] by Automated count Erythrocyte 15.9 % Above high normal RDW [facility] distribution Health width [Entitic System volume] by Automated count Platelets 175 Normal (applies Platelet [facility] [#/volume] in {10\\S\\3_ to non-numeric Count Health Plasma by uL} results) System Automated count Platelet mean 8.5 fl Normal (applies MPV [facility] volume [Entitic to non-numeric Health volume] in Blood results) System by Automated count Monocytes 0.8 Normal (applies Monocyte [facility] [#/volume] in {10\\S\\3_ to non-numeric Count Health Blood by Manual uL} results) System count Eosinophils 0.1 Normal (applies Eosinophil [facility] [#/volume] in {10\\S\\3_ to non-numeric Count Blood Health Blood uL} results) System Basophils 0.0 Normal (applies Basophil [facility] [#/volume] in {10\\S\\3_ to non-numeric Count Health Blood by uL} results) System Automated count Neutrophils 5.7 Normal (applies Absolute [facility] [#/volume] in {10\\S\\3_ to non-numeric Neutrophil Health Body fluid uL} results) Count System Lymphocyte 1.1 Normal (applies Lymphocyte [facility] percent {10\\S\\3_ to non-numeric Absolute Health differential uL} results) System count (procedure) Neutrophils/100 75.3 % Normal (applies Neutrophil % [place] leukocytes in to non-numeric Health Blood by results) System Automated count Monocytes/100 10.0 % Above high normal Monocyte % [facility] leukocytes in Health Blood System Eosinophils/100 0.7 % Below low normal Eosinophil % [place] [facility] leukocytes in Health Unspecified System specimen Basophils/100 0.1 % Normal (applies Basophil % [facility] leukocytes in to non-numeric Health Unspecified results) System specimen by Manual count Lymphocytes 13.9 % Below low normal Lymphocyte % [facility] [#/volume] in Health Blood by System Automated count ID Date Data Source [id number] 08/13/2013 08:21:00 AM EDT [facility] Name Value Range Interpretation Description Data Sup porting Code Source(s) Document(s ) Leukocytes 6.2 Normal (applies WBC Count [facility] [#/volume] in {10\\S\\3_ to non-numeric Health Unspecified uL} results) System specimen by Automated count Erythrocytes 4.63 Normal (applies RBC Count [facility] [#/volume] in {10\\S\\6_ to non-numeric Health Blood by uL} results) System Automated count Hemoglobin 11.7 Below low normal Hemoglobin, [facility] [Mass/volume] in {gm/dL} Whole Blood Health Blood System Hematocrit 37.4 % Below low normal Hematocrit, [facility] [Volume Whole Blood Health Fraction] of System Blood Erythrocyte mean 80.8 fl Below low normal MCV [facility] corpuscular Health volume [Entitic System volume] by Automated count Erythrocyte mean 25.3 pg Below low normal [facility] corpuscular Health hemoglobin System [Entitic mass] by Automated count Erythrocyte mean 31.3 Below low normal [facility] corpuscular {gm/dL} Health hemoglobin System concentration [Mass/volume] by Automated count Erythrocyte 15.7 % Above high normal RDW [facility] distribution Health width [Entitic System volume] by Automated count Platelets 230 Normal (applies Platelet [facility] [#/volume] in {10\\S\\3_ to non-numeric Count Health Plasma by uL} results) System Automated count Platelet mean 9.4 fl Normal (applies MPV [facility] volume [Entitic to non-numeric Health volume] in Blood results) System by Automated count Monocytes 0.6 Normal (applies Monocyte [facility] [#/volume] in {10\\S\\3_ to non-numeric Count Health Blood by Manual uL} results) System count Eosinophils 0.1 Normal (applies Eosinophil [facility] [#/volume] in {10\\S\\3_ to non-numeric Count Blood Health Blood uL} results) System Neutrophils 4.0 Normal (applies Absolute [facility] [#/volume] in {10\\S\\3_ to non-numeric Neutrophil Health Body fluid uL} results) Count System Basophils 0.0 Normal (applies Basophil [facility] [#/volume] in {10\\S\\3_ to non-numeric Count Health Blood by uL} results) System Automated count Lymphocyte 1.5 Normal (applies Lymphocyte [facility] percent {10\\S\\3_ to non-numeric Absolute Health differential uL} results) System count (procedure) Neutrophils/100 65.6 % Normal (applies Neutrophil % [place] leukocytes in to non-numeric Health Blood by results) System Automated count Monocytes/100 9.6 % Above high normal Monocyte % [facility] leukocytes in Health Blood System Eosinophils/100 1.0 % Normal (applies Eosinophil % [place] leukocytes in to non-numeric Health Unspecified results) System specimen Basophils/100 0.2 % Normal (applies Basophil % [facility] leukocytes in to non-numeric Health Unspecified results) System specimen by Manual count Lymphocytes 23.6 % Normal (applies Lymphocyte % [facility] [#/volume] in to non-numeric Health Blood by results) System Automated count ID Date Data Source [id number] 08/27/2013 08:05:00 AM EDT [facility] Name Value Range Interpretation Description Data Sup porting Code Source(s) Document(s ) Leukocytes 6.2 Normal (applies WBC Count [facility] [#/volume] in {10\\S\\3_ to non-numeric Health Unspecified uL} results) System specimen by Automated count Erythrocytes 4.63 Normal (applies RBC Count [facility] [#/volume] in {10\\S\\6_ to non-numeric Health Blood by uL} results) System Automated count Hemoglobin 11.9 Below low normal Hemoglobin, [facility] [Mass/volume] in {gm/dL} Whole Blood Health Blood System Hematocrit 37.4 % Below low normal Hematocrit, [facility] [Volume Whole Blood Health Fraction] of System Blood Erythrocyte mean 80.8 fl Below low normal [facility]CV [facility] corpuscular Health volume [Entitic System volume] by Automated count Erythrocyte mean 25.7 pg Below low normal [facility] corpuscular Health hemoglobin System [Entitic mass] by Automated count Erythrocyte mean 31.8 Below low normal [facility] corpuscular {gm/dL} Health hemoglobin System concentration [Mass/volume] by Automated count Erythrocyte 16.1 % Above high normal RDW [facility] distribution Health width [Entitic System volume] by Automated count Platelets 198 Normal (applies Platelet [facility] [#/volume] in {10\\S\\3_ to non-numeric Count Health Plasma by uL} results) System Automated count Platelet mean 9.3 fl Normal (applies MPV [facility] volume [Entitic to non-numeric Health volume] in Blood results) System by Automated count Monocytes 0.5 Normal (applies Monocyte [facility] [#/volume] in {10\\S\\3_ to non-numeric Count Health Blood by Manual uL} results) System count Eosinophils 0.1 Normal (applies Eosinophil [facility] [#/volume] in {10\\S\\3_ to non-numeric Count Blood Health Blood uL} results) System Basophils 0.0 Normal (applies Basophil [facility] [#/volume] in {10\\S\\3_ to non-numeric Count Health Blood by uL} results) System Automated count Neutrophils 4.3 Normal (applies Absolute [facility] [#/volume] in {10\\S\\3_ to non-numeric Neutrophil Health Body fluid uL} results) Count System Lymphocyte 1.4 Normal (applies Lymphocyte [facility] percent {10\\S\\3_ to non-numeric Absolute Health differential uL} results) System count (procedure) Neutrophils/100 68.5 % Normal (applies Neutrophil % [place] leukocytes in to non-numeric Health Blood by results) System Automated count Monocytes/100 7.7 % Normal (applies Monocyte % [facility] leukocytes in to non-numeric Health Blood results) System Eosinophils/100 1.8 % Normal (applies Eosinophil % [place] leukocytes in to non-numeric Health Unspecified results) System specimen Basophils/100 0.2 % Normal (applies Basophil % [facility] leukocytes in to non-numeric Health Unspecified results) System specimen by Manual count Lymphocytes 21.8 % Normal (applies Lymphocyte % [facility] [#/volume] in to non-numeric Health Blood by results) System Automated count ID Date Data Source [id number] 09/03/2013 08:08:00 AM EDT [facility] Name Value Range Interpretation Description Data Sup porting Code Source(s) Document(s ) Leukocytes 7.2 Normal (applies WBC Count [facility] [#/volume] in {10\\S\\3_ to non-numeric Health Unspecified uL} results) System specimen by Automated count Erythrocytes 4.47 Normal (applies RBC Count [facility] [#/volume] in {10\\S\\6_ to non-numeric Health Blood by uL} results) System Automated count Hemoglobin 11.5 Below low normal Hemoglobin, [facility] [Mass/volume] in {gm/dL} Whole Blood Health Blood System Hematocrit 36.2 % Below low normal Hematocrit, [facility] [Volume Whole Blood Health Fraction] of System Blood Erythrocyte mean 81.0 fl Below low normal [facility] corpuscular Health volume [Entitic System volume] by Automated count Erythrocyte mean 25.7 pg Below low normal [facility] corpuscular Health hemoglobin System [Entitic mass] by Automated count Erythrocyte mean 31.8 Below low normal [facility] corpuscular {gm/dL} Health hemoglobin System concentration [Mass/volume] by Automated count Erythrocyte 16.1 % Above high normal RDW [facility] distribution Health width [Entitic System volume] by Automated count Platelets 218 Normal (applies Platelet [facility] [#/volume] in {10\\S\\3_ to non-numeric Count Health Plasma by uL} results) System Automated count Platelet mean 9.3 fl Normal (applies MPV [facility] volume [Entitic to non-numeric Health volume] in Blood results) System by Automated count Monocytes 0.6 Normal (applies Monocyte [facility] [#/volume] in {10\\S\\3_ to non-numeric Count Health Blood by Manual uL} results) System count Eosinophils 0.1 Normal (applies Eosinophil [facility] [#/volume] in {10\\S\\3_ to non-numeric Count Blood Health Blood uL} results) System Basophils 0.0 Normal (applies Basophil [facility] [#/volume] in {10\\S\\3_ to non-numeric Count Health Blood by uL} results) System Automated count Neutrophils 4.8 Normal (applies Absolute [facility] [#/volume] in {10\\S\\3_ to non-numeric Neutrophil Health Body fluid uL} results) Count System Lymphocyte 1.6 Normal (applies Lymphocyte [facility] percent {10\\S\\3_ to non-numeric Absolute Health differential uL} results) System count (procedure) Neutrophils/100 67.4 % Normal (applies Neutrophil % [place] leukocytes in to non-numeric Health Blood by results) System Automated count Monocytes/100 8.1 % Normal (applies Monocyte % [facility] leukocytes in to non-numeric Health Blood results) System Eosinophils/100 1.7 % Normal (applies Eosinophil % [place] leukocytes in to non-numeric Health Unspecified results) System specimen Basophils/100 0.3 % Normal (applies Basophil % [facility] leukocytes in to non-numeric Health Unspecified results) System specimen by Manual count Lymphocytes 22.5 % Normal (applies Lymphocyte % [facility] [#/volume] in to non-numeric Health Blood by results) System Automated count ID Date Data Source [id number] 09/17/2013 08:30:00 AM EDT [facility] Name Value Range Interpretation Description Data Sup porting Code Source(s) Document(s ) Leukocytes 6.1 Normal (applies WBC Count [facility] [#/volume] in {10\\S\\3_ to non-numeric Health Unspecified uL} results) System specimen by Automated count Erythrocytes 4.74 Normal (applies RBC Count [facility] [#/volume] in {10\\S\\6_ to non-numeric Health Blood by uL} results) System Automated count Hemoglobin 12.0 Below low normal Hemoglobin, [facility] [Mass/volume] in {gm/dL} Whole Blood Health Blood System Hematocrit 38.0 % Below low normal Hematocrit, [facility] [Volume Whole Blood Health Fraction] of System Blood Erythrocyte mean 80.2 fl Below low normal MCV [facility] volume [Ent[facility] System volume] by Automated count Erythrocyte mean 25.3 pg Below low normal MCH [facility] hemoglobin System [Entitic mass] by Automated count Erythrocyte mean 31.6 Below low normal [facility] {gm/dL} Health hemoglobin System concentration [Mass/volume] by Automated count Erythrocyte 16.2 % Above high normal RDW [facility] distribution Health width [Entitic System volume] by Automated count Platelets 239 Normal (applies Platelet [facility] [#/volume] in {10\\S\\3_ to non-numeric Count Health Plasma by uL} results) System Automated count Platelet mean 9.1 fl Normal (applies MPV [facility] volume [Entitic to non-numeric Health volume] in Blood results) System by Automated count Monocytes 0.4 Normal (applies Monocyte [facility] [#/volume] in {10\\S\\3_ to non-numeric Count Health Blood by Manual uL} results) System count Eosinophils 0.1 Normal (applies Eosinophil [facility] [#/volume] in {10\\S\\3_ to non-numeric Count Blood Health Blood uL} results) System Neutrophils 4.3 Normal (applies Absolute [facility] [#/volume] in {10\\S\\3_ to non-numeric Neutrophil Health Body fluid uL} results) Count System Basophils 0.0 Normal (applies Basophil [facility] [#/volume] in {10\\S\\3_ to non-numeric Count Health Blood by uL} results) System Automated count Lymphocyte 1.3 Normal (applies Lymphocyte [facility] percent {10\\S\\3_ to non-numeric Absolute Health differential uL} results) System count (procedure) Neutrophils/100 70.9 % Normal (applies Neutrophil % [place] leukocytes in to non-numeric Health Blood by results) System Automated count Monocytes/100 6.2 % Normal (applies Monocyte % [facility] leukocytes in to non-numeric [facility] Blood results) System Eosinophils/100 1.0 % Normal (applies Eosinophil % [place] leukocytes in to non-numeric Health Unspecified results) System specimen Basophils/100 0.2 % Normal (applies Basophil % [facility] leukocytes in to non-numeric Health Unspecified results) System specimen by Manual count Lymphocytes 21.7 % Normal (applies Lymphocyte % [facility] [#/volume] in to non-numeric Health Blood by results) System Automated count ID Date Data Source [id number] 10/01/2013 07:56:00 AM EST [facility] Name Value Range Interpretation Description Data Sup porting Code Source(s) Document(s ) Leukocytes 6.6 Normal (applies WBC Count [facility] [#/volume] in {10\\S\\3_ to non-numeric Health Unspecified uL} results) System specimen by Automated count Erythrocytes 4.75 Normal (applies RBC Count [facility] [#/volume] in {10\\S\\6_ to non-numeric Health Blood by uL} results) System Automated count Hemoglobin 12.0 Below low normal Hemoglobin, [facility] [Mass/volume] in {gm/dL} Whole Blood [facility] Blood System Hematocrit 37.8 % Below low normal Hematocrit, [facility] [Volume Whole Blood Health Fraction] of System Blood Erythrocyte mean 79.6 fl Below low normal MCV [facility] volume [[facility] System volume] by Automated count Erythrocyte mean 25.3 pg Below low normal MCH [facility] hemoglobin System [Entitic mass] by Automated count Erythrocyte mean 31.7 Below low normal [facility] {gm/dL} Health hemoglobin System concentration [Mass/volume] by Automated count Erythrocyte 16.2 % Above high normal RDW [facility] distribution Health width [Ent[facility] System volume] by Automated count Platelets 203 Normal (applies Platelet [facility] [#/volume] in {10\\S\\3_ to non-numeric Count Health Plasma by uL} results) System Automated count Platelet mean 8.8 fl Normal (applies MPV [facility] volume [Entitic to non-numeric Health volume] in Blood results) System by Automated count Monocytes 0.4 Normal (applies Monocyte [facility] [#/volume] in {10\\S\\3_ to non-numeric Count Health Blood by Manual uL} results) System count Eosinophils 0.1 Normal (applies Eosinophil [facility] [#/volume] in {10\\S\\3_ to non-numeric Count Blood Health Blood uL} results) System Neutrophils 4.5 Normal (applies Absolute [facility] [#/volume] in {10\\S\\3_ to non-numeric Neutrophil Health Body fluid uL} results) Count System Basophils 0.0 Normal (applies Basophil [facility] [#/volume] in {10\\S\\3_ to non-numeric Count Health Blood by uL} results) System Automated count Lymphocyte 1.6 Normal (applies Lymphocyte [facility] percent {10\\S\\3_ to non-numeric Absolute Health differential uL} results) System count (procedure) Neutrophils/100 67.8 % Normal (applies Neutrophil % [place] leukocytes in to non-numeric Health Blood by results) System Automated count Monocytes/100 6.7 % Normal (applies Monocyte % [facility] leukocytes in to non-numeric Health Blood results) System Eosinophils/100 1.7 % Normal (applies Eosinophil % [place] leukocytes in to non-numeric Health Unspecified results) System specimen Basophils/100 0.2 % Normal (applies Basophil % [facility] leukocytes in to non-numeric Health Unspecified results) System specimen by Manual count Lymphocytes 23.6 % Normal (applies Lymphocyte % [facility] [#/volume] in to non-numeric Health Blood by results) System Automated count ID Date Data Source [id number] 10/15/2013 08:01:00 AM EST [facility] Name Value Range Interpretation Description Data Sup porting Code Source(s) Document(s ) Leukocytes 6.3 Normal (applies WBC Count [facility] [#/volume] in {10^3_uL to non-numeric Health Unspecified } results) System specimen by Automated count Erythrocytes 4.62 Normal (applies RBC Count [facility] [#/volume] in {10^6_uL to non-numeric Health Blood by } results) System Automated count Hemoglobin 11.6 Below low normal Hemoglobin, [facility] [Mass/volume] in {gm/dL} Whole Blood [facility] Blood System Hematocrit 36.1 % Below low normal Hematocrit, [facility] [Volume Whole Blood Health Fraction] of System Blood Erythrocyte mean 78.1 fl Below low normal MCV [facility] volume [[facility] System volume] by Automated count Erythrocyte mean 25.1 pg Below low normal MCH [facility] hemoglobin System [Entitic mass] by Automated count Erythrocyte mean 32.1 Below low normal [facility] {gm/dL} Health hemoglobin System concentration [Mass/volume] by Automated count Erythrocyte 16.3 % Above high normal RDW [facility] distribution Health width [[facility] System volume] by Automated count Platelets 183 Normal (applies Platelet [facility] [#/volume] in {10^3_uL to non-numeric Count Health Plasma by } results) System Automated count Platelet mean 8.4 fl Normal (applies MPV [facility] volume [Entitic to non-numeric Health volume] in Blood results) System by Automated count Monocytes 0.6 Normal (applies Monocyte [facility] [#/volume] in {10^3_uL to non-numeric Count Health Blood by Manual } results) System count Eosinophils 0.1 Normal (applies Eosinophil [facility] [#/volume] in {10^3_uL to non-numeric Count Blood Health Blood } results) System Neutrophils 4.4 Normal (applies Absolute [facility] [#/volume] in {10^3_uL to non-numeric Neutrophil Health Body fluid } results) Count System Basophils 0.0 Normal (applies Basophil [facility] [#/volume] in {10^3_uL to non-numeric Count Health Blood by } results) System Automated count Lymphocyte 1.1 Normal (applies Lymphocyte [facility] percent {10^3_uL to non-numeric Absolute Health differential } results) System count (procedure) Neutrophils/100 70.7 % Normal (applies Neutrophil % [place] leukocytes in to non-numeric Health Blood by results) System Automated count Monocytes/100 9.8 % Above high normal Monocyte % [facility] leukocytes in [facility] Blood System Eosinophils/100 1.9 % Normal (applies Eosinophil % [place] leukocytes in to non-numeric Health Unspecified results) System specimen Basophils/100 0.3 % Normal (applies Basophil % [facility] leukocytes in to non-numeric Health Unspecified results) System specimen by Manual count Lymphocytes 17.3 % Below low normal Lymphocyte % [facility] [#/volume] in Health Blood by System Automated count ID Date Data Source [id number] 10/22/2013 08:29:00 AM EST [facility] Name Value Range Interpretation Description Data Sup porting Code Source(s) Document(s ) Leukocytes 6.6 Normal (applies WBC Count [facility] [#/volume] in {10^3_uL to non-numeric Health Unspecified } results) System specimen by Automated count Erythrocytes 4.42 Normal (applies RBC Count [facility] [#/volume] in {10^6_uL to non-numeric Health Blood by } results) System Automated count Hemoglobin 11.0 Below low normal Hemoglobin, [facility] [Mass/volume] in {gm/dL} Whole Blood [facility] Blood System Hematocrit 34.6 % Below low normal Hematocrit, [facility] [Volume Whole Blood Health Fraction] of System Blood Erythrocyte mean 78.3 fl Below low normal MCV [facility] volume [[facility] System volume] by Automated count Erythrocyte mean 24.9 pg Below low normal MCH [facility] hemoglobin System [Entitic mass] by Automated count Erythrocyte mean 31.8 Below low normal [facility] {gm/dL} Health hemoglobin System concentration [Mass/volume] by Automated count Erythrocyte 16.5 % Above high normal RDW [facility] distribution Health width [[facility] System volume] by Automated count Platelets 220 Normal (applies Platelet [facility] [#/volume] in {10^3_uL to non-numeric Count Health Plasma by } results) System Automated count Platelet mean 9.2 fl Normal (applies MPV [facility] volume [Entitic to non-numeric Health volume] in Blood results) System by Automated count Monocytes 0.6 Normal (applies Monocyte [facility] [#/volume] in {10^3_uL to non-numeric Count Health Blood by Manual } results) System count Eosinophils 0.1 Normal (applies Eosinophil [facility] [#/volume] in {10^3_uL to non-numeric Count Blood Health Blood } results) System Neutrophils 4.3 Normal (applies Absolute [facility] [#/volume] in {10^3_uL to non-numeric Neutrophil Health Body fluid } results) Count System Basophils 0.0 Normal (applies Basophil [facility] [#/volume] in {10^3_uL to non-numeric Count Health Blood by } results) System Automated count Lymphocyte 1.6 Normal (applies Lymphocyte [facility] percent {10^3_uL to non-numeric Absolute Health differential } results) System count (procedure) Neutrophils/100 64.9 % Normal (applies Neutrophil % [place] leukocytes in to non-numeric Health Blood by results) System Automated count Monocytes/100 9.1 % Above high normal Monocyte % [facility] leukocytes in [facility] Blood System Eosinophils/100 1.7 % Normal (applies Eosinophil % [place] leukocytes in to non-numeric Health Unspecified results) System specimen Basophils/100 0.2 % Normal (applies Basophil % [facility] leukocytes in to non-numeric Health Unspecified results) System specimen by Manual count Lymphocytes 24.1 % Normal (applies Lymphocyte % [facility] [#/volume] in to non-numeric Health Blood by results) System Automated count ID Date Data Source [id number] 10/29/2013 08:08:00 AM EST [facility] Name Value Range Interpretation Description Data Sup porting Code Source(s) Document(s ) Leukocytes 6.4 Normal (applies WBC Count [facility] [#/volume] in {10^3_uL to non-numeric Health Unspecified } results) System specimen by Automated count Erythrocytes 4.53 Normal (applies RBC Count [facility] [#/volume] in {10^6_uL to non-numeric Health Blood by } results) System Automated count Hemoglobin 11.3 Below low normal Hemoglobin, [facility] [Mass/volume] in {gm/dL} Whole Blood [facility] Blood System Hematocrit 35.1 % Below low normal Hematocrit, [facility] [Volume Whole Blood Health Fraction] of System Blood Erythrocyte mean 77.5 fl Below low normal MCV [facility] volume [[facility] System volume] by Automated count Erythrocyte mean 24.9 pg Below low normal MCH [facility] hemoglobin System [Entitic mass] by Automated count Erythrocyte mean 32.2 Below low normal [facility] {gm/dL} Health hemoglobin System concentration [Mass/volume] by Automated count Erythrocyte 17.1 % Above high normal RDW [facility] distribution Health width [[facility] System volume] by Automated count Platelets 190 Normal (applies Platelet [facility] [#/volume] in {10^3_uL to non-numeric Count Health Plasma by } results) System Automated count Platelet mean 9.0 fl Normal (applies MPV [facility] volume [Entitic to non-numeric Health volume] in Blood results) System by Automated count Monocytes 0.4 Normal (applies Monocyte [facility] [#/volume] in {10^3_uL to non-numeric Count Health Blood by Manual } results) System count Eosinophils 0.1 Normal (applies Eosinophil [facility] [#/volume] in {10^3_uL to non-numeric Count Blood Health Blood } results) System Basophils 0.0 Normal (applies Basophil [facility] [#/volume] in {10^3_uL to non-numeric Count Health Blood by } results) System Automated count Neutrophils 4.6 Normal (applies Absolute [facility] [#/volume] in {10^3_uL to non-numeric Neutrophil Health Body fluid } results) Count System Lymphocyte 1.3 Normal (applies Lymphocyte [facility] percent {10^3_uL to non-numeric Absolute Health differential } results) System count (procedure) Neutrophils/100 71.5 % Normal (applies Neutrophil % [place] leukocytes in to non-numeric Health Blood by results) System Automated count Monocytes/100 6.4 % Normal (applies Monocyte % [facility] leukocytes in to non-numeric Health Blood results) System Eosinophils/100 1.2 % Normal (applies Eosinophil % [place] leukocytes in to non-numeric Health Unspecified results) System specimen Basophils/100 0.2 % Normal (applies Basophil % [facility] leukocytes in to non-numeric Health Unspecified results) System specimen by Manual count Lymphocytes 20.7 % Below low normal Lymphocyte % [facility] [#/volume] in Health Blood by System Automated count ID Date Data Source [id number] 11/14/2013 07:55:00 AM EST [facility] Name Value Range Interpretation Description Data Sup porting Code Source(s) Document(s ) Leukocytes 6.4 Normal (applies WBC Count [facility] [#/volume] in {10^3_uL to non-numeric Health Unspecified } results) System specimen by Automated count Erythrocytes 4.66 Normal (applies RBC Count [facility] [#/volume] in {10^6_uL to non-numeric Health Blood by } results) System Automated count Hemoglobin 11.8 Below low normal Hemoglobin, [facility] [Mass/volume] in {gm/dL} Whole Blood [facility] Blood System Hematocrit 37.6 % Below low normal Hematocrit, [facility] [Volume Whole Blood Health Fraction] of System Blood Erythrocyte mean 80.7 fl Below low normal MCV [facility] volume [[facility] System volume] by Automated count Erythrocyte mean 25.3 pg Below low normal [facility]CH [facility] hemoglobin System [Entitic mass] by Automated count Erythrocyte mean 31.4 Below low normal [facility] {gm/dL} Health hemoglobin System concentration [Mass/volume] by Automated count Erythrocyte 17.8 % Above high normal RDW [facility] distribution Health width [[facility] System volume] by Automated count Platelets 183 Normal (applies Platelet [facility] [#/volume] in {10^3_uL to non-numeric Count Health Plasma by } results) System Automated count Platelet mean 9.3 fl Normal (applies MPV [facility] volume [Entitic to non-numeric Health volume] in Blood results) System by Automated count Monocytes 0.5 Normal (applies Monocyte [facility] [#/volume] in {10^3_uL to non-numeric Count Health Blood by Manual } results) System count Eosinophils 0.1 Normal (applies Eosinophil [facility] [#/volume] in {10^3_uL to non-numeric Count Blood Health Blood } results) System Basophils 0.0 Normal (applies Basophil [facility] [#/volume] in {10^3_uL to non-numeric Count Health Blood by } results) System Automated count Neutrophils 4.2 Normal (applies Absolute [facility] [#/volume] in {10^3_uL to non-numeric Neutrophil Health Body fluid } results) Count System Lymphocyte 1.6 Normal (applies Lymphocyte [facility] percent {10^3_uL to non-numeric Absolute Health differential } results) System count (procedure) Neutrophils/100 65.7 % Normal (applies Neutrophil % [place] leukocytes in to non-numeric Health Blood by results) System Automated count Monocytes/100 7.3 % Normal (applies Monocyte % [facility] leukocytes in to non-numeric Health Blood results) System Eosinophils/100 1.2 % Normal (applies Eosinophil % [place] leukocytes in to non-numeric Health Unspecified results) System specimen Basophils/100 0.2 % Normal (applies Basophil % [facility] leukocytes in to non-numeric Health Unspecified results) System specimen by Manual count Lymphocytes 25.6 % Normal (applies Lymphocyte % [facility] [#/volume] in to non-numeric Health Blood by results) System Automated count ID Date Data Source [id number] 11/28/2013 07:57:00 AM EST [facility] Name Value Range Interpretation Description Data Sup porting Code Source(s) Document(s ) Leukocytes 6.3 Normal (applies WBC Count [facility] [#/volume] in {10^3_uL to non-numeric Health Unspecified } results) System specimen by Automated count Erythrocytes 4.56 Normal (applies RBC Count [facility] [#/volume] in {10^6_uL to non-numeric Health Blood by } results) System Automated count Hemoglobin 11.6 Below low normal Hemoglobin, [facility] [Mass/volume] in {gm/dL} Whole Blood Health Blood System Hematocrit 36.9 % Below low normal Hematocrit, [facility] [Volume Whole Blood Health Fraction] of System Blood Erythrocyte mean 80.9 fl Below low normal MCV [facility] volume [[facility] System volume] by Automated count Erythrocyte mean 25.4 pg Below low normal [facility]CH [facility] hemoglobin System [Entitic mass] by Automated count Erythrocyte mean 31.4 Below low normal [facility] {gm/dL} Health hemoglobin System concentration [Mass/volume] by Automated count Erythrocyte 18.0 % Above high normal RDW [facility] distribution Health width [[facility] System volume] by Automated count Platelets 184 Normal (applies Platelet [facility] [#/volume] in {10^3_uL to non-numeric Count Health Plasma by } results) System Automated count Platelet mean 9.3 fl Normal (applies MPV [facility] volume [Entitic to non-numeric Health volume] in Blood results) System by Automated count Monocytes 0.6 Normal (applies Monocyte [facility] [#/volume] in {10^3_uL to non-numeric Count Health Blood by Manual } results) System count Eosinophils 0.1 Normal (applies Eosinophil [facility] [#/volume] in {10^3_uL to non-numeric Count Blood Health Blood } results) System Neutrophils 4.2 Normal (applies Absolute [facility] [#/volume] in {10^3_uL to non-numeric Neutrophil Health Body fluid } results) Count System Basophils 0.0 Normal (applies Basophil [facility] [#/volume] in {10^3_uL to non-numeric Count Health Blood by } results) System Automated count Lymphocyte 1.4 Normal (applies Lymphocyte [facility] percent {10^3_uL to non-numeric Absolute Health differential } results) System count (procedure) Neutrophils/100 67.1 % Normal (applies Neutrophil % [place] leukocytes in to non-numeric Health Blood by results) System Automated count Monocytes/100 9.0 % Normal (applies Monocyte % [facility] leukocytes in to non-numeric Health Blood results) System Eosinophils/100 1.8 % Normal (applies Eosinophil % [place] leukocytes in to non-numeric Health Unspecified results) System specimen Basophils/100 0.2 % Normal (applies Basophil % [facility] leukocytes in to non-numeric Health Unspecified results) System specimen by Manual count Lymphocytes 21.9 % Normal (applies Lymphocyte % [facility] [#/volume] in to non-numeric Health Blood by results) System Automated count ID Date Data Source [id number] 12/05/2013 08:19:00 AM EST [facility] Name Value Range Interpretation Description Data Sup porting Code Source(s) Document(s ) Leukocytes 7.2 Normal (applies WBC Count [facility] [#/volume] in {10^3_uL to non-numeric Health Unspecified } results) System specimen by Automated count Erythrocytes 4.34 Below low normal RBC Count [facility] [#/volume] in {10^6_uL Health Blood by } System Automated count Hemoglobin 11.1 Below low normal Hemoglobin, [facility] [Mass/volume] in {gm/dL} Whole Blood Health Blood System Hematocrit 35.1 % Below low normal Hematocrit, [facility] [Volume Whole Blood Health Fraction] of System Blood Erythrocyte mean 80.9 fl Below low normal MCV [facility] volume [[facility] System volume] by Automated count Erythrocyte mean 25.6 pg Below low normal [facility]CH [facility] hemoglobin System [Entitic mass] by Automated count Erythrocyte mean 31.6 Below low normal [facility] {gm/dL} Health hemoglobin System concentration [Mass/volume] by Automated count Erythrocyte 17.9 % Above high normal RDW [facility] distribution Health width [[facility] System volume] by Automated count Platelets 184 Normal (applies Platelet [facility] [#/volume] in {10^3_uL to non-numeric Count Health Plasma by } results) System Automated count Platelet mean 9.2 fl Normal (applies MPV [facility] volume [Entitic to non-numeric Health volume] in Blood results) System by Automated count Monocytes 0.4 Normal (applies Monocyte [facility] [#/volume] in {10^3_uL to non-numeric Count Health Blood by Manual } results) System count Eosinophils 0.1 Normal (applies Eosinophil [facility] [#/volume] in {10^3_uL to non-numeric Count Blood Health Blood } results) System Neutrophils 5.4 Normal (applies Absolute [facility] [#/volume] in {10^3_uL to non-numeric Neutrophil Health Body fluid } results) Count System Basophils 0.0 Normal (applies Basophil [facility] [#/volume] in {10^3_uL to non-numeric Count Health Blood by } results) System Automated count Lymphocyte 1.2 Normal (applies Lymphocyte [facility] percent {10^3_uL to non-numeric Absolute Health differential } results) System count (procedure) Neutrophils/100 75.6 % Normal (applies Neutrophil % [place] leukocytes in to non-numeric Health Blood by results) System Automated count Monocytes/100 6.0 % Normal (applies Monocyte % [facility] leukocytes in to non-numeric Health Blood results) System Eosinophils/100 1.0 % Normal (applies Eosinophil % [place] leukocytes in to non-numeric Health Unspecified results) System specimen Basophils/100 0.1 % Normal (applies Basophil % [facility] leukocytes in to non-numeric Health Unspecified results) System specimen by Manual count Lymphocytes 17.3 % Below low normal Lymphocyte % [facility] [#/volume] in Health Blood by System Automated count ID Date Data Source [id number] 12/19/2013 07:45:00 AM EST [facility] Name Value Range Interpretation Description Data Sup porting Code Source(s) Document(s ) Leukocytes 6.8 Normal (applies WBC Count [facility] [#/volume] in {10^3_uL to non-numeric Health Unspecified } results) System specimen by Automated count Erythrocytes 3.97 Below low normal RBC Count [facility] [#/volume] in {10^6_uL Health Blood by } System Automated count Hemoglobin 10.4 Below low normal Hemoglobin, [facility] [Mass/volume] in {gm/dL} Whole Blood Health Blood System Hematocrit 32.8 % Below low normal Hematocrit, [facility] [Volume Whole Blood Health Fraction] of System Blood Erythrocyte mean 82.6 fl Below low normal MCV [facility] volume [Ent[facility] System volume] by Automated count Erythrocyte mean 26.2 pg Normal (applies [facility] corpuscular to non-numeric Health hemoglobin results) System [Entitic mass] by Automated count Erythrocyte mean 31.7 Below low normal [facility] [place] corpuscular {gm/dL} Health hemoglobin System concentration [Mass/volume] by Automated count Erythrocyte 17.7 % Above high normal RDW [facility] distribution Health width [Entitic System volume] by Automated count Platelets 192 Normal (applies Platelet [facility] [#/volume] in {10^3_uL to non-numeric Count Health Plasma by } results) System Automated count Platelet mean 9.3 fl Normal (applies MPV [facility] volume [Entitic to non-numeric Health volume] in Blood results) System by Automated count Monocytes 0.5 Normal (applies Monocyte [facility] [#/volume] in {10^3_uL to non-numeric Count Health Blood by Manual } results) System count Eosinophils 0.1 Normal (applies Eosinophil [facility] [#/volume] in {10^3_uL to non-numeric Count Blood Health Blood } results) System Neutrophils 4.6 Normal (applies Absolute [facility] [#/volume] in {10^3_uL to non-numeric Neutrophil Health Body fluid } results) Count System Basophils 0.0 Normal (applies Basophil [facility] [#/volume] in {10^3_uL to non-numeric Count Health Blood by } results) System Automated count Lymphocyte 1.6 Normal (applies Lymphocyte [facility] percent {10^3_uL to non-numeric Absolute Health differential } results) System count (procedure) Neutrophils/100 67.8 % Normal (applies Neutrophil % [place] leukocytes in to non-numeric Health Blood by results) System Automated count Monocytes/100 7.4 % Normal (applies Monocyte % [facility] [facility] leukocytes in to non-numeric Health Blood results) System Eosinophils/100 1.5 % Normal (applies Eosinophil % [place] leukocytes in to non-numeric Health Unspecified results) System specimen Basophils/100 0.1 % Normal (applies Basophil % [facility] leukocytes in to non-numeric Health Unspecified results) System specimen by Manual count Lymphocytes 23.2 % Normal (applies Lymphocyte % [facility] [#/volume] in to non-numeric Health Blood by results) System Automated count ID Date Data Source [id number] 12/27/2013 09:50:00 AM EST [facility] Name Value Range Interpretation Description Data Sup porting Code Source(s) Document(s ) Anti-IgG Negative Normal (applies Anti-IgG [facility] to non-numeric Health System results) DirectAn Cancelled Direct [facility] tiglobul n/a Antiglobulin Health System inTest. Test. ID Date Data Source [id number] 12/27/2013 09:50:00 AM EST [facility] Name Value Range Interpretation Description Data Sup porting Code Source(s) Document(s ) Type A Normal (applies Type [facility] to non-numeric Health results) System D Ab [Titer] in Rh Normal (applies Rh [facility] Serum or Plasma Positive to non-numeric Health results) System AntibodyScreen Negative Normal (applies Antibody [facility] to non-numeric Screen Health results) System ID Date Data Source [id number] 12/27/2013 09:50:00 AM EST [facility] Name Value Range Interpretation Description Data Sup porting Code Source(s) Document(s ) Blood,Oc POSITIVE FOR Normal (applies to Blood, Occult [facility] cultFece LEUKOCY non-numeric Feces Health System s results) ID Date Data Source [id number] 12/27/2013 09:50:00 AM EST [facility] Name Value Range Interpretation Description Data Sup porting Code Source(s) Document(s ) Prothrombintim 11.30 Normal (applies Prothrombin [facility](PT) {seconds to non-numeric time (PT) Health System } results) INR in Blood 1.09 Normal (applies INR Result [facility] by Coagulation {Ratio} to non-numeric Health Sys tem assay results) Normal = 0.7-1.1Therapeutic = 2.0-3.0Mec hanical Heart = 3.0-4.5 ID Date Data Source [id number] 12/27/2013 09:50:00 AM EST [facility] Name Value Range Interpretation Description Data Sup porting Code Source(s) Document(s ) Leukocytes 6.1 Normal (applies WBC Count [facility] [#/volume] in {10^3_uL to non-numeric Health Unspecified } results) System specimen by Automated count Erythrocytes 3.75 Below low normal RBC Count [facility] [#/volume] in {10^6_uL Health Blood by } System Automated count Hemoglobin 9.7 Below low normal Hemoglobin, [facility] [Mass/volume] in {gm/dL} Whole Blood Health Blood System Hematocrit 31.1 % Below low normal Hematocrit, [facility] [Volume Whole Blood Health Fraction] of System Blood Erythrocyte mean 82.9 fl Below low normal [facility] corpuscular Health volume [Entitic System volume] by Automated count Erythrocyte mean 25.9 pg Below low normal [facility] [place] corpuscular Health hemoglobin System [Entitic mass] by Automated count Erythrocyte mean 31.2 Below low normal [facility] [place] corpuscular {gm/dL} Health hemoglobin System concentration [Mass/volume] by Automated count Erythrocyte 17.9 % Above high normal RDW [facility] distribution Health width [Entitic System volume] by Automated count Platelets 219 Normal (applies Platelet [facility] [#/volume] in {10^3_uL to non-numeric Count Health Plasma by } results) System Automated count Platelet mean 9.4 fl Normal (applies MPV [facility] volume [Entitic to non-numeric Health volume] in Blood results) System by Automated count ID Date Data Source [id number] 12/27/2013 09:50:00 AM EST [facility] Name Value Range Interpretation Description Data Sup porting Code Source(s) Document(s ) Sodium 139 Normal (applies Sodium, Serum [facility] [Moles/volume mmol/L to non-numeric Health Syst em ] in Serum or results) Plasma Potassium 5.6 Above high normal Potassium, [facility] [Mass/volume] mmol/L Serum Health System in Serum or Plasma HEMOLYSIS Chloride 106 mmol/L Normal (applies Chloride, Serum [facility] [Moles/volume] in to non-numeric Health System Serum or Plasma results) Carbon dioxide, total 22.0 mmol/L Normal (applies CO2, Serum [facility] [Moles/volume] in to non-numeric Health System Serum or Plasma results) TotalProtein 7.0 mg/dl Normal (applies Total Protein [facility] to non-numeric Health System results) Glucose [Mass/volume] 105 mg/dL Normal (applies Glucose, Ser um [facility] in Serum or Plasma to non-numeric Health System results) Urea nitrogen 16 mg/dl Normal (applies Blood Urea [facility] [Mass/volume] in Serum to non-numeric Nitrogen, Se rum Health System or Plasma results) Creatinine 1.00 mg/dl Normal (applies Creatinine, [facility] [Mass/volume] in Serum to non-numeric Serum He alth System or Plasma results) Alkaline phosphatase 26 {IU/L} Below low normal Alkaline [facility] isoenzymes [Enzymatic Phosphatase, [facility] h System activity/volume] in Serum Serum or Plasma by Heat stability Bilirubin.total 0.3 mg/dl Normal (applies Bilirubin, [facility] [Mass/volume] in Serum to non-numeric Serum Total Health System or Plasma results) Aspartate 38 {IU/L} Normal (applies Aspartate [facility] aminotransferase to non-numeric Transaminase, [facility] System [Enzymatic results) Serum activity/volume] in Serum or Plasma by With P-5'-P Albumin [Mass/volume] 3.8 {gm/dl} Below low normal Albumin, Serum [facility] in Serum or Plasma Health Syst em I.Phosphorus 3.6 mg/dl Normal (applies I. Phosphorus [facility] to non-numeric Health System results) Alanine 18 {IU/L} Normal (applies Alanine [facility] aminotransferase to non-numeric Aminotransferas alth System [Enzymatic results) e, Serum activity/volume] in Serum or Plasma Calcium [Mass/volume] 8.6 mg/dl Normal (applies Calcium, Tot al [facility] in Serum or Plasma to non-numeric Serum Health System results) A/GRatio 1.19 Normal (applies A/G Ratio [facility] to non-numeric Health System results) Urate [Mass/volume] in 6.5 mg/dl Normal (applies Uric Acid, [facility] Serum or Plasma to non-numeric Serum Health Sy stem results) Anion gap in Serum or 11.00 mmol/L Normal (applies Anion Gap [facility] Plasma to non-numeric Health System results) Glomerular filtration 74.00 Normal (applies GFR [facility] rate/1.73 sq to non-numeric Health Syste m M.predicted [Volume results) Rate/Area] in Serum or Plasma by Creatinine-based formula (CKD-EPI) eGFR will provide clinicians with a more accurate indicator of renal function then the serum creatinine. The eGFR is automa tically calculated from an empiric formula (endorsed by the [employer] ion) which incorporates age, sex, and race.Clinicians may notice surprisingly low GFR's with serum creatinine valueswithin normal range- particularly in elderly wo men (with low muscle mass).In the hospital setting, the eGFR should add an element of safety in drug dosing, in assessing the risk of IV contrast administration, and in assessing vascular risk.The NKF staging system is as follows:Normal: eGFR >90 with no kidney markersStage 1: eGFR >90 with kidney markers*Stage 2: eGFR 60- 89Stage 3: eGFR 30-59Stage 4: eGFR 15-29Stage 5: eGFR <15 (usually requir ing dialysis)*Markers include: Proteinuria, Hematuria, abnormal imaging-studies, or other blood or urine test abnormalities ID Date Data Source [id number] 12/28/2013 06:31:00 AM EST [facility] Name Value Range Interpretation Description Data Sup porting Code Source(s) Document(s ) Leukocytes 7.2 Normal (applies WBC Count [facility] [#/volume] in {10^3_uL to non-numeric Health Unspecified } results) System specimen by Automated count Erythrocytes 4.33 Below low normal RBC Count [facility] [#/volume] in {10^6_uL Health Blood by } System Automated count Hemoglobin 11.4 Below low normal Hemoglobin, [facility] [Mass/volume] in {gm/dL} Whole Blood Health Blood System Hematocrit 35.8 % Below low normal Hematocrit, [facility] [Volume Whole Blood Health Fraction] of System Blood Erythrocyte mean 82.7 fl Below low normal M[facility] corpuscular Health volume [Entitic System volume] by Automated count Erythrocyte mean 26.3 pg Normal (applies [facility] [place] corpuscular to non-numeric Health hemoglobin results) System [Entitic mass] by Automated count Erythrocyte mean 31.8 Below low normal [facility] [place] corpuscular {gm/dL} Health hemoglobin System concentration [Mass/volume] by Automated count Erythrocyte 17.4 % Above high normal RDW [facility] distribution Health width [Entitic System volume] by Automated count Platelets 209 Normal (applies Platelet [facility] [#/volume] in {10^3_uL to non-numeric Count Health Plasma by } results) System Automated count Platelet mean 9.1 fl Normal (applies MPV [facility] volume [Entitic to non-numeric Health volume] in Blood results) System by Automated count Monocytes 0.7 Normal (applies Monocyte [facility] [#/volume] in {10^3_uL to non-numeric Count Health Blood by Manual } results) System count Eosinophils 0.1 Normal (applies Eosinophil [facility] [#/volume] in {10^3_uL to non-numeric Count Blood Health Blood } results) System Neutrophils 4.8 Normal (applies Absolute [facility] [#/volume] in {10^3_uL to non-numeric Neutrophil Health Body fluid } results) Count System Basophils 0.0 Normal (applies Basophil [facility] [#/volume] in {10^3_uL to non-numeric Count Health Blood by } results) System Automated count Lymphocyte 1.6 Normal (applies Lymphocyte [facility] percent {10^3_uL to non-numeric Absolute Health differential } results) System count (procedure) Neutrophils/100 66.2 % Normal (applies Neutrophil % [place] leukocytes in to non-numeric Health Blood by results) System Automated count Monocytes/100 10.2 % Above high normal Monocyte % [facility] leukocytes in Health Blood System Eosinophils/100 1.9 % Normal (applies Eosinophil % [place] leukocytes in to non-numeric Health Unspecified results) System specimen Basophils/100 0.3 % Normal (applies Basophil % [facility] [facility] leukocytes in to non-numeric Health Unspecified results) System specimen by Manual count Lymphocytes 21.4 % Normal (applies Lymphocyte % [facility] [facility] [#/volume] in to non-numeric Health Blood by results) System Automated count ID Date Data Source [id number] 12/28/2013 06:31:00 AM EST [facility] Name Value Range Interpretation Description Data Sup porting Code Source(s) Document(s ) Sodium 139 Normal (applies Sodium, Serum [facility] [Moles/volume mmol/L to non-numeric Health Syst em ] in Serum or results) Plasma Potassium 3.9 Normal (applies Potassium, [facility] [Mass/volume] mmol/L to non-numeric Serum Health Syst em in Serum or results) Plasma [place] Chloride 104 mmol/L Normal (applies Chloride, Serum [facility] [Moles/volume] in to non-numeric Health System Serum or Plasma results) Carbon dioxide, total 26.0 mmol/L Normal (applies CO2, Serum [facility] [Moles/volume] in to non-numeric Health System Serum or Plasma results) [place] Glucose 106 mg/dL Normal (applies to Glucose, Serum [facility] [Mass/volume] in non-numeric Health Syst em Serum or Plasma results) Urea nitrogen 14 mg/dl Normal (applies to Blood Urea [facility] [Mass/volume] in non-numeric Nitrogen, Serum Healt h System Serum or Plasma results) Creatinine 1.10 mg/dl Normal (applies to Creatinine, [facility] [Mass/volume] in non-numeric Serum Health Syst em Serum or Plasma results) Calcium 8.9 mg/dl Normal (applies to Calcium, Total [facility] [Mass/volume] in non-numeric Serum Health Syst em Serum or Plasma results) Anion gap in Serum 9.00 mmol/L Normal (applies to Anion Gap [facility] or Plasma non-numeric Health System results) ID Date Data Source [id number] 01/09/2014 08:30:00 AM EST [facility] Name Value Range Interpretation Description Data Sup porting Code Source(s) Document(s ) Leukocytes 5.2 Normal (applies WBC Count [facility] [#/volume] in {10^3_uL to non-numeric Health Unspecified } results) System specimen by Automated count Erythrocytes 4.31 Below low normal RBC Count [facility] [#/volume] in {10^6_uL Health Blood by } System Automated count Hemoglobin 11.3 Below low normal Hemoglobin, [facility] [Mass/volume] in {gm/dL} Whole Blood Health Blood System Hematocrit 35.4 % Below low normal Hematocrit, [facility] [Volume Whole Blood Health Fraction] of System Blood Erythrocyte mean 82.1 fl Below low normal M[facility] corpuscular Health volume [Entitic System volume] by Automated count Erythrocyte mean 26.2 pg Normal (applies [facility] [facility] corpuscular to non-numeric Health hemoglobin results) System [Entitic mass] by Automated count Erythrocyte mean 31.9 Below low normal [facility] [place] corpuscular {gm/dL} Health hemoglobin System concentration [Mass/volume] by Automated count Erythrocyte 16.3 % Above high normal RDW [facility] distribution Health width [Entitic System volume] by Automated count Platelets 202 Normal (applies Platelet [facility] [#/volume] in {10^3_uL to non-numeric Count Health Plasma by } results) System Automated count Platelet mean 9.2 fl Normal (applies MPV [facility] volume [Entitic to non-numeric Health volume] in Blood results) System by Automated count Monocytes 0.4 Normal (applies Monocyte [facility] [#/volume] in {10^3_uL to non-numeric Count Health Blood by Manual } results) System count Eosinophils 0.1 Normal (applies Eosinophil [facility] [#/volume] in {10^3_uL to non-numeric Count Blood Health Blood } results) System Basophils 0.0 Normal (applies Basophil [facility] [#/volume] in {10^3_uL to non-numeric Count Health Blood by } results) System Automated count Neutrophils 3.7 Normal (applies Absolute [facility] [#/volume] in {10^3_uL to non-numeric Neutrophil Health Body fluid } results) Count System Lymphocyte 1.1 Normal (applies Lymphocyte [facility] percent {10^3_uL to non-numeric Absolute Health differential } results) System count (procedure) Neutrophils/100 71.4 % Normal (applies Neutrophil % [place] leukocytes in to non-numeric Health Blood by results) System Automated count Monocytes/100 6.7 % Normal (applies Monocyte % [facility] [facility] leukocytes in to non-numeric Health Blood results) System Eosinophils/100 1.3 % Normal (applies Eosinophil % [place] leukocytes in to non-numeric Health Unspecified results) System specimen Basophils/100 0.2 % Normal (applies Basophil % [facility] [facility] leukocytes in to non-numeric Health Unspecified results) System specimen by Manual count Lymphocytes 20.4 % Below low normal Lymphocyte % [facility] [#/volume] in Health Blood by System Automated count ID Date Data Source [id number] 01/23/2014 07:58:00 AM EST [facility] Name Value Range Interpretation Description Data Sup porting Code Source(s) Document(s ) Leukocytes 7.1 Normal (applies WBC Count [facility] [#/volume] in {10^3_uL to non-numeric Health Unspecified } results) System specimen by Automated count Erythrocytes 4.78 Normal (applies RBC Count [facility] [#/volume] in {10^6_uL to non-numeric Health Blood by } results) System Automated count Hemoglobin 12.2 Below low normal Hemoglobin, [facility] [Mass/volume] in {gm/dL} Whole Blood Health Blood System Hematocrit 39.2 % Below low normal Hematocrit, [facility] [Volume Whole Blood Health Fraction] of System Blood Erythrocyte mean 82.0 fl Below low normal M[facility] corpuscular Health volume [Entitic System volume] by Automated count Erythrocyte mean 25.5 pg Below low normal [facility] [place] corpuscular Health hemoglobin System [Entitic mass] by Automated count Erythrocyte mean 31.1 Below low normal [facility] [place] corpuscular {gm/dL} Health hemoglobin System concentration [Mass/volume] by Automated count Erythrocyte 16.2 % Above high normal RDW [facility] distribution Health width [Entitic System volume] by Automated count Platelets 224 Normal (applies Platelet [facility] [#/volume] in {10^3_uL to non-numeric Count Health Plasma by } results) System Automated count Platelet mean 9.4 fl Normal (applies MPV [facility] volume [Entitic to non-numeric Health volume] in Blood results) System by Automated count Monocytes 0.7 Normal (applies Monocyte [facility] [#/volume] in {10^3_uL to non-numeric Count Health Blood by Manual } results) System count Eosinophils 0.1 Normal (applies Eosinophil [facility] [#/volume] in {10^3_uL to non-numeric Count Blood Health Blood } results) System Neutrophils 4.8 Normal (applies Absolute [facility] [#/volume] in {10^3_uL to non-numeric Neutrophil Health Body fluid } results) Count System Basophils 0.0 Normal (applies Basophil [facility] [#/volume] in {10^3_uL to non-numeric Count Health Blood by } results) System Automated count Lymphocyte 1.6 Normal (applies Lymphocyte [facility] percent {10^3_uL to non-numeric Absolute Health differential } results) System count (procedure) Neutrophils/100 66.9 % Normal (applies Neutrophil % [place] leukocytes in to non-numeric Health Blood by results) System Automated count Monocytes/100 9.7 % Above high normal Monocyte % [facility] [place] leukocytes in Health Blood System Eosinophils/100 1.1 % Normal (applies Eosinophil % [place] leukocytes in to non-numeric Health Unspecified results) System specimen Basophils/100 0.1 % Normal (applies Basophil % [facility] leukocytes in to non-numeric Health Unspecified results) System specimen by Manual count Lymphocytes 22.2 % Normal (applies Lymphocyte % [facility] [#/volume] in to non-numeric Health Blood by results) System Automated count ID Date Data Source [id number] 02/02/2014 12:40:00 PM EDT [facility] Name Value Range Interpretation Description Data Sup porting Code Source(s) Document(s ) Leukocytes 8.0 Normal (applies WBC Count [facility] [#/volume] in {10^3_uL to non-numeric Health Unspecified } results) System specimen by Automated count Erythrocytes 4.81 Normal (applies RBC Count [facility] [#/volume] in {10^6_uL to non-numeric Health Blood by } results) System Automated count Hemoglobin 12.3 Below low normal Hemoglobin, [facility] [Mass/volume] in {gm/dL} Whole Blood Health Blood System Hematocrit 39.2 % Below low normal Hematocrit, [facility] [Volume Whole Blood Health Fraction] of System Blood Erythrocyte mean 81.5 fl Below low normal M[facility] [place] corpuscular Health volume [Entitic System volume] by Automated count Erythrocyte mean 25.6 pg Below low normal [facility] [place] corpuscular Health hemoglobin System [Entitic mass] by Automated count Erythrocyte mean 31.4 Below low normal [facility] [place] corpuscular {gm/dL} Health hemoglobin System concentration [Mass/volume] by Automated count Erythrocyte 15.9 % Above high normal RDW [facility] distribution Health width [Entitic System volume] by Automated count Platelets 214 Normal (applies Platelet [facility] [#/volume] in {10^3_uL to non-numeric Count Health Plasma by } results) System Automated count Platelet mean 9.0 fl Normal (applies MPV [facility] volume [Entitic to non-numeric Health volume] in Blood results) System by Automated count Monocytes 0.8 Normal (applies Monocyte [facility] [#/volume] in {10^3_uL to non-numeric Count Health Blood by Manual } results) System count Eosinophils 0.1 Normal (applies Eosinophil [facility] [#/volume] in {10^3_uL to non-numeric Count Blood Health Blood } results) System Basophils 0.0 Normal (applies Basophil [facility] [#/volume] in {10^3_uL to non-numeric Count Health Blood by } results) System Automated count Neutrophils 5.2 Normal (applies Absolute [facility] [#/volume] in {10^3_uL to non-numeric Neutrophil Health Body fluid } results) Count System Lymphocyte 1.9 Normal (applies Lymphocyte [facility] percent {10^3_uL to non-numeric Absolute Health differential } results) System count (procedure) Neutrophils/100 65.0 % Normal (applies Neutrophil % [place] leukocytes in to non-numeric Health Blood by results) System Automated count Monocytes/100 9.9 % Above high normal Monocyte % [facility] leukocytes in Health Blood System Eosinophils/100 1.5 % Normal (applies Eosinophil % [place] leukocytes in to non-numeric Health Unspecified results) System specimen Basophils/100 0.1 % Normal (applies Basophil % [facility] leukocytes in to non-numeric Health Unspecified results) System specimen by Manual count Lymphocytes 23.5 % Normal (applies Lymphocyte % [facility] [#/volume] in to non-numeric Health Blood by results) System Automated count ID Date Data Source [id number] 02/13/2014 08:02:00 AM EDJoshua [facility] System Name Value Range Interpretation Description Data Sup porting Code Source(s) Document(s ) Leukocytes 6.3 Normal (applies WBC Count [facility] [#/volume] in {10^3_uL to non-numeric Health Unspecified } results) System specimen by Automated count Erythrocytes 4.94 Normal (applies RBC Count [facility] [#/volume] in {10^6_uL to non-numeric Health Blood by } results) System Automated count Hemoglobin 12.5 Below low normal Hemoglobin, [facility] [Mass/volume] in {gm/dL} Whole Blood Health Blood System Hematocrit 40.3 % Below low normal Hematocrit, [facility] [Volume Whole Blood Health Fraction] of System Blood Erythrocyte mean 81.6 fl Below low normal M[facility] corpuscular Health volume [Entitic System volume] by Automated count Erythrocyte mean 25.3 pg Below low normal [facility] corpuscular Health hemoglobin System [Entitic mass] by Automated count Erythrocyte mean 31.0 Below low normal [facility] corpuscular {gm/dL} Health hemoglobin System concentration [Mass/volume] by Automated count Erythrocyte 15.9 % Above high normal RDW [facility] distribution Health width [Entitic System volume] by Automated count Platelets 208 Normal (applies Platelet [facility] [#/volume] in {10^3_uL to non-numeric Count Health Plasma by } results) System Automated count Platelet mean 9.4 fl Normal (applies MPV [facility] volume [Entitic to non-numeric Health volume] in Blood results) System by Automated count Monocytes 0.5 Normal (applies Monocyte [facility] [#/volume] in {10^3_uL to non-numeric Count Health Blood by Manual } results) System count Eosinophils 0.1 Normal (applies Eosinophil [facility] [#/volume] in {10^3_uL to non-numeric Count Blood Health Blood } results) System Neutrophils 4.3 Normal (applies Absolute [facility] [#/volume] in {10^3_uL to non-numeric Neutrophil Health Body fluid } results) Count System Basophils 0.0 Normal (applies Basophil [facility] [#/volume] in {10^3_uL to non-numeric Count Health Blood by } results) System Automated count Lymphocyte 1.4 Normal (applies Lymphocyte [facility] percent {10^3_uL to non-numeric Absolute Health differential } results) System count (procedure) Neutrophils/100 68.3 % Normal (applies Neutrophil % [place] leukocytes in to non-numeric Health Blood by results) System Automated count Monocytes/100 7.7 % Normal (applies Monocyte % [place] [facility] leukocytes in to non-numeric Health Blood results) System Eosinophils/100 1.4 % Normal (applies Eosinophil % [place] leukocytes in to non-numeric Health Unspecified results) System specimen Basophils/100 0.2 % Normal (applies Basophil % [place] [facility] leukocytes in to non-numeric Health Unspecified results) System specimen by Manual count Lymphocytes 22.4 % Normal (applies Lymphocyte % [place] [facility] [#/volume] in to non-numeric Health Blood by results) System Automated count ID Date Data Source [id number] 02/13/2014 11:30:00 AM EDT [facility] Name Value Range Interpretation Description Data Sup porting Code Source(s) Document(s ) Clostridium Negative- No Normal (applies Clostridium [facility] difficile toxigenic C. to non-numeric [facility] toxin A+B difficle results) lecular System [Presence] in detected. Assay Stool by Method:Loop-Med Cytotoxin iated tissue Amplification culture assay (LAMP) ID Date Data Source [id number] 02/13/2014 11:30:00 AM EDT [facility] Name Value Range Interpretation Description Data Sup porting Code Source(s) Document(s ) Leukocytes NEGATIVE FOR Normal (applies Leukocytes, [facility] [#/volume] in LEUKOCYTES to non-numeric Stool Health Stool results) System ID Date Data Source [id number] 02/27/2014 08:15:00 AM EDT [facility] Name Value Range Interpretation Description Data Sup porting Code Source(s) Document(s ) Leukocytes 6.2 Normal (applies WBC Count [facility] [#/volume] in {10^3_uL to non-numeric Health Unspecified } results) System specimen by Automated count Erythrocytes 5.08 Normal (applies RBC Count [facility] [#/volume] in {10^6_uL to non-numeric Health Blood by } results) System Automated count Hemoglobin 12.7 Below low normal Hemoglobin, [facility] [Mass/volume] in {gm/dL} Whole Blood Health Blood System Hematocrit 41.2 % Normal (applies Hematocrit, [facility] [Volume to non-numeric Whole Blood Health Fraction] of results) System Blood Erythrocyte mean 81.1 fl Below low normal MCV [facility] corpuscular Health volume [Entitic System volume] by Automated count Erythrocyte mean 25.0 pg Below low normal MCH [facility] corpuscular Health hemoglobin System [Entitic mass] by Automated count Erythrocyte mean 30.8 Below low normal [facility] corpuscular {gm/dL} Health hemoglobin System concentration [Mass/volume] by Automated count Erythrocyte 15.6 % Above high normal RDW [facility] distribution Health width [Entitic System volume] by Automated count Platelets 189 Normal (applies Platelet [facility] [#/volume] in {10^3_uL to non-numeric Count Health Plasma by } results) System Automated count Platelet mean 9.0 fl Normal (applies MPV [facility] volume [Entitic to non-numeric Health volume] in Blood results) System by Automated count Monocytes 0.6 Normal (applies Monocyte [facility] [#/volume] in {10^3_uL to non-numeric Count Health Blood by Manual } results) System count Eosinophils 0.1 Normal (applies Eosinophil [facility] [#/volume] in {10^3_uL to non-numeric Count Blood Health Blood } results) System Neutrophils 4.0 Normal (applies Absolute [facility] [#/volume] in {10^3_uL to non-numeric Neutrophil Health Body fluid } results) Count System Basophils 0.0 Normal (applies Basophil [facility] [#/volume] in {10^3_uL to non-numeric Count Health Blood by } results) System Automated count Lymphocyte 1.5 Normal (applies Lymphocyte [facility] percent {10^3_uL to non-numeric Absolute [facility] differential } results) System count (procedure) Neutrophils/100 65.3 % Normal (applies Neutrophil % [place] leukocytes in to non-numeric Health Blood by results) System Automated count Monocytes/100 9.7 % Above high normal Monocyte % [facility] leukocytes in Health Blood System Eosinophils/100 1.1 % Normal (applies Eosinophil % [place] leukocytes in to non-numeric Health Unspecified results) System specimen Basophils/100 0.2 % Normal (applies Basophil % [place] [facility] leukocytes in to non-numeric Health Unspecified results) System specimen by Manual count Lymphocytes 23.7 % Normal (applies Lymphocyte % [facility] [#/volume] in to non-numeric Health Blood by results) System Automated count ID Date Data Source [id number] 03/13/2014 08:10:00 AM EDT [facility] Name Value Range Interpretation Description Data Sup porting Code Source(s) Document(s ) Leukocytes 7.1 Normal (applies WBC Count [facility] [#/volume] in {10^3_uL to non-numeric Health Unspecified } results) System specimen by Automated count Erythrocytes 5.22 Normal (applies RBC Count [facility] [#/volume] in {10^6_uL to non-numeric Health Blood by } results) System Automated count Hemoglobin 13.2 Below low normal Hemoglobin, [facility] [Mass/volume] in {gm/dL} Whole Blood Health Blood System Hematocrit 41.7 % Normal (applies Hematocrit, [facility] [Volume to non-numeric Whole Blood Health Fraction] of results) System Blood Erythrocyte mean 79.9 fl Below low normal MCV [facility] corpuscular Health volume [Entitic System volume] by Automated count Erythrocyte mean 25.3 pg Below low normal MCH [facility] corpuscular Health hemoglobin System [Entitic mass] by Automated count Erythrocyte mean 31.7 Below low normal [facility] corpuscular {gm/dL} Health hemoglobin System concentration [Mass/volume] by Automated count Erythrocyte 15.9 % Above high normal RDW [facility] distribution Health width [Entitic System volume] by Automated count Platelets 182 Normal (applies Platelet [facility] [#/volume] in {10^3_uL to non-numeric Count Health Plasma by } results) System Automated count Platelet mean 9.3 fl Normal (applies MPV [facility] volume [Entitic to non-numeric Health volume] in Blood results) System by Automated count Monocytes 0.5 Normal (applies Monocyte [facility] [#/volume] in {10^3_uL to non-numeric Count Health Blood by Manual } results) System count Eosinophils 0.1 Normal (applies Eosinophil [facility] [#/volume] in {10^3_uL to non-numeric Count Blood Health Blood } results) System Basophils 0.0 Normal (applies Basophil [facility] [#/volume] in {10^3_uL to non-numeric Count Health Blood by } results) System Automated count Neutrophils 4.7 Normal (applies Absolute [facility] [#/volume] in {10^3_uL to non-numeric Neutrophil Health Body fluid } results) Count System Lymphocyte 1.8 Normal (applies Lymphocyte [facility] percent {10^3_uL to non-numeric [facility] differential } results) System count (procedure) Neutrophils/100 66.5 % Normal (applies Neutrophil % [place] leukocytes in to non-numeric Health Blood by results) System Automated count Monocytes/100 7.3 % Normal (applies Monocyte % [place] [facility] leukocytes in to non-numeric Health Blood results) System Eosinophils/100 0.8 % Below low normal Eosinophil % [place] [facility] leukocytes in [facility] Unspecified System specimen Basophils/100 0.1 % Normal (applies Basophil % [place] [facility] leukocytes in to non-numeric Health Unspecified results) System specimen by Manual count Lymphocytes 25.3 % Normal (applies Lymphocyte % [facility] [#/volume] in to non-numeric Health Blood by results) System Automated count ID Date Data Source [id number] 03/23/2014 09:05:00 AM EDT [facility] Name Value Range Interpretation Description Data Sup porting Code Source(s) Document(s ) Leukocytes 6.6 Normal (applies WBC Count [facility] [#/volume] in {10^3_uL to non-numeric Health Unspecified } results) System specimen by Automated count Erythrocytes 5.12 Normal (applies RBC Count [facility] [#/volume] in {10^6_uL to non-numeric Health Blood by } results) System Automated count Hemoglobin 12.9 Below low normal Hemoglobin, [facility] [Mass/volume] in {gm/dL} Whole Blood Health Blood System Hematocrit 40.7 % Below low normal Hematocrit, [facility] [Volume Whole Blood Health Fraction] of System Blood Erythrocyte mean 79.5 fl Below low normal MCV [facility] corpuscular Health volume [Entitic System volume] by Automated count Erythrocyte mean 25.2 pg Below low normal MCH [facility] corpuscular [facility] hemoglobin System [Entitic mass] by Automated count Erythrocyte mean 31.7 Below low normal [facility] corpuscular {gm/dL} Health hemoglobin System concentration [Mass/volume] by Automated count Erythrocyte 16.2 % Above high normal RDW [facility] distribution Health width [Entitic System volume] by Automated count Platelets 168 Normal (applies Platelet [facility] [#/volume] in {10^3_uL to non-numeric Count Health Plasma by } results) System Automated count Platelet mean 9.1 fl Normal (applies MPV [facility] volume [Entitic to non-numeric Health volume] in Blood results) System by Automated count Monocytes 0.6 Normal (applies Monocyte [facility] [#/volume] in {10^3_uL to non-numeric Count Health Blood by Manual } results) System count Eosinophils 0.1 Normal (applies Eosinophil [facility] [#/volume] in {10^3_uL to non-numeric Count Blood Health Blood } results) System Basophils 0.0 Normal (applies Basophil [facility] [#/volume] in {10^3_uL to non-numeric Count Health Blood by } results) System Automated count Neutrophils 4.3 Normal (applies Absolute [facility] [#/volume] in {10^3_uL to non-numeric Neutrophil Health Body fluid } results) Count System Lymphocyte 1.6 Normal (applies Lymphocyte [facility] percent {10^3_uL to non-numeric Absolute [facility] differential } results) System count (procedure) Neutrophils/100 65.7 % Normal (applies Neutrophil % [place] leukocytes in to non-numeric Health Blood by results) System Automated count Monocytes/100 9.5 % Above high normal Monocyte % [facility] leukocytes in Health Blood System Eosinophils/100 0.8 % Below low normal Eosinophil % [place] [facility] leukocytes in [facility] Unspecified System specimen Basophils/100 0.2 % Normal (applies Basophil % [facility] [facility] leukocytes in to non-numeric Health Unspecified results) System specimen by Manual count Lymphocytes 23.8 % Normal (applies Lymphocyte % [facility] [#/volume] in to non-numeric Health Blood by results) System Automated count ID Date Data Source [id number] 04/10/2014 08:05:00 AM EDT [facility] Name Value Range Interpretation Description Data Sup porting Code Source(s) Document(s ) Leukocytes 7.2 Normal (applies WBC Count [facility] [#/volume] in {10^3_uL to non-numeric Health Unspecified } results) System specimen by Automated count Erythrocytes 5.57 Normal (applies RBC Count [facility] [#/volume] in {10^6_uL to non-numeric Health Blood by } results) System Automated count Hemoglobin 13.8 Below low normal Hemoglobin, [facility] [Mass/volume] in {gm/dL} Whole Blood Health Blood System Hematocrit 44.2 % Normal (applies Hematocrit, [facility] [Volume to non-numeric Whole Blood Health Fraction] of results) System Blood Erythrocyte mean 79.4 fl Below low normal MCV [facility] corpuscular Health volume [Entitic System volume] by Automated count Erythrocyte mean 24.8 pg Below low normal MCH [facility] corpuscular [facility] hemoglobin System [Entitic mass] by Automated count Erythrocyte mean 31.2 Below low normal [facility] corpuscular {gm/dL} Health hemoglobin System concentration [Mass/volume] by Automated count Erythrocyte 17.2 % Above high normal RDW [facility] distribution Health width [Entitic System volume] by Automated count Platelets 184 Normal (applies Platelet [facility] [#/volume] in {10^3_uL to non-numeric Count Health Plasma by } results) System Automated count Platelet mean 9.5 fl Normal (applies MPV [facility] volume [Entitic to non-numeric Health volume] in Blood results) System by Automated count Monocytes 0.7 Normal (applies Monocyte [facility] [#/volume] in {10^3_uL to non-numeric Count Health Blood by Manual } results) System count Eosinophils 0.1 Normal (applies Eosinophil [facility] [#/volume] in {10^3_uL to non-numeric Count Blood Health Blood } results) System Neutrophils 5.0 Normal (applies Absolute [facility] [#/volume] in {10^3_uL to non-numeric Neutrophil Health Body fluid } results) Count System Basophils 0.0 Normal (applies Basophil [facility] [#/volume] in {10^3_uL to non-numeric Count Health Blood by } results) System Automated count Lymphocyte 1.4 Normal (applies Lymphocyte [facility] percent {10^3_uL to non-numeric Absolute [facility] differential } results) System count (procedure) Neutrophils/100 69.7 % Normal (applies Neutrophil % [place] leukocytes in to non-numeric Health Blood by results) System Automated count Monocytes/100 9.2 % Above high normal Monocyte % [facility] leukocytes in Health Blood System Eosinophils/100 1.1 % Normal (applies Eosinophil % [place] leukocytes in to non-numeric Health Unspecified results) System specimen Basophils/100 0.1 % Normal (applies Basophil % [facility] leukocytes in to non-numeric Health Unspecified results) System specimen by Manual count Lymphocytes 19.9 % Below low normal Lymphocyte % [facility] [#/volume] in Health Blood by System Automated count ID Date Data Source [id number] 04/24/2014 08:24:00 AM EDT [facility] Name Value Range Interpretation Description Data Sup porting Code Source(s) Document(s ) Leukocytes 6.2 10 Normal (applies WBC Count [facility] [#/volume] in to non-numeric Health Unspecified results) System specimen by Automated count Erythrocytes 5.21 10 Normal (applies RBC Count [facility] [#/volume] in to non-numeric Health Blood by results) System Automated count Hemoglobin 13.1 Below low normal Hemoglobin, [facility] [Mass/volume] in {gm/dL} Whole Blood Health Blood System Hematocrit 41.1 % Normal (applies Hematocrit, [facility] [Volume to non-numeric Whole Blood Health Fraction] of results) System Blood Erythrocyte mean 78.9 fl Below low normal MCV [facility] corpuscular Health volume [Entitic System volume] by Automated count Erythrocyte mean 25.1 pg Below low normal MCH [facility] corpuscular Health hemoglobin System [Entitic mass] by Automated count Erythrocyte mean 31.9 Below low normal [facility] corpuscular {gm/dL} Health hemoglobin System concentration [Mass/volume] by Automated count Erythrocyte 17.3 % Above high normal RDW-CV [facility] distribution Health width [Entitic System volume] by Automated count Platelets 165 10 Normal (applies Platelet [facility] [#/volume] in to non-numeric Count Health Plasma by results) System Automated count Platelet mean 9.3 fl Normal (applies MPV [facility] volume [Entitic to non-numeric Health volume] in Blood results) System by Automated count Monocytes 0.6 10 Normal (applies Monocyte [facility] [#/volume] in to non-numeric Count Health Blood by Manual results) System count Eosinophils 0.1 10 Normal (applies Eosinophil [facility] [#/volume] in to non-numeric Count Blood Health Blood results) System Neutrophils 4.4 10 Normal (applies Absolute [facility] [#/volume] in to non-numeric Neutrophil Health Body fluid results) Count System Basophils 0.0 10 Normal (applies Basophil [facility] [#/volume] in to non-numeric Count Health Blood by results) System Automated count Lymphocyte 1.2 10 Normal (applies Lymphocyte [facility] percent to non-numeric Absolute Health differential results) System count (procedure) Neutrophils/100 69.9 % Normal (applies Neutrophil % [place] leukocytes in to non-numeric Health Blood by results) System Automated count Monocytes/100 8.8 % Normal (applies Monocyte % [facility] leukocytes in to non-numeric Health Blood results) System Eosinophils/100 1.3 % Normal (applies Eosinophil % [place] leukocytes in to non-numeric Health Unspecified results) System specimen Basophils/100 0.2 % Normal (applies Basophil % [facility] leukocytes in to non-numeric Health Unspecified results) System specimen by Manual count Lymphocytes 19.8 % Below low normal Lymphocyte % [facility] [#/volume] in Health Blood by System Automated count ID Date Data Source [id number] 05/20/2014 06:00:00 AM EDT [facility] Name Value Range Interpretation Description Data Sup porting Code Source(s) Document(s ) Leukocytes 6.9 10 Normal (applies WBC Count [facility] [#/volume] in to non-numeric Health Unspecified results) System specimen by Automated count Erythrocytes 5.14 10 Normal (applies RBC Count [facility] [#/volume] in to non-numeric Health Blood by results) System Automated count Hemoglobin 13.3 Below low normal Hemoglobin, [facility] [Mass/volume] in {gm/dL} Whole Blood Health Blood System Hematocrit 41.3 % Normal (applies Hematocrit, [facility] [Volume to non-numeric Whole Blood Health Fraction] of results) System Blood Erythrocyte mean 80.4 fl Below low normal MCV [facility] corpuscular Health volume [Entitic System volume] by Automated count Erythrocyte mean 25.9 pg Below low normal MCH [facility] corpuscular Health hemoglobin System [Entitic mass] by Automated count Erythrocyte mean 32.2 Below low normal [facility] corpuscular {gm/dL} Health hemoglobin System concentration [Mass/volume] by Automated count Erythrocyte 18.1 % Above high normal RDW-CV [facility] distribution Health width [Ent[facility] System volume] by Automated count Platelets 184 10 Normal (applies Platelet [facility] [#/volume] in to non-numeric Count Health Plasma by results) System Automated count Platelet mean 9.4 fl Normal (applies MPV [facility] volume [Entitic to non-numeric Health volume] in Blood results) System by Automated count Monocytes 0.5 10 Normal (applies Monocyte [facility] [#/volume] in to non-numeric Count Health Blood by Manual results) System count Eosinophils 0.1 10 Normal (applies Eosinophil [facility] [#/volume] in to non-numeric Count Blood Health Blood results) System Neutrophils 4.7 10 Normal (applies Absolute [facility] [#/volume] in to non-numeric Neutrophil Health Body fluid results) Count System Basophils 0.0 10 Normal (applies Basophil [facility] [#/volume] in to non-numeric Count Health Blood by results) System Automated count Lymphocyte 1.5 10 Normal (applies Lymphocyte [facility] percent to non-numeric Absolute Health differential results) System count (procedure) Neutrophils/100 69.0 % Normal (applies Neutrophil % [place] leukocytes in to non-numeric Health Blood by results) System Automated count Monocytes/100 7.9 % Normal (applies Monocyte % [facility] leukocytes in to non-numeric Health Blood results) System Eosinophils/100 1.0 % Normal (applies Eosinophil % [place] leukocytes in to non-numeric Health Unspecified results) System specimen Basophils/100 0.1 % Normal (applies Basophil % [facility] leukocytes in to non-numeric Health Unspecified results) System specimen by Manual count Lymphocytes 22.0 % Normal (applies Lymphocyte % [facility] [#/volume] in to non-numeric Health Blood by results) System Automated count ID Date Data Source [id number] 06/12/2014 08:22:00 AM EDT [facility] Name Value Range Interpretation Description Data Sup porting Code Source(s) Document(s ) Leukocytes 6.1 10 Normal (applies WBC Count [facility] [#/volume] in to non-numeric Health Unspecified results) System specimen by Automated count Erythrocytes 4.81 10 Normal (applies RBC Count [facility] [#/volume] in to non-numeric Health Blood by results) System Automated count Hemoglobin 13.0 Below low normal Hemoglobin, [facility] [Mass/volume] in {gm/dL} Whole Blood Health Blood System Hematocrit 39.7 % Below low normal Hematocrit, [facility] [Volume Whole Blood Health Fraction] of System Blood Erythrocyte mean 82.5 fl Below low normal MCV [facility] corpuscular Health volume [Entitic System volume] by Automated count Erythrocyte mean 27.0 pg Normal (applies MCH [facility] corpuscular to non-numeric Health hemoglobin results) System [Entitic mass] by Automated count Erythrocyte mean 32.7 Below low normal [facility] corpuscular {gm/dL} Health hemoglobin System concentration [Mass/volume] by Automated count Erythrocyte 16.9 % Above high normal RDW-CV [facility] distribution Health width [[facility] System volume] by Automated count Platelets 167 10 Normal (applies Platelet [facility] [#/volume] in to non-numeric Count Health Plasma by results) System Automated count Platelet mean 9.1 fl Normal (applies MPV [facility] volume [Entitic to non-numeric Health volume] in Blood results) System by Automated count Monocytes 0.5 10 Normal (applies Monocyte [facility] [#/volume] in to non-numeric Count Health Blood by Manual results) System count Eosinophils 0.1 10 Normal (applies Eosinophil [facility] [#/volume] in to non-numeric Count Blood Health Blood results) System Neutrophils 4.2 10 Normal (applies Absolute [facility] [#/volume] in to non-numeric Neutrophil Health Body fluid results) Count System Basophils 0.0 10 Normal (applies Basophil [facility] [#/volume] in to non-numeric Count Health Blood by results) System Automated count Lymphocyte 1.3 10 Normal (applies Lymphocyte [facility] percent to non-numeric Absolute Health differential results) System count (procedure) Neutrophils/100 69.0 % Normal (applies Neutrophil % [place] leukocytes in to non-numeric Health Blood by results) System Automated count Monocytes/100 7.4 % Normal (applies Monocyte % [facility] leukocytes in to non-numeric Health Blood results) System Eosinophils/100 1.5 % Normal (applies Eosinophil % [place] leukocytes in to non-numeric Health Unspecified results) System specimen Basophils/100 0.2 % Normal (applies Basophil % [facility] leukocytes in to non-numeric Health Unspecified results) System specimen by Manual count Lymphocytes 21.9 % Normal (applies Lymphocyte % [facility] [#/volume] in to non-numeric Health Blood by results) System Automated count ID Date Data Source [id number] 07/03/2014 07:58:00 AM EDT [facility] Name Value Range Interpretation Description Data Sup porting Code Source(s) Document(s ) Leukocytes 5.7 10 Normal (applies WBC Count [facility] [#/volume] in to non-numeric Health Unspecified results) System specimen by Automated count Erythrocytes 4.86 10 Normal (applies RBC Count [facility] [#/volume] in to non-numeric Health Blood by results) System Automated count Hemoglobin 13.0 Below low normal Hemoglobin, [facility] [Mass/volume] in {gm/dL} Whole Blood Health Blood System Hematocrit 40.3 % Below low normal Hematocrit, [facility] [Volume Whole Blood Health Fraction] of System Blood Erythrocyte mean 82.9 fl Below low normal MCV [facility] corpuscular Health volume [Entitic System volume] by Automated count Erythrocyte mean 26.7 pg Normal (applies MCH [facility] corpuscular to non-numeric Health hemoglobin results) System [Entitic mass] by Automated count Erythrocyte mean 32.3 Below low normal [facility] corpuscular {gm/dL} Health hemoglobin System concentration [Mass/volume] by Automated count Erythrocyte 15.5 % Above high normal RDW-CV [facility] distribution Health width [[facility] System volume] by Automated count Platelets 165 10 Normal (applies Platelet [facility] [#/volume] in to non-numeric Count Health Plasma by results) System Automated count Platelet mean 9.3 fl Normal (applies MPV [facility] volume [Entitic to non-numeric Health volume] in Blood results) System by Automated count Monocytes 0.5 10 Normal (applies Monocyte [facility] [#/volume] in to non-numeric Count Health Blood by Manual results) System count Eosinophils 0.1 10 Normal (applies Eosinophil [facility] [#/volume] in to non-numeric Count Blood Health Blood results) System Neutrophils 3.9 10 Normal (applies Absolute [facility] [#/volume] in to non-numeric Neutrophil Health Body fluid results) Count System Basophils 0.0 10 Normal (applies Basophil [facility] [#/volume] in to non-numeric Count Health Blood by results) System Automated count Lymphocyte 1.3 10 Normal (applies Lymphocyte [facility] percent to non-numeric Absolute Health differential results) System count (procedure) Neutrophils/100 67.5 % Normal (applies Neutrophil % [place] leukocytes in to non-numeric Health Blood by results) System Automated count Monocytes/100 8.4 % Normal (applies Monocyte % [place] [facility] leukocytes in to non-numeric [facility] Blood results) System Eosinophils/100 1.0 % Normal (applies Eosinophil % [place] leukocytes in to non-numeric Health Unspecified results) System specimen Basophils/100 0.2 % Normal (applies Basophil % [place] leukocytes in to non-numeric Health Unspecified results) System specimen by Manual count Lymphocytes 22.9 % Normal (applies Lymphocyte % [place] [#/volume] in to non-numeric Health Blood by results) System Automated count ID Date Data Source [id number] 11/06/2014 01:23:00 PM EST [facility] Name Value Range Interpretation Description Data Sup porting Code Source(s) Document(s ) Leukocytes 7.6 10 Normal (applies WBC Count [facility] [#/volume] in to non-numeric Health Unspecified results) System specimen by Automated count Erythrocytes 4.89 10 Normal (applies RBC Count [facility] [#/volume] in to non-numeric Health Blood by results) System Automated count Hemoglobin 13.3 Below low normal Hemoglobin [facility] [Mass/volume] in {gm/dL} Health Blood System Hematocrit 41.4 % Normal (applies Hematocrit [facility] [Volume to non-numeric Health Fraction] of results) System Blood Erythrocyte mean 84.7 fl Normal (applies MCV [facility] corpuscular to non-numeric Health volume [Entitic results) System volume] by Automated count Erythrocyte mean 27.2 pg Normal (applies MCH [facility] corpuscular to non-numeric Health hemoglobin results) System [Entitic mass] by Automated count Erythrocyte mean 32.1 Below low normal [facility]CHC [facility] [facility] corpuscular {gm/dL} Health hemoglobin System concentration [Mass/volume] by Automated count Erythrocyte 15.0 % Above high normal RDW-CV [facility] distribution Health width [Entitic System volume] by Automated count Platelets 177 10 Normal (applies Platelet [facility] [#/volume] in to non-numeric Count Health Plasma by results) System Automated count Platelet mean 9.1 fl Normal (applies MPV [facility] volume [Entitic to non-numeric Health volume] in Blood results) System by Automated count Monocytes 0.7 10 Normal (applies Monocyte # [facility] [#/volume] in to non-numeric Health Blood by Manual results) System count Eosinophils 0.11 10 Normal (applies Eosinophil # [place] [#/volume] in to non-numeric Health Blood results) System Neutrophils 4.9 10 Normal (applies Neutrophil # [place] [#/volume] in to non-numeric Health Body fluid results) System Basophils 0.01 10 Normal (applies Basophil # [facility] [#/volume] in to non-numeric Health Blood by results) System Automated count Lymphocyte 1.8 10 Normal (applies Lymphocyte # [facility] percent to non-numeric Health differential results) System count (procedure) Neutrophils/100 65.4 % Normal (applies Neutrophil % [place] leukocytes in to non-numeric Health Blood by results) System Automated count Monocytes/100 9.0 % Normal (applies Monocyte % [place] leukocytes in to non-numeric Health Blood results) System Eosinophils/100 1.5 % Normal (applies Eosinophil % [place] leukocytes in to non-numeric Health Unspecified results) System specimen Basophils/100 0.1 % Normal (applies Basophil % [place] leukocytes in to non-numeric Health Unspecified results) System specimen by Manual count Lymphocytes 24.0 % Normal (applies Lymphocyte % [place] [#/volume] in to non-numeric Health Blood by results) System Automated count ID Date Data Source [id number] 07/22/2015 08:24:00 AM EDT [facility] Name Value Range Interpretation Description Data Sup porting Code Source(s) Document(s ) Prothrombintim 10.60 Normal (applies Prothrombin [facility](PT) {seconds to non-numeric time (PT) Health System } results) INR in Blood 1.02 Normal (applies INR Result [facility] by Coagulation {Ratio} to non-numeric Health Sys tem assay results) Normal = 0.7-1.1Therapeutic = 2.0-3.0Mec hanical Heart = 3.0-4.5 ID Date Data Source [id number] 07/22/2015 08:24:00 AM EDT [facility] Name Value Range Interpretation Description Data Sup porting Code Source(s) Document(s ) Leukocytes 6.1 Normal (applies WBC Count [facility] [#/volume] in {10^3_uL to non-numeric Health Unspecified } results) System specimen by Automated count Erythrocytes 4.98 Normal (applies RBC Count [facility] [#/volume] in {10^6_uL to non-numeric Health Blood by } results) System Automated count Hemoglobin 13.7 Below low normal Hemoglobin [facility] [Mass/volume] in {gm/dL} Health Blood System Hematocrit 41.3 % Normal (applies Hematocrit [facility] [Volume to non-numeric Health Fraction] of results) System Blood Erythrocyte mean 82.9 fl Below low normal MCV [facility] corpuscular Health volume [Entitic System volume] by Automated count Erythrocyte mean 27.5 pg Normal (applies MCH [facility] corpuscular to non-numeric Health hemoglobin results) System [Entitic mass] by Automated count Erythrocyte mean 33.2 Normal (applies [facility]CHC [facility] [facility] corpuscular {gm/dL} to non-numeric Health hemoglobin results) System concentration [Mass/volume] by Automated count Erythrocyte 15.0 % Above high normal RDW-CV [facility] distribution Health width [Entitic System volume] by Automated count Platelets 193 Normal (applies Platelet [facility] [#/volume] in {10^3_uL to non-numeric Count Health Plasma by } results) System Automated count Platelet mean 9.6 fl Normal (applies MPV [facility] volume [Entitic to non-numeric Health volume] in Blood results) System by Automated count Monocytes 0.6 Normal (applies Monocyte # [facility] [#/volume] in {10^3_uL to non-numeric Health Blood by Manual } results) System count Eosinophils 0.04 Below low normal Eosinophil # [place] [#/volume] in {10^3_uL Health Blood } System Neutrophils 4.0 Normal (applies Neutrophil # [place] [facility] [#/volume] in {10^3_uL to non-numeric Health Body fluid } results) System Basophils 0.02 Normal (applies Basophil # [facility] [#/volume] in {10^3_uL to non-numeric Health Blood by } results) System Automated count Lymphocyte 1.4 Normal (applies Lymphocyte # [facility] percent {10^3_uL to non-numeric Health differential } results) System count (procedure) Neutrophils/100 66.2 % Normal (applies Neutrophil % [place] leukocytes in to non-numeric Health Blood by results) System Automated count Monocytes/100 9.3 % Above high normal Monocyte % [facility] [place] leukocytes in [facility] Blood System Eosinophils/100 0.7 % Below low normal Eosinophil % [facility] [facility] leukocytes in [facility] Unspecified System specimen Basophils/100 0.3 % Normal (applies Basophil % [place] leukocytes in to non-numeric Health Unspecified results) System specimen by Manual count Lymphocytes 23.5 % Normal (applies Lymphocyte % [place] [facility] [#/volume] in to non-numeric Health Blood by results) System Automated count ID Date Data Source [id number] 07/22/2015 08:24:00 AM EDT [facility] Name Value Range Interpretation Description Data Sup porting Code Source(s) Document(s ) Natriuretic 61.1 Normal (applies B-Type [facility] peptide B pg/ml to non-numeric Natriuetic Health System [Mass/volume] results) Peptide in Serum or Plasma ID Date Data Source [id number] 07/22/2015 08:24:00 AM EDT [facility] wolf System Name Value Range Interpretation Description Data Sup porting Code Source(s) Document(s ) Sodium 142 Normal (applies Sodium, Serum [facility] [Moles/volume] in mmol/L to non-numeric Health Serum or Plasma results) System Potassium 3.9 Normal (applies Potassium, [facility] [Mass/volume] in mmol/L to non-numeric Serum Health Serum or Plasma results) System Chloride 106 Normal (applies Chloride, [facility] [Moles/volume] in mmol/L to non-numeric Serum Health Serum or Plasma results) System Carbon dioxide, 25.0 Normal (applies CO2, Serum [facility] total mmol/L to non-numeric Health [Moles/volume] in results) System Serum or Plasma TotalProtein 6.8 Normal (applies Total Protein [facility] mg/dl to non-numeric Health results) System Glucose 116 Above high Glucose, [facility] [Mass/volume] in mg/dL normal Serum Health Serum or Plasma System Urea nitrogen 11 Normal (applies Blood Urea [facility] [Mass/volume] in mg/dl to non-numeric Nitrogen, Health Serum or Plasma results) Serum System Creatinine 0.90 Normal (applies Creatinine, [facility] [Mass/volume] in mg/dl to non-numeric Serum Health Serum or Plasma results) System Alkaline 40 Normal (applies Alkaline [facility] phosphatase {IU/L} to non-numeric Phosphatase, Health isoenzymes results) Serum System [Enzymatic activity/volume] in Serum or Plasma by Heat stability Bilirubin.total 0.4 Normal (applies Bilirubin, [facility] [Mass/volume] in mg/dl to non-numeric Serum Total Health Serum or Plasma results) System DirectBilirubin 0.1 Normal (applies Direct [facility] mg/dl to non-numeric Bilirubin Health results) System Aspartate 17 Normal (applies Aspartate [facility] aminotransferase {IU/L} to non-numeric Transaminase, Heal th [Enzymatic results) Serum System activity/volume] in Serum or Plasma by With P-5'-P Albumin 4.0 Normal (applies Albumin, [facility] [Mass/volume] in {gm/dl} to non-numeric Serum Health Serum or Plasma results) System I.Phosphorus 2.9 Normal (applies I. Phosphorus [facility] mg/dl to non-numeric Health results) System Alanine 21 Normal (applies Alanine [facility] aminotransferase {IU/L} to non-numeric Aminotransfer Heal th [Enzymatic results) ase, Serum System activity/volume] in Serum or Plasma Calcium 9.1 Normal (applies Calcium, [facility] [Mass/volume] in mg/dl to non-numeric Total Serum Health Serum or Plasma results) System A/GRatio 1.43 Normal (applies A/G Ratio [facility] to non-numeric Health results) System Urate 6.2 Normal (applies Uric Acid, [facility] [Mass/volume] in mg/dl to non-numeric Serum Health Serum or Plasma results) System Anion gap in Serum 11.00 Normal (applies Anion Gap [place] or Plasma mmol/L to non-numeric Health results) System Glomerular 83.00 Normal (applies GFR [facility] filtration to non-numeric Health rate/1.73 sq results) System M.predicted [Volume Rate/Area] in Serum or Plasma by Creatinine-based formula (CKD-EPI) eGFR will provide clinicians with a more accurate indicator of renal function then the serum creatinine. The eGFR is automa tically calculated from an empiric formula (endorsed by the [employer] ion) which incorporates age, sex, and race.Clinicians may notice surprisingly low GFR's with serum creatinine valueswithin normal range- particularly in elderly wo men (with low muscle mass).In the hospital setting, the eGFR should add an element of safety in drug dosing, in assessing the risk of IV contrast administration, and in assessing vascular risk.The NKF staging system is as follows:Normal: eGFR >90 with no kidney markersStage 1: eGFR >90 with kidney markers*Stage 2: eGFR 60- 89Stage 3: eGFR 30-59Stage 4: eGFR 15-29Stage 5: eGFR <15 (usually requir ing dialysis)*Markers include: Proteinuria, Hematuria, abnormal imaging-studies, or other blood or urine test abnormalities ID Date Data Source [id number] 07/22/2015 08:24:00 AM RANDA wolf System Name Value Range Interpretation Description Data Sup porting Code Source(s) Document(s ) TroponinIQuantitative 0.00 Normal (applies Troponin I [facility] ng/ml to non-numeric Quantitative Health results) System ID Date Data Source [id number] 07/22/2015 08:24:00 AM EDJoshua Olivares [facility] System Name Value Range Interpretation Description Data Sup porting Code Source(s) Document(s ) Creatine 240 Above high normal Creatine [facility] kinase.MB {IU/L} Kinase, Serum Health System [Mass/volume ] in Serum or Plasma ID Date Data Source [id number] 07/22/2015 01:35:00 PM EDT [facility] System draw at 2pm Name Value Range Interpretation Description Data Sup porting Code Source(s) Document(s ) TroponinIQuantitative 0.00 Normal (applies Troponin I [facility] ng/ml to non-numeric Quantitative Health results) System ID Date Data Source [id number] 11/29/2015 08:49:00 AM EST [facility] System Name Value Range Interpretation Description Data Sup porting Code Source(s) Document(s ) aPTT in Blood 24.4 Normal (applies Activated [facility] by Coagulation {Seconds to non-numeric Partial Health assay } results) Thromboplastin System Time ID Date Data Source [id number] 11/29/2015 08:49:00 AM EST [facility] System Name Value Range Interpretation Description Data Sup porting Code Source(s) Document(s ) Prothrombintim 11.00 Normal (applies Prothrombin [facility](PT) {seconds to non-numeric time (PT) Health System } results) INR in Blood 1.06 Normal (applies INR Result [facility] by Coagulation {Ratio} to non-numeric Health Sys tem assay results) Normal = 0.7-1.1Therapeutic = 2.0-3.0Mec hanical Heart = 3.0-4.5 ID Date Data Source [id number] 11/29/2015 08:49:00 AM EST [facility] System Name Value Range Interpretation Description Data Sup porting Code Source(s) Document(s ) Leukocytes 7.9 Normal (applies WBC Count [facility] [#/volume] in {10^3_uL to non-numeric Health Unspecified } results) System specimen by Automated count Erythrocytes 4.78 Normal (applies RBC Count [facility] [#/volume] in {10^6_uL to non-numeric Health Blood by } results) System Automated count Hemoglobin 13.4 Below low normal Hemoglobin [facility] [Mass/volume] in {gm/dL} Health Blood System Hematocrit 40.7 % Below low normal Hematocrit [facility] [Volume Health Fraction] of System Blood Erythrocyte mean 85.1 fl Normal (applies MCV [facility] corpuscular to non-numeric Health volume [Entitic results) System volume] by Automated count Erythrocyte mean 28.0 pg Normal (applies MCH [facility] [facility] corpuscular to non-numeric Health hemoglobin results) System [Entitic mass] by Automated count Erythrocyte mean 32.9 Below low normal [facility] corpuscular {gm/dL} Health hemoglobin System concentration [Mass/volume] by Automated count Erythrocyte 14.3 % Normal (applies RDW-CV [facility] distribution to non-numeric Health width [Entitic results) System volume] by Automated count Platelets 194 Normal (applies Platelet [facility] [#/volume] in {10^3_uL to non-numeric Count Health Plasma by } results) System Automated count Platelet mean 9.4 fl Normal (applies MPV [facility] volume [Entitic to non-numeric Health volume] in Blood results) System by Automated count Monocytes 0.6 Normal (applies Monocyte # [facility] [#/volume] in {10^3_uL to non-numeric Health Blood by Manual } results) System count Eosinophils 0.05 Normal (applies Eosinophil # [place] [facility] [#/volume] in {10^3_uL to non-numeric Health Blood } results) System Neutrophils 5.6 Normal (applies Neutrophil # [place] [facility] [#/volume] in {10^3_uL to non-numeric Health Body fluid } results) System Basophils 0.01 Normal (applies Basophil # [facility] [#/volume] in {10^3_uL to non-numeric Health Blood by } results) System Automated count Lymphocyte 1.7 Normal (applies Lymphocyte # [facility] percent {10^3_uL to non-numeric Health differential } results) System count (procedure) Neutrophils/100 71.0 % Normal (applies Neutrophil % [place] leukocytes in to non-numeric Health Blood by results) System Automated count Monocytes/100 7.0 % Normal (applies Monocyte % [place] leukocytes in to non-numeric Health Blood results) System Eosinophils/100 0.6 % Below low normal Eosinophil % [facility] [facility] leukocytes in Health Unspecified System specimen Basophils/100 0.1 % Normal (applies Basophil % [place] leukocytes in to non-numeric Health Unspecified results) System specimen by Manual count Lymphocytes 21.3 % Normal (applies Lymphocyte % [place] [facility] [#/volume] in to non-numeric Health Blood by results) System Automated count ID Date Data Source [id number] 11/29/2015 08:49:00 AM EST [facility] Name Value Range Interpretation Description Data Sup porting Code Source(s) Document(s ) Natriuretic 32.4 Normal (applies B-Type [facility] peptide B pg/ml to non-numeric Natriuetic Health System [Mass/volume] results) Peptide in Serum or Plasma ID Date Data Source [id number] 11/29/2015 08:49:00 AM EST [facility] Name Value Range Interpretation Description Data Sup porting Code Source(s) Document(s ) Sodium 139 Normal (applies Sodium, Serum [facility] [Moles/volume] in mmol/L to non-numeric Health Serum or Plasma results) System Potassium 3.9 Normal (applies Potassium, [facility] [Mass/volume] in mmol/L to non-numeric Serum Health Serum or Plasma results) System Chloride 105 Normal (applies Chloride, [facility] [Moles/volume] in mmol/L to non-numeric Serum Health Serum or Plasma results) System Carbon dioxide, 24.0 Normal (applies CO2, Serum [facility] total mmol/L to non-numeric Health [Moles/volume] in results) System Serum or Plasma TotalProtein 7.0 Normal (applies Total Protein [facility] mg/dl to non-numeric Health results) System Glucose 164 Above high Glucose, [facility] [Mass/volume] in mg/dL normal Serum Health Serum or Plasma System Urea nitrogen 14 Normal (applies Blood Urea [facility] [Mass/volume] in mg/dl to non-numeric Nitrogen, Health Serum or Plasma results) Serum System Creatinine 1.00 Normal (applies Creatinine, [facility] [Mass/volume] in mg/dl to non-numeric Serum Health Serum or Plasma results) System Alkaline 40 Normal (applies Alkaline [facility] phosphatase {IU/L} to non-numeric Phosphatase, Health isoenzymes results) Serum System [Enzymatic activity/volume] in Serum or Plasma by Heat stability Bilirubin.total 0.6 Normal (applies Bilirubin, [facility] [Mass/volume] in mg/dl to non-numeric Serum Total Health Serum or Plasma results) System DirectBilirubin 0.3 Normal (applies Direct [facility] mg/dl to non-numeric Bilirubin Health results) System Aspartate 13 Normal (applies Aspartate [facility] aminotransferase {IU/L} to non-numeric Transaminase, Heal th [Enzymatic results) Serum System activity/volume] in Serum or Plasma by With P-5'-P Albumin 4.2 Normal (applies Albumin, [facility] [Mass/volume] in {gm/dl} to non-numeric Serum Health Serum or Plasma results) System I.Phosphorus 2.2 Below low normal I. Phosphorus [facility] mg/dl [facility] Alanine 18 Normal (applies Alanine [facility] aminotransferase {IU/L} to non-numeric Aminotransfer Heal th [Enzymatic results) ase, Serum System activity/volume] in Serum or Plasma Calcium 9.5 Normal (applies Calcium, [facility] [Mass/volume] in mg/dl to non-numeric Total Serum Health Serum or Plasma results) System A/GRatio 1.50 Normal (applies A/G Ratio [facility] to non-numeric Health results) System Urate 6.0 Normal (applies Uric Acid, [facility] [Mass/volume] in mg/dl to non-numeric Serum Health Serum or Plasma results) System Anion gap in Serum 10.00 Normal (applies Anion Gap [place] or Plasma mmol/L to non-numeric Health results) System Glomerular 73.00 Normal (applies GFR [facility] filtration to non-numeric Health rate/1.73 sq results) System M.predicted [Volume Rate/Area] in Serum or Plasma by Creatinine-based formula (CKD-EPI) eGFR will provide clinicians with a more accurate indicator of renal function then the serum creatinine. The eGFR is automa tically calculated from an empiric formula (endorsed by the [employer] ion) which incorporates age, sex, and race.Clinicians may notice surprisingly low GFR's with serum creatinine valueswithin normal range- particularly in elderly wo men (with low muscle mass).In the hospital setting, the eGFR should add an element of safety in drug dosing, in assessing the risk of IV contrast administration, and in assessing vascular risk.The NKF staging system is as follows:Normal: eGFR >90 with no kidney markersStage 1: eGFR >90 with kidney markers*Stage 2: eGFR 60- 89Stage 3: eGFR 30-59Stage 4: eGFR 15-29Stage 5: eGFR <15 (usually requir ing dialysis)*Markers include: Proteinuria, Hematuria, abnormal imaging-studies, or other blood or urine test abnormalities ID Date Data Source [id number] 11/29/2015 08:49:00 AM EST [facility] Name Value Range Interpretation Description Data Sup porting Code Source(s) Document(s ) TroponinIQuantitative 0.02 Normal (applies Troponin I [facility] ng/ml to non-numeric Quantitative Health results) System ID Date Data Source [id number] 11/29/2015 01:12:00 PM EST [facility] Name Value Range Interpretation Description Data Sup porting Code Source(s) Document(s ) TroponinIQuantitative 0.01 Normal (applies Troponin I [facility] ng/ml to non-numeric Quantitative Health results) System ID Date Data Source [id number] 11/30/2015 06:00:00 AM EST [facility] Name Value Range Interpretation Description Data Sup porting Code Source(s) Document(s ) Leukocytes 7.4 Normal (applies WBC Count [facility] [#/volume] in {10^3_uL to non-numeric Health Unspecified } results) System specimen by Automated count Erythrocytes 4.81 Normal (applies RBC Count [facility] [#/volume] in {10^6_uL to non-numeric Health Blood by } results) System Automated count Hemoglobin 13.5 Below low normal Hemoglobin [facility] [Mass/volume] in {gm/dL} Health Blood System Hematocrit 41.0 % Normal (applies Hematocrit [facility] [Volume to non-numeric Health Fraction] of results) System Blood Erythrocyte mean 85.2 fl Normal (applies MCV [facility] corpuscular to non-numeric Health volume [Entitic results) System volume] by Automated count Erythrocyte mean 28.1 pg Normal (applies MCH [facility] corpuscular to non-numeric Health hemoglobin results) System [Entitic mass] by Automated count Erythrocyte mean 32.9 Below low normal [facility] corpuscular {gm/dL} Health hemoglobin System concentration [Mass/volume] by Automated count Erythrocyte 14.4 % Normal (applies RDW-CV [facility] distribution to non-numeric Health width [Entitic results) System volume] by Automated count Platelets 216 Normal (applies Platelet [facility] [#/volume] in {10^3_uL to non-numeric Count Health Plasma by } results) System Automated count Platelet mean 9.6 fl Normal (applies MPV [facility] volume [Entitic to non-numeric Health volume] in Blood results) System by Automated count Monocytes 0.6 Normal (applies Monocyte # [facility] [#/volume] in {10^3_uL to non-numeric Health Blood by Manual } results) System count Eosinophils 0.09 Normal (applies Eosinophil # [facility] [#/volume] in {10^3_uL to non-numeric Health Blood } results) System Neutrophils 5.0 Normal (applies Neutrophil # [facility] [#/volume] in {10^3_uL to non-numeric Health Body fluid } results) System Basophils 0.01 Normal (applies Basophil # [facility] [#/volume] in {10^3_uL to non-numeric Health Blood by } results) System Automated count Lymphocyte 1.7 Normal (applies Lymphocyte # [facility] percent {10^3_uL to non-numeric Health differential } results) System count (procedure) Neutrophils/100 67.8 % Normal (applies Neutrophil % [place] leukocytes in to non-numeric Health Blood by results) System Automated count Monocytes/100 8.3 % Normal (applies Monocyte % [facility] leukocytes in to non-numeric Health Blood results) System Eosinophils/100 1.2 % Normal (applies Eosinophil % [place] leukocytes in to non-numeric Health Unspecified results) System specimen Basophils/100 0.1 % Normal (applies Basophil % [facility] leukocytes in to non-numeric Health Unspecified results) System specimen by Manual count Lymphocytes 22.6 % Normal (applies Lymphocyte % [facility] [#/volume] in to non-numeric Health Blood by results) System Automated count ID Date Data Source [id number] 11/30/2015 06:00:00 AM EST [facility] Name Value Range Interpretation Description Data Sup porting Code Source(s) Document(s ) Sodium 139 Normal (applies Sodium, Serum [facility] [Moles/volume mmol/L to non-numeric Health Syst em ] in Serum or results) Plasma Potassium 3.8 Normal (applies Potassium, [facility] [Mass/volume] mmol/L to non-numeric Serum Health Syst em in Serum or results) Plasma Chloride 105 Normal (applies Chloride, [facility] [Moles/volume mmol/L to non-numeric Serum Health Syst em ] in Serum or results) Plasma Carbon 24.0 Normal (applies CO2, Serum [facility] dioxide, mmol/L to non-numeric Health System total results) [Moles/volume ] in Serum or Plasma Glucose 94 mg/dL Normal (applies Glucose, Serum [facility] [Mass/volume] to non-numeric Health Syst em in Serum or results) Plasma Urea nitrogen 17 mg/dl Normal (applies Blood Urea [facility] [Mass/volume] to non-numeric Nitrogen, Health Syst em in Serum or results) Serum Plasma Creatinine 1.00 Normal (applies Creatinine, [facility] [Mass/volume] mg/dl to non-numeric Serum Health Syst em in Serum or results) Plasma Calcium 9.4 Normal (applies Calcium, Total [facility] [Mass/volume] mg/dl to non-numeric Serum Health Syst em in Serum or results) Plasma Anion gap in 10.00 Normal (applies Anion Gap [facility] Serum or mmol/L to non-numeric Health System Plasma results) ID Date Data Source [id number] 11/30/2015 06:00:00 AM EST [facility] Name Value Range Interpretation Description Data Sup porting Code Source(s) Document(s ) Triglyceride 93 mg/dl Normal (applies Triglycerides, [facility] [Mass/volume] to non-numeric Serum Health in Serum or results) System Plasma Optimal = < 100 mg/dLBoderline High = 15 0 - 199 mg/dLHigh = 200 - 499 mg/dLVery High = > 500 mg/dL Cholesterol 147 mg/dl Normal (applies Cholesterol, Serum [facility] [Mass/volume] in to non-numeric Health S yste Serum or Plasma results) <200 mg/dL = [id number] - 239 md/dL = Borderline>240 mg/dL = High Risk Cholesterol in HDL 35.0 mg/dL Normal (applies HDL Cholestero l, [facility] [Mass/volume] in to non-numeric Serum Health S yste Serum or Plasma results) Cholesterol in LDL 93.4 mg/dL Normal (applies Low Density [facility] [Mass/volume] in to non-numeric Lipoprotein, Healt h System Serum or Plasma results) Calculated OPTIMAL: LESS THAN 100 mg/dLNEAR OPTIMAL : 100 - 129 mg/dLBODERLINE HIGH: 130 - 150 mg/dL Cholesterol in VLDL 18.6 Normal (applies to VLDL, Serum [facility] [Mass/volume] in Serum non-numeric results) System or Plasma CHDRisk 4.20 Normal (applies to CHD Risk [facility] non-numeric results) System ID Date Data Source [id number] 11/30/2015 06:00:00 AM EST [facility] Name Value Range Interpretation Code Description Data Vesta rce(s) Supporting Document(s ) HbA1C 6.3 % Above high normal HbA1C [facility] ID Date Data Source [id number] 04/08/2016 09:45:00 AM EDT [facility] System Name Value Range Interpretation Description Data Sup porting Code Source(s) Document(s ) Prothrombintim 10.50 Normal (applies Prothrombin [facility](PT) {seconds to non-numeric time (PT) Health System } results) INR in Blood 1.04 Normal (applies INR Result [facility] by Coagulation {Ratio} to non-numeric Health Sys tem assay results) Normal = 0.7-1.1Therapeutic = 2.0-3.0Mec hanical Heart = 3.0-4.5 ID Date Data Source [id number] 04/08/2016 09:45:00 AM EDT [facility] System Name Value Range Interpretation Description Data Sup porting Code Source(s) Document(s ) Leukocytes 7.0 Normal (applies WBC Count [facility] [#/volume] in {10^3_uL to non-numeric Health Unspecified } results) System specimen by Automated count Erythrocytes 4.64 Normal (applies RBC Count [facility] [#/volume] in {10^6_uL to non-numeric Health Blood by } results) System Automated count Hemoglobin 12.5 Below low normal Hemoglobin [facility] [Mass/volume] in {gm/dL} Health Blood System Hematocrit 38.6 % Below low normal Hematocrit [facility] [Volume Health Fraction] of System Blood Erythrocyte mean 83.2 fl Normal (applies MCV [facility] corpuscular to non-numeric Health volume [Entitic results) System volume] by Automated count Erythrocyte mean 26.9 pg Normal (applies MCH [facility] corpuscular to non-numeric Health hemoglobin results) System [Entitic mass] by Automated count Erythrocyte mean 32.4 Below low normal MCHC [facility] corpuscular {gm/dL} Health hemoglobin System concentration [Mass/volume] by Automated count Erythrocyte 15.2 % Above high normal RDW-CV [facility] distribution Health width [Entitic System volume] by Automated count Platelets 214 Normal (applies Platelet [facility] [#/volume] in {10^3_uL to non-numeric Count Health Plasma by } results) System Automated count Platelet mean 9.4 fl Normal (applies MPV [facility] volume [Entitic to non-numeric Health volume] in Blood results) System by Automated count Monocytes 0.5 Normal (applies Monocyte # [facility] [#/volume] in {10^3_uL to non-numeric Health Blood by Manual } results) System count Eosinophils 0.06 Normal (applies Eosinophil # [facility] [#/volume] in {10^3_uL to non-numeric Health Blood } results) System Neutrophils 5.1 Normal (applies Neutrophil # [facility] [#/volume] in {10^3_uL to non-numeric Health Body fluid } results) System Basophils 0.01 Normal (applies Basophil # [facility] [#/volume] in {10^3_uL to non-numeric Health Blood by } results) System Automated count Lymphocyte 1.3 Normal (applies Lymphocyte # [facility] percent {10^3_uL to non-numeric Health differential } results) System count (procedure) Neutrophils/100 72.9 % Normal (applies Neutrophil % [place] leukocytes in to non-numeric Health Blood by results) System Automated count Monocytes/100 7.1 % Normal (applies Monocyte % [facility] leukocytes in to non-numeric Health Blood results) System Eosinophils/100 0.9 % Below low normal Eosinophil % [facility] leukocytes in Health Unspecified System specimen Basophils/100 0.1 % Normal (applies Basophil % [facility] leukocytes in to non-numeric Health Unspecified results) System specimen by Manual count Lymphocytes 19.0 % Below low normal Lymphocyte % [facility] [#/volume] in Health Blood by System Automated count ID Date Data Source [id number] 04/08/2016 09:45:00 AM EDT [facility] Name Value Range Interpretation Description Data Sup porting Code Source(s) Document(s ) Natriuretic 30.5 Normal (applies B-Type [facility] peptide B pg/ml to non-numeric Natriuetic Health System [Mass/volume] results) Peptide in Serum or Plasma ID Date Data Source [id number] 04/08/2016 09:45:00 AM EDT [facility] System Name Value Range Interpretation Description Data Sup porting Code Source(s) Document(s ) Sodium 140 Normal (applies Sodium, Serum [facility] [Moles/volume] in mmol/L to non-numeric Health Serum or Plasma results) System Potassium 4.1 Normal (applies Potassium, [facility] [Mass/volume] in mmol/L to non-numeric Serum Health Serum or Plasma results) System Chloride 102 Normal (applies Chloride, [facility] [Moles/volume] in mmol/L to non-numeric Serum Health Serum or Plasma results) System Carbon dioxide, 27.0 Normal (applies CO2, Serum [facility] total mmol/L to non-numeric Health [Moles/volume] in results) System Serum or Plasma TotalProtein 7.1 Normal (applies Total Protein [facility] mg/dl to non-numeric Health results) System Glucose 186 Above high Glucose, [facility] [Mass/volume] in mg/dL normal Serum Health Serum or Plasma System Urea nitrogen 13 Normal (applies Blood Urea [facility] [Mass/volume] in mg/dl to non-numeric Nitrogen, Health Serum or Plasma results) Serum System Creatinine 0.98 Normal (applies Creatinine, [facility] [Mass/volume] in mg/dl to non-numeric Serum Health Serum or Plasma results) System Alkaline 38 Normal (applies Alkaline [facility] phosphatase {IU/L} to non-numeric Phosphatase, [facility] isoenzymes results) Serum System [Enzymatic activity/volume] in Serum or Plasma by Heat stability Bilirubin.total 0.4 Normal (applies Bilirubin, [facility] [Mass/volume] in mg/dl to non-numeric Serum Total Health Serum or Plasma results) System DirectBilirubin 0.2 Normal (applies Direct [facility] mg/dl to non-numeric Bilirubin Health results) System Aspartate 22 Normal (applies Aspartate [facility] aminotransferase {IU/L} to non-numeric Transaminase, Heal th [Enzymatic results) Serum System activity/volume] in Serum or Plasma by With P-5'-P Albumin 4.4 Normal (applies Albumin, [facility] [Mass/volume] in {gm/dl} to non-numeric Serum Health Serum or Plasma results) System I.Phosphorus 3.0 Normal (applies I. Phosphorus [facility] mg/dl to non-numeric Health results) System Alanine 30 Normal (applies Alanine [facility] aminotransferase {IU/L} to non-numeric Aminotransfer Heal th [Enzymatic results) ase, Serum System activity/volume] in Serum or Plasma Calcium 9.9 Normal (applies Calcium, [facility] [Mass/volume] in mg/dl to non-numeric Total Serum Health Serum or Plasma results) System A/GRatio 1.63 Normal (applies A/G Ratio [facility] to non-numeric Health results) System Urate 6.4 Normal (applies Uric Acid, [facility] [Mass/volume] in mg/dl to non-numeric Serum Health Serum or Plasma results) System Anion gap in Serum 11.00 Normal (applies Anion Gap [place] or Plasma mmol/L to non-numeric Health results) System Glomerular 75.00 Normal (applies GFR [facility] filtration to non-numeric Health rate/1.73 sq results) System M.predicted [Volume Rate/Area] in Serum or Plasma by Creatinine-based formula (CKD-EPI) eGFR will provide clinicians with a more accurate indicator of renal function then the serum creatinine. The eGFR is automa tically calculated from an empiric formula (endorsed by the National [employer] ion) which incorporates age, sex, and race.Clinicians may notice surprisingly low GFR's with serum creatinine valueswithin normal range- particularly in elderly wo men (with low muscle mass).In the hospital setting, the eGFR should add an element of safety in drug dosing, in assessing the risk of IV contrast administration, and in assessing vascular risk.The NKF staging system is as follows:Normal: eGFR >90 with no kidney markersStage 1: eGFR >90 with kidney markers*Stage 2: eGFR 60- 89Stage 3: eGFR 30-59Stage 4: eGFR 15-29Stage 5: eGFR <15 (usually requir ing dialysis)*Markers include: Proteinuria, Hematuria, abnormal imaging-studies, or other blood or urine test abnormalities ID Date Data Source [id number] 04/08/2016 09:45:00 AM EDT [facility] Name Value Range Interpretation Description Data Sup porting Code Source(s) Document(s ) TroponinIQuantitative 0.00 Normal (applies Troponin I [facility] ng/ml to non-numeric Quantitative Health results) System ID Date Data Source [id number] 04/08/2016 09:45:00 AM EDT [facility] Name Value Range Interpretation Description Data Sup porting Code Source(s) Document(s ) Creatine 548 Above high normal Creatine [facility] kinase.MB {IU/L} Kinase, Serum Health System [Mass/volume ] in Serum or Plasma ID Date Data Source [id number] 05/26/2016 09:39:00 AM EDT [facility] Name Value Range Interpretation Description Data Sup porting Code Source(s) Document(s ) Leukocytes 7.2 Normal (applies WBC Count [facility] [#/volume] in {10^3_uL to non-numeric Health Unspecified } results) System specimen by Automated count Erythrocytes 4.95 Normal (applies RBC Count [facility] [#/volume] in {10^6_uL to non-numeric Health Blood by } results) System Automated count Hemoglobin 13.2 Below low normal Hemoglobin [facility] [Mass/volume] in {gm/dL} Health Blood System Hematocrit 40.5 % Below low normal Hematocrit [facility] [Volume Health Fraction] of System Blood Erythrocyte mean 81.8 fl Below low normal MCV [facility] corpuscular Health volume [Entitic System volume] by Automated count Erythrocyte mean 26.7 pg Normal (applies MCH [facility] corpuscular to non-numeric Health hemoglobin results) System [Entitic mass] by Automated count Erythrocyte mean 32.6 Below low normal MCHC [facility] corpuscular {gm/dL} Health hemoglobin System concentration [Mass/volume] by Automated count Erythrocyte 14.7 % Above high normal RDW-CV [facility] distribution Health width [Entitic System volume] by Automated count Platelets 206 Normal (applies Platelet [facility] [#/volume] in {10^3_uL to non-numeric Count Health Plasma by } results) System Automated count Platelet mean 9.6 fl Normal (applies MPV [facility] volume [Entitic to non-numeric Health volume] in Blood results) System by Automated count ID Date Data Source [id number] 05/26/2016 09:39:00 AM EDT [facility] Name Value Range Interpretation Description Data Sup porting Code Source(s) Document(s ) Sodium 137 Normal (applies Sodium, Serum [facility] [Moles/volume mmol/L to non-numeric Health Syst em ] in Serum or results) Plasma Potassium 3.8 Normal (applies Potassium, [facility] [Mass/volume] mmol/L to non-numeric Serum Health Syst em in Serum or results) Plasma Chloride 102 Normal (applies Chloride, [facility] [Moles/volume mmol/L to non-numeric Serum Health Syst em ] in Serum or results) Plasma Carbon 27.0 Normal (applies CO2, Serum [facility] dioxide, mmol/L to non-numeric Health System total results) [Moles/volume ] in Serum or Plasma Glucose 153 Above high normal Glucose, Serum [facility] [Mass/volume] mg/dL Health System in Serum or Plasma Urea nitrogen 12 mg/dl Normal (applies Blood Urea [facility] [Mass/volume] to non-numeric Nitrogen, Health Syst em in Serum or results) Serum Plasma Creatinine 1.00 Normal (applies Creatinine, [facility] [Mass/volume] mg/dl to non-numeric Serum Health Syst em in Serum or results) Plasma Calcium 9.4 Normal (applies Calcium, Total [facility] [Mass/volume] mg/dl to non-numeric Serum Health Syst em in Serum or results) Plasma Anion gap in 8.00 Normal (applies Anion Gap [facility] Serum or mmol/L to non-numeric Health System Plasma results) ID Date Data Source [id number] 05/26/2016 09:39:00 AM EDT [facility] Name Value Range Interpretation Description Data Sup porting Code Source(s) Document(s ) TroponinIQuantitative 0.01 Normal (applies Troponin I [facility] ng/ml to non-numeric Quantitative Health results) System ID Date Data Source [id number] 08/13/2020 01:00:00 PM EDT [facility] Name Value Range Interpretation Description Data Sup porting Code Source(s) Document(s ) SARS [facility] coronavirus 2 RNA This lab was ordered by [facility] and reported by [facility]. ID Date Data Source [id number] 08/09/2020 11:12:00 AM EDT [facility] Chest radiographs[[2 views]CLINICAL INFO RMATION: Body mass index (BMI) 37.0-37.9, adult;[]TECHNIQUE: [Frontal and latera l views] [] of the chest wereobtained. []COMPARISON: [Similar two-view chest x-ray June 26. Thelungs are well expanded..There is noevidence of parench ymal consolidation or significantatelectasis.There is no pneum othorax.Thereis no tracheal displacement.There is no evidence of hil ar enlargement.The heart size is within normal limits. The mediastinumappears in tact.Margins of the diaphragm, mediastinum, and cardiac borders arewelldelineated.Ba ny elements show an old healed right rib fracture. Thisinjury occurred the follo wing [id number] comparison film. Thereis some pleural thickening at the right CP angle similar to theAugust x-ray andlikely due to pleural thickening from theabove-mention ed rib injury. No evidence of pleuralfluid.IMPRESSION:No evidence of a ctive chest disease. Comparison is identicalto thex-ray from June 26.Elect ronically Signed:Arias Murphy, at 19:12 [phone], Service supp ort , [phone] Name Value Range Interpretation Code Description Data Vesta rce(s) Supporting Document(s ) ID Date Data Source [id number] 06/26/2020 10:28:00 PM EDT [facility] STUDY: X-RAY CHESTREASON FOR EXAM: Adriel ramon, 74 years old. SOB;TECHNIQUE: Single AP portable view of the chest. The imag esare under penetrated.COMPARISON:10/31/2018 FINDINGS:Lung volumes are adequate. Noconsolidations o r airspacedisease. Possible small pulmonary nodule in the right lowerlung field petros uringapproximately 6 mm. The costophrenicangles are clear.The cardiom ediastinal silhouette is within normallimits. Normalvisualized aortic arch and descend ing thoracic aorta.The osseous structures demonstrateprevious right-sided ribfract ures. The soft tissues areunremarkable. IMPRESSION:No focal consolidations. Possiblesmall pulmonary nodule in theright lower lung field. Recommend PA and lateral chestradiograph s when patientis clinically able.Electronically Signed:Mi Garza , [id number] at 23:26 [phone], Service support , [phone] Name Value Range Interpretation Code Description Data Vesta rce(s) Supporting Document(s ) ID Date Data Source [id number] 06/26/2020 10:10:00 PM EDT [facility] Name Value Range Interpretation Code Description Data Vesta rce(s) Supporting Document(s ) COVID-19.. [facility] This lab was ordered by [facility] and reported by [facility]. ID Date Data Source [id number] 05/30/2020 05:53:00 PM EDT [facility] Name Value Range Interpretation Description Data Sup porting Code Source(s) Document(s ) SARS [facility] coronavirus 2 RNA This lab was ordered by Julio her[facility] and reported by [facility]. ID Date Data Source [id number] 05/30/2020 07:34:00 AM EDT [facility] Name Value Range Interpretation Description Data Sup porting Code Source(s) Document(s ) SARS [facility] coronavirus 2 RNA This lab was ordered by Julio Quiles and reported by [facility]. ID Date Data Source [id number] 08/06/2019 10:47:00 AM EDT [facility] Study: Left hand x-ray.History: Camdenp brittason: No similar prior examination is available for person.Technique: AP, obli que and lateral views of the left hand are performed.Findings:There is heterogeneou s low bone mineral density.There is joint space narrowing throughout the hand and carpus.No grossly displaced fracture, or dislocation is seen.Impression:No eviden ce of acute left hand abnormality. Name Value Range Interpretation Code Description Data Vesta rce(s) Supporting Document(s ) Procedure Vital Signs ID Date Data Source [id number] Name Value Range Interpretation Code Description Data Source(s) Body temperature 36.7 Lora 0 - 99.9 Normal (applies to 36.7 Lora [facility] non-numeric results) [facility] Body temperature 98.2 [degF] 0 - 200 Normal (applies to 98.2 [degF ] [facility] non-numeric results) [facility] Diastolic blood 56 mm[Hg] 0 - 999 Below low normal 56 mm[Hg] [facility] pressure [facility] System Systolic blood 125 mm[Hg] 0 - 999 Normal (applies to 125 mm[Hg] [facility] pressure non-numeric results) [facility] Oxygen saturation 99 % 0 - 999 Normal (applies to 99 % [facility] in Arterial blood non-numeric results) [facility] System by Pulse oximetry Respiratory rate 17 0 - 999 Normal (applies to 17 [facility] non-numeric results) [facility] Heart rate 107 0 - 999 Above high normal 107 [facility] System Body weight 117.02 kg 117.02 kg [facility] Body surface area 2.3 m2 2.3 m2 [facility] Derived from Health Syste m formula Body mass index 35.2 kg/m2 35.2 kg/m2 [facility] (BMI) [Ratio] Health Syst em Body height 182.88 cm 182.88 cm [facility] Deprecated Oxygen 98 % 0 - 999 Normal (applies to 98 % [facility] saturation in non-numeric results) H ealt System Capillary blood by Oximetry Respiratory rate 17 0 - 999 Normal (applies to 17 [facility] non-numeric results) [facility] Heart rate 78 0 - 999 Normal (applies to 78 [facility] non-numeric results) [facility] Body surface area 2.4 m2 2.4 m2 [facility] Derived from Health Syste m formula Body mass index 35.9 kg/m2 35.9 kg/m2 [facility] (BMI) [Ratio] Health Syst em Body weight 120.2 kg 120.2 kg [facility] Measured [facility] System Body height 182.88 cm 182.88 cm [facility] Body temperature 98 [degF] 0 - 200 Normal (applies to 98 [degF] [facility] non-numeric results) [facility] Body temperature 36.6 Lora 0 - 99.9 Normal (applies to 36.6 Lora [facility] non-numeric results) [facility] Diastolic blood 76 mm[Hg] 0 - 999 Normal (applies to 76 mm[Hg] M [facility] pressure non-numeric results) [facility] Systolic blood 138 mm[Hg] 0 - 999 Normal (applies to 138 mm[Hg] [facility] pressure non-numeric results) [facility] Diastolic blood 78 mm[Hg] 0 - 999 Normal (applies to 78 mm[Hg] [facility] pressure non-numeric results) [facility] Systolic blood 143 mm[Hg] 0 - 999 Above high normal 143 mm[facility]Hg] [facility] Oxygen 95 % 0 - 999 Normal (applies to 95 % [facility] saturation in non-numeric results) H ealt System Capillary blood by Oximetry Heart rate 76 0 - 999 Normal (applies to 76 [facility] non-numeric results) [facility] Body temperature 36.3 Lora 0 - 99.9 Below low normal 36.3 Lora [facility] Body temperature 97.5 [degF] 0 - 200 Normal (applies to 97.5 [degF ] [facility] non-numeric results) [facility] Respiratory rate 17 0 - 999 Normal (applies to 17 [facility] non-numeric results) [facility] Body surface area 2.3 m2 2.3 m2 [facility] Derived from Health Syste m formula Body mass index 33.9 kg/m2 33.9 kg/m2 Health Systemor e (BMI) [Ratio] Health Syst em Body weight 113.39 kg 113.39 kg [facility] Measured [facility] System Body height 182.88 cm 182.88 cm [facility] Patient Treatment Plan of Care Planned Activity Planned Date Details Description Data Source (s) Simvastatin 10 MG Oral 06/27/2020 [facility] Health Tablet 11:02:45 AM EDT System Verapamil hydrochloride 240 06/02/2018 [facility] Health MG Extended Release Oral 09:51:07 AM EDT System Tablet Simvastatin 10 MG Oral 06/02/2018 [facility] Health Tablet 09:51:03 AM EDT System Benazepril hydrochloride 5 [facility]02[facility] Oral Tablet 09:50:34 AM EDT System Atropine Sulfate 0.025 MG / 07/11/2017 [facility] Diphenoxylate Hydrochloride 10:07:51 AM EDT System 2.5 MG Oral Tablet Acetaminophen 325 MG / 07/11/2017 [facility] Oxycodone Hydrochloride 5 08:25:28 AM EDT System MG Oral Tablet Sulfamethoxazole 800 MG / 07/11/2017 [facility] Trimethoprim 160 MG Oral 08:24:21 AM EDT System Tablet Naproxen 500 MG Delayed 04/08/2016 [facility] Release Oral Tablet 12:42:23 PM EDT Syste m [Naprosyn] 200 ACTUAT Ipratropium 11/30/2015 [facility] [place] 0.017 MG/ACTUAT 10:49:38 AM EST S ystem Metered Dose Inhaler pantoprazole 40 MG Delayed 11/30/2015 [facility] Release Oral Tablet 12:00:00 AM EST Syste m gabapentin 100 MG Oral 07/22/2015 [facility] Capsule 04:12:43 PM EDT System Azithromycin 500 MG Oral 07/22/2015 [facility] Tablet 04:12:23 PM EDT System 24 HR [facility]rolol succinate [facility] MG Extended Release Syst em Oral Tablet Amlodipine 10 MG / [facility] e [facility] telmisartan 40 MG Oral Syste m Tablet Benazepril hydrochloride 5 [facility] MG Oral Tablet System 24 HR Verapamil [facility] ealth hydrochloride 240 MG System Extended Release Oral Capsule 24 HR mirabegron 25 MG [facility] Extended Release Oral System Tablet [Myrbetriq] Loratadine 10 MG Oral [facility] iore Health Tablet System sitagliptin 100 MG Oral [facility] Tablet [Januvia] System latanoprost 0.05 MG/ML [facility] Ophthalmic Solution System Simvastatin 10 MG Oral [facility] Tablet System Butalbital Compound [facility] Omeprazole 40 MG Delayed [facility] Release Oral Capsule System 24 HR Glipizide 5 MG [facility] Extended Release Oral System Tablet Benazepril hydrochloride 40 [facility] MG Oral Tablet System Esomeprazole 40 MG Delayed [facility] Release Oral Capsule System Atropine Sulfate 0.025 MG / [facility] Diphenoxylate Hydrochloride System 2.5 MG Oral Tablet Oxybutynin chloride 5 MG [facility] Oral Tablet System 24 [facility]op[facility] Extended Release Syst em Oral Tablet Simvastatin 20 MG Oral [facility] Tablet System Metformin hydrochloride [facility] 1000 MG Oral Tablet System pantoprazole 40 [facility]
--- NOTE | 2020-08-18 07:58 | HP ---
History & Physical Update - History History: No Change - Physical Physical: No Change - Assessment Assessment: No Change - Plan Plan: No Change
--- NOTE | 2020-08-18 07:59 | OP ---
Operative Note - Note: Operative Date: 08/18/20 Pre-Operative Diagnosis: BPH w LUTS Operation: TURP Findings: BPH Post-Operative Diagnosis: Same as Pre-op Surgeon: Leif Greco Anesthesiologist/SENIOR CLINICAL DATA MANAGER: Malaika Arroyo Anesthesia: General Specimens Removed: prostate tissue Drains & Tubes with Location: [address] 30 ml kemp Operative Report Dictated: Yes
[2020-08-18] MEDS ORDERED: ceFAZolin SODIUM 1 GM VIAL ONE (08:13)
[2020-08-18] MEDS ORDERED: SODIUM CHLORIDE 0.9% P/F 10 ML VIAL IJ ONE (08:13)
[2020-08-18] MEDS ORDERED: LIDOCAINE HCL/PF 2% SDV 5ML VIAL ONE (08:13)
[2020-08-18] MEDS ORDERED: MIDAZOLAM HCL 2 MG/2 ML SINGLE DOSE VIAL ONE ×2 (08:14)
[2020-08-18] MEDS ORDERED: PROPOFOL 20 ML ONE ×2 (08:14)
[2020-08-18 08:57] LABS: URINE APPEARANCE CLEAR; URINE BILIRUBIN NEGATIVE (NEGATIVE); URINE COLOR YELLOW; URINE GLUCOSE (UA) NEGATIVE (NEGATIVE); URINE KETONE NEGATIVE (NEGATIVE); URINE LEUK ESTERASE 2+ (NEGATIVE); URINE NITRITE NEGATIVE (NEGATIVE); URINE PROTEIN TRACE (NEGATIVE); URINE UROBILINOGEN 0.2 mg/dL (0.2-1.0)
[2020-08-18] MEDS ORDERED: ceFAZolin SODIUM 1 GM VIAL IVPB ONE (09:04)
[2020-08-18] MEDS ORDERED: DEXAMETHASONE SOD PHOSPHATE 4 MG/1 ML VIAL ONE ×2 (09:07→09:55)
[2020-08-18] MEDS ORDERED: PHENYLEPHRINE HCL 10 MG/1 ML SINGLE DOSE VIAL ONE (09:42)
[2020-08-18] MEDS ORDERED: KETOROLAC TROMETHAMINE 30 MG/1 ML VIAL ONE (09:55)
[2020-08-18] MEDS ORDERED: ONDANSETRON 4 MG/2 ML VIAL IVPUSH PRN (10:19)
[2020-08-18] MEDS ORDERED: oxyCODONE HCL 5 MG TABLET PO PRN ×2 (10:19)
[2020-08-18] MEDS ORDERED: LACTATED RINGERS SOLUTION 1,000 ML IV SCH (10:30)
[2020-08-18] MEDS: FAMOTIDINE 20 MG TABLET PO SCH (14:31)
[2020-08-18] MEDS: amLODIPine BESYLATE 5 MG TABLET (FP) PO SCH (14:31)
[2020-08-18] MEDS: PANTOPRAZOLE SOD 40 MG SUSPENSION PACKET PO SCH (14:32)
[2020-08-18] MEDS: FINASTERIDE 5 MG TABLET (FP) PO SCH (14:32)
--- NOTE | 2020-08-18 15:49 | OP ---
DATE OF OPERATION: 08/18/2020 PREOPERATIVE DIAGNOSIS: Benign prostatic hypertrophy with lower urinary tract symptoms. POSTOPERATIVE DIAGNOSIS: Benign prostatic hypertrophy with lower urinary tract symptoms. PROCEDURE: Transurethral resection of the prostate. SURGEON: Tariq Greco MD [employer]ADEMIC COACH: None. ANESTHESIA: General via laryngeal mask. ANESTHESIOLOGIST: Malaika Arroyo MD SPECIMENS: Prostate tissue. CULTURES: None. DRAINS: A 24-Croatian 3-way Morillo catheter. ESTIMATED BLOOD LOSS: 50 mL. COMPLICATIONS: None. PROCEDURE: Patient was brought in the operating room, placed on the operating table in a supine position. After the administration of general anesthesia via laryngeal mask, intravenous antibiotics were administered. Sequential compression devices were placed. Patient was placed in the dorsal lithotomy position. The genitals and perineum were prepped and draped in usual sterile manner. A 26-Croatian resectoscope sheath with visualizing obturator was inserted into the bladder under direct vision. Anterior urethra was normal. The prostatic urethra measured approximately 5.5 cm in length and demonstrated severe bilobar occlusion. The bladder was entered and thoroughly inspected. There were no foreign bodies, tumors, stones, inflammation. Both ureteral orifices were in their usual location with clear efflux bilaterally. Now the working element Baker resectoscope was inserted and TURP was performed in the standard fashion by first creating a groove in the left lateral lobe 2 o'clock position from the area of the bladder neck to the verumontanum down to the level of the capsular fibers. The left lateral lobe of the prostate was then sequentially resected from the 2 to the 6 o'clock position from the area of bladder neck to the verumontanum down to the level of the capsular fibers. Now the right lateral lobe of the prostate was resected in an identical manner. The roof of the prostate and the floor of the prostate were resected. All resected prostatic tissue was removed from the bladder using the [place]elopeik evacuator. Hemostasis was assured with electrocautery. Both ureteral orifices were intact at the end of the procedure. Now, bladder was left full. Resectoscope removed. A 24-Croatian 3-way Morillo catheter was inserted in the bladder, 30 mL placed in the balloon, placed on continuous bladder irrigation, returned minimally blood-tinged. He tolerated the procedure well, transferred to recovery in stable condition. TARIQ GRECO M.D. [id number]
[2020-08-18] MEDS: glipiZIDE 5 MG TABLET (FP) PO SCH (17:07)
[2020-08-18 18:33] LABS: EPI CELLS 1.2 /uL (0-25.1); HYALINE CASTS 3.46 /uL (0-3.1); URINE RBC 11.1 /uL (0-23.9); URINE WBC 428.1 /uL (0-25.8)
[2020-08-18 18:34] LABS: URINE BACTERIA 13323.8 /uL (0-1359)
[2020-08-18] MEDS ORDERED: MONTELUKAST NA 10 MG TABLET PO SCH (22:00)
[2020-08-19] MEDS ORDERED: FLUTICASONE PROP 0.05% 16 GM NASAL SPRAY NS SCH ×3 (02:15→10:00)
[2020-08-19] MEDS: glipiZIDE 5 MG TABLET (FP) PO SCH (06:27)
[2020-08-19] MEDS ORDERED: metFORMIN HCL 500 MG TABLET (FP) PO SCH (07:00)
[2020-08-19] MEDS ORDERED: PT OWN MED DRAWER 7, Y5N ONE (08:49)
[2020-08-19] MEDS: PANTOPRAZOLE SOD 40 MG SUSPENSION PACKET PO SCH (09:01)
[2020-08-19] MEDS: FINASTERIDE 5 MG TABLET (FP) PO SCH (09:02)
[2020-08-19] MEDS: amLODIPine BESYLATE 5 MG TABLET (FP) PO SCH (09:02)
[2020-08-19] MEDS: FAMOTIDINE 20 MG TABLET PO SCH (09:02)
[2020-08-19] MEDS ORDERED: LORATADINE 10 MG TABLET PO SCH (10:00)
[2020-08-19 10:05] VITALS: BP 141/69; PULSE 99; TEMP 98.8
[2020-08-19] MEDS ORDERED: MONTELUKAST NA 10 MG TABLET PO SCH (22:00)
--- NOTE | 2020-08-20 20:01 | PATH ---
Surgical Pathology Report Patient Name: DIANA ANGEL [facility]. Rec. #: [id number] /Age/Gender: 1945 (Age: 74) / M Account: [id number] Location: [facility] SURGICAL Taken: 08/18/2020 Received: 08/18/2020 Reported: 08/20/2020 Physicians: Leif Greco M.D. Specimen(s) Received PROSTATE TISSUE Clinical History BPH Final Diagnosis PROSTATE TISSUE, TRANSURETHRAL RESECTION OF PROSTATE: FOCAL HIGH-GRADE PROSTATIC INTRAEPITHELIAL NEOPLASIA (HGPIN). PROSTATIC TISSUE WITH MARKED ACUTE AND CHRONIC INFLAMMATION, HISTIOCYTIC INFILTRATE, AND GIANT CELL REACTION, ACINAR ATROPHY, CYSTIC CHANGES, GLANDULAR AND STROMAL HYPERPLASIA, AND REACTIVE CHANGES. SEE COMMENT. Comment: Immunohistochemical stains performed and interpreted at [facility] for p63 highlights intact basal cells. Differential diagnoses for the granulomatous inflammation include non-specific granulomatous prostatitis and infection. Suggest clinical correlation. Case seen in intradepartmental review with consensus on diagnosis. Special stains for fungus (PAS) and acid-fast bacilli (AFB) are pending and will be reported separately. Positive and negative controls (internal if applicable) show appropriate results. Electronically Signed Cheli Quesada M.D. Addendum Reported: 08/24/2020 Addendum Diagnosis Special stains for fungus (PAS), and acid fast bacilli (AFB) are negative. Cheli Quesada M.D. Addendum Reported: 08/26/2020 Addendum Diagnosis Case discussed with Dr. Greco, 08/26/20. Cheli Quesada M.D. Gross Description Received in formalin labeled "prostate tissue," is a 25 g, is a 10.5 x 9.5 x 0.8 cm aggregate of westfall-pink, firm to rubbery portions of tissue, consistent with prostate chips. A roofing sales representative portion is submitted in 12 cassettes. /08/18/2020 saudi08/18/2020
== END 2020-08-19 10:51 | disposition home or self-care (01) ==
LOC: JASU-SURG 04:19 → J6S 15:19 → JASU-SURG 08-19 10:51
PROVIDERS: ATTEND Urology
PROC: 0VT08ZZ Resection of Prostate, Via Natural or Artificial Opening Endoscopic (ICD-10-PCS; principal; 2020-08-18 09:30)
DX: N40.1 Benign prostatic hyperplasia with lower urinary tract symptoms (principal); N32.81 Overactive bladder; E11.9 Type 2 diabetes mellitus without complications; Z79.84 Long term (current) use of oral hypoglycemic drugs
CPT/HCPCS: 81003; 82962; 88305-TC; 88312-TC; 88342-TC; 94760